=== PATIENT | male | born 1960 | race Two or more races ===

== ENCOUNTER 2022-12-07 13:22 | Emergency (ER) | payer MEDICAID ==
[~2022-12-07] VITALS: Ht 165.1 cm; Wt 82.8 kg
[2022-12-07 13:50] VITALS: BP 181/90
[2022-12-07] MEDS ORDERED: HYDROcodone-ACET 10/325MG TAB PO ONE (15:00)
[2022-12-07] MEDS ORDERED: KETOROLAC TROMETH 60MG/2ML VIAL IM ONE (15:00)
[2022-12-07] MEDS ORDERED: HYDR-4902 PO (15:43)
[2022-12-07] MEDS ORDERED: IBUP-1455 PO (15:43)
== END 2022-12-07 16:01 | disposition home or self-care (01) ==
LOC: ER 13:22
DX: S39.012A Strain of muscle, fascia and tendon of lower back, initial encounter (principal); X50.0XXA Overexertion from strenuous movement or load, initial encounter; Y93.89 Activity, other specified; Y92.89 Other specified places as the place of occurrence of the external cause; Y99.8 Other external cause status
CPT/HCPCS: 72100; 96372; 99283; J1885

== ENCOUNTER 2024-05-28 07:51 | Inpatient (IN) | payer MEDICAID ==
[2024-05-28] VITALS (25 sets, daily range): BP systolic 96–128; BP diastolic 56–79; PULSE 73–111; RESP 14–23; TEMP 98.9; O2SAT 89–96
[~2024-05-28] VITALS: Ht 162.6 cm; Wt 90.3 kg
[~2024-05-28 07:51] MED LIST: HYDR-4902 PO; IBUP-1455 PO
--- NOTE | 2024-05-28 08:36 | ED.PDOC ---
History of Present Illness HPI Comments 63-year-old male with PMHx HTN presents with a chief complaint of abdominal pain x onset yesterday. Patient also has associated diarrhea. Patient mentions that his pain is localized diffusely, non-radiating, rates his pain a 10/10 and constant in timing. Patient mentions that onset began yesterday. Patient denies any injuries or trauma prior to onset of symptoms. Patient denies any rectal bleeding, nausea, vomiting, or hematemesis. No other symptoms or modifying factors present at this time. Chief Complaint: Abdominal Pain Time Seen by MD: 08:28 Reviewed Notes: Medications, Allergies Allergies: Coded Allergies: NO KNOWN ALLERGIES (Unverified , 05/28/24) Home Meds Active Scripts Hydrocodone-Acetaminophen (Hydrocodone Bitartrate/AC 5-325 mg) 1 Tab Tab, 1 TAB PO Q6HP PRN, #20 TAB Prov:RADHA MARTÍNEZ PAC 12/07/22 Ibuprofen Micronized (Ibuprofen) 800 Mg Tab, 800 MG PO Q8HP PRN, #30 TAB Prov:RADHA MARTÍNEZ PAC 12/07/22 Information Source: Patient Mode of Arrival: Ambulatory Severity: Moderate Timing: Days Duration: Since onset Prehospital treatment: None Past Medical History PAST MEDICAL HISTORY: HTN, Denies Surgical History: Appendectomy, Denies all surgeries Family History Family History: Reviewed,noncontributory to illness, No family hx of Cancer, No family hx of DM, No family hx of Heart jalyn, No family hx of HTN, No family hx ofKidney jalyn, No family hx of Liver jalyn, No family hx of Lung jalyn, No family hx of Stroke Social History Smoker: Non-Smoker Alcohol: Denies ETOH Use Drugs: Denies Drug Use Constitutional: denies: chills, diaphoresis, fatigue, fever, malaise, sweats, weakness, others EENTM: denies: blurred vision, double vision, ear bleeding, ear discharge, ear drainage, ear pain, ear ringing, eye pain, eye redness, hearing loss, mouth pain, mouth swelling, nasal discharge, nose bleeding, nose congestion, nose pain, photophobia, tearing, throat pain, throat swelling, voice changes, others Respiratory: denies: cough, hemoptysis, orthopnea, SOB at rest, shortness of breath, SOB with excertion, stridor, wheezing, others Cardiovascular: denies: chest pain, dizzy spells, diaphoresis, Dyspnea on exertion, edema, irregular heart beat, left arm pain, lightheadedness, palpitations, PND, syncope, others Gastrointestinal: reports: abdominal pain, diarrhea; denies: abdomen distended, blood streaked bowels, constipated, dysphagia, difficulty swallowing, hematemesis, melena, nausea, poor appetite, poor fluid intake, rectal bleeding, rectal pain, vomiting, others Genitourinary: denies: burning, dysuria, flank pain, frequency, hematuria, incontinence, penile discharge, penile sore, pain, testicle pain, testicle swelling, urgency, others Neurological: denies: dizziness, fainting, headache, left sided numbness, left sided weakness, numbness, paresthesia, pre-existing deficit, right sided numbness, right sided weakness, seizure, speech problems, tingling, tremors, weakness, others Musculoskeletal: denies: back pain, gout, joint pain, joint swelling, muscle pain, muscle stiffness, neck pain, others Integumetry: denies: bruises, change in color, change in hair/nails, dryness, laceration, lesions, lumps, rash, wounds, others Allergic/Immunocompromised: denies: Difficulty Healing, Frequent Infections, Hives, Itching, others Hematologic/Lymphatic: denies: anemia, blood clots, easy bleeding, easy bruising, swollen glands, others Endocrine: denies: excessive hunger, excessive sweating, excessive thirst, excessive urination, flushing, intolerance to cold, intolerance to heat, unexplained weight gain, unexplained weight loss, others Psychiatric: denies: anxiety, bipolar disorder, depression, hopeless, panic disorder, schizophrenia, sleepless, suicidal, others All Other Systems: Reviewed and Negative Physical Exam General Appearance: No Apparent Distress, Normal HEENT: Normal ENT Inspection, Pharynx Normal, TMs Normal Neck: Full Range of Motion, Non-Tender, Normal, Normal Inspection Respiratory: Chest Non-Tender, Lungs Clear, No Accessory Muscle Use, No Respiratory Distress, Normal Breath Sounds Cardiovascular: No Edema, No JVD, No Murmur, No Gallop, Normal Peripheral Pulses, Regular Rate/Rhythm Breast Exam: Deferred Gastrointestinal: No Organomegaly, Non Tender, No Pulsatile Mass, Normal Bowel Sounds, Soft Genitalia: Deferred Pelvic: Deferred Rectal: Deferred Extremities: No calf tenderness, Normal capillary refill, Normal inspection, Normal range of motion, Non-tender, No pedal edema Musculoskeletal : Apperance: Normal 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 Was a procedure done?: No X-Ray, Labs, Meds, VS Vital Signs Date Time Temp Pulse Resp B/P (MAP) Pulse Ox O2 Delivery O2 Flow Rate FiO2 05/28/24 09:21 109 05/28/24 08:35 99.0 118 17 111/63 (79) 98 99.0 05/28/24 08:35 118 17 98 Room Air 05/28/24 08:03 97.8 121 18 140/46 (77) 98 Lab Test 05/28/24 08:50 05/28/24 08:43 Range/Units Urine Color Light-orange Yellow Urine Clarity Turbid H Clear Urine pH 5.5 5.0-9.0 Urine Specific [place] 1.029 1.001-1.035 Urine Protein 1+ H Negative Urine Ketones 1+ H Negative Urine Blood Negative Negative /uL Urine Nitrite Negative Negative Urine Bilirubin Negative Negative Urine Urobilinogen Normal Negative mg/dL Urine Leukocyte Esterase Negative Negative /uL Urine RBC <1 0 - 3 /hpf Urine WBC 1 0 - 3 /hpf Urine Squamous Epithelial Cells Few <5 /hpf Urine Bacteria None seen None Seen /hpf Urine Hyaline Casts Few 0 - 2 /lpf Urine Granular Casts Many 0 /lpf Urine Mucus Few None Seen Urine Glucose Normal Normal mg/dL White Blood Count 21.2 H 4.4-10.8 10^3/uL Red Blood Count 3.76 L 4.5-5.90 10^6/uL Hemoglobin 13.0 L 13.5-17.5 g/dL Hematocrit 37.9 L 41.0-53.0 % Mean Corpuscular Volume 100.7 H 80.0-100.0 fL Mean Corpuscular Hemoglobin 34.5 H 28.0-32.0 pg Mean Corpuscular Hemoglobin Concent 34.2 32.0-36.0 g/dL Red Cell Distribution Width 13.7 11.8-14.3 % Platelet Count 212 140-450 10^3/uL Mean Platelet Volume 9.0 6.9-10.8 fL Neutrophils (%) (Auto) 92.7 H 37.0-80.0 % Lymphocytes (%) (Auto) 4.6 L 10.0-50.0 % Monocytes (%) (Auto) 2.5 0.0-12.0 % Eosinophils (%) (Auto) 0.0 0.0-7.0 % Basophils (%) (Auto) 0.2 0.0-2.0 % Neutrophils # (Auto) 19.7 H 1.6-8.6 10 ^3/uL Lymphocytes # (Auto) 1.0 0.4-5.4 10 ^3/uL Monocytes # (Auto) 0.5 0-1.3 10 ^3/uL Eosinophils # (Auto) 0 0-0.8 10 ^3/uL Basophils # (Auto) 0 0-0.2 10 ^3/uL Nucleated Red Blood Cells 0.0 % Prothrombin Time 11.1 9.3-11.8 sec Prothrombin Time INR 1.05 0.9-1.15 Activated Partial Thromboplast Time 29.2 24.5-34.5 SEC Sodium Level 133 L 136-145 mmol/L Potassium Level 4.8 3.5-5.1 mmol/L Chloride Level 101 98-107 mmol/L Carbon Dioxide Level 24 20-31 mmol/L Anion Gap 8 5-15 Blood Urea Nitrogen 20 9-23 mg/dL Creatinine 1.28 0.700-1.30 mg/dL Glomerular Filtration Rate Calc 63 >90 mL/min BUN/Creatinine Ratio 15.6 10.0-20.0 Serum Glucose 203 H 74-106 mg/dL Calcium Level 9.3 8.7-10.4 mg/dL Total Bilirubin 1.1 H 0.2-1.0 mg/dL Aspartate Amino Transferase (AST) 24 13-40 U/L Alanine Aminotransferase (ALT) 29 7-40 U/L Alkaline Phosphatase 50 46-116 U/L Total Protein 6.7 5.7-8.2 g/dL Albumin 3.9 3.2-4.8 g/dL Current Medications Medications (Trade) Dose Ordered Sig/Carlos Route Start Time Stop Time Status Last Admin Metronidazole 100 ml @ 100 mls/hr ONCE ONCE IV 05/28/24 09:15 11/18/24 10:14 05/28/24 09:38 Abdomen/Pelvis CT Scan Impression: 1. There are findings consistent with acute sigmoid diverticulitis. There is large amount of free air within the abdominal cavity consistent with bowel rupture. There is no free or loculated fluid collection identified. 2. Hepatic steatosis. 3. Mild prostatomegaly. Time of 1ST Reevaluation: 08:58 Reevaluation 1ST: Unchanged Patient Education/Counseling: Diagnosis, Treatment, Prognosis Family Education/Counseling: No Family Present Critical Care Note Critical Care Time?: No Stability Stability form required: No I personally scribed for TATIANA WARREN MD ([email or web address]) on 05/28/24 at 08:36. Electronically submitted by Deniz Leone ([email or web address]). I personally scribed for TATIANA WARREN MD ([email or web address]) on 05/28/24 at 09:40. Electronically submitted by Deniz Leone ([email or web address]). TATIANA WARREN MD May 28, 2024 08:36
[2024-05-28 08:50] LABS: Basophils # (auto) 0 10 ^3/uL (0-0.2); Basophils % (auto) 0.2 % (0.0-2.0); Eosinophils # (auto) 0 10 ^3/uL (0-0.8); Mean Corpuscular Hgb Conc. 34.2 g/dL (32.0-36.0); Monocytes # (auto) 0.5 10 ^3/uL (0-1.3); Red Blood Cells 3.76 10^6/uL (4.5-5.90)
[2024-05-28 08:52] LABS: Hematocrit 37.9 % (41.0-53.0); Lymphocytes % (auto) 4.6 % (10.0-50.0); Mean Corpuscular Hemoglobin 34.5 pg (28.0-32.0); Mean Corpuscular Volume 100.7 fL (80.0-100.0); Monocytes % (auto) 2.5 % (0.0-12.0); Neutrophils # (auto) 19.7 10 ^3/uL (1.6-8.6); Neutrophils % (auto) 92.7 % (37.0-80.0); Platelet Count (auto) 212 10^3/uL (140-450); Red Cell Distribution Width 13.7 % (11.8-14.3); White Blood Cell 21.2 10^3/uL (4.4-10.8)
[2024-05-28 09:02] LABS: Urine Bacteria None Seen /hpf (None Seen)
--- NOTE | 2024-05-28 09:09 | DVH ---
CT ABDOMEN AND PELVIS WITHOUT CONTRAST CLINICAL HISTORY: pain TECHNIQUE: Multiple contiguous axial images of the abdomen and pelvis without intravenous contrast. The images were reformatted degenerate coronal and sagittal reconstructions. All CT scans at this medical facility are performed using dose modulation techniques as appropriate t o a performed exam including the following:Automated exposure control was utilized; adjustment of the MA and/or KV according to patient size; and use of iterative reconstruction technique. Radiation Dose Information: CT Dose: CTDI volume is 8.3 mGy. Dose-length product is 504 mGy*cm Comparison: None FINDINGS: Evaluation of the abdomen and pelvis is limited without intravenous contrast. There are multiple diverticula in the sigmoid colon. There is wall irregularity and fat stranding in the sigmoid colon consistent with acute diverticulitis. There is large amount of free air within the abdominal cavity consistent with bowel rupture. There is no free or loculated fluid collection ident ified. There are no dilated small bowel loops. There is diffuse fatty infiltration of the liver. The gallbladder, pancreas, kidneys, adrenal glan ds, and spleen appear within normal limits. There is no gross evidence of abdominal lymphadenopathy. There is no free fluid or free air. The abdominal aorta and IVC appear within normal limits. Bladder is poorly filled limiting evaluation. There is mild prostatomegaly. There is no gross evidenc e of a pelvic mass or lymphadenopathy. There is no free fluid collection. There is mild scarring versus atelectasis in the right lung base. The left lung base is clear. There is no acute osseous abnormality. IMPRESSION: 1. There are findings consistent with acute sigmoid diverticulitis. There is large amount of free air within the abdominal cavity consistent with bowel rupture. There is no free or loculated fluid salome ection identified. 2. Hepatic steatosis. 3. Mild prostatomegaly. The results were discussed with dr. Sharma by Dr. Michael Allison on 05 28 24, 907 hours. HS:Y
[2024-05-28 09:15] LABS: Urine Blood Negative /uL (Negative); Urine Clarity Turbid (Clear); Urine Color Light-Orange (Yellow); Urine Hyaline Cast FEW /lpf (0 - 2); Urine Mucus FEW (None Seen); Urine Protein, UAD 1+ (Negative); Urine Specific Gravity 1.029 (1.001-1.035); Urine Urobilinogen Normal (Negative); Urine WBC 1 /hpf (0 - 3); Urine pH 5.5 (5.0-9.0)
[2024-05-28 09:16] LABS: Alanine Aminotransferase 29 U/L (7-40); Albumin 3.9 g/dL (3.2-4.8); Alkaline Phosphatase 50 U/L (46-116); Anion Gap 8 (5-15); Aspartate Aminotransferase 24 U/L (13-40); BUN/Creatinine Ratio 15.6 (10.0-20.0); Bilirubin, Total 1.1 mg/dL (0.2-1.0); Blood Urea Nitrogen 20 mg/dL (9-23); Calcium 9.3 mg/dL (8.7-10.4); Carbon Dioxide 24 mmol/L (20-31); Chloride 101 mmol/L (98-107); Glucose 203 mg/dL (74-106); Potassium 4.8 mmol/L (3.5-5.1); Sodium 133 mmol/L (136-145); Total Protein 6.7 g/dL (5.7-8.2)
[2024-05-28 09:37] LABS: INR 1.05 (0.9-1.15); Partial Thromboplastin Time 29.2 SEC (24.5-34.5); Prothrombin Time 11.1 sec (9.3-11.8)
[2024-05-28] MEDS: metroNIDAZOLE 500MG/100ML 100 ML IV ONE ×2 (09:38→15:13)
[2024-05-28] MEDS: ONDANSETRON HCL 4 MG/2 ML VIAL IV ONE ×2 (09:40→14:30)
[2024-05-28] MEDS: MORPHINE SULFATE 4 MG/ML SYR/VIAL IV ONE (09:41)
[2024-05-28] MEDS ORDERED: fentaNYL CITRATE 5 ML ONE (10:18)
[2024-05-28] MEDS ORDERED: PROPOFOL 10 MG/ML 20 ML IV ONE (10:20)
[2024-05-28] MEDS: SUCCINYLCHOLINE CHLORIDE 20 MG/ML 10ML VIAL IV ONE (10:20)
[2024-05-28] MEDS ORDERED: ROCURONIUM 10MG/ML 10ML VIAL IV ONE ×2 (10:20→13:12)
--- NOTE | 2024-05-28 11:01 | DVH ---
CHEST RADIOGRAPH Indication: PRE OP, pain Technique: Single frontal view of the chest was obtained Comparison: None FINDINGS: Lines and Tubes: NG tube in stomach Lungs: No focal consolidation. Pleura: No effusion. No pneumothorax. Cardiomediastinal contours: Unremarkable Bones: No acute osseous abnormality. IMPRESSION: No acute cardiopulmonary disease.
[2024-05-28] MEDS ORDERED: ePHEDrine SULFATE 50 MG/ML AMP ONE (11:53)
[2024-05-28] MEDS ORDERED: PHENYLEPHRINE HCL 10 MG/ML VL ONE (11:53)
[2024-05-28] MEDS ORDERED: MEPERIDINE HCL (25 MG/ML) 1ML VIAL ONE (12:23)
[2024-05-28] MEDS ORDERED: FUROSEMIDE 20 MG/2 ML VIAL ONE (13:17)
[2024-05-28] MEDS ORDERED: SUGAMMADEX 200mg/2ml Vial (100MG/ML) IV ONE (13:54)
[2024-05-28] MEDS ORDERED: MEPERIDINE HCL (25 MG/ML) 1ML VIAL IV PRN (14:30)
[2024-05-28] MEDS ORDERED: ACETAMINOPHEN IV 1000 MG/100ML (10MG/ML) IV PRN (14:30)
[2024-05-28] MEDS ORDERED: D5W/SOD CHL 0.45%/KCL 20MEQ 1,000 ML IV ONE (14:45)
[2024-05-28] MEDS: HYDROmorphone HCL 2 MG/ML VL/or syr IV ONE (14:45)
[2024-05-28] MEDS ORDERED: MORPHINE SULFATE INJ 2 MG/ml SYRG IV PRN ×2 (14:45→15:30)
[2024-05-28] MEDS ORDERED: NITROGLYCERIN 0.4 MG SL TAB SL PRN ×2 (14:45→15:30)
[2024-05-28] MEDS: HYDROmorphone HCL 2 MG/ML VL/or syr IV PRN (14:57)
--- NOTE | 2024-05-28 15:01 | DVHOP ---
DATE OF SURGERY: 05/28/2024 PREOPERATIVE DIAGNOSIS: Pneumoperitoneum, ruptured colon. POSTOPERATIVE DIAGNOSIS: Pneumoperitoneum secondary to ruptured ____ obstructing cancer of the colon SURGEON: Mj Beltran MD ANESTHESIA: General endotracheal. ANESTHESIOLOGIST: Dr. Denny. PROCEDURES: Exploratory laparotomy, resection of rectosigmoid colon, resection of rectal cancer, descending colon colostomy. DESCRIPTION OF PROCEDURE: Under general endotracheal anesthesia, with the patient's skin prepped and draped, a midline incision was made and feculent material was cultured. The abdomen was entered ____ , which was then irrigated and the sigmoid colon was palpated. There was a huge swelling and distention of the distal sigmoid colon with obvious blood and feces in the retroperitoneal space behind the sigmoid colon. This was incised and the contents evacuated. The distal most sigmoid colon was then palpated that was beneath the peritoneal reflection of palpable induration. At this point, I opened the peritoneal reflection of the rectum and discovered a perforated cancer. I had resected this perforated cancer to the best of my ability; however, the cancer was already penetrating into surrounding tissues and it was not completely removable. I had called for frozen section, which was delayed by 2 hours. Subsequently removed the removable portion of the rectal cancer and oversewn the distal remnant, which from above seems to be about 2-3 cm above the anal verge. The pelvis was then profusely irrigated. A 10 mm Edu-Valenzuela drain was placed to the vicinity and the retroperitoneal space was recreated by closure of the peritoneum with a 2-0 Monocryl suture. Abdomen and pelvis with profusely irrigated with warm saline. Saline was aspirated. A colostomy defect was created in the left abdominal wall through which the descending colon was exteriorized. Following assurance of complete hemostasis, the abdomen was closed using 2-0 Monocryl suture for approximation of the peritoneum, a #1 double-stranded PDS suture for approximation of the fascia. Skin was approximated using metallic skin emil. Following closure of the abdomen and exteriorization of the 10 mm Edu-Valenzuela drain through a separate incision to which it was secured with a 2-0 nylon suture. The colostomy was matured using 2-0 Monocryl sutures. Palpation confirmed patency of the colostomy. The patient remained hemodynamically stable throughout the procedure. However, due to his history of heavy alcohol intake, he will be transferred to the Intensive Care Unit. He was extubated at the termination of the procedure, left the operating room following an accurate needle and sponge count. His family was thoroughly informed in the waiting area. MD RAYMOND Padilla TID: [id number] RECEIPT: [id number]
[2024-05-28] MEDS: PIPERACILLIN-TAZOB 3.375GM 100 ML IV ONE (15:04)
[2024-05-28] MEDS: LIDOCAINE W/ EPINEPHRINE 1% 20ML VIAL ONE (15:11)
[2024-05-28] MEDS: METHYLENE BLUE 0.5% 5MG/ML 10ml AMP IV ONE (15:12)
[2024-05-28] MEDS: BUPIVACAINE 0.5% P/F INJ 10 ML VIAL ONE (15:12)
[2024-05-28] MEDS: D5W/LACTATED RINGERS 1,000 ML IV SCH (15:15)
[2024-05-28] MEDS: ceFAZolin 2 GM/D5W50ml 50 ML IV ONE (15:15)
[2024-05-28] MEDS: D5W/SOD CHL 0.45%/KCL 20MEQ 1,000 ML IV ONE (15:16)
[2024-05-28] MEDS ORDERED: TPN PER PHARMACY 0 ML IV SCH (15:30)
[2024-05-28] MEDS ORDERED: LABETALOL HCL 20 MG/4 ML VL IV PRN (15:30)
[2024-05-28] MEDS: cefTRIAXone 1GM/50ML D5W 50 ML IV SCH (15:30)
--- NOTE | 2024-05-28 15:44 | DVHHP2 ---
History of Present Illness Reason for Visit: Abdominal pain History of Present Illness The patient was a 63-year-old male presenting to the emergency room with severe abdominal pain. CT scan of the abdomen and pelvis was performed which revealed free air in the belly. Patient underwent exploratory laparotomy, with findings of perforated cancer, resection of the rectal cancer, with notation of the cancer invading surrounding area. The patient was assessed in the recovery room area, noted to be hemodynamically stable with some tachycardia. Significant history of the patient includes hypertension, and EtOH use. Cardiovascular: HTN Past Surgical History: Appendectomy Family History: None Smoke: No ALCOHOL: heavy Drugs: None Lives: with Family Review of Systems Constitutional: No: Fever, Chills, Sweats, Weakness, Malaise, Other Eyes: No: Pain, Vision change, Conjunctivae inflammation, Eyelid inflammation, Other, Redness ENT: No: Ear pain, Ear discharge, Nose pain, Nose discharge, Nose congestion, Mouth pain, Mouth swelling, Throat pain, Throat swelling, Other Respiratory: No: Cough, Dry, Shortness of breath, SOB with excertion, Wheezing, Hemoptysis, Pleuritic Pain, Sputum, Wheezing, Other Gastrointestinal: Abdominal Pain Genitourinary: No Dysuria, No Frequency, No Incontinence, No Hematuria, No Rete ntion, No Other Musculoskeletal: No: other, neck pain, shoulder pain, arm pain, back pain, hand pain, leg pain, foot pain Skin: No: Rash, Lesions, Jaundice, Bruising, Other Neurological: No: Weakness, Numbness, Incoordination, Change in speech, Confusion, Seizures, Other Allergies: Coded Allergies: NO KNOWN ALLERGIES (Unverified , 05/28/24) Medications Current Medications Medications Dose Ordered Sig/Carlos Route Start Time Stop Time Status Last Admin Dose Admin Nitroglycerin 0.4 mg Q5MINP PRN SL 05/28/24 14:45 Morphine Sulfate 2 mg Q30M PRN IV 05/28/24 14:45 Folic Acid 1 mg/ Magnesium Sulfate 8 meq/ Multivitamins 10 ml/Thiamine HCl 100 mg/Sodium Chloride 1,013.2 ml @ 126.247 mls/hr DAILY@1800 INJ 05/28/24 18:00 Dextrose/Lactated Ringer's 1,000 ml @ 125 mls/hr Q8H IV 05/28/24 15:15 UNV Nitroglycerin 0.4 mg Q5MINP PRN SL 05/28/24 15:30 UNV Morphine Sulfate 2 mg Q30M PRN IV 05/28/24 15:30 UNV Amino Acids 0 ml @ 0 mls/hr PER PHARMACY IV 05/28/24 15:30 UNV Metronidazole 100 ml @ 100 mls/hr Q8HR IV 05/28/24 22:00 UNV Ceftriaxone Sodium 50 ml @ 100 mls/hr DAILY@09 IV 05/28/24 15:30 UNV Morphine Sulfate 2 mg Q4HPRN PRN IV 05/28/24 15:30 UNV Ondansetron HCl 4 mg Q6HP PRN IV 05/28/24 15:30 UNV Labetalol HCl 10 mg Q2HPRN PRN IV 05/28/24 15:30 UNV Pantoprazole Sodium 40 mg DAILY IV 05/29/24 10:00 UNV Exam Vital Signs Vital Signs Date Time Temp Pulse Resp B/P (MAP) Pulse Ox O2 Delivery O2 Flow Rate FiO2 05/28/24 14:17 Mask 10.0 05/28/24 10:26 104 05/28/24 10:11 21 126/66 05/28/24 10:06 96 21 05/28/24 10:04 98.2 98.2 General Appearance: Alert, mild distress, Other (Patient was still sleepy secondary to anesthesia) HEENT: Atraumatic, PERRLA Respiratory: Clear to auscultation, Other (Nasal cannula at 4 liters/minute) Cardiovascular: Normal S1, Normal S2, Other (Sinus tachycardia) Abdominal: Other (Colostomy) Extremities: No clubbing, No cyanosis, No edema Skin: No rashes, No breakdown Psych/Mental Status: Mental status NL Labs/Xrays Labs Test 05/28/24 08:50 05/28/24 08:43 Range/Units Urine Color Light-orange Yellow Urine Clarity Turbid H Clear Urine pH 5.5 5.0-9.0 Urine Specific [place] 1.029 1.001-1.035 Urine Protein 1+ H Negative Urine Ketones 1+ H Negative Urine Blood Negative Negative /uL Urine Nitrite Negative Negative Urine Bilirubin Negative Negative Urine Urobilinogen Normal Negative mg/dL Urine Leukocyte Esterase Negative Negative /uL Urine RBC <1 0 - 3 /hpf Urine WBC 1 0 - 3 /hpf Urine Squamous Epithelial Cells Few <5 /hpf Urine Bacteria None seen None Seen /hpf Urine Hyaline Casts Few 0 - 2 /lpf Urine Granular Casts Many 0 /lpf Urine Mucus Few None Seen Urine Glucose Normal Normal mg/dL White Blood Count 21.2 H 4.4-10.8 10^3/uL Red Blood Count 3.76 L 4.5-5.90 10^6/uL Hemoglobin 13.0 L 13.5-17.5 g/dL Hematocrit 37.9 L 41.0-53.0 % Mean Corpuscular Volume 100.7 H 80.0-100.0 fL Mean Corpuscular Hemoglobin 34.5 H 28.0-32.0 pg Mean Corpuscular Hemoglobin Concent 34.2 32.0-36.0 g/dL Red Cell Distribution Width 13.7 11.8-14.3 % Platelet Count 212 140-450 10^3/uL Mean Platelet Volume 9.0 6.9-10.8 fL Neutrophils (%) (Auto) 92.7 H 37.0-80.0 % Lymphocytes (%) (Auto) 4.6 L 10.0-50.0 % Monocytes (%) (Auto) 2.5 0.0-12.0 % Eosinophils (%) (Auto) 0.0 0.0-7.0 % Basophils (%) (Auto) 0.2 0.0-2.0 % Neutrophils # (Auto) 19.7 H 1.6-8.6 10 ^3/uL Lymphocytes # (Auto) 1.0 0.4-5.4 10 ^3/uL Monocytes # (Auto) 0.5 0-1.3 10 ^3/uL Eosinophils # (Auto) 0 0-0.8 10 ^3/uL Basophils # (Auto) 0 0-0.2 10 ^3/uL Nucleated Red Blood Cells 0.0 % Prothrombin Time 11.1 9.3-11.8 sec Prothrombin Time INR 1.05 0.9-1.15 Activated Partial Thromboplast Time 29.2 24.5-34.5 SEC Sodium Level 133 L 136-145 mmol/L Potassium Level 4.8 3.5-5.1 mmol/L Chloride Level 101 98-107 mmol/L Carbon Dioxide Level 24 20-31 mmol/L Anion Gap 8 5-15 Blood Urea Nitrogen 20 9-23 mg/dL Creatinine 1.28 0.700-1.30 mg/dL Glomerular Filtration Rate Calc 63 >90 mL/min BUN/Creatinine Ratio 15.6 10.0-20.0 Serum Glucose 203 H 74-106 mg/dL Calcium Level 9.3 8.7-10.4 mg/dL Total Bilirubin 1.1 H 0.2-1.0 mg/dL Aspartate Amino Transferase (AST) 24 13-40 U/L Alanine Aminotransferase (ALT) 29 7-40 U/L Alkaline Phosphatase 50 46-116 U/L Total Protein 6.7 5.7-8.2 g/dL Albumin 3.9 3.2-4.8 g/dL Assessment/Plan Assessment/Plan Impression: -perforated bowel secondary to probable colorectal cancer -obesity -primary hypertension -? ETOH use -peritonitis, sepsis Plan: -admit to ICU -NG to low intermittent suction -p.r.n. antihypertensives -continue banana bag daily -PICC line -start TPN tomorrow -pain management -antibiotic therapy: Rocephin, Flagyl -PUD, DVT prophylaxis -repeat labs in a.m. Total time spent with patient discussing and formulating plan of care: 35 minutes. This medical document was created using an electronic medical record system with [employer] dictation system. Although this document has been carefully reviewed, there may still be some phonetic and typographical errors. These areas are purely typographical due to imperfections of the software programs, and do not reflect any compromise in the patient's medical care. Plan discussed with: Patient, Other (RN) My Orders Orders - VERONICA MUNROE OFFICE TECHNOLOGIST Procedure Category Date Status Time Admit ADMIT 05/28/24 Transmitted 15:29 Nitroglycerin PHA 05/28/24 Logged Sublingual (Ntrostat 15:30 Morphine Sulfate PHA 05/28/24 Logged Injection 15:30 Oxygen By Nasal RT 05/28/24 Transmitted Cannula 15:29 Tpn Per Pharmacy PHA 05/28/24 Logged 15:30 Metronidazole PHA 05/28/24 Logged 500mg/100ml (Flagyl 22:00 Ceftriaxone 1gm/50ml PHA 05/28/24 Logged D5w (Rocephin) 15:30 Morphine Sulfate PHA 05/28/24 Logged Injection 15:30 Ondansetron Hcl PHA 05/28/24 Logged (Zofran) 15:30 Labetalol Hcl PHA 05/28/24 Logged (Labetalol Hcl) 15:30 Complete Blood Count LAB 05/29/24 Verified 04:00 Comprehensive LAB 05/29/24 Verified Metabolic Panel 04:00 Pantoprazole PHA 05/29/24 Logged (Protonix) 10:00 Date of Service: May 28, 2024 Billing Provider: VERONICA MUNROE NP Common Visit Codes: [id number] CARE 30-74 MIN VERONICA MUNROE NP May 28, 2024 15:44
[2024-05-28] MEDS ORDERED: DEXTROSE (50%) 50ML SYRG IV SCH (16:30)
[2024-05-28 16:46] LABS: Phosphorus 3.1 mg/dL (2.4-5.1)
[2024-05-28] MEDS: FOLIC ACID 1 MG, MAGNESIUM SULF SDV 50% 8 MEQ, MULTIPLE VITAMIN 10 ML, THIAMINE INJ 100... INJ SCH (18:00)
[2024-05-28] MEDS: InsuLIN REG 1unit/0.01ml Soln (100units/ml) SC SCH (18:00)
[2024-05-28] MEDS: ACCU-CHEK COMFORT CURVE STRIP VI SCH (18:00)
[2024-05-28 20:02] LABS: INR 1.08 (0.9-1.15); Partial Thromboplastin Time 31.6 SEC (24.5-34.5); Prothrombin Time 11.4 sec (9.3-11.8)
[2024-05-28] MEDS: MORPHINE SULFATE INJ 2 MG/ml SYRG IV PRN (21:03)
[2024-05-28] MEDS: metroNIDAZOLE 500MG/100ML 100 ML IV SCH (21:58)
[2024-05-28] MEDS: AMINO ACID INFUSION IN D10W 1,000 ML IV ONE (21:59)
[2024-05-29] VITALS (110 sets, daily range): BP systolic 93–136; BP diastolic 36–105; PULSE 91–110; RESP 14–28; TEMP 98.6–99.7; O2SAT 87–98
--- NOTE | 2024-05-29 01:44 | DVHINCON2 ---
DATE OF CONSULTATION: 05/28/2024 HISTORY OF PRESENT ILLNESS: The patient is evaluated in the emergency room for ruptured diverticulitis. The patient is a 63-year-old male with sudden onset of severe abdominal pain 24 hours ago. The patient also had associated diarrhea. The patient denied rectal bleeding, nausea, vomiting, hematemesis. The patient's previous surgery had ruptured appendicitis operated on in [place]. The patient has history of hypertension. REVIEW OF SYSTEMS: He has no report of weight change. There is no report of change in the caliber of bowel movements. All 12 systems reviewed are negative for contributory information with the exception of abdominal pain, diarrhea as reported above. SOCIAL HISTORY: The patient is a smoker and drinker. He uses no illicit drugs He admits to heavy alcohol use, the last alcohol use was 24 hours ago. ALLERGIES: The patient has no known medicinal allergies. PHYSICAL EXAMINATION: HEENT: Pupils are equal, round, react to light equally. Sclerae nonicteric. Extraocular motion is intact. Uvula midline. Trachea midline. Carotids are full without bruits. Jugular veins are collapsed. HEART: Regular rate and rhythm without murmur or gallop. ABDOMEN: Diffusely tender and distended with guarding and rebound tenderness, most exquisitely tender is the left lower quadrant. The patient has no CVA tenderness. EXTREMITIES: No peripheral vascular insufficiency is noted. No venous stasis. LABORATORY, DIAGNOSTIC AND IMAGING DATA: The patient's laboratory evaluation shows a white count of 21,200 with a left shift. Neutrophil count is 92.7. The patient's platelet count is adequate 212. H and H is normal. Hemoglobin 13, hematocrit 37.9. PT, PTT, INR is 1.05. PT 11.1. Chemistry shows hyponatremia, elevated blood glucose and elevated bilirubin. Imaging was done by means of a CT scan of the abdomen and pelvis, which shows hepatic steatosis, mild prostatomegaly and a large amount of pneumoperitoneum with evidence of diverticulitis in the sigmoid colon. ASSESSMENT AND PLAN: Pneumoperitoneum, peritonitis secondary to fecal spill and ruptured diverticulitis. The patient understands the need for exploratory laparotomy, resection of sigmoid colon and colostomy. Explained to the patient and his in Cambodian. MD RAYMOND Padilla TID: [id number] RECEIPT: [id number]
[2024-05-29 04:30] LABS: Basophils # (auto) 0 10 ^3/uL (0-0.2); Basophils % (auto) 0.1 % (0.0-2.0); Eosinophils # (auto) 0 10 ^3/uL (0-0.8); Eosinophils % (auto) 0.1 % (0.0-7.0); Hemoglobin 9.2 g/dL (13.5-17.5); Monocytes # (auto) 0.5 10 ^3/uL (0-1.3); Red Cell Distribution Width 13.6 % (11.8-14.3)
[2024-05-29 04:32] LABS: Hematocrit 26.7 % (41.0-53.0); Lymphocytes # (auto) 0.8 10 ^3/uL (0.4-5.4); Lymphocytes % (auto) 7.4 % (10.0-50.0); Mean Corpuscular Hgb Conc. 34.5 g/dL (32.0-36.0); Mean Corpuscular Volume 101.4 fL (80.0-100.0); Monocytes % (auto) 4.4 % (0.0-12.0); Neutrophils # (auto) 9.9 10 ^3/uL (1.6-8.6); Platelet Count (auto) 146 10^3/uL (140-450); Red Blood Cells 2.64 10^6/uL (4.5-5.90); White Blood Cell 11.2 10^3/uL (4.4-10.8)
[2024-05-29 04:33] LABS: Alanine Aminotransferase 16 U/L (7-40); Albumin 2.8 g/dL (3.2-4.8); Alkaline Phosphatase 40 U/L (46-116); Anion Gap 4 (5-15); Aspartate Aminotransferase 18 U/L (13-40); BUN/Creatinine Ratio 13.7 (10.0-20.0); Blood Urea Nitrogen 10 mg/dL (9-23); Calcium 8.1 mg/dL (8.7-10.4); Carbon Dioxide 27 mmol/L (20-31); Chloride 103 mmol/L (98-107); Glucose 152 mg/dL (74-106); Magnesium 2.2 mg/dL (1.6-2.6); Phosphorus 1.4 mg/dL (2.4-5.1); Potassium 4.1 mmol/L (3.5-5.1); Sodium 134 mmol/L (136-145)
[2024-05-29 04:34] LABS: Bilirubin, Total 0.4 mg/dL (0.2-1.0); Total Protein 4.7 g/dL (5.7-8.2)
--- NOTE | 2024-05-29 07:15 | DVHPN2 ---
Progress Note Date Seen: May 29, 2024 Medical Necessity Reason Pt with a Central, PICC or Fol: Yes Objective vital signs Vital Sign Date Time Temp Pulse Resp B/P (MAP) Pulse Ox O2 Delivery O2 Flow Rate FiO2 05/29/24 06:49 20 96 Room Air* 0 21 05/29/24 06:46 96 110/56 (74) 05/29/24 04:01 99.2 99.2 Total Intake and Output 05/28/24 05/28/24 05/29/24 15:00 23:00 07:00 Intake Total 766 ml 887 ml Output Total 70 ml 1465 ml Balance 696 ml -578 ml medications Current Medications Medications Dose Ordered Sig/Carlos Route Start Time Stop Time Status Last Admin Dose Admin Folic Acid 1 mg/ Magnesium Sulfate 8 meq/ Multivitamins 10 ml/Thiamine HCl 100 mg/Sodium Chloride 1,013.2 ml @ 126.247 mls/hr DAILY@1800 INJ 05/28/24 18:00 Dextrose/Lactated Ringer's 1,000 ml @ 125 mls/hr Q8H IV 05/28/24 15:15 05/29/24 07:03 125 MLS/HR Nitroglycerin 0.4 mg Q5MINP PRN SL 05/28/24 15:30 Morphine Sulfate 2 mg Q30M PRN IV 05/28/24 15:30 Amino Acids 0 ml @ 0 mls/hr PER PHARMACY IV 05/28/24 15:30 Metronidazole 100 ml @ 100 mls/hr Q8HR IV 05/28/24 22:00 05/29/24 05:26 100 MLS/HR Ceftriaxone Sodium 50 ml @ 100 mls/hr DAILY@09 IV 05/28/24 15:30 Morphine Sulfate 2 mg Q4HPRN PRN IV 05/28/24 15:30 05/29/24 05:51 2 MG Ondansetron HCl 4 mg Q6HP PRN IV 05/28/24 15:30 Labetalol HCl 10 mg Q2HPRN PRN IV 05/28/24 15:30 Pantoprazole Sodium 40 mg DAILY IV 05/29/24 10:00 Diagnostic Test (Pha) 1 strip Q6HR 05/28/24 18:00 05/29/24 05:31 1 STRIP Insulin Human Regular FOLLOW SLIDING SCALE Q6HR SC 05/28/24 18:00 05/29/24 05:25 2 UNITS Dextrose 50 ml UD IV 05/28/24 16:30 laboratory and microbiology Laboratory Tests 05/29/24 03:41 Test 05/29/24 03:41 Range/Units Serum Glucose 152 H 74-106 mg/dL Problem List/Assessment/Plan Problem List/Assessment/Plan 05/29/24 ADDENDUM TO OPERATIVE REPORT: THE TUMOR WAS DEEP IN A VERY NARROW PELVIS AND WAS NOT COMPLETELY RESECTABLE DUE TO PERFORATION OF THE TUMOR WHICH WAS OBSTRUCTING THE LUMEN, DUE TO THE OBSTRUCTION IT SEEMS THAT THE VERY DILATED RECTO SIGMOID COLON PROXIMAL TO THE TUMOR(LATER IDENTIFIED ADENOCARCINOMA ON DELAYED FROZEN SECTION) RUPTURED, DUE TO MORBID OBESITY THE RECTOSIGMOID SEGMENT WAS RESECTED SEPARATELY IN ORDER TO FACILITATE VISUALIZATION OF THE PERFORATED CANCER DISTAL TO IT. FOLLOWING RESECTION I ADMINISTERED METHYLENE BLUE TO ASSURE INTEGRITY OF THE URETER VISUALIZATION WAS MADE IMPOSSIBLE DUE TO THE CHRONICITY OF SIGMOID PERFORATION AND ADHERENCE OF RETROPERITONEAL STRUCTURES. NO METHYLENE BLUE EXTRAVASATION WAS DETECTED. THE REMNANT OF RECTUM WAS GROSSLY POSITIVE TUMOR MARGIN WAS MARKED WITH METALLIC HEMOCLIPS FOR LATER IDENTIFICATION . Plan discussed with: Spouse, Daughter RONALD LANDA MD May 29, 2024 07:15
--- NOTE | 2024-05-29 08:45 | DVHINCON2 ---
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 Patient presented with severe abdominal pains. CT of the abdomen and pelvis showed free air in the abdomen. The patient underwent exploratory lap with findings of obstruction and perforated cancer, and the surgical findings were that the tumor was deep in a very narrow pelvis and was not completely resectable due to perforation of the tumor which was also obstructing the lumen. There was proximal rectosigmoid colon d ilatation because of the obstruction. The rectosigmoid segment was resected separately in order to facilitate visualization of the perforation of the cancer distal to eight. The gross tumor of the rectum was left behind. The patient has a colostomy The patient is in the ICU and recovering No complaints of any weight loss. No headaches nausea vomiting. Family History Brother had colon cancer Social History No smoking. The patient does drink least six large beers a day Allergies: Coded Allergies: NO KNOWN ALLERGIES (Unverified , 05/28/24) Home Meds Active Scripts Hydrocodone-Acetaminophen (Hydrocodone Bitartrate/AC 5-325 mg) 1 Tab Tab, 1 TAB PO Q6HP PRN, #20 TAB Prov:RADHA MARTÍNEZ PAC 12/07/22 Ibuprofen Micronized (Ibuprofen) 800 Mg Tab, 800 MG PO Q8HP PRN, #30 TAB Prov:RADHA MARTÍNEZ PAC 12/07/22 Current Medications Current Medications Medications (Trade) Dose Ordered Sig/Carlos Route PRN Reason Start Time Stop Time Status Last Admin Acetaminophen (Ofirmev) 1,000 mg [id number] PRN IV PAIN SCALE 1-3 OR TEMP>100.4 05/28/24 14:30 05/28/24 14:36 DC Hydromorphone HCl (Dilaudid Injection) 0.5 mg Q10M PRN IV SEVERE PAIN (7-10 PAIN SCALE) 05/28/24 14:30 05/28/24 15:11 DC 05/28/24 14:57 Meperidine HCl (Demerol Injection) 25 mg Q10M PRN IV MODERATE PAIN (4-6 PAIN SCALE) 05/28/24 14:30 05/28/24 15:02 DC Nitroglycerin (Ntrostat Sublingual) 0.4 mg Q5MINP PRN SL FOR CHEST PAIN 05/28/24 14:45 05/28/24 15:45 DC Morphine Sulfate 2 mg Q30M PRN IV FOR CHEST PAIN 05/28/24 14:45 05/28/24 15:45 DC Folic Acid 1 mg/ Magnesium Sulfate 8 meq/ Multivitamins 10 ml/Thiamine HCl 100 mg/Sodium Chloride 1,013.2 ml @ 126.247 mls/hr DAILY@1800 INJ 05/28/24 18:00 Dextrose/Lactated Ringer's 1,000 ml @ 125 mls/hr Q8H IV 05/28/24 15:15 05/29/24 07:03 Nitroglycerin (Ntrostat Sublingual) 0.4 mg Q5MINP PRN SL FOR CHEST PAIN 05/28/24 15:30 Morphine Sulfate 2 mg Q30M PRN IV FOR CHEST PAIN 05/28/24 15:30 Amino Acids 0 ml @ 0 mls/hr PER PHARMACY IV 05/28/24 15:30 Metronidazole 100 ml @ 100 mls/hr Q8HR IV 05/28/24 22:00 05/29/24 05:26 Ceftriaxone Sodium 50 ml @ 100 mls/hr DAILY@09 IV 05/28/24 15:30 Morphine Sulfate 2 mg Q4HPRN PRN IV SEVERE PAIN (7-10 PAIN SCALE) 05/28/24 15:30 05/29/24 05:51 Ondansetron HCl (Zofran) 4 mg Q6HP PRN IV NAUSEA / VOMITING 05/28/24 15:30 Labetalol HCl (Labetalol HCl) 10 mg Q2HPRN PRN IV SBP>150 05/28/24 15:30 Pantoprazole Sodium (Protonix) 40 mg DAILY IV 05/29/24 10:00 Diagnostic Test (Pha) (Accu-Chek Comfort Curve T) 1 strip Q6HR 05/28/24 18:00 05/29/24 05:31 Insulin Human Regular (InsuLIN R) FOLLOW SLIDING SCALE Q6HR SC 05/28/24 18:00 05/29/24 05:25 Dextrose 50 ml UD IV 05/28/24 16:30 Vital Signs Vital Signs Date Time Temp Pulse Resp B/P (MAP) Pulse Ox O2 Delivery O2 Flow Rate FiO2 05/29/24 07:46 100 20 107/58 (74) 97 05/29/24 06:49 Room Air* 0 21 05/29/24 04:01 99.2 99.2 Physical Exam Moderately built and nourished, in no acute distress, alert and oriented. No jaundice Head and neck: Unremarkable for any masses or neck nodes. No conjunctival or mucosal hemorrhage Lungs: Clear Cardiovascular: S1-S2 heard well Abdomen: No organomegaly, tenderness or ascites. Bowel sounds are present. Status post abdominal surgery and has a left lower colostomy Extremities: No clubbing edema cyanosis or calf tenderness. Skin: Unremarkable for petechia purpura ecchymosis Lymphadenopathy: None Neurological exam: No focal deficit Labs/Diagnostic Data Labs Test 05/29/24 05:22 05/29/24 03:41 05/28/24 19:08 05/28/24 08:50 Range/Units POC Glucose 138 H 70-106 mg/dl White Blood Count 11.2 #H 4.4-10.8 10^3/uL Red Blood Count 2.64 L 4.5-5.90 10^6/uL Hemoglobin 9.2 #L 13.5-17.5 g/dL Hematocrit 26.7 #L 41.0-53.0 % Mean Corpuscular Volume 101.4 H 80.0-100.0 fL Mean Corpuscular Hemoglobin 35.0 H 28.0-32.0 pg Mean Corpuscular Hemoglobin Concent 34.5 32.0-36.0 g/dL Red Cell Distribution Width 13.6 11.8-14.3 % Platelet Count 146 140-450 10^3/uL Mean Platelet Volume 9.4 6.9-10.8 fL Neutrophils (%) (Auto) 88.0 H 37.0-80.0 % Lymphocytes (%) (Auto) 7.4 L 10.0-50.0 % Monocytes (%) (Auto) 4.4 0.0-12.0 % Eosinophils (%) (Auto) 0.1 0.0-7.0 % Basophils (%) (Auto) 0.1 0.0-2.0 % Neutrophils # (Auto) 9.9 H 1.6-8.6 10 ^3/uL Lymphocytes # (Auto) 0.8 0.4-5.4 10 ^3/uL Monocytes # (Auto) 0.5 0-1.3 10 ^3/uL Eosinophils # (Auto) 0 0-0.8 10 ^3/uL Basophils # (Auto) 0 0-0.2 10 ^3/uL Nucleated Red Blood Cells 0.0 % Sodium Level 134 L 136-145 mmol/L Potassium Level 4.1 3.5-5.1 mmol/L Chloride Level 103 98-107 mmol/L Carbon Dioxide Level 27 20-31 mmol/L Anion Gap 4 L 5-15 Blood Urea Nitrogen 10 # 9-23 mg/dL Creatinine 0.73 0.700-1.30 mg/dL Glomerular Filtration Rate Calc 102 >90 mL/min BUN/Creatinine Ratio 13.7 10.0-20.0 Serum Glucose 152 H 74-106 mg/dL Calcium Level 8.1 L 8.7-10.4 mg/dL Phosphorus Level 1.4 L 2.4-5.1 mg/dL Magnesium Level 2.2 1.6-2.6 mg/dL Total Bilirubin 0.4 0.2-1.0 mg/dL Aspartate Amino Transferase (AST) 18 13-40 U/L Alanine Aminotransferase (ALT) 16 7-40 U/L Alkaline Phosphatase 40 L 46-116 U/L Total Protein 4.7 L 5.7-8.2 g/dL Albumin 2.8 L 3.2-4.8 g/dL Prothrombin Time 11.4 9.3-11.8 sec Prothrombin Time INR 1.08 0.9-1.15 Activated Partial Thromboplast Time 31.6 24.5-34.5 SEC Urine Color Light-orange Yellow Urine Clarity Turbid H Clear Urine pH 5.5 5.0-9.0 Urine Specific [place] 1.029 1.001-1.035 Urine Protein 1+ H Negative Urine Ketones 1+ H Negative Urine Blood Negative Negative /uL Urine Nitrite Negative Negative Urine Bilirubin Negative Negative Urine Urobilinogen Normal Negative mg/dL Urine Leukocyte Esterase Negative Negative /uL Urine RBC <1 0 - 3 /hpf Urine WBC 1 0 - 3 /hpf Urine Squamous Epithelial Cells Few <5 /hpf Urine Bacteria None seen None Seen /hpf Urine Hyaline Casts Few 0 - 2 /lpf Urine Granular Casts Many 0 /lpf Urine Mucus Few None Seen Urine Glucose Normal Normal mg/dL Assessment 1. Rectal/rectosigmoid colon cancer, adenocarcinoma presenting with obstruction and perforation and status post exploratory lap and resection of the rectosigmoid with colostomy and growth rectal tumor left behind and gross perforation was found also. The final pathology report is pending 2. Hypertension Plan/Recommendation Wait for the final pathology report Check CEA Do a CT of the chest abdomen and pelvis with IV contrast once the patient is stable The patient is advised to follow up with me as an outpatient to discuss about the chemoradiation therapy Plan discussed with: Patient, Spouse KIAN MEMBRENO MD May 29, 2024 08:45
[2024-05-29] MEDS: PANTOPRAZOLE 40 MG/10 ML VIAL INJ IV SCH (09:13)
--- NOTE | 2024-05-29 09:23 | DVHPN2 ---
Subjective Patient reports having abdominal pain. Reviewed: Care Plan, H&P, Medications Changes from previous H/P or p: No Changes Eyes: No Pain, No Vision change, No Conjunctivae inflammation, No Eyelid inflammation, No Other, No Redness ENT: No Ear pain, No Ear discharge, No Nose pain, No Nose discharge, No Nose congestion, No Mouth pain, No Mouth swelling, No Throat pain, No Throat swelling, No Other Respiratory: No Cough, No Dry, No Shortness of breath, No SOB with excertion, No Wheezing, No Hemoptysis, No Pleuritic Pain, No Sputum, No Other Gastrointestinal: Abdominal Pain Genitourinary: No Dysuria, No Frequency, No Incontinence, No Hematuria, No Retention, No Other Musculoskeletal: No other, No neck pain, No shoulder pain, No arm pain, No back pain, No hand pain, No leg pain, No foot pain Skin: No Rash, No Lesions, No Jaundice, No Bruising, No Other Objective Vitals Vital Signs Date Time Temp Pulse Resp B/P (MAP) Pulse Ox O2 Delivery O2 Flow Rate FiO2 05/29/24 07:46 100 20 107/58 (74) 97 05/29/24 06:49 Room Air* 0 21 05/29/24 04:01 99.2 99.2 Intake/Output Intake and Output 05/29/24 07:00 Intake Total 1694 ml Output Total 1535 ml Balance 159 ml Intake Oral 0 ml IV Total 1694 ml Output Urine Total 1350 ml Stool Total 0 ml Gastric Drainage Total 75 ml Drainage Total 110 ml General Appearance: Alert, Oriented X3, Cooperative, mild distress HEENT: Atraumatic, PERRLA Lungs: Clear to auscultation, Normal air movement Cardiovascular: Normal S1, Normal S2 Abdomen: Other (Hypoactive bowel sounds. Colostomy with no drainage. Dressing dry and intact.) Musculoskeletal: Normal sensory function, Normal motor function Psych/Mental Status: Mental status NL, Mood NL, Other Medications Current Medications Medications Dose Ordered Sig/Carlos Route Start Time Stop Time Status Last Admin Dose Admin Folic Acid 1 mg/ Magnesium Sulfate 8 meq/ Multivitamins 10 ml/Thiamine HCl 100 mg/Sodium Chloride 1,013.2 ml @ 126.247 mls/hr DAILY@1800 INJ 05/28/24 18:00 Dextrose/Lactated Ringer's 1,000 ml @ 125 mls/hr Q8H IV 05/28/24 15:15 05/29/24 07:03 125 MLS/HR Nitroglycerin 0.4 mg Q5MINP PRN SL 05/28/24 15:30 Morphine Sulfate 2 mg Q30M PRN IV 05/28/24 15:30 Amino Acids 0 ml @ 0 mls/hr PER PHARMACY IV 05/28/24 15:30 Metronidazole 100 ml @ 100 mls/hr Q8HR IV 05/28/24 22:00 05/29/24 05:26 100 MLS/HR Ceftriaxone Sodium 50 ml @ 100 mls/hr DAILY@09 IV 05/28/24 15:30 05/29/24 09:13 100 MLS/HR Morphine Sulfate 2 mg Q4HPRN PRN IV 05/28/24 15:30 05/29/24 05:51 2 MG Ondansetron HCl 4 mg Q6HP PRN IV 05/28/24 15:30 Labetalol HCl 10 mg Q2HPRN PRN IV 05/28/24 15:30 Pantoprazole Sodium 40 mg DAILY IV 05/29/24 10:00 05/29/24 09:13 40 MG Diagnostic Test (Pha) 1 strip Q6HR 05/28/24 18:00 05/29/24 05:31 1 STRIP Insulin Human Regular FOLLOW SLIDING SCALE Q6HR SC 05/28/24 18:00 05/29/24 05:25 2 UNITS Dextrose 50 ml UD IV 05/28/24 16:30 Laboratory Results Laboratory Tests 05/29/24 03:41 Chemistry Test 05/29/24 03:41 Albumin 2.8 g/dL (3.2-4.8) L Calcium Level 8.1 mg/dL (8.7-10.4) L Magnesium Level 2.2 mg/dL (1.6-2.6) Phosphorus Level 1.4 mg/dL (2.4-5.1) L Total Protein 4.7 g/dL (5.7-8.2) L Coagulation Test 05/28/24 19:08 Prothrombin Time 11.4 sec (9.3-11.8) Prothrombin Time INR 1.08 (0.9-1.15) Activated Partial Thromboplast Time 31.6 SEC (24.5-34.5) LFT Test 05/29/24 03:41 Alanine Aminotransferase (ALT) 16 U/L (7-40) Alkaline Phosphatase 40 U/L (46-116) L Aspartate Amino Transferase (AST) 18 U/L (13-40) Total Bilirubin 0.4 mg/dL (0.2-1.0) Urinalysis Test 05/28/24 08:50 Urine Color Light-orange (Yellow) Urine Clarity Turbid (Clear) H Urine pH 5.5 (5.0-9.0) Urine Specific [place] 1.029 (1.001-1.035) Urine Protein 1+ (Negative) H Urine Ketones 1+ (Negative) H Urine Blood Negative /uL (Negative) Urine Nitrite Negative (Negative) Urine Bilirubin Negative (Negative) Urine Urobilinogen Normal mg/dL (Negative) Urine Leukocyte Esterase Negative /uL (Negative) Urine RBC <1 /hpf (0 - 3) Urine WBC 1 /hpf (0 - 3) Urine Squamous Epithelial Cells Few /hpf (<5) Urine Bacteria None seen /hpf (None Seen) Urine Hyaline Casts Few /lpf (0 - 2) Urine Granular Casts Many /lpf (0) Urine Mucus Few (None Seen) Urine Glucose Normal mg/dL (Normal) Labs and/or images reviewed: Labs reviewed by me, Image(s) reviewed by me Assessment/Plan Assessment/Plan Impression: -perforated bowel secondary to probable colorectal cancer -obesity -primary hypertension -ETOH abuse -peritonitis, sepsis Plan: -events: Long discussion made with the patient this morning and spouse who was bedside using resistor tester device. Dr. Meneses , Oncology, was also present. Findings from exploratory laparotomy were discussed with the patient as well as current treatment while hospitalized and at the time of discharge. All questions answered. Patient and verbalized an understanding. -NG to low intermittent suction -p.r.n. antihypertensives -continue banana bag daily -PICC line -continue TPN -pain management -antibiotic therapy: Rocephin, Flagyl -PUD, DVT prophylaxis -repeat labs in a.m. Critical care time spent with patient discussing and formulating plan of care: 90 minutes. This does not include time spent performing procedures. This medical document was created using an electronic medical record system with Zite dictation system. Although this document has been carefully reviewed, there may still be some phonetic and typographical errors. These areas are purely typographical due to imperfections of the software programs, and do not reflect any compromise in the patient's medical care. Plan discussed with: Patient, Other (RN) My Orders Orders - VERONICA MUNROE NP Procedure Category Date Status Time Admit ADMIT 05/28/24 Transmitted 15:29 Nitroglycerin PHA 05/28/24 In Process Sublingual (Ntrostat 15:30 Morphine Sulfate PHA 05/28/24 In Process Injection 15:30 Oxygen By Nasal RT 05/28/24 Transmitted Cannula 15:29 Tpn Per Pharmacy PHA 05/28/24 In Process 15:30 Metronidazole PHA 05/28/24 In Process 500mg/100ml (Flagyl 22:00 Ceftriaxone 1gm/50ml PHA 05/28/24 In Process D5w (Rocephin) 15:30 Morphine Sulfate PHA 05/28/24 In Process Injection 15:30 Ondansetron Hcl PHA 05/28/24 In Process (Zofran) 15:30 Labetalol Hcl PHA 05/28/24 In Process (Labetalol Hcl) 15:30 Pantoprazole PHA 05/29/24 In Process (Protonix) 10:00 Glucose Blood PHA 05/28/24 In Process (Accu-Chek Comfort 18:00 Insulin R (Human) PHA 05/28/24 In Process (Insulin R) 18:00 Dextrose 50% Syringe PHA 05/28/24 In Process 16:30 Amino Acid Infusion PHA 05/28/24 In Process In D10w (Clinimix 4. 22:00 Tpn Per Pharmacy OLIVIA 05/28/24 In Process 22:00 * Hematology/Oncology CONS 05/29/24 Transmitted Consult 07:57 Date of Service: May 29, 2024 Billing Provider: VERONICA MUNROE NP Common Visit Codes: [id number] CARE 30-74 MIN VERONICA MUNROE NP May 29, 2024 09:22
--- NOTE | 2024-05-29 10:36 | ECG ---
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
--- NOTE | 2024-05-29 12:33 | DVHPN2 ---
Progress Note Date Seen: May 29, 2024 Medical Necessity Reason Pt with a Central, PICC or Fol: Yes Objective vital signs Vital Sign Date Time Temp Pulse Resp B/P (MAP) Pulse Ox O2 Delivery O2 Flow Rate FiO2 05/29/24 12:16 101 22 111/53 (72) 96 05/29/24 12:01 99.2 99.2 05/29/24 12:00 Room Air* 2 N/A Nasal Cannula* Total Intake and Output 05/28/24 05/28/24 05/29/24 15:00 23:00 07:00 Intake Total 766 ml 928 ml Output Total 70 ml 1465 ml Balance 696 ml -537 ml medications Current Medications Medications Dose Ordered Sig/Carlos Route Start Time Stop Time Status Last Admin Dose Admin Folic Acid 1 mg/ Magnesium Sulfate 8 meq/ Multivitamins 10 ml/Thiamine HCl 100 mg/Sodium Chloride 1,013.2 ml @ 126.247 mls/hr DAILY@1800 INJ 05/28/24 18:00 Dextrose/Lactated Ringer's 1,000 ml @ 125 mls/hr Q8H IV 05/28/24 15:15 05/29/24 07:03 125 MLS/HR Nitroglycerin 0.4 mg Q5MINP PRN SL 05/28/24 15:30 Morphine Sulfate 2 mg Q30M PRN IV 05/28/24 15:30 Amino Acids 0 ml @ 0 mls/hr PER PHARMACY IV 05/28/24 15:30 Metronidazole 100 ml @ 100 mls/hr Q8HR IV 05/28/24 22:00 05/29/24 05:26 100 MLS/HR Ceftriaxone Sodium 50 ml @ 100 mls/hr DAILY@09 IV 05/28/24 15:30 05/29/24 09:13 100 MLS/HR Morphine Sulfate 2 mg Q4HPRN PRN IV 05/28/24 15:30 05/29/24 10:37 2 MG Ondansetron HCl 4 mg Q6HP PRN IV 05/28/24 15:30 Labetalol HCl 10 mg Q2HPRN PRN IV 05/28/24 15:30 Pantoprazole Sodium 40 mg DAILY IV 05/29/24 10:00 05/29/24 09:13 40 MG Diagnostic Test (Pha) 1 strip Q6HR 05/28/24 18:00 05/29/24 12:12 1 STRIP Insulin Human Regular FOLLOW SLIDING SCALE Q6HR SC 05/28/24 18:00 05/29/24 05:25 2 UNITS Dextrose 50 ml UD IV 05/28/24 16:30 laboratory and microbiology Laboratory Tests 05/29/24 03:41 Test 05/29/24 03:41 Range/Units Serum Glucose 152 H 74-106 mg/dL Problem List/Assessment/Plan Problem List/Assessment/Plan 05/29/24 ADDENDUM TO OPERATIVE REPORT: THE TUMOR WAS DEEP IN A VERY NARROW PELVIS AND WAS NOT COMPLETELY RESECTABLE DUE TO PERFORATION OF THE TUMOR WHICH WAS OBSTRUCTING THE LUMEN, DUE TO THE OBSTRUCTION IT SEEMS THAT THE VERY DILATED RECTO SIGMOID COLON PROXIMAL TO THE TUMOR(LATER IDENTIFIED ADENOCARCINOMA ON DELAYED FROZEN SECTION) RUPTURED, DUE TO MORBID OBESITY THE RECTOSIGMOID SEGMENT WAS RESECTED SEPARATELY IN ORDER TO FACILITATE VISUALIZATION OF THE PERFORATED CANCER DISTAL TO IT. FOLLOWING RESECTION I ADMINISTERED METHYLENE BLUE TO ASSURE INTEGRITY OF THE URETER VISUALIZATION WAS MADE IMPOSSIBLE DUE TO THE CHRONICITY OF SIGMOID PERFORATION AND ADHERENCE OF RETROPERITONEAL STRUCTURES. NO METHYLENE BLUE EXTRAVASATION WAS DETECTED. THE REMNANT OF RECTUM WAS GROSSLY POSITIVE TUMOR MARGIN WAS MARKED WITH METALLIC HEMOCLIPS FOR LATER IDENTIFICATION . 05/29/24 awake, cooperative, dressing dry, drainage serous, abdomen non distended, labs reviewed. picc line pending Plan discussed with: Patient, Daughter RONALD LANDA MD May 29, 2024 12:33
[2024-05-29] MEDS: SODIUM PHOSPHATES 24 MEQ in SODIUM CHL 0.9% 100 ML IV ONE (14:00)
--- NOTE | 2024-05-29 16:34 | DVHINCON2 ---
Date of service: May 29, 2024 Referring Physician HYPOXIA Reason for Consultation ICU management, hypoxia History of Present Illness 63 yo man history of hypertension, prior appendectomy who presented with severe abdominal pain. CT scan of the abdomen and pelvis performed that demonstrated free air in the belly suggestive of perforated bowel. He underwent expiratory laparotomy. Findings of a perforated cancer, resection of the rectal cancer with no notation of cancer invading the surrounding area. Review of systems: 14 point review of systems is negative unless otherwise noted above. Past medical history: Hypertension , obesity Past surgical history: Appendectomy Medications: Reviewed Allergies: No known drug allergies. Family history: No family history of premature CAD. No family history of lung disease. Social history: Nonsmoker. Heavy alcohol use. No illicit drug use. Lives with family. Allergies: Coded Allergies: NO KNOWN ALLERGIES (Unverified , 05/28/24) Home Meds Active Scripts Hydrocodone-Acetaminophen (Hydrocodone Bitartrate/AC 5-325 mg) 1 Tab Tab, 1 TAB PO Q6HP PRN, #20 TAB Prov:RADHA MARTÍNEZ PAC 12/07/22 Ibuprofen Micronized (Ibuprofen) 800 Mg Tab, 800 MG PO Q8HP PRN, #30 TAB Prov:RADHA MARTÍNEZ PAC 12/07/22 Current Medications Current Medications Medications (Trade) Dose Ordered Sig/Carlos Route PRN Reason Start Time Stop Time Status Last Admin Folic Acid 1 mg/ Magnesium Sulfate 8 meq/ Multivitamins 10 ml/Thiamine HCl 100 mg/Sodium Chloride 1,013.2 ml @ 126.247 mls/hr DAILY@1800 INJ 05/28/24 18:00 Metronidazole 100 ml @ 100 mls/hr Q8HR IV 05/28/24 22:00 05/29/24 12:56 Pantoprazole Sodium (Protonix) 40 mg DAILY IV 05/29/24 10:00 05/29/24 09:13 Diagnostic Test (Pha) (Accu-Chek Comfort Curve T) 1 strip Q6HR 05/28/24 18:00 05/29/24 12:12 Insulin Human Regular (InsuLIN R) FOLLOW SLIDING SCALE Q6HR SC 05/28/24 18:00 05/29/24 05:25 Dextrose 50 ml UD IV 05/28/24 16:30 Vital Signs Vital Signs Date Time Temp Pulse Resp B/P (MAP) Pulse Ox O2 Delivery O2 Flow Rate FiO2 05/29/24 16:00 20 96 Room Air* 0 N/A Nasal Cannula* 05/29/24 15:46 101 115/51 (72) 05/29/24 12:01 99.2 99.2 Physical Exam Gen.: Patient lying in bed in no apparent distress. He is breathing comfortably on room air. Head: Normocephalic, atraumatic Eyes: EOMI/PERRLA. Ears: Normal hearing. Normal anatomy. Neck/trachea: Trachea midline, supple. Nose: Normal external anatomy. Mouth: Moist mucous membranes. Chest: Fair air entry bilaterally. No wheezing or rhonchi. Cardio vascular: Positive S1, positive S2. Regular rate and rhythm. Abdomen: Positive bowel sounds in all 4 quadrants. Soft, non-tender, non- distended. : Deferred. Rectal: Deferred Skin: Warm, dry. Extremities: 2+ radial pulses bilaterally. No lower extremity edema. Neuro: Awake, alert, oriented x3. No gross motor or sensory deficits. Cranial nerves II through XII intact. Gait not assessed. Labs/Diagnostic Data Labs Test 05/29/24 12:11 05/29/24 03:41 05/28/24 19:08 05/28/24 08:50 Range/Units POC Glucose 147 H 70-106 mg/dl White Blood Count 11.2 #H 4.4-10.8 10^3/uL Red Blood Count 2.64 L 4.5-5.90 10^6/uL Hemoglobin 9.2 #L 13.5-17.5 g/dL Hematocrit 26.7 #L 41.0-53.0 % Mean Corpuscular Volume 101.4 H 80.0-100.0 fL Mean Corpuscular Hemoglobin 35.0 H 28.0-32.0 pg Mean Corpuscular Hemoglobin Concent 34.5 32.0-36.0 g/dL Red Cell Distribution Width 13.6 11.8-14.3 % Platelet Count 146 140-450 10^3/uL Mean Platelet Volume 9.4 6.9-10.8 fL Neutrophils (%) (Auto) 88.0 H 37.0-80.0 % Lymphocytes (%) (Auto) 7.4 L 10.0-50.0 % Monocytes (%) (Auto) 4.4 0.0-12.0 % Eosinophils (%) (Auto) 0.1 0.0-7.0 % Basophils (%) (Auto) 0.1 0.0-2.0 % Neutrophils # (Auto) 9.9 H 1.6-8.6 10 ^3/uL Lymphocytes # (Auto) 0.8 0.4-5.4 10 ^3/uL Monocytes # (Auto) 0.5 0-1.3 10 ^3/uL Eosinophils # (Auto) 0 0-0.8 10 ^3/uL Basophils # (Auto) 0 0-0.2 10 ^3/uL Nucleated Red Blood Cells 0.0 % Sodium Level 134 L 136-145 mmol/L Potassium Level 4.1 3.5-5.1 mmol/L Chloride Level 103 98-107 mmol/L Carbon Dioxide Level 27 20-31 mmol/L Anion Gap 4 L 5-15 Blood Urea Nitrogen 10 # 9-23 mg/dL Creatinine 0.73 0.700-1.30 mg/dL Glomerular Filtration Rate Calc 102 >90 mL/min BUN/Creatinine Ratio 13.7 10.0-20.0 Serum Glucose 152 H 74-106 mg/dL Calcium Level 8.1 L 8.7-10.4 mg/dL Phosphorus Level 1.4 L 2.4-5.1 mg/dL Magnesium Level 2.2 1.6-2.6 mg/dL Total Bilirubin 0.4 0.2-1.0 mg/dL Aspartate Amino Transferase (AST) 18 13-40 U/L Alanine Aminotransferase (ALT) 16 7-40 U/L Alkaline Phosphatase 40 L 46-116 U/L Total Protein 4.7 L 5.7-8.2 g/dL Albumin 2.8 L 3.2-4.8 g/dL Prothrombin Time 11.4 9.3-11.8 sec Prothrombin Time INR 1.08 0.9-1.15 Activated Partial Thromboplast Time 31.6 24.5-34.5 SEC Urine Color Light-orange Yellow Urine Clarity Turbid H Clear Urine pH 5.5 5.0-9.0 Urine Specific [place] 1.029 1.001-1.035 Urine Protein 1+ H Negative Urine Ketones 1+ H Negative Urine Blood Negative Negative /uL Urine Nitrite Negative Negative Urine Bilirubin Negative Negative Urine Urobilinogen Normal Negative mg/dL Urine Leukocyte Esterase Negative Negative /uL Urine RBC <1 0 - 3 /hpf Urine WBC 1 0 - 3 /hpf Urine Squamous Epithelial Cells Few <5 /hpf Urine Bacteria None seen None Seen /hpf Urine Hyaline Casts Few 0 - 2 /lpf Urine Granular Casts Many 0 /lpf Urine Mucus Few None Seen Urine Glucose Normal Normal mg/dL Microbiology Date/Time Source Procedure Growth Status 05/28/24 19:18 Nose MRSA Screen - Final Complete 05/28/24 14:26 Peritoneal Fluid Gram Stain - Final Resulted 05/28/24 14:26 Peritoneal Fluid Anaerobic Culture - Preliminary Resulted 05/28/24 14:26 Peritoneal Fluid Aerobic Culture - Preliminary Resulted Assessment Impression: Hypoxia, resolved Perforated bowel secondary to probable colorectal cancer Obesity, BMI 30.4 Primary hypertension ETOH use Peritonitis Sepsis Plan: CXR reviewed. No acute opacities. No pleural effusion or pneumothorax. Supplemental oxygen PRN Keep o2 saturation above 92% TPN for nutritional support D5W LR Sodium Phosphate supplemented. Continue antibiotics. WBC trending down De-escalate based on cultures. Monitor Hgb, trending down. Pain control Avoid oversedation Wound care Surgery recommendations appreciated. Accucheks, IS f/u path results onc recs appreciated DVT prophylaxis Prognosis: Guarded given multiple comorbidities. Rest of plan per hospitalist and other consultants. Thank you JANET Montelongo for allowing me to participate in this patient's care. Further recommendations will depend on patient's clinical course. Please do not hesitate to contact me if you have any questions or concerns. This medical document was created using an electronic medical record system with [employer] dictation system. Although this document has been carefully reviewed, there may still be some phonetic and typographical errors. These areas are purely typographical due to imperfections of the software programs, and do not reflect any compromise in the patient's medical care. Plan discussed with: Patient, Other (MABEL Herman) SIMA MOLINA MD May 29, 2024 16:34
[2024-05-29] MEDS: AMINO ACID INFUSION IN D10W 1,000 ML IV ONE (21:49)
[2024-05-29] MEDS: SODIUM CHLOR 0.9% PF (SALINE LOCK) 10ML VIAL/SYR IV SCH (21:50)
[2024-05-30] VITALS (47 sets, daily range): BP systolic 88–155; BP diastolic 56–82; PULSE 84–109; RESP 14–30; TEMP 97.9–100; O2SAT 91–97
[2024-05-30 03:34] LABS: Basophils # (auto) 0 10 ^3/uL (0-0.2); Eosinophils # (auto) 0 10 ^3/uL (0-0.8); Eosinophils % (auto) 0.1 % (0.0-7.0); Hematocrit 22.9 % (41.0-53.0); Lymphocytes # (auto) 0.8 10 ^3/uL (0.4-5.4); Monocytes # (auto) 0.7 10 ^3/uL (0-1.3); Nucleated Red Blood Cells % 0.1 %
[2024-05-30 03:36] LABS: Basophils % (auto) 0.3 % (0.0-2.0); Hemoglobin 7.9 g/dL (13.5-17.5); Lymphocytes % (auto) 7.8 % (10.0-50.0); Mean Corpuscular Hemoglobin 34.7 pg (28.0-32.0); Mean Corpuscular Hgb Conc. 34.6 g/dL (32.0-36.0); Mean Corpuscular Volume 100.5 fL (80.0-100.0); Monocytes % (auto) 6.5 % (0.0-12.0); Neutrophils % (auto) 85.3 % (37.0-80.0); Platelet Count (auto) 119 10^3/uL (140-450); Red Blood Cells 2.28 10^6/uL (4.5-5.90); Red Cell Distribution Width 13.4 % (11.8-14.3); White Blood Cell 10.6 10^3/uL (4.4-10.8)
[2024-05-30 03:51] LABS: Alanine Aminotransferase 15 U/L (7-40); Albumin 2.7 g/dL (3.2-4.8); Alkaline Phosphatase 46 U/L (46-116); Anion Gap 4 (5-15); BUN/Creatinine Ratio 10.5 (10.0-20.0); Blood Urea Nitrogen 6 mg/dL (9-23); Carbon Dioxide 29 mmol/L (20-31); Chloride 107 mmol/L (98-107); Glucose 132 mg/dL (74-106); Magnesium 2.1 mg/dL (1.6-2.6); Potassium 3.5 mmol/L (3.5-5.1); Sodium 140 mmol/L (136-145)
[2024-05-30 03:52] LABS: Aspartate Aminotransferase 15 U/L (13-40); Bilirubin, Total 0.3 mg/dL (0.2-1.0); Phosphorus 1.5 mg/dL (2.4-5.1); Total Protein 4.6 g/dL (5.7-8.2)
[2024-05-30] MEDS: ONDANSETRON HCL 4 MG/2 ML VIAL IV PRN (04:45)
[2024-05-30] MEDS: POTASSIUM PHOSPHATE 22 MEQ in SODIUM CHL 0.9% 100 ML IV ONE (08:49)
--- NOTE | 2024-05-30 09:08 | DVHPN2 ---
Subjective Decrease in abdominal pain. Reviewed: Care Plan, H&P, Medications Changes from previous H/P or p: Changes Eyes: No Pain, No Vision change, No Conjunctivae inflammation, No Eyelid inflammation, No Other, No Redness ENT: No Ear pain, No Ear discharge, No Nose pain, No Nose discharge, No Nose congestion, No Mouth pain, No Mouth swelling, No Throat pain, No Throat swelling, No Other Respiratory: No Cough, No Dry, No Shortness of breath, No SOB with excertion, No Wheezing, No Hemoptysis, No Pleuritic Pain, No Sputum, No Other Gastrointestinal: Abdominal Pain Genitourinary: No Dysuria, No Frequency, No Incontinence, No Hematuria, No Retention, No Other Musculoskeletal: No other, No neck pain, No shoulder pain, No arm pain, No back pain, No hand pain, No leg pain, No foot pain Skin: No Rash, No Lesions, No Jaundice, No Bruising, No Other Objective Vitals Vital Signs Date Time Temp Pulse Resp B/P (MAP) Pulse Ox O2 Delivery O2 Flow Rate FiO2 05/30/24 08:17 86 19 140/67 (91) 97 05/30/24 08:02 100.0 100.0 05/30/24 08:00 Nasal Cannula* 2 28 Intake/Output Intake and Output 05/30/24 07:00 Intake Total 5453.223 ml Output Total 3080 ml Balance 2373.223 ml Intake Oral 0 ml IV Total 5453.223 ml Output Urine Total 2650 ml Stool Total 0 ml Gastric Drainage Total 345 ml Drainage Total 85 ml General Appearance: Alert, Oriented X3, Cooperative, mild distress HEENT: Atraumatic, PERRLA Lungs: Clear to auscultation, Normal air movement Cardiovascular: Normal S1, Normal S2 Abdomen: Other (Hypoactive bowel sounds. Colostomy with no drainage. Dressing dry and intact.) Musculoskeletal: Normal sensory function, Normal motor function Psych/Mental Status: Mental status NL, Mood NL, Other Medications Current Medications Medications Dose Ordered Sig/Carlos Route Start Time Stop Time Status Last Admin Dose Admin Folic Acid 1 mg/ Magnesium Sulfate 8 meq/ Multivitamins 10 ml/Thiamine HCl 100 mg/Sodium Chloride 1,013.2 ml @ 126.247 mls/hr DAILY@1800 INJ 05/28/24 18:00 05/29/24 18:02 126.247 MLS/HR Dextrose/Lactated Ringer's 1,000 ml @ 125 mls/hr Q8H IV 05/28/24 15:15 05/30/24 05:45 125 MLS/HR Nitroglycerin 0.4 mg Q5MINP PRN SL 05/28/24 15:30 Morphine Sulfate 2 mg Q30M PRN IV 05/28/24 15:30 Amino Acids 0 ml @ 0 mls/hr PER PHARMACY IV 05/28/24 15:30 Metronidazole 100 ml @ 100 mls/hr Q8HR IV 05/28/24 22:00 05/30/24 05:29 100 MLS/HR Ceftriaxone Sodium 50 ml @ 100 mls/hr DAILY@09 IV 05/28/24 15:30 05/30/24 08:04 100 MLS/HR Morphine Sulfate 2 mg Q4HPRN PRN IV 05/28/24 15:30 05/29/24 23:41 2 MG Ondansetron HCl 4 mg Q6HP PRN IV 05/28/24 15:30 05/30/24 04:45 4 MG Labetalol HCl 10 mg Q2HPRN PRN IV 05/28/24 15:30 Pantoprazole Sodium 40 mg DAILY IV 05/29/24 10:00 05/29/24 09:13 40 MG Diagnostic Test (Pha) 1 strip Q6HR 05/28/24 18:00 05/30/24 05:27 1 STRIP Insulin Human Regular FOLLOW SLIDING SCALE Q6HR SC 05/28/24 18:00 05/29/24 05:25 2 UNITS Dextrose 50 ml UD IV 05/28/24 16:30 Sodium Chloride 10 ml QSHIFT@,22 IV 05/29/24 22:00 05/29/24 21:50 10 ML Laboratory Results Laboratory Tests 05/30/24 03:16 Chemistry Test 05/30/24 03:16 Albumin 2.7 g/dL (3.2-4.8) L Calcium Level 8.0 mg/dL (8.7-10.4) L Magnesium Level 2.1 mg/dL (1.6-2.6) Phosphorus Level 1.5 mg/dL (2.4-5.1) L Total Protein 4.6 g/dL (5.7-8.2) L LFT Test 05/30/24 03:16 Alanine Aminotransferase (ALT) 15 U/L (7-40) Alkaline Phosphatase 46 U/L (46-116) Aspartate Amino Transferase (AST) 15 U/L (13-40) Total Bilirubin 0.3 mg/dL (0.2-1.0) Urinalysis Test 05/28/24 08:50 Urine Color Light-orange (Yellow) Urine Clarity Turbid (Clear) H Urine pH 5.5 (5.0-9.0) Urine Specific [place] 1.029 (1.001-1.035) Urine Protein 1+ (Negative) H Urine Ketones 1+ (Negative) H Urine Blood Negative /uL (Negative) Urine Nitrite Negative (Negative) Urine Bilirubin Negative (Negative) Urine Urobilinogen Normal mg/dL (Negative) Urine Leukocyte Esterase Negative /uL (Negative) Urine RBC <1 /hpf (0 - 3) Urine WBC 1 /hpf (0 - 3) Urine Squamous Epithelial Cells Few /hpf (<5) Urine Bacteria None seen /hpf (None Seen) Urine Hyaline Casts Few /lpf (0 - 2) Urine Granular Casts Many /lpf (0) Urine Mucus Few (None Seen) Urine Glucose Normal mg/dL (Normal) Microbiology Microbiology Date/Time Source Procedure Growth Status 05/28/24 19:18 Nose MRSA Screen - Final Complete 05/28/24 14:26 Peritoneal Fluid Gram Stain - Final Resulted 05/28/24 14:26 Peritoneal Fluid Anaerobic Culture - Preliminary Resulted 05/28/24 14:26 Peritoneal Fluid Aerobic Culture - Preliminary Resulted Labs and/or images reviewed: Labs reviewed by me, Image(s) reviewed by me Assessment/Plan Assessment/Plan Impression: -perforated bowel secondary to probable colorectal cancer -obesity -primary hypertension -ETOH abuse -peritonitis, sepsis Plan: -events: No events overnight. Hemodynamically stable. Bowel sounds are still absent. Minimal JACKIE drainage. No fecal matter noted to colostomy. -decrease IV fluids, discontinue banana bag -NG to low intermittent suction -p.r.n. antihypertensives -PT consultation -PICC line -continue TPN -pain management -antibiotic therapy: Rocephin, Flagyl -PUD, DVT prophylaxis -repeat labs in a.m. -transferred to telemetry unit Critical care time spent with patient discussing and formulating plan of care: 45 minutes. This does not include time spent performing procedures. This medical document was created using an electronic medical record system with [employer] dictation system. Although this document has been carefully reviewed, there may still be some phonetic and typographical errors. These areas are purely typographical due to imperfections of the software programs, and do not reflect any compromise in the patient's medical care. Plan discussed with: Patient, Other (RN) My Orders Orders - VERONICA MUNROE NP Procedure Category Date Status Time Tpn Per Pharmacy OLIVIA 05/29/24 In Process 22:00 Amino Acid Infusion PHA 05/29/24 In Process In D10w ([facility] 4. 22:00 Transfer Orders XFER 05/30/24 Transmitted 08:11 D5w/Lactated Ringers PHA 05/30/24 Verified LR 09:15 Morphine Sulfate PHA 05/30/24 Verified Injection 09:15 Pt Request For Service PT 05/30/24 Verified 09:05 Date of Service: May 30, 2024 Billing Provider: VERONICA MUNROE NP Common Visit Codes: [id number] CARE 30-74 MIN VERONICA MUNROE NP May 30, 2024 09:08
[2024-05-30] MEDS: D5W/LACTATED RINGERS 1,000 ML IV SCH (09:15)
[2024-05-30] MEDS: MORPHINE SULFATE INJ 2 MG/ml SYRG IV PRN (10:39)
[2024-05-30] MEDS: SODIUM PHOSPHATES 20 MEQ in SODIUM CHL 0.9% 100 ML IV ONE (11:21)
--- NOTE | 2024-05-30 13:29 | DVHPN2 ---
Progress Note Date Seen: May 30, 2024 Medical Necessity Reason Pt with a Central, PICC or Fol: Yes Objective vital signs Vital Sign Date Time Temp Pulse Resp B/P (MAP) Pulse Ox O2 Delivery O2 Flow Rate FiO2 05/30/24 12:57 99.4 92 19 133/70 (91) 94 99.4 05/30/24 08:00 Nasal Cannula* 2 28 Total Intake and Output 05/29/24 05/29/24 05/30/24 15:00 23:00 07:00 Intake Total 1584 ml 1936.235 ml 1932.988 ml Output Total 1150 ml 1930 ml Balance 1584 ml 786.235 ml 2.988 ml medications Current Medications Medications Dose Ordered Sig/Carlos Route Start Time Stop Time Status Last Admin Dose Admin Nitroglycerin 0.4 mg Q5MINP PRN SL 05/28/24 15:30 Amino Acids 0 ml @ 0 mls/hr PER PHARMACY IV 05/28/24 15:30 Metronidazole 100 ml @ 100 mls/hr Q8HR IV 05/28/24 22:00 05/30/24 05:29 100 MLS/HR Ceftriaxone Sodium 50 ml @ 100 mls/hr DAILY@09 IV 05/28/24 15:30 05/30/24 08:04 100 MLS/HR Ondansetron HCl 4 mg Q6HP PRN IV 05/28/24 15:30 05/30/24 09:33 4 MG Labetalol HCl 10 mg Q2HPRN PRN IV 05/28/24 15:30 Pantoprazole Sodium 40 mg DAILY IV 05/29/24 10:00 05/30/24 09:32 40 MG Diagnostic Test (Pha) 1 strip Q6HR 05/28/24 18:00 05/30/24 12:00 1 STRIP Insulin Human Regular FOLLOW SLIDING SCALE Q6HR SC 05/28/24 18:00 05/29/24 05:25 2 UNITS Dextrose 50 ml UD IV 05/28/24 16:30 Sodium Chloride 10 ml QSHIFT@10,22 IV 05/29/24 22:00 05/30/24 09:32 10 ML Dextrose/Lactated Ringer's 1,000 ml @ 50 mls/hr Q20H IV 05/30/24 09:15 05/30/24 09:15 50 MLS/HR Morphine Sulfate 1 mg Q3HPRN PRN IV 05/30/24 09:15 05/30/24 10:39 1 MG Potassium Acetate 20 meq/Potassium Phosphate 20 meq/ Magnesium Sulfate 8 meq/ Multivitamins 10 ml/Chromium/ Copper/Manganese/ Zinc 1 ml/Amino Acids/Dextrose 1,027.5455 ml @ 43 mls/hr [id number] IV 05/30/24 22:00 05/31/24 21:59 laboratory and microbiology Laboratory Tests 05/30/24 03:16 Test 05/30/24 03:16 Range/Units Serum Glucose 132 H 74-106 mg/dL Problem List/Assessment/Plan Problem List/Assessment/Plan 05/29/24 ADDENDUM TO OPERATIVE REPORT: THE TUMOR WAS DEEP IN A VERY NARROW PELVIS AND WAS NOT COMPLETELY RESECTABLE DUE TO PERFORATION OF THE TUMOR WHICH WAS OBSTRUCTING THE LUMEN, DUE TO THE OBSTRUCTION IT SEEMS THAT THE VERY DILATED RECTO SIGMOID COLON PROXIMAL TO THE TUMOR(LATER IDENTIFIED ADENOCARCINOMA ON DELAYED FROZEN SECTION) RUPTURED, DUE TO MORBID OBESITY THE RECTOSIGMOID SEGMENT WAS RESECTED SEPARATELY IN ORDER TO FACILITATE VISUALIZATION OF THE PERFORATED CANCER DISTAL TO IT. FOLLOWING RESECTION I ADMINISTERED METHYLENE BLUE TO ASSURE INTEGRITY OF THE URETER VISUALIZATION WAS MADE IMPOSSIBLE DUE TO THE CHRONICITY OF SIGMOID PERFORATION AND ADHERENCE OF RETROPERITONEAL STRUCTURES. NO METHYLENE BLUE EXTRAVASATION WAS DETECTED. THE REMNANT OF RECTUM WAS GROSSLY POSITIVE TUMOR MARGIN WAS MARKED WITH METALLIC HEMOCLIPS FOR LATER IDENTIFICATION . 05/29/24 awake, cooperative, dressing dry, drainage serous, abdomen non distended, labs reviewed. picc line pending qabdomen appropriately tender, I explained operative findings and probable need for radiation treatments after completion of post operative recovery, stoma is viable but without function, will try Reglan, wound clean and well approximated. Plan discussed with: Patient, Spouse, Daughter Dietary Evaluation Review Comments: 1) Increase TPN to meet at least 75% of estimated needs 2) Advance pt diet when medically feasible 3) Continue current plan of care Expected Outcomes/Goals: 1) Pt to receive adequate nutrition within 7 days of NPO status 2) Pt diet to advance 3) F/U in 2-3 days RONALD LANDA MD May 30, 2024 13:29
[2024-05-30] MEDS: METOCLOPRAMIDE HCL 5MG/ml INJ 2ml VIAL IV SCH (17:07)
--- NOTE | 2024-05-30 21:11 | DVHPN2 ---
Progress Note - Dictate Date Seen: May 30, 2024 Medical Necessity Reason Pt with a Central, PICC or Fol: No Subjective Patient seen and examined at bedside. Breathing comfortably on room air. Overnight events reviewed. vital signs Vital Sign Date Time Temp Pulse Resp B/P (MAP) Pulse Ox O2 Delivery O2 Flow Rate FiO2 05/30/24 17:15 136/70 (92) 05/30/24 16:44 97.9 94 16 93 97.9 05/30/24 08:00 Nasal Cannula* 2 28 Total Intake and Output 05/29/24 05/29/24 05/30/24 15:00 23:00 07:00 Intake Total 1584 ml 1936.235 ml 1932.988 ml Output Total 1150 ml 1930 ml Balance 1584 ml 786.235 ml 2.988 ml medications Current Medications Medications Dose Ordered Sig/Carlos Route Start Time Stop Time Status Last Admin Dose Admin Nitroglycerin 0.4 mg Q5MINP PRN SL 05/28/24 15:30 Amino Acids 0 ml @ 0 mls/hr PER PHARMACY IV 05/28/24 15:30 Metronidazole 100 ml @ 100 mls/hr Q8HR IV 05/28/24 22:00 05/30/24 15:15 100 MLS/HR Ceftriaxone Sodium 50 ml @ 100 mls/hr DAILY@09 IV 05/28/24 15:30 05/30/24 08:04 100 MLS/HR Ondansetron HCl 4 mg Q6HP PRN IV 05/28/24 15:30 05/30/24 17:07 4 MG Labetalol HCl 10 mg Q2HPRN PRN IV 05/28/24 15:30 Pantoprazole Sodium 40 mg DAILY IV 05/29/24 10:00 05/30/24 09:32 40 MG Diagnostic Test (Pha) 1 strip Q6HR 05/28/24 18:00 05/30/24 17:12 1 STRIP Insulin Human Regular FOLLOW SLIDING SCALE Q6HR SC 05/28/24 18:00 05/30/24 17:27 2 UNITS Dextrose 50 ml UD IV 05/28/24 16:30 Sodium Chloride 10 ml QSHIFT@10,22 IV 05/29/24 22:00 05/30/24 09:32 10 ML Dextrose/Lactated Ringer's 1,000 ml @ 50 mls/hr Q20H IV 05/30/24 09:15 05/30/24 09:15 50 MLS/HR Morphine Sulfate 1 mg Q3HPRN PRN IV 05/30/24 09:15 05/30/24 10:39 1 MG Potassium Acetate 20 meq/Potassium Phosphate 20 meq/ Magnesium Sulfate 8 meq/ Multivitamins 10 ml/Chromium/ Copper/Manganese/ Zinc 1 ml/Amino Acids/Dextrose 1,027.5455 ml @ 43 mls/hr [id number] IV 05/30/24 22:00 05/31/24 21:59 Metoclopramide HCl 5 mg Q6HR IV 05/30/24 18:00 05/30/24 17:07 5 MG objective Gen.: Patient lying in bed in no apparent distress. He is breathing comfortably on room air. Head: Normocephalic, atraumatic Eyes: EOMI/PERRLA. Ears: Normal hearing. Normal anatomy. Neck/trachea: Trachea midline, supple. Nose: Normal external anatomy. Mouth: Moist mucous membranes. Chest: Fair air entry bilaterally. No wheezing or rhonchi. Cardio vascular: Positive S1, positive S2. Regular rate and rhythm. Abdomen: Positive bowel sounds in all 4 quadrants. Soft, non-tender, non- distended. : Deferred. Rectal: Deferred Skin: Warm, dry. Extremities: 2+ radial pulses bilaterally. No lower extremity edema. Neuro: Awake, alert, oriented x3. No gross motor or sensory deficits. Cranial nerves II through XII intact. Gait not assessed. laboratory and microbiology Laboratory Tests 05/30/24 03:16 Test 05/30/24 03:16 Range/Units Serum Glucose 132 H 74-106 mg/dL Assessment/Plan Impression: Hypoxia, resolved Perforated bowel secondary to probable colorectal cancer Obesity, BMI 30.4 Primary hypertension ETOH use Peritonitis Sepsis Events: Breathing on room air No respiratory distress. Continue antibiotics Incentive spirometry Patient is stable for downgrade from the pulmonary standpoint. Advance diet per Surgery Labs and imaging reviewed. Rest of plan as noted below. Plan: CXR reviewed. No acute opacities. No pleural effusion or pneumothorax. Supplemental oxygen PRN Keep o2 saturation above 92% TPN for nutritional support D5W LR Sodium phosphate supplemented. Continue antibiotics. WBC trending down De-escalate based on cultures. Monitor Hgb, trending down. Pain control Avoid oversedation Wound care Surgery recommendations appreciated. Accu-Cheks, ISS f/u path results onc recs appreciated DVT prophylaxis Prognosis: Guarded given multiple comorbidities. Rest of plan per hospitalist and other consultants. Thank you JANET Montelongo for allowing me to participate in this patient's care. Further recommendations will depend on patient's clinical course. Please do not hesitate to contact me if you have any questions or concerns. This medical document was created using an electronic medical record system with [employer] dictation system. Although this document has been carefully reviewed, there may still be some phonetic and typographical errors. These areas are purely typographical due to imperfections of the software programs, and do not reflect any compromise in the patient's medical care. Dietary Evaluation Review Comments: 1) Increase TPN to meet at least 75% of estimated needs 2) Advance pt diet when medically feasible 3) Continue current plan of care Expected Outcomes/Goals: 1) Pt to receive adequate nutrition within 7 days of NPO status 2) Pt diet to advance 3) F/U in 2-3 days Plan discussed with: Patient, Other (MABEL Grey) SIMA MOLINA MD May 30, 2024 21:11
[2024-05-30] MEDS: TPN PER PHARMACY IV NR (22:00)
[2024-05-31] VITALS (9 sets, daily range): BP systolic 112–147; BP diastolic 58–64; PULSE 64–93; RESP 16–18; TEMP 97.8–99.4; O2SAT 92–97
[2024-05-31 06:15] LABS: Alanine Aminotransferase 12 U/L (7-40); Albumin 2.8 g/dL (3.2-4.8); Alkaline Phosphatase 54 U/L (46-116); Anion Gap 5 (5-15); Aspartate Aminotransferase 12 U/L (13-40); BUN/Creatinine Ratio 19.7 (10.0-20.0); Blood Urea Nitrogen 12 mg/dL (9-23); Calcium 8.1 mg/dL (8.7-10.4); Carbon Dioxide 30 mmol/L (20-31); Chloride 105 mmol/L (98-107); Glucose 135 mg/dL (74-106); Magnesium 2.2 mg/dL (1.6-2.6); Potassium 3.2 mmol/L (3.5-5.1); Sodium 140 mmol/L (136-145); Triglycerides 56 mg/dL (< 150)
[2024-05-31 06:16] LABS: Bilirubin, Total 0.4 mg/dL (0.2-1.0); Phosphorus 2.2 mg/dL (2.4-5.1); Total Protein 4.8 g/dL (5.7-8.2)
--- NOTE | 2024-05-31 11:36 | DVHPN2 ---
Progress Note Date Seen: May 31, 2024 Medical Necessity Reason Pt with a Central, PICC or Fol: No Objective vital signs Vital Sign Date Time Temp Pulse Resp B/P (MAP) Pulse Ox O2 Delivery O2 Flow Rate FiO2 05/31/24 09:40 90 16 114/58 05/31/24 09:07 97.8 97 97.8 05/30/24 20:00 Nasal Cannula* 2 28 Total Intake and Output 05/30/24 05/30/24 05/31/24 15:00 23:00 07:00 Intake Total 578 ml 1519 ml 0 ml Output Total 1700 ml 850 ml Balance 578 ml -181 ml -850 ml medications Current Medications Medications Dose Ordered Sig/Carlos Route Start Time Stop Time Status Last Admin Dose Admin Nitroglycerin 0.4 mg Q5MINP PRN SL 05/28/24 15:30 Amino Acids 0 ml @ 0 mls/hr PER PHARMACY IV 05/28/24 15:30 Metronidazole 100 ml @ 100 mls/hr Q8HR IV 05/28/24 22:00 05/31/24 07:06 100 MLS/HR Ceftriaxone Sodium 50 ml @ 100 mls/hr DAILY@09 IV 05/28/24 15:30 05/31/24 09:40 100 MLS/HR Ondansetron HCl 4 mg Q6HP PRN IV 05/28/24 15:30 05/30/24 17:07 4 MG Labetalol HCl 10 mg Q2HPRN PRN IV 05/28/24 15:30 Pantoprazole Sodium 40 mg DAILY IV 05/29/24 10:00 05/31/24 09:40 40 MG Diagnostic Test (Pha) 1 strip Q6HR 05/28/24 18:00 05/31/24 06:00 1 STRIP Insulin Human Regular FOLLOW SLIDING SCALE Q6HR SC 05/28/24 18:00 05/31/24 06:00 2 UNITS Dextrose 50 ml UD IV 05/28/24 16:30 Sodium Chloride 10 ml QSHIFT@, IV 05/29/24 22:00 05/31/24 09:41 10 ML Dextrose/Lactated Ringer's 1,000 ml @ 50 mls/hr Q20H IV 05/30/24 09:15 05/31/24 04:32 50 MLS/HR Morphine Sulfate 1 mg Q3HPRN PRN IV 05/30/24 09:15 05/31/24 09:40 1 MG Potassium Acetate 20 meq/Potassium Phosphate 20 meq/ Magnesium Sulfate 8 meq/ Multivitamins 10 ml/Chromium/ Copper/Manganese/ Zinc 1 ml/Amino Acids/Dextrose 1,027.5455 ml @ 43 mls/hr [id number] IV 05/30/24 22:00 05/31/24 21:59 05/30/24 22:00 43 MLS/HR Metoclopramide HCl 5 mg Q6HR IV 05/30/24 18:00 05/31/24 07:06 5 MG Potassium Phosphate 22 meq/ Sodium Chloride 105 ml @ 26.25 mls/ hr Q4H IV 05/31/24 13:00 05/31/24 20:59 Fat Emulsion Intravenous 50 ml/ Potassium Chloride 20 meq/ Potassium Phosphate 40 meq/ Magnesium Sulfate 10 meq/ Multivitamins 10 ml/Chromium/ Copper/Manganese/ Zinc 1 ml/Amino Acids/Dextrose 1,182.5909 ml @ 49 mls/hr Q24H9M IV 05/31/24 22:00 06/01/24 21:59 laboratory and microbiology Laboratory Tests 05/31/24 05:15 05/30/24 03:16 Test 05/31/24 05:15 Range/Units Serum Glucose 135 H 74-106 mg/dL Problem List/Assessment/Plan Problem List/Assessment/Plan 05/29/24 ADDENDUM TO OPERATIVE REPORT: THE TUMOR WAS DEEP IN A VERY NARROW PELVIS AND WAS NOT COMPLETELY RESECTABLE DUE TO PERFORATION OF THE TUMOR WHICH WAS OBSTRUCTING THE LUMEN, DUE TO THE OBSTRUCTION IT SEEMS THAT THE VERY DILATED RECTO SIGMOID COLON PROXIMAL TO THE TUMOR(LATER IDENTIFIED ADENOCARCINOMA ON DELAYED FROZEN SECTION) RUPTURED, DUE TO MORBID OBESITY THE RECTOSIGMOID SEGMENT WAS RESECTED SEPARATELY IN ORDER TO FACILITATE VISUALIZATION OF THE PERFORATED CANCER DISTAL TO IT. FOLLOWING RESECTION I ADMINISTERED METHYLENE BLUE TO ASSURE INTEGRITY OF THE URETER VISUALIZATION WAS MADE IMPOSSIBLE DUE TO THE CHRONICITY OF SIGMOID PERFORATION AND ADHERENCE OF RETROPERITONEAL STRUCTURES. NO METHYLENE BLUE EXTRAVASATION WAS DETECTED. THE REMNANT OF RECTUM WAS GROSSLY POSITIVE TUMOR MARGIN WAS MARKED WITH METALLIC HEMOCLIPS FOR LATER IDENTIFICATION . 05/29/24 awake, cooperative, dressing dry, drainage serous, abdomen non distended, labs reviewed. picc line pending qabdomen appropriately tender, I explained operative findings and probable need for radiation treatments after completion of post operative recovery, stoma is viable but without function, will try Reglan, wound clean and well approximated. 05/31/24 flatus in stoma appliance, abdomen appropriately tender, drainage serous, will advance diet Plan discussed with: Patient Dietary Evaluation Review Comments: 1) Increase TPN to meet at least 75% of estimated needs 2) Advance pt diet when medically feasible 3) Continue current plan of care Expected Outcomes/Goals: 1) Pt to receive adequate nutrition within 7 days of NPO status 2) Pt diet to advance 3) F/U in 2-3 days RONALD LANDA MD May 31, 2024 11:36
[2024-05-31] MEDS: POTASSIUM CHL 20MEQ/100ML 100 ML IV ONE (14:14)
--- NOTE | 2024-05-31 15:53 | DVHPN2 ---
Subjective Decrease in abdominal pain. Reviewed: Care Plan, H&P, Medications Changes from previous H/P or p: No Changes Eyes: No Pain, No Vision change, No Conjunctivae inflammation, No Eyelid inflammation, No Other, No Redness ENT: No Ear pain, No Ear discharge, No Nose pain, No Nose discharge, No Nose congestion, No Mouth pain, No Mouth swelling, No Throat pain, No Throat swelling, No Other Respiratory: No Cough, No Dry, No Shortness of breath, No SOB with excertion, No Wheezing, No Hemoptysis, No Pleuritic Pain, No Sputum, No Other Gastrointestinal: Abdominal Pain Genitourinary: No Dysuria, No Frequency, No Incontinence, No Hematuria, No Retention, No Other Musculoskeletal: No other, No neck pain, No shoulder pain, No arm pain, No back pain, No hand pain, No leg pain, No foot pain Skin: No Rash, No Lesions, No Jaundice, No Bruising, No Other Objective Vitals Vital Signs Date Time Temp Pulse Resp B/P (MAP) Pulse Ox O2 Delivery O2 Flow Rate FiO2 05/31/24 13:45 98.4 64 17 137/63 (87) 95 98.4 05/31/24 08:00 Nasal Cannula* 2 28 Intake/Output Intake and Output 05/31/24 07:00 Intake Total 2097 ml Output Total 2550 ml Balance -453 ml Intake Oral 500 ml IV Total 1597 ml Output Urine Total 2350 ml Drainage Total 200 ml General Appearance: Alert, Oriented X3, Cooperative, mild distress HEENT: Atraumatic, PERRLA Lungs: Clear to auscultation, Normal air movement Cardiovascular: Normal S1, Normal S2 Abdomen: Other (Hypoactive bowel sounds. Colostomy with no drainage. Dressing dry and intact.) Musculoskeletal: Normal sensory function, Normal motor function Psych/Mental Status: Mental status NL, Mood NL, Other Medications Current Medications Medications Dose Ordered Sig/Carlos Route Start Time Stop Time Status Last Admin Dose Admin Nitroglycerin 0.4 mg Q5MINP PRN SL 05/28/24 15:30 Amino Acids 0 ml @ 0 mls/hr PER PHARMACY IV 05/28/24 15:30 Metronidazole 100 ml @ 100 mls/hr Q8HR IV 05/28/24 22:00 05/31/24 14:19 100 MLS/HR Ceftriaxone Sodium 50 ml @ 100 mls/hr DAILY@09 IV 05/28/24 15:30 05/31/24 09:40 100 MLS/HR Ondansetron HCl 4 mg Q6HP PRN IV 05/28/24 15:30 05/30/24 17:07 4 MG Labetalol HCl 10 mg Q2HPRN PRN IV 05/28/24 15:30 Pantoprazole Sodium 40 mg DAILY IV 05/29/24 10:00 05/31/24 09:40 40 MG Diagnostic Test (Pha) 1 strip Q6HR 05/28/24 18:00 05/31/24 06:00 1 STRIP Insulin Human Regular FOLLOW SLIDING SCALE Q6HR SC 05/28/24 18:00 05/31/24 06:00 2 UNITS Dextrose 50 ml UD IV 05/28/24 16:30 Sodium Chloride 10 ml QSHIFT@10,22 IV 05/29/24 22:00 05/31/24 09:41 10 ML Dextrose/Lactated Ringer's 1,000 ml @ 50 mls/hr Q20H IV 05/30/24 09:15 05/31/24 04:32 50 MLS/HR Morphine Sulfate 1 mg Q3HPRN PRN IV 05/30/24 09:15 05/31/24 09:40 1 MG Potassium Acetate 20 meq/Potassium Phosphate 20 meq/ Magnesium Sulfate 8 meq/ Multivitamins 10 ml/Chromium/ Copper/Manganese/ Zinc 1 ml/Amino Acids/Dextrose 1,027.5455 ml @ 43 mls/hr [id number] IV 05/30/24 22:00 05/31/24 21:59 05/30/24 22:00 43 MLS/HR Metoclopramide HCl 5 mg Q6HR IV 05/30/24 18:00 05/31/24 12:23 5 MG Potassium Phosphate 22 meq/ Sodium Chloride 105 ml @ 26.25 mls/ hr Q4H IV 05/31/24 13:00 05/31/24 20:59 Fat Emulsion Intravenous 50 ml/ Potassium Chloride 20 meq/ Potassium Phosphate 40 meq/ Magnesium Sulfate 10 meq/ Multivitamins 10 ml/Chromium/ Copper/Manganese/ Zinc 1 ml/Amino Acids/Dextrose 1,182.5909 ml @ 49 mls/hr Q24H9M IV 05/31/24 22:00 06/01/24 21:59 Laboratory Results Laboratory Tests 05/30/24 03:16 05/31/24 05:15 Chemistry Test 05/31/24 05:15 Albumin 2.8 g/dL (3.2-4.8) L Calcium Level 8.1 mg/dL (8.7-10.4) L Magnesium Level 2.2 mg/dL (1.6-2.6) Phosphorus Level 2.2 mg/dL (2.4-5.1) L Total Protein 4.8 g/dL (5.7-8.2) L Lipid panel Test 05/31/24 05:15 Triglycerides Level 56 mg/dL (< 150) LFT Test 05/31/24 05:15 Alanine Aminotransferase (ALT) 12 U/L (7-40) Alkaline Phosphatase 54 U/L (46-116) Aspartate Amino Transferase (AST) 12 U/L (13-40) L Total Bilirubin 0.4 mg/dL (0.2-1.0) Urinalysis Test 05/28/24 08:50 Urine Color Light-orange (Yellow) Urine Clarity Turbid (Clear) H Urine pH 5.5 (5.0-9.0) Urine Specific [place] 1.029 (1.001-1.035) Urine Protein 1+ (Negative) H Urine Ketones 1+ (Negative) H Urine Blood Negative /uL (Negative) Urine Nitrite Negative (Negative) Urine Bilirubin Negative (Negative) Urine Urobilinogen Normal mg/dL (Negative) Urine Leukocyte Esterase Negative /uL (Negative) Urine RBC <1 /hpf (0 - 3) Urine WBC 1 /hpf (0 - 3) Urine Squamous Epithelial Cells Few /hpf (<5) Urine Bacteria None seen /hpf (None Seen) Urine Hyaline Casts Few /lpf (0 - 2) Urine Granular Casts Many /lpf (0) Urine Mucus Few (None Seen) Urine Glucose Normal mg/dL (Normal) Microbiology Microbiology Date/Time Source Procedure Growth Status 05/28/24 19:18 Nose MRSA Screen - Final Complete 05/28/24 14:26 Peritoneal Fluid Gram Stain - Final Resulted 05/28/24 14:26 Anaerobic Culture - Final Prevotella loescheii Resulted 05/28/24 14:26 Peritoneal Fluid Aerobic Culture - Preliminary Resulted Labs and/or images reviewed: Labs reviewed by me, Image(s) reviewed by me Assessment/Plan Assessment/Plan Impression: -perforated bowel secondary to probable colorectal cancer -obesity -primary hypertension -ETOH abuse -peritonitis, sepsis Plan: -events: Patient ambulating. Now having bowel sounds with some fecal matter in being be colostomy. Started on clear liquid diet -continue TPN tonight, DC tomorrow if patient tolerates oral intake -NG to low intermittent suction -p.r.n. antihypertensives -PT consultation -PICC line -pain management -antibiotic therapy: Rocephin, Flagyl -PUD, DVT prophylaxis -repeat labs in a.m. -transferred to Medical/Surgical Total time spent with patient discussing and formulating plan of care: 35 minutes. This medical document was created using an electronic medical record system with [employer] dictation system. Although this document has been carefully reviewed, there may still be some phonetic and typographical errors. These areas are purely typographical due to imperfections of the software programs, and do not reflect any compromise in the patient's medical care. Plan discussed with: Patient, Other (RN) My Orders Orders - VERONICA MUNROE NP Procedure Category Date Status Time Potassium Phosphate PHA 05/31/24 In Process 13:00 Comprehensive LAB 06/01/24 Verified Metabolic Panel 06:00 Magnesium LAB 06/01/24 Verified 06:00 Phosphorus LAB 06/01/24 Verified 06:00 Amino Acid PHA 05/31/24 In Process Infusion... W/Fat 22:00 Tpn Per Pharmacy OLIVIA 05/31/24 In Process 22:00 Date of Service: May 31, 2024 Billing Provider: VERONICA MUNROE NP Common Visit Codes: [id number] INP/OBS CARE(HIGH) VERONICA MUNROE NP May 31, 2024 15:53
[2024-05-31] MEDS: POTASSIUM PHOSPHATE 22 MEQ in SODIUM CHL 0.9% 100 ML IV SCH (17:00)
[2024-05-31] MEDS: HYDROcodone-ACET 5/325MG TAB PO PRN (17:01)
--- NOTE | 2024-05-31 21:08 | DVHPN2 ---
Progress Note - Dictate Date Seen: May 31, 2024 Medical Necessity Reason Pt with a Central, PICC or Fol: Yes The following are medically ne: Jimenez Catheter Reason for jimenez catheter: Strict I&O Subjective Patient seen and examined at bedside. Breathing comfortably on room air. Overnight events reviewed. vital signs Vital Sign Date Time Temp Pulse Resp B/P (MAP) Pulse Ox O2 Delivery O2 Flow Rate FiO2 05/31/24 17:00 98.4 66 18 147/61 (89) 97 98.4 05/31/24 08:00 Nasal Cannula* 2 28 Total Intake and Output 05/30/24 05/30/24 05/31/24 15:00 23:00 07:00 Intake Total 578 ml 1519 ml 0 ml Output Total 1700 ml 850 ml Balance 578 ml -181 ml -850 ml medications Current Medications Medications Dose Ordered Sig/Carlso Route Start Time Stop Time Status Last Admin Dose Admin Nitroglycerin 0.4 mg Q5MINP PRN SL 05/28/24 15:30 Amino Acids 0 ml @ 0 mls/hr PER PHARMACY IV 05/28/24 15:30 Metronidazole 100 ml @ 100 mls/hr Q8HR IV 05/28/24 22:00 05/31/24 14:19 100 MLS/HR Ceftriaxone Sodium 50 ml @ 100 mls/hr DAILY@09 IV 05/28/24 15:30 05/31/24 09:40 100 MLS/HR Ondansetron HCl 4 mg Q6HP PRN IV 05/28/24 15:30 05/30/24 17:07 4 MG Labetalol HCl 10 mg Q2HPRN PRN IV 05/28/24 15:30 Pantoprazole Sodium 40 mg DAILY IV 05/29/24 10:00 05/31/24 09:40 40 MG Diagnostic Test (Pha) 1 strip Q6HR 05/28/24 18:00 05/31/24 06:00 1 STRIP Insulin Human Regular FOLLOW SLIDING SCALE Q6HR SC 05/28/24 18:00 05/31/24 06:00 2 UNITS Dextrose 50 ml UD IV 05/28/24 16:30 Sodium Chloride 10 ml QSHIFT@10,22 IV 05/29/24 22:00 05/31/24 09:41 10 ML Dextrose/Lactated Ringer's 1,000 ml @ 50 mls/hr Q20H IV 05/30/24 09:15 05/31/24 04:32 50 MLS/HR Morphine Sulfate 1 mg Q3HPRN PRN IV 05/30/24 09:15 05/31/24 09:40 1 MG Potassium Acetate 20 meq/Potassium Phosphate 20 meq/ Magnesium Sulfate 8 meq/ Multivitamins 10 ml/Chromium/ Copper/Manganese/ Zinc 1 ml/Amino Acids/Dextrose 1,027.5455 ml @ 43 mls/hr [id number] IV 05/30/24 22:00 05/31/24 21:59 05/30/24 22:00 43 MLS/HR Metoclopramide HCl 5 mg Q6HR IV 05/30/24 18:00 05/31/24 18:44 5 MG Fat Emulsion Intravenous 50 ml/ Potassium Chloride 20 meq/ Potassium Phosphate 40 meq/ Magnesium Sulfate 10 meq/ Multivitamins 10 ml/Chromium/ Copper/Manganese/ Zinc 1 ml/Amino Acids/Dextrose 1,182.5909 ml @ 49 mls/hr Q24H9M IV 05/31/24 22:00 06/01/24 21:59 Acetaminophen/ Hydrocodone Bitart 1 tab Q6HPRN PRN PO 05/31/24 16:45 05/31/24 17:01 1 TAB objective Gen.: Patient lying in bed in no apparent distress. He is breathing comfortably on room air. Head: Normocephalic, atraumatic Eyes: EOMI/PERRLA. Ears: Normal hearing. Normal anatomy. Neck/trachea: Trachea midline, supple. Nose: Normal external anatomy. Mouth: Moist mucous membranes. Chest: Fair air entry bilaterally. No wheezing or rhonchi. Cardio vascular: Positive S1, positive S2. Regular rate and rhythm. Abdomen: Positive bowel sounds in all 4 quadrants. Soft, non-tender, non- distended. : Deferred. Rectal: Deferred Skin: Warm, dry. Extremities: 2+ radial pulses bilaterally. No lower extremity edema. Neuro: Awake, alert, oriented x3. No gross motor or sensory deficits. Cranial nerves II through XII intact. Gait not assessed. laboratory and microbiology Laboratory Tests 05/31/24 05:15 05/30/24 03:16 Test 05/31/24 05:15 Range/Units Serum Glucose 135 H 74-106 mg/dL Assessment/Plan Impression: Hypoxia, resolved Perforated bowel secondary to probable colorectal cancer Obesity, BMI 30.4 Primary hypertension ETOH use Peritonitis Sepsis Events: Breathing on room air No respiratory distress. Continue antibiotics Incentive spirometry Potassium supplementation Monitor renal function Monitor electrolytes. Supplement as necessary. Clinimix for nutritional support Labs and imaging reviewed. Rest of plan as noted below. Plan: CXR reviewed. No acute opacities. No pleural effusion or pneumothorax. Supplemental oxygen PRN Keep o2 saturation above 92% TPN for nutritional support D5W LR Continue antibiotics. WBC trending down De-escalate based on cultures. Monitor Hgb, trending down. Pain control Avoid oversedation Wound care Monitor renal function. Monitor electrolytes. Supplement as necessary. Monitor ins and outs. Surgery recommendations appreciated. Accu-Cheks, ISS f/u path results onc recs appreciated DVT prophylaxis Prognosis: Guarded given multiple comorbidities. Rest of plan per hospitalist and other consultants. Thank you JANET Montelongo for allowing me to participate in this patient's care. Further recommendations will depend on patient's clinical course. Please do not hesitate to contact me if you have any questions or concerns. This medical document was created using an electronic medical record system with [employer] dictation system. Although this document has been carefully reviewed, there may still be some phonetic and typographical errors. These areas are purely typographical due to imperfections of the software programs, and do not reflect any compromise in the patient's medical care. Dietary Evaluation Review Comments: 1) Increase TPN to meet at least 75% of estimated needs 2) Advance pt diet when medically feasible 3) Continue current plan of care Expected Outcomes/Goals: 1) Pt to receive adequate nutrition within 7 days of NPO status 2) Pt diet to advance 3) F/U in 2-3 days Plan discussed with: Patient, Other (MABEL Mcdonald) SIMA MOLINA MD May 31, 2024 21:08
[2024-05-31] MEDS: TPN PER PHARMACY IV NR (23:01)
[2024-06-01] VITALS (8 sets, daily range): BP systolic 109–139; BP diastolic 56–69; PULSE 82–95; RESP 15–19; TEMP 98.3–99.8; O2SAT 92–98
[2024-06-01 06:26] LABS: Alanine Aminotransferase 11 U/L (7-40); Alkaline Phosphatase 48 U/L (46-116); Anion Gap 6 (5-15); Aspartate Aminotransferase 11 U/L (13-40); BUN/Creatinine Ratio 18.2 (10.0-20.0); Blood Urea Nitrogen 10 mg/dL (9-23); Calcium 8.1 mg/dL (8.7-10.4); Carbon Dioxide 27 mmol/L (20-31); Chloride 104 mmol/L (98-107); Glucose 139 mg/dL (74-106); Magnesium 2.3 mg/dL (1.6-2.6); Potassium 3.5 mmol/L (3.5-5.1); Sodium 137 mmol/L (136-145)
[2024-06-01 06:27] LABS: Albumin 2.9 g/dL (3.2-4.8); Bilirubin, Total 0.4 mg/dL (0.2-1.0); Phosphorus 3.2 mg/dL (2.4-5.1); Total Protein 4.9 g/dL (5.7-8.2)
--- NOTE | 2024-06-01 10:47 | DVHPN2 ---
Subjective Reports of multiple bouts of emesis. Reviewed: Care Plan, H&P, Medications Changes from previous H/P or p: Changes Eyes: No Pain, No Vision change, No Conjunctivae inflammation, No Eyelid inflammation, No Other, No Redness ENT: No Ear pain, No Ear discharge, No Nose pain, No Nose discharge, No Nose congestion, No Mouth pain, No Mouth swelling, No Throat pain, No Throat swelling, No Other Respiratory: No Cough, No Dry, No Shortness of breath, No SOB with excertion, No Wheezing, No Hemoptysis, No Pleuritic Pain, No Sputum, No Other Gastrointestinal: Abdominal Pain Genitourinary: No Dysuria, No Frequency, No Incontinence, No Hematuria, No Retention, No Other Musculoskeletal: No other, No neck pain, No shoulder pain, No arm pain, No back pain, No hand pain, No leg pain, No foot pain Skin: No Rash, No Lesions, No Jaundice, No Bruising, No Other Objective Vitals Vital Signs Date Time Temp Pulse Resp B/P (MAP) Pulse Ox O2 Delivery O2 Flow Rate FiO2 06/01/24 09:00 98.6 82 15 134/68 (90) 97 98.6 05/31/24 08:00 Nasal Cannula* 2 28 Intake/Output Intake and Output 06/01/24 07:00 Intake Total 2050 ml Output Total 2050 ml Balance 0 ml Intake Oral 2000 ml IV Total 50 ml Output Urine Total 1800 ml Drainage Total 250 ml General Appearance: Alert, Oriented X3, Cooperative, mild distress HEENT: Atraumatic, PERRLA Lungs: Clear to auscultation, Normal air movement Cardiovascular: Normal S1, Normal S2 Abdomen: No tenderness, Other (Continues to have hypoactive bowel sounds with serosanguineous drainage from colostomy.) Musculoskeletal: Normal sensory function, Normal motor function Skin: Dry, Intact Psych/Mental Status: Mental status NL, Mood NL, Other Medications Current Medications Medications Dose Ordered Sig/Carlos Route Start Time Stop Time Status Last Admin Dose Admin Nitroglycerin 0.4 mg Q5MINP PRN SL 05/28/24 15:30 Amino Acids 0 ml @ 0 mls/hr PER PHARMACY IV 05/28/24 15:30 Metronidazole 100 ml @ 100 mls/hr Q8HR IV 05/28/24 22:00 06/01/24 06:11 100 MLS/HR Ceftriaxone Sodium 50 ml @ 100 mls/hr DAILY@09 IV 05/28/24 15:30 06/01/24 09:43 100 MLS/HR Ondansetron HCl 4 mg Q6HP PRN IV 05/28/24 15:30 06/01/24 04:03 4 MG Labetalol HCl 10 mg Q2HPRN PRN IV 05/28/24 15:30 Pantoprazole Sodium 40 mg DAILY IV 05/29/24 10:00 06/01/24 09:41 40 MG Diagnostic Test (Pha) 1 strip Q6HR 05/28/24 18:00 06/01/24 06:00 1 STRIP Insulin Human Regular FOLLOW SLIDING SCALE Q6HR SC 05/28/24 18:00 05/31/24 06:00 2 UNITS Dextrose 50 ml UD IV 05/28/24 16:30 Sodium Chloride 10 ml QSHIFT@ IV 05/29/24 22:00 06/01/24 10:31 10 ML Dextrose/Lactated Ringer's 1,000 ml @ 50 mls/hr Q20H IV 05/30/24 09:15 05/31/24 04:32 50 MLS/HR Morphine Sulfate 1 mg Q3HPRN PRN IV 05/30/24 09:15 05/31/24 09:40 1 MG Metoclopramide HCl 5 mg Q6HR IV 05/30/24 18:00 06/01/24 06:11 5 MG Fat Emulsion Intravenous 50 ml/ Potassium Chloride 20 meq/ Potassium Phosphate 40 meq/ Magnesium Sulfate 10 meq/ Multivitamins 10 ml/Chromium/ Copper/Manganese/ Zinc 1 ml/Amino Acids/Dextrose 1,182.5909 ml @ 49 mls/hr Q24H9M IV 05/31/24 22:00 06/01/24 21:59 05/31/24 23:01 49 MLS/HR Acetaminophen/ Hydrocodone Bitart 1 tab Q6HPRN PRN PO 05/31/24 16:45 06/01/24 09:42 1 TAB Laboratory Results Laboratory Tests 05/30/24 03:16 06/01/24 05:36 Chemistry Test 06/01/24 05:36 Albumin 2.9 g/dL (3.2-4.8) L Calcium Level 8.1 mg/dL (8.7-10.4) L Magnesium Level 2.3 mg/dL (1.6-2.6) Phosphorus Level 3.2 mg/dL (2.4-5.1) Total Protein 4.9 g/dL (5.7-8.2) L LFT Test 06/01/24 05:36 Alanine Aminotransferase (ALT) 11 U/L (7-40) Alkaline Phosphatase 48 U/L (46-116) Aspartate Amino Transferase (AST) 11 U/L (13-40) L Total Bilirubin 0.4 mg/dL (0.2-1.0) Urinalysis Test 05/28/24 08:50 Urine Color Light-orange (Yellow) Urine Clarity Turbid (Clear) H Urine pH 5.5 (5.0-9.0) Urine Specific [place] 1.029 (1.001-1.035) Urine Protein 1+ (Negative) H Urine Ketones 1+ (Negative) H Urine Blood Negative /uL (Negative) Urine Nitrite Negative (Negative) Urine Bilirubin Negative (Negative) Urine Urobilinogen Normal mg/dL (Negative) Urine Leukocyte Esterase Negative /uL (Negative) Urine RBC <1 /hpf (0 - 3) Urine WBC 1 /hpf (0 - 3) Urine Squamous Epithelial Cells Few /hpf (<5) Urine Bacteria None seen /hpf (None Seen) Urine Hyaline Casts Few /lpf (0 - 2) Urine Granular Casts Many /lpf (0) Urine Mucus Few (None Seen) Urine Glucose Normal mg/dL (Normal) Microbiology Microbiology Date/Time Source Procedure Growth Status 05/28/24 19:18 Nose MRSA Screen - Final Complete 05/28/24 14:26 Peritoneal Fluid Gram Stain - Final Resulted 05/28/24 14:26 Anaerobic Culture - Final Prevotella loescheii Resulted 05/28/24 14:26 Peritoneal Fluid Aerobic Culture - Preliminary Resulted Labs and/or images reviewed: Labs reviewed by me, Image(s) reviewed by me Assessment/Plan Assessment/Plan Impression: -perforated bowel secondary to probable colorectal cancer -obesity -primary hypertension -ETOH abuse -peritonitis, sepsis Plan: -events: Not tolerating clear liquid diet. Multiple bouts of emesis. Bowel sounds are still quiet. Minimal serosanguineous drainage from colostomy. Continue ice chips, hold clear liquid -continue TPN given nausea -start trial of scheduled Reglan -NG to low intermittent suction -p.r.n. antihypertensives -PT consultation -PICC line -pain management -antibiotic therapy: Rocephin, Flagyl -PUD, DVT prophylaxis -repeat labs in a.m. Total time spent with patient discussing and formulating plan of care: 35 minutes. This medical document was created using an electronic medical record system with [employer] dictation system. Although this document has been carefully reviewed, there may still be some phonetic and typographical errors. These areas are purely typographical due to imperfections of the software programs, and do not reflect any compromise in the patient's medical care. Plan discussed with: Patient, Spouse, Other (RN) My Orders Orders - VERONICA MUNROE NP Procedure Category Date Status Time Hydrocodone-Acet PHA 05/31/24 In Process 5/325mg Tab ([place] 16:45 Discontinue [place] OLIVIA 06/01/24 In Process Catheter 09:24 Complete Blood Count LAB 06/02/24 Verified 04:00 Date of Service: Jun 01, 2024 Billing Provider: VERONICA MUNROE NP Common Visit Codes: [id number] INP/OBS CARE(HIGH) VERONICA MUNROE NP Jun 01, 2024 10:47
--- NOTE | 2024-06-01 11:47 | DVHPN2 ---
Progress Note Date Seen: Jun 01, 2024 Medical Necessity Reason Pt with a Central, PICC or Fol: Yes The following are medically ne: Jimenez Catheter Reason for jimenez catheter: Strict I&O Objective vital signs Vital Sign Date Time Temp Pulse Resp B/P (MAP) Pulse Ox O2 Delivery O2 Flow Rate FiO2 06/01/24 09:00 98.6 82 15 134/68 (90) 97 98.6 06/01/24 08:00 Nasal Cannula* 2 28 Total Intake and Output 05/31/24 05/31/24 06/01/24 15:00 23:00 07:00 Intake Total 550 ml 1000 ml 500 ml Output Total 1050 ml 1000 ml Balance 550 ml -50 ml -500 ml medications Current Medications Medications Dose Ordered Sig/Carlos Route Start Time Stop Time Status Last Admin Dose Admin Nitroglycerin 0.4 mg Q5MINP PRN SL 05/28/24 15:30 Amino Acids 0 ml @ 0 mls/hr PER PHARMACY IV 05/28/24 15:30 Metronidazole 100 ml @ 100 mls/hr Q8HR IV 05/28/24 22:00 06/01/24 06:11 100 MLS/HR Ceftriaxone Sodium 50 ml @ 100 mls/hr DAILY@09 IV 05/28/24 15:30 06/01/24 09:43 100 MLS/HR Ondansetron HCl 4 mg Q6HP PRN IV 05/28/24 15:30 06/01/24 04:03 4 MG Labetalol HCl 10 mg Q2HPRN PRN IV 05/28/24 15:30 Pantoprazole Sodium 40 mg DAILY IV 05/29/24 10:00 06/01/24 09:41 40 MG Diagnostic Test (Pha) 1 strip Q6HR 05/28/24 18:00 06/01/24 06:00 1 STRIP Insulin Human Regular FOLLOW SLIDING SCALE Q6HR SC 05/28/24 18:00 05/31/24 06:00 2 UNITS Dextrose 50 ml UD IV 05/28/24 16:30 Sodium Chloride 10 ml QSHIFT@, IV 05/29/24 22:00 06/01/24 10:31 10 ML Dextrose/Lactated Ringer's 1,000 ml @ 50 mls/hr Q20H IV 05/30/24 09:15 05/31/24 04:32 50 MLS/HR Morphine Sulfate 1 mg Q3HPRN PRN IV 05/30/24 09:15 05/31/24 09:40 1 MG Fat Emulsion Intravenous 50 ml/ Potassium Chloride 20 meq/ Potassium Phosphate 40 meq/ Magnesium Sulfate 10 meq/ Multivitamins 10 ml/Chromium/ Copper/Manganese/ Zinc 1 ml/Amino Acids/Dextrose 1,182.5909 ml @ 49 mls/hr Q24H9M IV 05/31/24 22:00 06/01/24 21:59 05/31/24 23:01 49 MLS/HR Acetaminophen/ Hydrocodone Bitart 1 tab Q6HPRN PRN PO 05/31/24 16:45 06/01/24 09:42 1 TAB Metoclopramide HCl 10 mg Q8HR IV 06/01/24 14:00 06/02/24 06:01 laboratory and microbiology Laboratory Tests 06/01/24 05:36 05/30/24 03:16 Test 06/01/24 05:36 Range/Units Serum Glucose 139 H 74-106 mg/dL Problem List/Assessment/Plan Problem List/Assessment/Plan 05/29/24 ADDENDUM TO OPERATIVE REPORT: THE TUMOR WAS DEEP IN A VERY NARROW PELVIS AND WAS NOT COMPLETELY RESECTABLE DUE TO PERFORATION OF THE TUMOR WHICH WAS OBSTRUCTING THE LUMEN, DUE TO THE OBSTRUCTION IT SEEMS THAT THE VERY DILATED RECTO SIGMOID COLON PROXIMAL TO THE TUMOR(LATER IDENTIFIED ADENOCARCINOMA ON DELAYED FROZEN SECTION) RUPTURED, DUE TO MORBID OBESITY THE RECTOSIGMOID SEGMENT WAS RESECTED SEPARATELY IN ORDER TO FACILITATE VISUALIZATION OF THE PERFORATED CANCER DISTAL TO IT. FOLLOWING RESECTION I ADMINISTERED METHYLENE BLUE TO ASSURE INTEGRITY OF THE URETER VISUALIZATION WAS MADE IMPOSSIBLE DUE TO THE CHRONICITY OF SIGMOID PERFORATION AND ADHERENCE OF RETROPERITONEAL STRUCTURES. NO METHYLENE BLUE EXTRAVASATION WAS DETECTED. THE REMNANT OF RECTUM WAS GROSSLY POSITIVE TUMOR MARGIN WAS MARKED WITH METALLIC HEMOCLIPS FOR LATER IDENTIFICATION . 05/29/24 awake, cooperative, dressing dry, drainage serous, abdomen non distended, labs reviewed. picc line pending qabdomen appropriately tender, I explained operative findings and probable need for radiation treatments after completion of post operative recovery, stoma is viable but without function, will try Reglan, wound clean and well approximated. 05/31/24 flatus in stoma appliance, abdomen appropriately tender, drainage serous, will advance diet 06/01/24 vomited and there is no flatus in the stoma appliance, will resume NPO status, wound clean, drainage serous Plan discussed with: Patient, Spouse, Daughter Dietary Evaluation Review Comments: 1) Increase TPN to meet at least 75% of estimated needs 2) Advance pt diet when medically feasible 3) Continue current plan of care Expected Outcomes/Goals: 1) Pt to receive adequate nutrition within 7 days of NPO status 2) Pt diet to advance 3) F/U in 2-3 days RONALD LANDA MD Jun 01, 2024 11:47
[2024-06-01] MEDS ORDERED: METOCLOPRAMIDE HCL 5MG/ml INJ 2ml VIAL IV SCH (14:00)
[2024-06-01] MEDS: METOCLOPRAMIDE HCL 5MG/ml INJ 2ml VIAL IV SCH ×2 (14:24→21:35)
[2024-06-01] MEDS ORDERED: MORPHINE SULFATE INJ 2 MG/ml SYRG IV PRN (17:15)
[2024-06-01] MEDS: MORPHINE SULFATE INJ 2 MG/ml SYRG IV PRN (18:09)
[2024-06-01] MEDS: TPN PER PHARMACY IV NR (21:39)
[2024-06-02] VITALS (7 sets, daily range): BP systolic 125–138; BP diastolic 59–74; PULSE 84–100; RESP 18–19; TEMP 98.2–99; O2SAT 96–99
[2024-06-02 07:42] LABS: Alanine Aminotransferase 11 U/L (7-40); Alkaline Phosphatase 59 U/L (46-116); Anion Gap 5 (5-15); Aspartate Aminotransferase 13 U/L (13-40); BUN/Creatinine Ratio 15.7 (10.0-20.0); Blood Urea Nitrogen 11 mg/dL (9-23); Calcium 8.5 mg/dL (8.7-10.4); Carbon Dioxide 29 mmol/L (20-31); Chloride 104 mmol/L (98-107); Glucose 111 mg/dL (74-106); Magnesium 2.3 mg/dL (1.6-2.6); Potassium 3.5 mmol/L (3.5-5.1); Sodium 138 mmol/L (136-145)
[2024-06-02 07:43] LABS: Albumin 3.1 g/dL (3.2-4.8)
[2024-06-02 07:44] LABS: Bilirubin, Total 0.3 mg/dL (0.2-1.0); Phosphorus 3.5 mg/dL (2.4-5.1); Total Protein 5.4 g/dL (5.7-8.2)
[2024-06-02 08:03] LABS: Hematocrit 28.7 % (41.0-53.0); Hemoglobin 9.5 g/dL (13.5-17.5); Mean Corpuscular Hemoglobin 33.2 pg (28.0-32.0); Mean Corpuscular Hgb Conc. 33.2 g/dL (32.0-36.0); Platelet Count (auto) 327 10^3/uL (140-450); Red Blood Cells 2.88 10^6/uL (4.5-5.90); Red Cell Distribution Width 13.9 % (11.8-14.3); White Blood Cell 12.9 10^3/uL (4.4-10.8)
[2024-06-02 08:08] LABS: Basophils % (manual) 0 (0.0-2.0); Blast Cells 0; Metamyelocytes % 0; Myelocytes % 0; Promyelocytes % 0; Reactive Lymphocytes 0
[2024-06-02 09:17] LABS: Band Neutrophils % (manual) 1; Eosinophils % (manual) 10 (0-7); Lymphocytes % (manual) 25 (10.0-50.0); Monocytes % (manual) 5 (0-12)
[2024-06-02 09:18] LABS: Platelet Estimate Adequate
--- NOTE | 2024-06-02 14:13 | DVHPN2 ---
Subjective Patient seen and examined at bedside. Still have multiple nausea episode. Still can not tolerate diet. Reviewed: Care Plan, H&P, Medications Changes from previous H/P or p: No Changes Eyes: No Pain, No Vision change, No Conjunctivae inflammation, No Eyelid inflammation, No Other, No Redness ENT: No Ear pain, No Ear discharge, No Nose pain, No Nose discharge, No Nose congestion, No Mouth pain, No Mouth swelling, No Throat pain, No Throat swelling, No Other Respiratory: No Cough, No Dry, No Shortness of breath, No SOB with excertion, No Wheezing, No Hemoptysis, No Pleuritic Pain, No Sputum, No Other Gastrointestinal: Abdominal Pain Genitourinary: No Dysuria, No Frequency, No Incontinence, No Hematuria, No Retention, No Other Musculoskeletal: No other, No neck pain, No shoulder pain, No arm pain, No back pain, No hand pain, No leg pain, No foot pain Skin: No Rash, No Lesions, No Jaundice, No Bruising, No Other Objective Vitals Vital Signs Date Time Temp Pulse Resp B/P (MAP) Pulse Ox O2 Delivery O2 Flow Rate FiO2 06/02/24 13:00 98.2 84 18 125/67 (86) 96 98.2 06/02/24 08:00 Room Air* 0 21 Intake/Output Intake and Output 06/02/24 07:00 Intake Total 1700 ml Output Total 800 ml Balance 900 ml Intake Oral 1450 ml IV Total 250 ml Output Urine Total 800 ml General Appearance: Alert, Oriented X3, Cooperative, mild distress HEENT: Atraumatic, PERRLA Lungs: Clear to auscultation, Normal air movement Cardiovascular: Normal S1, Normal S2 Abdomen: No tenderness, Other (Continues to have hypoactive bowel sounds with serosanguineous drainage from colostomy.) Musculoskeletal: Normal sensory function, Normal motor function Skin: Dry, Intact Psych/Mental Status: Mental status NL, Mood NL, Other Medications Current Medications Medications Dose Ordered Sig/Carlos Route Start Time Stop Time Status Last Admin Dose Admin Nitroglycerin 0.4 mg Q5MINP PRN SL 05/28/24 15:30 Amino Acids 0 ml @ 0 mls/hr PER PHARMACY IV 05/28/24 15:30 Metronidazole 100 ml @ 100 mls/hr Q8HR IV 05/28/24 22:00 06/02/24 14:11 100 MLS/HR Ceftriaxone Sodium 50 ml @ 100 mls/hr DAILY@09 IV 05/28/24 15:30 06/02/24 09:17 100 MLS/HR Ondansetron HCl 4 mg Q6HP PRN IV 05/28/24 15:30 06/01/24 04:03 4 MG Labetalol HCl 10 mg Q2HPRN PRN IV 05/28/24 15:30 Pantoprazole Sodium 40 mg DAILY IV 05/29/24 10:00 06/02/24 09:17 40 MG Diagnostic Test (Pha) 1 strip Q6HR 05/28/24 18:00 06/02/24 12:15 1 STRIP Insulin Human Regular FOLLOW SLIDING SCALE Q6HR SC 05/28/24 18:00 05/31/24 06:00 2 UNITS Dextrose 50 ml UD IV 05/28/24 16:30 Sodium Chloride 10 ml QSHIFT@10,22 IV 05/29/24 22:00 06/02/24 09:26 10 ML Dextrose/Lactated Ringer's 1,000 ml @ 50 mls/hr Q20H IV 05/30/24 09:15 06/01/24 21:36 50 MLS/HR Acetaminophen/ Hydrocodone Bitart 1 tab Q6HPRN PRN PO 05/31/24 16:45 06/01/24 09:42 1 TAB Fat Emulsion Intravenous 100 ml/Sodium Chloride 40 meq/ Sodium Phosphate 20 meq/Potassium Phosphate 22 meq/ Magnesium Sulfate 8 meq/ Multivitamins 10 ml/Chromium/ Copper/Manganese/ Zinc 1 ml/Amino Acids/Dextrose 1,383 ml @ 58 mls/hr [id number] IV 06/01/24 22:00 06/02/24 21:59 06/01/24 21:39 58 MLS/HR Metoclopramide HCl 10 mg Q8HR IV 06/01/24 22:00 06/02/24 14:11 10 MG Morphine Sulfate 1 mg Q4HP PRN IV 06/01/24 17:45 06/02/24 00:53 1 MG Fat Emulsion Intravenous 100 ml/Sodium Chloride 40 meq/ Potassium Chloride 40 meq/ Potassium Phosphate 22 meq/ Magnesium Sulfate 10 meq/ Multivitamins 10 ml/Chromium/ Copper/Manganese/ Zinc 1 ml/Amino Acids/Dextrose 1,448.5 ml @ 60 mls/hr Q24H9M IV 06/02/24 22:00 06/03/24 21:59 Laboratory Results Laboratory Tests 06/02/24 06:31 Chemistry Test 06/02/24 06:31 Albumin 3.1 g/dL (3.2-4.8) L Calcium Level 8.5 mg/dL (8.7-10.4) L Magnesium Level 2.3 mg/dL (1.6-2.6) Phosphorus Level 3.5 mg/dL (2.4-5.1) Total Protein 5.4 g/dL (5.7-8.2) L LFT Test 06/02/24 06:31 Alanine Aminotransferase (ALT) 11 U/L (7-40) Alkaline Phosphatase 59 U/L (46-116) Aspartate Amino Transferase (AST) 13 U/L (13-40) Total Bilirubin 0.3 mg/dL (0.2-1.0) Urinalysis Test 05/28/24 08:50 Urine Color Light-orange (Yellow) Urine Clarity Turbid (Clear) H Urine pH 5.5 (5.0-9.0) Urine Specific [place] 1.029 (1.001-1.035) Urine Protein 1+ (Negative) H Urine Ketones 1+ (Negative) H Urine Blood Negative /uL (Negative) Urine Nitrite Negative (Negative) Urine Bilirubin Negative (Negative) Urine Urobilinogen Normal mg/dL (Negative) Urine Leukocyte Esterase Negative /uL (Negative) Urine RBC <1 /hpf (0 - 3) Urine WBC 1 /hpf (0 - 3) Urine Squamous Epithelial Cells Few /hpf (<5) Urine Bacteria None seen /hpf (None Seen) Urine Hyaline Casts Few /lpf (0 - 2) Urine Granular Casts Many /lpf (0) Urine Mucus Few (None Seen) Urine Glucose Normal mg/dL (Normal) Microbiology Microbiology Date/Time Source Procedure Growth Status 05/28/24 19:18 Nose MRSA Screen - Final Complete 05/28/24 14:26 Peritoneal Fluid Gram Stain - Final Resulted 05/28/24 14:26 Anaerobic Culture - Final Prevotella loescheii Resulted 05/28/24 14:26 Peritoneal Fluid Aerobic Culture - Preliminary Resulted Labs and/or images reviewed: Labs reviewed by me Assessment/Plan Assessment/Plan -perforated bowel secondary to probable colorectal cancer -obesity -primary hypertension -ETOH abuse -peritonitis, sepsis Plan: -the patient is still not tolerating clear liquid diet. Multiple bouts of emesis. Bowel sounds are still quiet. Minimal serosanguineous drainage from colostomy. Continue ice chips, hold clear liquid -continue TPN given nausea -start trial of scheduled Reglan -NG to low intermittent suction -p.r.n. antihypertensives -PT consultation -PICC line -pain management -antibiotic therapy: Rocephin, Flagyl -PUD, DVT prophylaxis -repeat labs in a.m. Plan discussed with: Patient Date of Service: Jun 02, 2024 Billing Provider: ANDRIA HALL MD Common Visit Codes: [id number] INP/OBS CARE(HIGH) ANDRIA HALL MD Jun 02, 2024 14:13
[2024-06-02] MEDS: TPN PER PHARMACY IV NR (22:00)
[2024-06-03] VITALS (9 sets, daily range): BP systolic 116–138; BP diastolic 59–65; PULSE 80–95; RESP 17–18; TEMP 98.5–99.7; O2SAT 97–99
[2024-06-03 06:43] LABS: Alanine Aminotransferase 10 U/L (7-40); Albumin 2.9 g/dL (3.2-4.8); Alkaline Phosphatase 46 U/L (46-116); Anion Gap 7 (5-15); Aspartate Aminotransferase 12 U/L (13-40); Blood Urea Nitrogen 13 mg/dL (9-23); Calcium 8.1 mg/dL (8.7-10.4); Carbon Dioxide 24 mmol/L (20-31); Chloride 107 mmol/L (98-107); Glucose 136 mg/dL (74-106); Magnesium 2.3 mg/dL (1.6-2.6); Potassium 3.5 mmol/L (3.5-5.1); Sodium 138 mmol/L (136-145)
[2024-06-03 06:44] LABS: Bilirubin, Total 0.3 mg/dL (0.2-1.0); Phosphorus 3.2 mg/dL (2.4-5.1); Total Protein 5.2 g/dL (5.7-8.2)
--- NOTE | 2024-06-03 09:30 | DVHPN2 ---
Progress Note Date Seen: Jun 03, 2024 Medical Necessity Reason Pt with a Central, PICC or Fol: Yes The following are medically ne: Jimenez Catheter Reason for jimenez catheter: Strict I&O Objective vital signs Vital Sign Date Time Temp Pulse Resp B/P (MAP) Pulse Ox O2 Delivery O2 Flow Rate FiO2 06/03/24 09:02 99.7 91 17 116/59 (78) 97 99.7 06/03/24 07:52 Room Air* 0 21 Total Intake and Output 06/02/24 06/02/24 06/03/24 15:00 23:00 07:00 Intake Total 150 ml 2138 ml 800 ml Output Total 500 ml 700 ml Balance 150 ml 1638 ml 100 ml medications Current Medications Medications Dose Ordered Sig/Carlos Route Start Time Stop Time Status Last Admin Dose Admin Nitroglycerin 0.4 mg Q5MINP PRN SL 05/28/24 15:30 Amino Acids 0 ml @ 0 mls/hr PER PHARMACY IV 05/28/24 15:30 Metronidazole 100 ml @ 100 mls/hr Q8HR IV 05/28/24 22:00 06/03/24 05:26 100 MLS/HR Ceftriaxone Sodium 50 ml @ 100 mls/hr DAILY@09 IV 05/28/24 15:30 06/03/24 09:18 100 MLS/HR Ondansetron HCl 4 mg Q6HP PRN IV 05/28/24 15:30 06/01/24 04:03 4 MG Labetalol HCl 10 mg Q2HPRN PRN IV 05/28/24 15:30 Pantoprazole Sodium 40 mg DAILY IV 05/29/24 10:00 06/03/24 09:18 40 MG Diagnostic Test (Pha) 1 strip Q6HR 05/28/24 18:00 06/03/24 05:36 1 STRIP Insulin Human Regular FOLLOW SLIDING SCALE Q6HR SC 05/28/24 18:00 06/02/24 17:31 2 UNITS Dextrose 50 ml UD IV 05/28/24 16:30 Sodium Chloride 10 ml QSHIFT@10,22 IV 05/29/24 22:00 06/03/24 09:18 10 ML Dextrose/Lactated Ringer's 1,000 ml @ 50 mls/hr Q20H IV 05/30/24 09:15 06/02/24 17:27 50 MLS/HR Acetaminophen/ Hydrocodone Bitart 1 tab Q6HPRN PRN PO 05/31/24 16:45 06/01/24 09:42 1 TAB Metoclopramide HCl 10 mg Q8HR IV 06/01/24 22:00 06/03/24 05:26 10 MG Morphine Sulfate 1 mg Q4HP PRN IV 06/01/24 17:45 06/03/24 00:22 1 MG Fat Emulsion Intravenous 100 ml/Sodium Chloride 40 meq/ Potassium Chloride 40 meq/ Potassium Phosphate 22 meq/ Magnesium Sulfate 10 meq/ Multivitamins 10 ml/Chromium/ Copper/Manganese/ Zinc 1 ml/Amino Acids/Dextrose 1,448.5 ml @ 60 mls/hr Q24H9M IV 06/02/24 22:00 06/03/24 21:59 06/02/24 22:00 60 MLS/HR laboratory and microbiology Laboratory Tests 06/03/24 06:05 06/02/24 06:31 Test 06/03/24 06:05 Range/Units Serum Glucose 136 H 74-106 mg/dL Problem List/Assessment/Plan Problem List/Assessment/Plan 05/29/24 ADDENDUM TO OPERATIVE REPORT: THE TUMOR WAS DEEP IN A VERY NARROW PELVIS AND WAS NOT COMPLETELY RESECTABLE DUE TO PERFORATION OF THE TUMOR WHICH WAS OBSTRUCTING THE LUMEN, DUE TO THE OBSTRUCTION IT SEEMS THAT THE VERY DILATED RECTO SIGMOID COLON PROXIMAL TO THE TUMOR(LATER IDENTIFIED ADENOCARCINOMA ON DELAYED FROZEN SECTION) RUPTURED, DUE TO MORBID OBESITY THE RECTOSIGMOID SEGMENT WAS RESECTED SEPARATELY IN ORDER TO FACILITATE VISUALIZATION OF THE PERFORATED CANCER DISTAL TO IT. FOLLOWING RESECTION I ADMINISTERED METHYLENE BLUE TO ASSURE INTEGRITY OF THE URETER VISUALIZATION WAS MADE IMPOSSIBLE DUE TO THE CHRONICITY OF SIGMOID PERFORATION AND ADHERENCE OF RETROPERITONEAL STRUCTURES. NO METHYLENE BLUE EXTRAVASATION WAS DETECTED. THE REMNANT OF RECTUM WAS GROSSLY POSITIVE TUMOR MARGIN WAS MARKED WITH METALLIC HEMOCLIPS FOR LATER IDENTIFICATION . 05/29/24 awake, cooperative, dressing dry, drainage serous, abdomen non distended, labs reviewed. picc line pending qabdomen appropriately tender, I explained operative findings and probable need for radiation treatments after completion of post operative recovery, stoma is viable but without function, will try Reglan, wound clean and well approximated. 05/31/24 flatus in stoma appliance, abdomen appropriately tender, drainage serous, will advance diet 06/01/24 vomited and there is no flatus in the stoma appliance, will resume NPO status, wound clean, drainage serous GAS IN STOMA APPLIANCE, ABDOMEN NON DISTENDED, WOUND CLEAN AND WELL APPROXIMATED, DRAINAGE SEROUS, PATIENT IS VERY HUNGRY, WILL ALLOW POP INTAKE Plan discussed with: Patient, Spouse Dietary Evaluation Review Comments: 1) Increase TPN to meet at least 75% of estimated needs 2) Advance pt diet when medically feasible 3) Continue current plan of care Expected Outcomes/Goals: 1) Pt to receive adequate nutrition within 7 days of NPO status 2) Pt diet to advance 3) F/U in 2-3 days RONALD LANDA MD Jun 03, 2024 09:30
--- NOTE | 2024-06-03 10:06 | DVHPN2 ---
Subjective The patient is seen and examined at bedside. No complaint today. Nausea or vomiting improved. Tolerating full liquid diet. Reviewed: Care Plan, H&P, Medications Changes from previous H/P or p: No Changes Eyes: No Pain, No Vision change, No Conjunctivae inflammation, No Eyelid inflammation, No Other, No Redness ENT: No Ear pain, No Ear discharge, No Nose pain, No Nose discharge, No Nose congestion, No Mouth pain, No Mouth swelling, No Throat pain, No Throat swelling, No Other Respiratory: No Cough, No Dry, No Shortness of breath, No SOB with excertion, No Wheezing, No Hemoptysis, No Pleuritic Pain, No Sputum, No Other Gastrointestinal: Abdominal Pain Genitourinary: No Dysuria, No Frequency, No Incontinence, No Hematuria, No Retention, No Other Musculoskeletal: No other, No neck pain, No shoulder pain, No arm pain, No back pain, No hand pain, No leg pain, No foot pain Skin: No Rash, No Lesions, No Jaundice, No Bruising, No Other Objective Vitals Vital Signs Date Time Temp Pulse Resp B/P (MAP) Pulse Ox O2 Delivery O2 Flow Rate FiO2 06/03/24 09:02 99.7 91 17 116/59 (78) 97 99.7 06/03/24 07:52 Room Air* 0 21 Intake/Output Intake and Output 06/03/24 07:00 Intake Total 3088 ml Output Total 1200 ml Balance 1888 ml Intake Oral 1500 ml IV Total 1588 ml Output Urine Total 1100 ml Other 100 ml General Appearance: Alert, Oriented X3, Cooperative, mild distress HEENT: Atraumatic, PERRLA Lungs: Clear to auscultation, Normal air movement Cardiovascular: Normal S1, Normal S2 Abdomen: No tenderness, Other (Continues to have hypoactive bowel sounds with serosanguineous drainage from colostomy.) Musculoskeletal: Normal sensory function, Normal motor function Skin: Dry, Intact Psych/Mental Status: Mental status NL, Mood NL, Other Medications Current Medications Medications Dose Ordered Sig/Carlos Route Start Time Stop Time Status Last Admin Dose Admin Nitroglycerin 0.4 mg Q5MINP PRN SL 05/28/24 15:30 Amino Acids 0 ml @ 0 mls/hr PER PHARMACY IV 05/28/24 15:30 Metronidazole 100 ml @ 100 mls/hr Q8HR IV 05/28/24 22:00 11/24/24 05:26 100 MLS/HR Ceftriaxone Sodium 50 ml @ 100 mls/hr DAILY@09 IV 05/28/24 15:30 06/03/24 09:18 100 MLS/HR Ondansetron HCl 4 mg Q6HP PRN IV 05/28/24 15:30 06/01/24 04:03 4 MG Labetalol HCl 10 mg Q2HPRN PRN IV 05/28/24 15:30 Pantoprazole Sodium 40 mg DAILY IV 05/29/24 10:00 06/03/24 09:18 40 MG Diagnostic Test (Pha) 1 strip Q6HR 05/28/24 18:00 06/03/24 05:36 1 STRIP Insulin Human Regular FOLLOW SLIDING SCALE Q6HR SC 05/28/24 18:00 06/02/24 17:31 2 UNITS Dextrose 50 ml UD IV 05/28/24 16:30 Sodium Chloride 10 ml QSHIFT@10,22 IV 05/29/24 22:00 06/03/24 09:18 10 ML Dextrose/Lactated Ringer's 1,000 ml @ 50 mls/hr Q20H IV 05/30/24 09:15 06/02/24 17:27 50 MLS/HR Acetaminophen/ Hydrocodone Bitart 1 tab Q6HPRN PRN PO 05/31/24 16:45 06/01/24 09:42 1 TAB Metoclopramide HCl 10 mg Q8HR IV 06/01/24 22:00 06/03/24 05:26 10 MG Morphine Sulfate 1 mg Q4HP PRN IV 06/01/24 17:45 06/03/24 00:22 1 MG Fat Emulsion Intravenous 100 ml/Sodium Chloride 40 meq/ Potassium Chloride 40 meq/ Potassium Phosphate 22 meq/ Magnesium Sulfate 10 meq/ Multivitamins 10 ml/Chromium/ Copper/Manganese/ Zinc 1 ml/Amino Acids/Dextrose 1,448.5 ml @ 60 mls/hr Q24H9M IV 06/02/24 22:00 06/03/24 21:59 06/02/24 22:00 60 MLS/HR Laboratory Results Laboratory Tests 06/02/24 06:31 06/03/24 06:05 Chemistry Test 06/03/24 06:05 Albumin 2.9 g/dL (3.2-4.8) L Calcium Level 8.1 mg/dL (8.7-10.4) L Magnesium Level 2.3 mg/dL (1.6-2.6) Phosphorus Level 3.2 mg/dL (2.4-5.1) Total Protein 5.2 g/dL (5.7-8.2) L LFT Test 06/03/24 06:05 Alanine Aminotransferase (ALT) 10 U/L (7-40) Alkaline Phosphatase 46 U/L (46-116) Aspartate Amino Transferase (AST) 12 U/L (13-40) L Total Bilirubin 0.3 mg/dL (0.2-1.0) Urinalysis Test 05/28/24 08:50 Urine Color Light-orange (Yellow) Urine Clarity Turbid (Clear) H Urine pH 5.5 (5.0-9.0) Urine Specific [place] 1.029 (1.001-1.035) Urine Protein 1+ (Negative) H Urine Ketones 1+ (Negative) H Urine Blood Negative /uL (Negative) Urine Nitrite Negative (Negative) Urine Bilirubin Negative (Negative) Urine Urobilinogen Normal mg/dL (Negative) Urine Leukocyte Esterase Negative /uL (Negative) Urine RBC <1 /hpf (0 - 3) Urine WBC 1 /hpf (0 - 3) Urine Squamous Epithelial Cells Few /hpf (<5) Urine Bacteria None seen /hpf (None Seen) Urine Hyaline Casts Few /lpf (0 - 2) Urine Granular Casts Many /lpf (0) Urine Mucus Few (None Seen) Urine Glucose Normal mg/dL (Normal) Microbiology Microbiology Date/Time Source Procedure Growth Status 05/28/24 19:18 Nose MRSA Screen - Final Complete 05/28/24 14:26 Peritoneal Fluid Gram Stain - Final Complete 05/28/24 14:26 Anaerobic Culture - Final Prevotella loescheii Complete 05/28/24 14:26 Peritoneal Fluid Aerobic Culture - Final Complete Labs and/or images reviewed: Labs reviewed by me Assessment/Plan Assessment/Plan -perforated bowel secondary to probable colorectal cancer -obesity -primary hypertension -ETOH abuse -peritonitis, sepsis Plan: -the patient tolerated clear liquid diet advanced to full liquid diet per surgeon. -continue TPN given nausea . We will weaned off if the patient can tolerate diet and eating more than 50% his food -start trial of scheduled Reglan -NG to low intermittent suction -p.r.n. antihypertensives -PT consultation -PICC line -pain management -antibiotic therapy: Rocephin, Flagyl -PUD, DVT prophylaxis -repeat labs in a.m. Plan discussed with: Patient Date of Service: Jun 03, 2024 Billing Provider: ANDRIA HALL MD Common Visit Codes: [id number] INP/OBS CARE(HIGH) ANDRIA HALL MD Jun 03, 2024 10:06
[2024-06-03] MEDS: TPN PER PHARMACY IV NR (20:57)
--- NOTE | 2024-06-03 23:21 | DVHPN2 ---
Progress Note - Dictate Date Seen: Jun 03, 2024 Medical Necessity Reason Pt with a Central, PICC or Fol: No The following are medically ne: Jimenez Catheter Reason for jimenez catheter: Strict I&O Subjective Patient seen and examined at bedside. Breathing comfortably on room air. Overnight events reviewed. vital signs Vital Sign Date Time Temp Pulse Resp B/P (MAP) Pulse Ox O2 Delivery O2 Flow Rate FiO2 06/03/24 21:00 98.6 89 18 123/63 (83) 97 98.6 06/03/24 20:00 Room Air* 0 21 Total Intake and Output 06/02/24 06/02/24 06/03/24 15:00 23:00 07:00 Intake Total 150 ml 2138 ml 800 ml Output Total 500 ml 700 ml Balance 150 ml 1638 ml 100 ml medications Current Medications Medications Dose Ordered Sig/Carlos Route Start Time Stop Time Status Last Admin Dose Admin Nitroglycerin 0.4 mg Q5MINP PRN SL 05/28/24 15:30 Amino Acids 0 ml @ 0 mls/hr PER PHARMACY IV 05/28/24 15:30 Metronidazole 100 ml @ 100 mls/hr Q8HR IV 05/28/24 22:00 06/03/24 20:54 100 MLS/HR Ceftriaxone Sodium 50 ml @ 100 mls/hr DAILY@09 IV 05/28/24 15:30 06/03/24 09:18 100 MLS/HR Ondansetron HCl 4 mg Q6HP PRN IV 05/28/24 15:30 06/01/24 04:03 4 MG Labetalol HCl 10 mg Q2HPRN PRN IV 05/28/24 15:30 Pantoprazole Sodium 40 mg DAILY IV 05/29/24 10:00 06/03/24 09:18 40 MG Diagnostic Test (Pha) 1 strip Q6HR 05/28/24 18:00 06/03/24 17:44 1 STRIP Insulin Human Regular FOLLOW SLIDING SCALE Q6HR SC 05/28/24 18:00 06/03/24 17:44 2 UNITS Dextrose 50 ml UD IV 05/28/24 16:30 Sodium Chloride 10 ml QSHIFT@10,22 IV 05/29/24 22:00 06/03/24 20:57 10 ML Dextrose/Lactated Ringer's 1,000 ml @ 50 mls/hr Q20H IV 05/30/24 09:15 06/03/24 12:36 50 MLS/HR Acetaminophen/ Hydrocodone Bitart 1 tab Q6HPRN PRN PO 05/31/24 16:45 06/03/24 22:38 1 TAB Metoclopramide HCl 10 mg Q8HR IV 06/01/24 22:00 06/03/24 20:54 10 MG Morphine Sulfate 1 mg Q4HP PRN IV 06/01/24 17:45 06/03/24 00:22 1 MG Fat Emulsion Intravenous 100 ml/Sodium Chloride 40 meq/ Potassium Acetate 50 meq/Potassium Phosphate 30.8 meq/Calcium Gluconate 2.3 meq/ Magnesium Sulfate 8 meq/ Multivitamins 10 ml/Chromium/ Copper/Manganese/ Zinc 1 ml/Amino Acids/Dextrose 1,459.9462 ml @ 60 mls/hr [id number] IV 06/03/24 22:00 06/04/24 21:59 06/03/24 20:57 60 MLS/HR objective Gen.: Patient lying in bed in no apparent distress. He is breathing comfortably on room air. Head: Normocephalic, atraumatic Eyes: EOMI/PERRLA. Ears: Normal hearing. Normal anatomy. Neck/trachea: Trachea midline, supple. Nose: Normal external anatomy. Mouth: Moist mucous membranes. Chest: Fair air entry bilaterally. No wheezing or rhonchi. Cardio vascular: Positive S1, positive S2. Regular rate and rhythm. Abdomen: Positive bowel sounds in all 4 quadrants. Soft, non-tender, non- distended. : Deferred. Rectal: Deferred Skin: Warm, dry. Extremities: 2+ radial pulses bilaterally. No lower extremity edema. Neuro: Awake, alert, oriented x3. No gross motor or sensory deficits. Cranial nerves II through XII intact. Gait not assessed. laboratory and microbiology Laboratory Tests 06/03/24 06:05 06/02/24 06:31 Test 06/03/24 06:05 Range/Units Serum Glucose 136 H 74-106 mg/dL Assessment/Plan Impression: Hypoxia, resolved Perforated bowel secondary to probable colorectal cancer Obesity, BMI 30.4 Primary hypertension ETOH use Peritonitis Sepsis Events: Breathing on room air No respiratory distress. Continue antibiotics Incentive spirometry Pain control Avoid oversedation TPN for nutritional support Advance diet per Surgery. Surgery recs appreciated. Accu-Cheks, ISS. Protonix for GI prophylaxis Labs and imaging reviewed. Rest of plan as noted below. Plan: CXR reviewed. No acute opacities. No pleural effusion or pneumothorax. Supplemental oxygen PRN Keep o2 saturation above 92% TPN for nutritional support D5W LR Continue antibiotics. WBC trending down De-escalate based on cultures. Monitor Hgb, trending down. Pain control Avoid oversedation Wound care Monitor renal function. Monitor electrolytes. Supplement as necessary. Monitor ins and outs. Surgery recommendations appreciated. Accu-Cheks, ISS f/u path results onc recs appreciated DVT prophylaxis Prognosis: Guarded given multiple comorbidities. Rest of plan per hospitalist and other consultants. Thank you JANET Montelongo for allowing me to participate in this patient's care. Further recommendations will depend on patient's clinical course. Please do not hesitate to contact me if you have any questions or concerns. This medical document was created using an electronic medical record system with [employer] dictation system. Although this document has been carefully reviewed, there may still be some phonetic and typographical errors. These areas are purely typographical due to imperfections of the software programs, and do not reflect any compromise in the patient's medical care. Dietary Evaluation Review Comments: 1) Increase TPN to meet at least 75% of estimated needs 2) Advance pt diet when medically feasible 3) Continue current plan of care Expected Outcomes/Goals: 1) Pt to receive adequate nutrition within 7 days of NPO status 2) Pt diet to advance 3) F/U in 2-3 days Plan discussed with: Patient, Other (MABEL June) SIMA MOLINA MD Jun 03, 2024 23:21
[2024-06-04] VITALS (8 sets, daily range): BP systolic 104–128; BP diastolic 53–80; PULSE 81–98; RESP 17–20; TEMP 98–98.9; O2SAT 93–99
[2024-06-04 07:37] LABS: Potassium 3.8 mmol/L (3.5-5.1)
[2024-06-04 07:44] LABS: Albumin 2.7 g/dL (3.2-4.8); BUN/Creatinine Ratio 21.3 (10.0-20.0); Magnesium 2.1 mg/dL (1.6-2.6)
[2024-06-04 07:46] LABS: Phosphorus 3.1 mg/dL (2.4-5.1)
[2024-06-04 08:30] LABS: Anion Gap 6 (5-15); Carbon Dioxide 24 mmol/L (20-31); Chloride 106 mmol/L (98-107); Potassium 3.8 mmol/L (3.5-5.1); Sodium 136 mmol/L (136-145)
[2024-06-04 08:31] LABS: Basophils # (auto) 0.1 10 ^3/uL (0-0.2); Basophils % (auto) 0.7 % (0.0-2.0); Calcium 7.9 mg/dL (8.7-10.4); Eosinophils # (auto) 0.8 10 ^3/uL (0-0.8); Monocytes # (auto) 1.3 10 ^3/uL (0-1.3); Neutrophils # (auto) 8.3 10 ^3/uL (1.6-8.6); Red Blood Cells 2.52 10^6/uL (4.5-5.90); Red Cell Distribution Width 13.8 % (11.8-14.3)
[2024-06-04 08:36] LABS: BUN/Creatinine Ratio 21.7 (10.0-20.0); Blood Urea Nitrogen 13 mg/dL (9-23); Eosinophils % (auto) 6.7 % (0.0-7.0); Glucose 134 mg/dL (74-106); Hematocrit 24.9 % (41.0-53.0); Hemoglobin 8.3 g/dL (13.5-17.5); Lymphocytes # (auto) 1.9 10 ^3/uL (0.4-5.4); Lymphocytes % (auto) 15.4 % (10.0-50.0); Mean Corpuscular Hgb Conc. 33.3 g/dL (32.0-36.0); Mean Corpuscular Volume 98.9 fL (80.0-100.0); Monocytes % (auto) 10.4 % (0.0-12.0); Neutrophils % (auto) 66.8 % (37.0-80.0); Nucleated Red Blood Cells % 0.1 %; Platelet Count (auto) 388 10^3/uL (140-450); White Blood Cell 12.4 10^3/uL (4.4-10.8)
--- NOTE | 2024-06-04 10:03 | DVHPN2 ---
Subjective Patient tolerating oral intake. Denies any symptoms. Reviewed: Care Plan, H&P, Medications Changes from previous H/P or p: No Changes General: Per HPI Eyes: No Pain, No Vision change, No Conjunctivae inflammation, No Eyelid inflammation, No Other, No Redness ENT: No Ear pain, No Ear discharge, No Nose pain, No Nose discharge, No Nose congestion, No Mouth pain, No Mouth swelling, No Throat pain, No Throat swelling, No Other Respiratory: No Cough, No Dry, No Shortness of breath, No SOB with excertion, No Wheezing, No Hemoptysis, No Pleuritic Pain, No Sputum, No Other Genitourinary: No Dysuria, No Frequency, No Incontinence, No Hematuria, No Retention, No Other Musculoskeletal: No other, No neck pain, No shoulder pain, No arm pain, No back pain, No hand pain, No leg pain, No foot pain Skin: No Rash, No Lesions, No Jaundice, No Bruising, No Other Objective Vitals Vital Signs Date Time Temp Pulse Resp B/P (MAP) Pulse Ox O2 Delivery O2 Flow Rate FiO2 06/04/24 05:00 98.6 87 18 128/66 (86) 97 98.6 06/03/24 20:00 Room Air* 0 21 Intake/Output Intake and Output 06/04/24 07:00 Intake Total 2650 ml Output Total 3630 ml Balance -980 ml Intake Oral 1300 ml IV Total 1350 ml Output Urine Total 3475 ml Other 155 ml General Appearance: Alert, Oriented X3, Cooperative, mild distress HEENT: Atraumatic, PERRLA Lungs: Clear to auscultation, Normal air movement Cardiovascular: Normal S1, Normal S2 Abdomen: Normal bowel sounds, No tenderness, Other (Colostomy with bowel gas noted.) Musculoskeletal: Normal sensory function, Normal motor function Skin: Dry, Intact Psych/Mental Status: Mental status NL, Mood NL, Other Medications Current Medications Medications Dose Ordered Sig/Carlos Route Start Time Stop Time Status Last Admin Dose Admin Nitroglycerin 0.4 mg Q5MINP PRN SL 05/28/24 15:30 Metronidazole 100 ml @ 100 mls/hr Q8HR IV 05/28/24 22:00 06/04/24 05:26 100 MLS/HR Ceftriaxone Sodium 50 ml @ 100 mls/hr DAILY@09 IV 05/28/24 15:30 06/04/24 08:31 100 MLS/HR Ondansetron HCl 4 mg Q6HP PRN IV 05/28/24 15:30 06/01/24 04:03 4 MG Labetalol HCl 10 mg Q2HPRN PRN IV 05/28/24 15:30 Pantoprazole Sodium 40 mg DAILY IV 05/29/24 10:00 06/03/24 09:18 40 MG Diagnostic Test (Pha) 1 strip Q6HR 05/28/24 18:00 06/04/24 05:32 1 STRIP Insulin Human Regular FOLLOW SLIDING SCALE Q6HR SC 05/28/24 18:00 06/04/24 05:36 2 UNITS Dextrose 50 ml UD IV 05/28/24 16:30 Sodium Chloride 10 ml QSHIFT@10,22 IV 05/29/24 22:00 06/03/24 20:57 10 ML Dextrose/Lactated Ringer's 1,000 ml @ 50 mls/hr Q20H IV 05/30/24 09:15 06/04/24 06:56 50 MLS/HR Acetaminophen/ Hydrocodone Bitart 1 tab Q6HPRN PRN PO 05/31/24 16:45 06/04/24 05:45 1 TAB Metoclopramide HCl 10 mg Q8HR IV 06/01/24 22:00 06/04/24 05:26 10 MG Morphine Sulfate 1 mg Q4HP PRN IV 06/01/24 17:45 06/03/24 00:22 1 MG Fat Emulsion Intravenous 100 ml/Sodium Chloride 40 meq/ Potassium Acetate 50 meq/Potassium Phosphate 30.8 meq/Calcium Gluconate 2.3 meq/ Magnesium Sulfate 8 meq/ Multivitamins 10 ml/Chromium/ Copper/Manganese/ Zinc 1 ml/Amino Acids/Dextrose 1,459.9462 ml @ 60 mls/hr [id number] IV 06/03/24 22:00 06/04/24 21:59 06/03/24 20:57 60 MLS/HR Laboratory Results Laboratory Tests 06/04/24 06:13 Chemistry Test 06/04/24 06:13 Albumin 2.7 g/dL (3.2-4.8) L Calcium Level 7.9 mg/dL (8.7-10.4) L Magnesium Level 2.1 mg/dL (1.6-2.6) Phosphorus Level 3.1 mg/dL (2.4-5.1) Urinalysis Test 05/28/24 08:50 Urine Color Light-orange (Yellow) Urine Clarity Turbid (Clear) H Urine pH 5.5 (5.0-9.0) Urine Specific [place] 1.029 (1.001-1.035) Urine Protein 1+ (Negative) H Urine Ketones 1+ (Negative) H Urine Blood Negative /uL (Negative) Urine Nitrite Negative (Negative) Urine Bilirubin Negative (Negative) Urine Urobilinogen Normal mg/dL (Negative) Urine Leukocyte Esterase Negative /uL (Negative) Urine RBC <1 /hpf (0 - 3) Urine WBC 1 /hpf (0 - 3) Urine Squamous Epithelial Cells Few /hpf (<5) Urine Bacteria None seen /hpf (None Seen) Urine Hyaline Casts Few /lpf (0 - 2) Urine Granular Casts Many /lpf (0) Urine Mucus Few (None Seen) Urine Glucose Normal mg/dL (Normal) Microbiology Microbiology Date/Time Source Procedure Growth Status 05/28/24 19:18 Nose MRSA Screen - Final Complete 05/28/24 14:26 Peritoneal Fluid Gram Stain - Final Complete 05/28/24 14:26 Anaerobic Culture - Final Prevotella loescheii Complete 05/28/24 14:26 Peritoneal Fluid Aerobic Culture - Final Complete Labs and/or images reviewed: Labs reviewed by me, Image(s) reviewed by me Assessment/Plan Assessment/Plan Impression: -perforated bowel secondary to probable colorectal cancer -obesity -primary hypertension -ETOH abuse -peritonitis, sepsis Plan: -events: Patient clinically improved. Tolerating oral intake. Nausea and vomiting has resolved. Stop TPN after today. We will order CT of chest, abdomen, pelvis with IV contrast as recommended by Oncology. -continue regular -p.r.n. antihypertensives -PT consultation -PICC line -pain management -antibiotic therapy: Rocephin, Flagyl -PUD, DVT prophylaxis -repeat labs in a.m. Total time spent with patient discussing and formulating plan of care: 35 minutes. This medical document was created using an electronic medical record system with [employer] dictation system. Although this document has been carefully reviewed, there may still be some phonetic and typographical errors. These areas are purely typographical due to imperfections of the software programs, and do not reflect any compromise in the patient's medical care. Plan discussed with: Patient, Other (RN) My Orders Orders - VERONICA MUNROE NP Procedure Category Date Status Time Amino Acid PHA 06/03/24 In Process Infusion... W/Fat 22:00 Tpn Per Pharmacy OLIVIA 06/03/24 In Process 22:00 Ct Chest/Ab/Pl W Con- CT 06/04/24 Transmitted Iv Only 09:59 Date of Service: Jun 04, 2024 Billing Provider: VERONICA MUNROE NP Common Visit Codes: [id number] INP/OBS CARE(HIGH) VERONICA MUNROE NP Jun 04, 2024 10:03
--- NOTE | 2024-06-04 10:42 | DVHPN2 ---
Progress Note Date Seen: Jun 04, 2024 Medical Necessity Reason Pt with a Central, PICC or Fol: No The following are medically ne: Jimenez Catheter Reason for jimenez catheter: Strict I&O Objective vital signs Vital Sign Date Time Temp Pulse Resp B/P (MAP) Pulse Ox O2 Delivery O2 Flow Rate FiO2 06/04/24 09:00 98.2 82 18 104/53 (70) 95 98.2 06/03/24 20:00 Room Air* 0 21 Total Intake and Output 06/03/24 06/03/24 06/04/24 15:00 23:00 07:00 Intake Total 150 ml 900 ml 1600 ml Output Total 1955 ml 1675 ml Balance 150 ml -1055 ml -75 ml medications Current Medications Medications Dose Ordered Sig/Carlos Route Start Time Stop Time Status Last Admin Dose Admin Nitroglycerin 0.4 mg Q5MINP PRN SL 05/28/24 15:30 Metronidazole 100 ml @ 100 mls/hr Q8HR IV 05/28/24 22:00 06/04/24 05:26 100 MLS/HR Ceftriaxone Sodium 50 ml @ 100 mls/hr DAILY@09 IV 05/28/24 15:30 06/04/24 08:31 100 MLS/HR Ondansetron HCl 4 mg Q6HP PRN IV 05/28/24 15:30 06/01/24 04:03 4 MG Labetalol HCl 10 mg Q2HPRN PRN IV 05/28/24 15:30 Pantoprazole Sodium 40 mg DAILY IV 05/29/24 10:00 06/04/24 10:01 40 MG Diagnostic Test (Pha) 1 strip Q6HR 05/28/24 18:00 06/04/24 05:32 1 STRIP Insulin Human Regular FOLLOW SLIDING SCALE Q6HR SC 05/28/24 18:00 06/04/24 05:36 2 UNITS Dextrose 50 ml UD IV 05/28/24 16:30 Sodium Chloride 10 ml QSHIFT@ IV 05/29/24 22:00 06/04/24 10:01 10 ML Dextrose/Lactated Ringer's 1,000 ml @ 50 mls/hr Q20H IV 05/30/24 09:15 06/04/24 06:56 50 MLS/HR Acetaminophen/ Hydrocodone Bitart 1 tab Q6HPRN PRN PO 05/31/24 16:45 06/04/24 05:45 1 TAB Metoclopramide HCl 10 mg Q8HR IV 06/01/24 22:00 06/04/24 05:26 10 MG Morphine Sulfate 1 mg Q4HP PRN IV 06/01/24 17:45 06/03/24 00:22 1 MG Fat Emulsion Intravenous 100 ml/Sodium Chloride 40 meq/ Potassium Acetate 50 meq/Potassium Phosphate 30.8 meq/Calcium Gluconate 2.3 meq/ Magnesium Sulfate 8 meq/ Multivitamins 10 ml/Chromium/ Copper/Manganese/ Zinc 1 ml/Amino Acids/Dextrose 1,459.9462 ml @ 60 mls/hr [id number] IV 06/03/24 22:00 06/04/24 21:59 06/03/24 20:57 60 MLS/HR laboratory and microbiology Laboratory Tests 06/04/24 06:13 Test 06/04/24 06:13 Range/Units Serum Glucose 134 H 74-106 mg/dL Problem List/Assessment/Plan Problem List/Assessment/Plan 05/29/24 ADDENDUM TO OPERATIVE REPORT: THE TUMOR WAS DEEP IN A VERY NARROW PELVIS AND WAS NOT COMPLETELY RESECTABLE DUE TO PERFORATION OF THE TUMOR WHICH WAS OBSTRUCTING THE LUMEN, DUE TO THE OBSTRUCTION IT SEEMS THAT THE VERY DILATED RECTO SIGMOID COLON PROXIMAL TO THE TUMOR(LATER IDENTIFIED ADENOCARCINOMA ON DELAYED FROZEN SECTION) RUPTURED, DUE TO MORBID OBESITY THE RECTOSIGMOID SEGMENT WAS RESECTED SEPARATELY IN ORDER TO FACILITATE VISUALIZATION OF THE PERFORATED CANCER DISTAL TO IT. FOLLOWING RESECTION I ADMINISTERED METHYLENE BLUE TO ASSURE INTEGRITY OF THE URETER VISUALIZATION WAS MADE IMPOSSIBLE DUE TO THE CHRONICITY OF SIGMOID PERFORATION AND ADHERENCE OF RETROPERITONEAL STRUCTURES. NO METHYLENE BLUE EXTRAVASATION WAS DETECTED. THE REMNANT OF RECTUM WAS GROSSLY POSITIVE TUMOR MARGIN WAS MARKED WITH METALLIC HEMOCLIPS FOR LATER IDENTIFICATION . 05/29/24 awake, cooperative, dressing dry, drainage serous, abdomen non distended, labs reviewed. picc line pending qabdomen appropriately tender, I explained operative findings and probable need for radiation treatments after completion of post operative recovery, stoma is viable but without function, will try Reglan, wound clean and well approximated. 05/31/24 flatus in stoma appliance, abdomen appropriately tender, drainage serous, will advance diet 06/01/24 vomited and there is no flatus in the stoma appliance, will resume NPO status, wound clean, drainage serous GAS IN STOMA APPLIANCE, ABDOMEN NON DISTENDED, WOUND CLEAN AND WELL APPROXIMATED, DRAINAGE SEROUS, PATIENT IS VERY HUNGRY, WILL ALLOW POP INTAKE 06/04/24 no nausea, stoma functioning, wound ok Plan discussed with: Patient, Spouse Dietary Evaluation Review Comments: 1) Increase TPN to meet at least 75% of estimated needs 2) Advance pt diet when medically feasible 3) Continue current plan of care Expected Outcomes/Goals: 1) Pt to receive adequate nutrition within 7 days of NPO status 2) Pt diet to advance 3) F/U in 2-3 days RONALD LANDA MD Jun 04, 2024 10:42
[2024-06-04] MEDS: IOHEXOL 300 MG/ML 100ML BOTTLE IJ ONE (14:20)
--- NOTE | 2024-06-04 15:46 | DVH ---
CLINICAL HISTORY: Rule out metastatic disease TECHNIQUE: CT of the chest, abdomen and pelvis was performed with IV contrast . This exam was perform ed according to our departmental dose optimization program. Up-to-date CT equipment and radiation dos e reduction techniques are utilized as appropriate. [Radimetrics Exposure Report] CTDI: [CTDIvol] DLP: 781.84 COMPARISON: CT CT AB PEL WO CON-NO ORAL OR IV on DOS: 05/28/24 FINDINGS: CHEST FINDINGS: Lower Neck: Unremarkable Axilla, Mediastinum and Katei: No thoracic lymphadenopathy. Heart and Great Vessels: Normal-sized heart with trace pericardial fluid. The thoracic aorta is witt nt and normal caliber . there is mild calcified plaque at the aortic arch. There is a right PICC with the tip terminating in the low SVC. The central pulmonary arteries are patent Airway, Lungs and Pleura: Trachea and central airways are patent. Linear bibasilar scarring or atelec tasis. There is a sub 5 mm subpleural nodule in the right upper lobe laterally on series 3, image 29. No pleural effusion, airspace consolidation, or pneumothorax Chest Wall and Osseous Structures: No destructive osseous lesion. There is mild thoracic spondylosis. Abdomen and Pelvis Findings: Liver and Biliary system: Normal-sized liver. Major portal veins are patent. There is a small hypode nse lesion in segment 4A of the liver measuring 1.2 cm on series 2, image 77. Gallbladder is Normal c aliber. There is no biliary ductal dilatation Spleen: Unremarkable. Adrenal Glands and Kidneys: Normal adrenal glands. There is no hydronephrosis or nephrolithiasis. Pancreas and Retroperitoneum: Unremarkable. Aorta and Major Vessels: Aortoiliac vessels are patent and normal caliber with mild mixed atheroscler otic plaque. Bowel, Mesentery and Peritoneal space: Interval postoperative changes with distal colon resection, le ft lower quadrant colostomy creation, and Zina's pouch creation. There is a right abdominal appro ach surgical drain with the tip terminating in the left mid to lower abdomen. There is mild free intr aperitoneal air. There is scattered fluid-filled small and large bowel loops. Mild fluid and gas dist ention of proximal to mid small bowel loops, with transition to normal caliber / decompressed distal small bowel in the right lower abdomen on series 2, image 182. There is mild soft tissue stranding wi thin the anterior abdomen and pelvis likely postoperative. There is a partially organized fluid and g as collection in the posterior lower abdomen/ upper pelvis measuring 2.2 x 5.8 cm on series 2, image 183. Pelvis: There is mild prostatomegaly. The urinary bladder is thickened and contains a punctate nondep endent gas. There is no pelvic lymphadenopathy Abdominal wall and Osseous Structures: Midline laparotomy changes. There is mild lower thoracic and l umbar spondylosis. No destructive osseous lesion. IMPRESSION: 1. Interval postoperative changes with distal colon resection, left lower quadrant colostomy creation and Zina's pouch creation. Postoperative free intraperitoneal air. 2. Right abdominal approach surgical drain in place with tip terminating in the left mid to lower abd omen. 3. Partially organized fluid and gas collection in the posterior lower abdomen/ upper pelvis which co uld be a postoperative collection though developing abscess is not excluded. 4. Mild fluid and gas distention of proximal to mid small bowel loops with transition to normal calib er / decompressed distal small bowel in the right lower quadrant. DDX includes small-bowel obstructio n or ileus. 5. Small hypodense lesion in segment 4A of the liver. DDX includes metastatic disease if there is a h istory of malignancy or hemangioma. Attention on surveillance imaging recommended. 6. No lymphadenopathy in the chest, abdomen, or pelvis. 7. Sub 5 mm lateral right upper lobe pulmonary nodule, nonspecific on initial exam. Attention on fol low-up imaging recommended if there is history of malignancy. 8. Mild prostatomegaly
--- NOTE | 2024-06-04 22:50 | DVHPN2 ---
Progress Note - Dictate Date Seen: Jun 04, 2024 Medical Necessity Reason Pt with a Central, PICC or Fol: No The following are medically ne: Jimenez Catheter Reason for jimenez catheter: Strict I&O Subjective Patient seen and examined at bedside. Breathing comfortably on room air. Overnight events reviewed. vital signs Vital Sign Date Time Temp Pulse Resp B/P (MAP) Pulse Ox O2 Delivery O2 Flow Rate FiO2 06/04/24 17:00 98.9 94 20 116/63 (80) 97 98.9 06/04/24 08:30 Room Air* 0 21 Total Intake and Output 06/03/24 06/03/24 06/04/24 15:00 23:00 07:00 Intake Total 150 ml 900 ml 1600 ml Output Total 1955 ml 1675 ml Balance 150 ml -1055 ml -75 ml medications Current Medications Medications Dose Ordered Sig/Carlos Route Start Time Stop Time Status Last Admin Dose Admin Nitroglycerin 0.4 mg Q5MINP PRN SL 05/28/24 15:30 Metronidazole 100 ml @ 100 mls/hr Q8HR IV 05/28/24 22:00 06/04/24 21:55 100 MLS/HR Ceftriaxone Sodium 50 ml @ 100 mls/hr DAILY@09 IV 05/28/24 15:30 06/04/24 08:31 100 MLS/HR Ondansetron HCl 4 mg Q6HP PRN IV 05/28/24 15:30 06/01/24 04:03 4 MG Labetalol HCl 10 mg Q2HPRN PRN IV 05/28/24 15:30 Pantoprazole Sodium 40 mg DAILY IV 05/29/24 10:00 06/04/24 10:01 40 MG Diagnostic Test (Pha) 1 strip Q6HR 05/28/24 18:00 06/04/24 16:34 1 STRIP Insulin Human Regular FOLLOW SLIDING SCALE Q6HR SC 05/28/24 18:00 06/04/24 05:36 2 UNITS Dextrose 50 ml UD IV 05/28/24 16:30 Sodium Chloride 10 ml QSHIFT@10,22 IV 05/29/24 22:00 06/04/24 21:46 10 ML Dextrose/Lactated Ringer's 1,000 ml @ 50 mls/hr Q20H IV 05/30/24 09:15 11/25/24 06:56 50 MLS/HR Acetaminophen/ Hydrocodone Bitart 1 tab Q6HPRN PRN PO 05/31/24 16:45 06/04/24 20:26 1 TAB Metoclopramide HCl 10 mg Q8HR IV 06/01/24 22:00 06/04/24 21:44 10 MG Morphine Sulfate 1 mg Q4HP PRN IV 06/01/24 17:45 06/03/24 00:22 1 MG objective Gen.: Patient lying in bed in no apparent distress. He is breathing comfortably on room air. Head: Normocephalic, atraumatic Eyes: EOMI/PERRLA. Ears: Normal hearing. Normal anatomy. Neck/trachea: Trachea midline, supple. Nose: Normal external anatomy. Mouth: Moist mucous membranes. Chest: Fair air entry bilaterally. No wheezing or rhonchi. Cardio vascular: Positive S1, positive S2. Regular rate and rhythm. Abdomen: Positive bowel sounds in all 4 quadrants. Soft, non-tender, non- distended. : Deferred. Rectal: Deferred Skin: Warm, dry. Extremities: 2+ radial pulses bilaterally. No lower extremity edema. Neuro: Awake, alert, oriented x3. No gross motor or sensory deficits. Cranial nerves II through XII intact. Gait not assessed. laboratory and microbiology Laboratory Tests 06/04/24 06:13 Test 06/04/24 06:13 Range/Units Serum Glucose 134 H 74-106 mg/dL Assessment/Plan Impression: Hypoxia, resolved Perforated bowel secondary to probable colorectal cancer Obesity, BMI 30.4 Primary hypertension ETOH use Peritonitis Sepsis Events: Breathing on room air No respiratory distress. Surgery recs appreciated. Obtain CT abdomen-pelvis to rule out metastasis. Continue antibiotics Incentive spirometry Pain control Avoid oversedation TPN for nutritional support Advance diet per Surgery. Accu-Cheks, ISS. Protonix for GI prophylaxis Labs and imaging reviewed. Rest of plan as noted below. Plan: CXR reviewed. No acute opacities. No pleural effusion or pneumothorax. Supplemental oxygen PRN Keep o2 saturation above 92% TPN for nutritional support D5W LR Continue antibiotics. WBC trending down De-escalate based on cultures. Monitor Hgb, trending down. Pain control Avoid oversedation Wound care Monitor renal function. Monitor electrolytes. Supplement as necessary. Monitor ins and outs. Surgery recommendations appreciated. Accu-Cheks, ISS f/u path results onc recs appreciated DVT prophylaxis Prognosis: Guarded given multiple comorbidities. Rest of plan per hospitalist and other consultants. Thank you JANET Montelongo for allowing me to participate in this patient's care. Further recommendations will depend on patient's clinical course. Please do not hesitate to contact me if you have any questions or concerns. This medical document was created using an electronic medical record system with [employer] dictation system. Although this document has been carefully reviewed, there may still be some phonetic and typographical errors. These areas are purely typographical due to imperfections of the software programs, and do not reflect any compromise in the patient's medical care. Dietary Evaluation Review Comments: 1) Increase TPN to meet at least 75% of estimated needs 2) Advance pt diet when medically feasible 3) Continue current plan of care Expected Outcomes/Goals: 1) Pt to receive adequate nutrition within 7 days of NPO status 2) Pt diet to advance 3) F/U in 2-3 days Plan discussed with: Patient, Other (MABEL Short) SIMA MOLINA MD Jun 04, 2024 22:50
[2024-06-05] VITALS (10 sets, daily range): BP systolic 102–128; BP diastolic 49–69; PULSE 89–102; RESP 17–20; TEMP 97.9–99.4; O2SAT 95–98
--- NOTE | 2024-06-05 09:16 | DVHPN2 ---
Progress Note Date Seen: Jun 05, 2024 Medical Necessity Reason Pt with a Central, PICC or Fol: No The following are medically ne: Jimenez Catheter Reason for jimenez catheter: Strict I&O Objective vital signs Vital Sign Date Time Temp Pulse Resp B/P (MAP) Pulse Ox O2 Delivery O2 Flow Rate FiO2 06/05/24 09:01 98.9 89 17 103/61 (75) 97 98.9 06/05/24 08:10 Room Air* 0 21 Total Intake and Output 06/04/24 06/04/24 06/05/24 15:00 23:00 07:00 Intake Total 530 ml 1160 ml 1360 ml Output Total 350 ml 300 ml Balance 180 ml 1160 ml 1060 ml medications Current Medications Medications Dose Ordered Sig/Carlos Route Start Time Stop Time Status Last Admin Dose Admin Nitroglycerin 0.4 mg Q5MINP PRN SL 05/28/24 15:30 Metronidazole 100 ml @ 100 mls/hr Q8HR IV 05/28/24 22:00 06/05/24 05:20 100 MLS/HR Ceftriaxone Sodium 50 ml @ 100 mls/hr DAILY@09 IV 05/28/24 15:30 06/05/24 08:09 100 MLS/HR Ondansetron HCl 4 mg Q6HP PRN IV 05/28/24 15:30 06/01/24 04:03 4 MG Labetalol HCl 10 mg Q2HPRN PRN IV 05/28/24 15:30 Pantoprazole Sodium 40 mg DAILY IV 05/29/24 10:00 06/04/24 10:01 40 MG Diagnostic Test (Pha) 1 strip Q6HR 05/28/24 18:00 06/05/24 05:27 1 STRIP Insulin Human Regular FOLLOW SLIDING SCALE Q6HR SC 05/28/24 18:00 06/04/24 23:28 2 UNITS Dextrose 50 ml UD IV 05/28/24 16:30 Sodium Chloride 10 ml QSHIFT@, IV 05/29/24 22:00 06/04/24 21:46 10 ML Dextrose/Lactated Ringer's 1,000 ml @ 50 mls/hr Q20H IV 05/30/24 09:15 06/05/24 05:03 50 MLS/HR Acetaminophen/ Hydrocodone Bitart 1 tab Q6HPRN PRN PO 05/31/24 16:45 06/05/24 03:19 1 TAB Metoclopramide HCl 10 mg Q8HR IV 06/01/24 22:00 06/05/24 05:23 10 MG Morphine Sulfate 1 mg Q4HP PRN IV 06/01/24 17:45 06/03/24 00:22 1 MG laboratory and microbiology Laboratory Tests 06/04/24 06:13 Test 06/04/24 06:13 Range/Units Serum Glucose 134 H 74-106 mg/dL Problem List/Assessment/Plan Problem List/Assessment/Plan 05/29/24 ADDENDUM TO OPERATIVE REPORT: THE TUMOR WAS DEEP IN A VERY NARROW PELVIS AND WAS NOT COMPLETELY RESECTABLE DUE TO PERFORATION OF THE TUMOR WHICH WAS OBSTRUCTING THE LUMEN, DUE TO THE OBSTRUCTION IT SEEMS THAT THE VERY DILATED RECTO SIGMOID COLON PROXIMAL TO THE TUMOR(LATER IDENTIFIED ADENOCARCINOMA ON DELAYED FROZEN SECTION) RUPTURED, DUE TO MORBID OBESITY THE RECTOSIGMOID SEGMENT WAS RESECTED SEPARATELY IN ORDER TO FACILITATE VISUALIZATION OF THE PERFORATED CANCER DISTAL TO IT. FOLLOWING RESECTION I ADMINISTERED METHYLENE BLUE TO ASSURE INTEGRITY OF THE URETER VISUALIZATION WAS MADE IMPOSSIBLE DUE TO THE CHRONICITY OF SIGMOID PERFORATION AND ADHERENCE OF RETROPERITONEAL STRUCTURES. NO METHYLENE BLUE EXTRAVASATION WAS DETECTED. THE REMNANT OF RECTUM WAS GROSSLY POSITIVE TUMOR MARGIN WAS MARKED WITH METALLIC HEMOCLIPS FOR LATER IDENTIFICATION . 05/29/24 awake, cooperative, dressing dry, drainage serous, abdomen non distended, labs reviewed. picc line pending qabdomen appropriately tender, I explained operative findings and probable need for radiation treatments after completion of post operative recovery, stoma is viable but without function, will try Reglan, wound clean and well approximated. 05/31/24 flatus in stoma appliance, abdomen appropriately tender, drainage serous, will advance diet 06/01/24 vomited and there is no flatus in the stoma appliance, will resume NPO status, wound clean, drainage serous GAS IN STOMA APPLIANCE, ABDOMEN NON DISTENDED, WOUND CLEAN AND WELL APPROXIMATED, DRAINAGE SEROUS, PATIENT IS VERY HUNGRY, WILL ALLOW POP INTAKE 06/04/24 no nausea, stoma functioning, wound ok 06/05/24 no nausea but feels"full:, small amount of stool in stoma appliance, wound clean and well approximated, will order gastrografin small bowel followthrough Plan discussed with: Patient Dietary Evaluation Review Comments: 1) Increase TPN to meet at least 75% of estimated needs 2) Advance pt diet when medically feasible 3) Continue current plan of care Expected Outcomes/Goals: 1) Pt to receive adequate nutrition within 7 days of NPO status 2) Pt diet to advance 3) F/U in 2-3 days RONALD LANDA MD Jun 05, 2024 09:16
[2024-06-05] MEDS: GASTROGRAFIN 120 ML SOL ONE (11:10)
--- NOTE | 2024-06-05 12:56 | DVH ---
Procedure: XY SMALL BOWEL SERIES-W GASTROGRA Reason for study/Clinical History: r/o obstruction small-bowel obstruction Comparison Study: CT abdomen and pelvis from 06/04/2024 Technique: Single contrast small bowel series performed. FINDINGS/IMPRESSION: Initial consumer insight analyst view of the abdomen and pelvis demonstrates midline laparotomy surgical clips, scattere d surgical clips projecting over the pelvis, and a surgical drain projecting over the pelvis and left lower quadrant there is gas distention of small-bowel loops in the abdomen. Contrast is identified within the colon by 2 hours which goes against small-bowel obstruction. The mild dilatation of the small bowel could be related to postoperative ileus.
--- NOTE | 2024-06-05 13:33 | DVHPN2 ---
Subjective Patient tolerating oral intake. Denies any symptoms. Reviewed: Care Plan, H&P, Medications Changes from previous H/P or p: No Changes General: Per HPI Eyes: No Pain, No Vision change, No Conjunctivae inflammation, No Eyelid inflammation, No Other, No Redness ENT: No Ear pain, No Ear discharge, No Nose pain, No Nose discharge, No Nose congestion, No Mouth pain, No Mouth swelling, No Throat pain, No Throat swelling, No Other Respiratory: No Cough, No Dry, No Shortness of breath, No SOB with excertion, No Wheezing, No Hemoptysis, No Pleuritic Pain, No Sputum, No Other Genitourinary: No Dysuria, No Frequency, No Incontinence, No Hematuria, No Retention, No Other Musculoskeletal: No other, No neck pain, No shoulder pain, No arm pain, No back pain, No hand pain, No leg pain, No foot pain Skin: No Rash, No Lesions, No Jaundice, No Bruising, No Other Objective Vitals Vital Signs Date Time Temp Pulse Resp B/P (MAP) Pulse Ox O2 Delivery O2 Flow Rate FiO2 06/05/24 13:26 98.1 94 17 128/69 (88) 95 98.1 06/05/24 08:10 Room Air* 0 21 Intake/Output Intake and Output 06/05/24 07:00 Intake Total 3050 ml Output Total 650 ml Balance 2400 ml Intake Oral 1700 ml IV Total 1350 ml Output Urine Total 650 ml # Voids 3 General Appearance: Alert, Oriented X3, Cooperative, mild distress HEENT: Atraumatic, PERRLA Lungs: Clear to auscultation, Normal air movement Cardiovascular: Normal S1, Normal S2 Abdomen: Normal bowel sounds, No tenderness, Other (Colostomy with bowel gas noted.) Musculoskeletal: Normal sensory function, Normal motor function Skin: Dry, Intact Psych/Mental Status: Mental status NL, Mood NL, Other Medications Current Medications Medications Dose Ordered Sig/Carlos Route Start Time Stop Time Status Last Admin Dose Admin Nitroglycerin 0.4 mg Q5MINP PRN SL 05/28/24 15:30 Metronidazole 100 ml @ 100 mls/hr Q8HR IV 05/28/24 22:00 06/05/24 05:20 100 MLS/HR Ceftriaxone Sodium 50 ml @ 100 mls/hr DAILY@09 IV 05/28/24 15:30 06/05/24 08:09 100 MLS/HR Ondansetron HCl 4 mg Q6HP PRN IV 05/28/24 15:30 06/01/24 04:03 4 MG Labetalol HCl 10 mg Q2HPRN PRN IV 05/28/24 15:30 Pantoprazole Sodium 40 mg DAILY IV 05/29/24 10:00 06/05/24 09:38 40 MG Diagnostic Test (Pha) 1 strip Q6HR 05/28/24 18:00 06/05/24 12:05 1 STRIP Insulin Human Regular FOLLOW SLIDING SCALE Q6HR SC 05/28/24 18:00 06/04/24 23:28 2 UNITS Dextrose 50 ml UD IV 05/28/24 16:30 Sodium Chloride 10 ml QSHIFT@ IV 05/29/24 22:00 06/05/24 09:38 10 ML Dextrose/Lactated Ringer's 1,000 ml @ 50 mls/hr Q20H IV 05/30/24 09:15 06/05/24 05:03 50 MLS/HR Acetaminophen/ Hydrocodone Bitart 1 tab Q6HPRN PRN PO 05/31/24 16:45 06/05/24 09:49 1 TAB Metoclopramide HCl 10 mg Q8HR IV 06/01/24 22:00 06/05/24 05:23 10 MG Morphine Sulfate 1 mg Q4HP PRN IV 06/01/24 17:45 06/03/24 00:22 1 MG Laboratory Results Laboratory Tests 06/04/24 06:13 Urinalysis Test 05/28/24 08:50 Urine Color Light-orange (Yellow) Urine Clarity Turbid (Clear) H Urine pH 5.5 (5.0-9.0) Urine Specific [place] 1.029 (1.001-1.035) Urine Protein 1+ (Negative) H Urine Ketones 1+ (Negative) H Urine Blood Negative /uL (Negative) Urine Nitrite Negative (Negative) Urine Bilirubin Negative (Negative) Urine Urobilinogen Normal mg/dL (Negative) Urine Leukocyte Esterase Negative /uL (Negative) Urine RBC <1 /hpf (0 - 3) Urine WBC 1 /hpf (0 - 3) Urine Squamous Epithelial Cells Few /hpf (<5) Urine Bacteria None seen /hpf (None Seen) Urine Hyaline Casts Few /lpf (0 - 2) Urine Granular Casts Many /lpf (0) Urine Mucus Few (None Seen) Urine Glucose Normal mg/dL (Normal) Microbiology Microbiology Date/Time Source Procedure Growth Status 05/28/24 19:18 Nose MRSA Screen - Final Complete 05/28/24 14:26 Peritoneal Fluid Gram Stain - Final Complete 05/28/24 14:26 Anaerobic Culture - Final Prevotella loescheii Complete 05/28/24 14:26 Peritoneal Fluid Aerobic Culture - Final Complete Labs and/or images reviewed: Labs reviewed by me, Image(s) reviewed by me Assessment/Plan Assessment/Plan Impression: -perforated bowel secondary to probable colorectal cancer -obesity -primary hypertension -ETOH abuse -peritonitis, sepsis Plan: -events: Patient with small-bowel follow-through. Patient denies any symptoms. Continues to tolerate p.o. intake. -continue regular -p.r.n. antihypertensives -PT consultation -PICC line -pain management -antibiotic therapy: Rocephin, Flagyl -PUD, DVT prophylaxis -discharge tomorrow if cleared by surgery Total time spent with patient discussing and formulating plan of care: 35 minutes. This medical document was created using an electronic medical record system with [employer] dictation system. Although this document has been carefully reviewed, there may still be some phonetic and typographical errors. These areas are purely typographical due to imperfections of the software programs, and do not reflect any compromise in the patient's medical care. Plan discussed with: Patient, Other (RN) Date of Service: Jun 05, 2024 Billing Provider: VERONICA MUNROE NP Common Visit Codes: [id number] INP/OBS CARE(HIGH) VERONICA MUNROE NP Jun 05, 2024 13:33
--- NOTE | 2024-06-05 21:10 | DVHPN2 ---
Progress Note - Dictate Date Seen: Jun 05, 2024 Medical Necessity Reason Pt with a Central, PICC or Fol: No The following are medically ne: Jimenez Catheter Reason for jimenez catheter: Strict I&O Subjective Patient seen and examined at bedside. Breathing comfortably on room air. Overnight events reviewed. vital signs Vital Sign Date Time Temp Pulse Resp B/P (MAP) Pulse Ox O2 Delivery O2 Flow Rate FiO2 06/05/24 17:00 98.3 99 17 121/66 (84) 98 98.3 06/05/24 08:10 Room Air* 0 21 Total Intake and Output 06/04/24 06/04/24 06/05/24 14:59 22:59 06:59 Intake Total 530 ml 1160 ml 1360 ml Output Total 350 ml 300 ml Balance 180 ml 1160 ml 1060 ml medications Current Medications Medications Dose Ordered Sig/Carlos Route Start Time Stop Time Status Last Admin Dose Admin Nitroglycerin 0.4 mg Q5MINP PRN SL 05/28/24 15:30 Metronidazole 100 ml @ 100 mls/hr Q8HR IV 05/28/24 22:00 06/05/24 14:02 100 MLS/HR Ceftriaxone Sodium 50 ml @ 100 mls/hr DAILY@09 IV 05/28/24 15:30 06/05/24 08:09 100 MLS/HR Ondansetron HCl 4 mg Q6HP PRN IV 05/28/24 15:30 06/01/24 04:03 4 MG Labetalol HCl 10 mg Q2HPRN PRN IV 05/28/24 15:30 Pantoprazole Sodium 40 mg DAILY IV 05/29/24 10:00 06/05/24 09:38 40 MG Diagnostic Test (Pha) 1 strip Q6HR 05/28/24 18:00 06/05/24 18:48 1 STRIP Insulin Human Regular FOLLOW SLIDING SCALE Q6HR SC 05/28/24 18:00 06/04/24 23:28 2 UNITS Dextrose 50 ml UD IV 05/28/24 16:30 Sodium Chloride 10 ml QSHIFT@10,22 IV 05/29/24 22:00 06/05/24 09:38 10 ML Dextrose/Lactated Ringer's 1,000 ml @ 50 mls/hr Q20H IV 05/30/24 09:15 06/05/24 05:03 50 MLS/HR Acetaminophen/ Hydrocodone Bitart 1 tab Q6HPRN PRN PO 05/31/24 16:45 06/05/24 18:47 1 TAB Metoclopramide HCl 10 mg Q8HR IV 06/01/24 22:00 06/05/24 14:02 10 MG Morphine Sulfate 1 mg Q4HP PRN IV 06/01/24 17:45 06/03/24 00:22 1 MG objective Gen.: Patient lying in bed in no apparent distress. He is breathing comfortably on room air. Head: Normocephalic, atraumatic Eyes: EOMI/PERRLA. Ears: Normal hearing. Normal anatomy. Neck/trachea: Trachea midline, supple. Nose: Normal external anatomy. Mouth: Moist mucous membranes. Chest: Fair air entry bilaterally. No wheezing or rhonchi. Cardio vascular: Positive S1, positive S2. Regular rate and rhythm. Abdomen: Positive bowel sounds in all 4 quadrants. Soft, non-tender, non- distended. : Deferred. Rectal: Deferred Skin: Warm, dry. Extremities: 2+ radial pulses bilaterally. No lower extremity edema. Neuro: Awake, alert, oriented x3. No gross motor or sensory deficits. Cranial nerves II through XII intact. Gait not assessed. laboratory and microbiology Laboratory Tests 06/04/24 06:13 Test 06/04/24 06:13 Range/Units Serum Glucose 134 H 74-106 mg/dL Assessment/Plan Impression: Hypoxia, resolved Perforated bowel secondary to probable colorectal cancer Obesity, BMI 30.4 Primary hypertension ETOH use Peritonitis Sepsis Events: Breathing on room air No respiratory distress. Surgery recs appreciated. Obtain CT abdomen-pelvis to rule out metastasis. Continue antibiotics Incentive spirometry Pain control Avoid oversedation TPN for nutritional support Advance diet per Surgery. Accu-Cheks for glycemic monitoring ISS on hold - normal glucose. Protonix for GI prophylaxis Disposition per hospitalist. Labs and imaging reviewed. Rest of plan as noted below. Plan: CXR reviewed. No acute opacities. No pleural effusion or pneumothorax. Supplemental oxygen PRN Keep o2 saturation above 92% TPN for nutritional support D5W LR Continue antibiotics. WBC trending down De-escalate based on cultures. Monitor Hgb, trending down. Pain control Avoid oversedation Wound care Monitor renal function. Monitor electrolytes. Supplement as necessary. Monitor ins and outs. Surgery recommendations appreciated. Accu-Cheks, ISS f/u path results onc recs appreciated DVT prophylaxis Prognosis: Guarded given multiple comorbidities. Rest of plan per hospitalist and other consultants. Thank you JANET Montelongo for allowing me to participate in this patient's care. Further recommendations will depend on patient's clinical course. Please do not hesitate to contact me if you have any questions or concerns. This medical document was created using an electronic medical record system with [employer] dictation system. Although this document has been carefully reviewed, there may still be some phonetic and typographical errors. These areas are purely typographical due to imperfections of the software programs, and do not reflect any compromise in the patient's medical care. Dietary Evaluation Review Comments: 1) Increase TPN to meet at least 75% of estimated needs 2) Advance pt diet when medically feasible 3) Continue current plan of care Expected Outcomes/Goals: 1) Pt to receive adequate nutrition within 7 days of NPO status 2) Pt diet to advance 3) F/U in 2-3 days Plan discussed with: Patient, Other (MABEL Short) SIMA MOLINA MD Jun 05, 2024 21:09
[2024-06-06] VITALS (9 sets, daily range): BP systolic 100–125; BP diastolic 55–70; PULSE 82–98; RESP 16–22; TEMP 97.7–99.4; O2SAT 95–98
--- NOTE | 2024-06-06 11:07 | DVHPN2 ---
Progress Note Date Seen: Jun 06, 2024 Medical Necessity Reason Pt with a Central, PICC or Fol: No The following are medically ne: Jimenez Catheter Reason for jimenez catheter: Strict I&O Objective vital signs Vital Sign Date Time Temp Pulse Resp B/P (MAP) Pulse Ox O2 Delivery O2 Flow Rate FiO2 06/06/24 08:02 20 95 Room Air* 0 21 06/06/24 05:00 98.5 90 110/69 (83) 98.5 Total Intake and Output 06/05/24 06/05/24 06/06/24 15:00 23:00 07:00 Intake Total 525 ml 3295 ml Output Total 2100 ml 1650 ml 1050 ml Balance -2100 ml -1125 ml 2245 ml medications Current Medications Medications Dose Ordered Sig/Carlos Route Start Time Stop Time Status Last Admin Dose Admin Nitroglycerin 0.4 mg Q5MINP PRN SL 05/28/24 15:30 Metronidazole 100 ml @ 100 mls/hr Q8HR IV 05/28/24 22:00 06/06/24 06:00 100 MLS/HR Ceftriaxone Sodium 50 ml @ 100 mls/hr DAILY@09 IV 05/28/24 15:30 06/06/24 09:53 100 MLS/HR Ondansetron HCl 4 mg Q6HP PRN IV 05/28/24 15:30 06/01/24 04:03 4 MG Labetalol HCl 10 mg Q2HPRN PRN IV 05/28/24 15:30 Pantoprazole Sodium 40 mg DAILY IV 05/29/24 10:00 06/06/24 09:53 40 MG Diagnostic Test (Pha) 1 strip Q6HR 05/28/24 18:00 06/06/24 06:01 1 STRIP Insulin Human Regular FOLLOW SLIDING SCALE Q6HR SC 05/28/24 18:00 06/04/24 23:28 2 UNITS Dextrose 50 ml UD IV 05/28/24 16:30 Sodium Chloride 10 ml QSHIFT@, IV 05/29/24 22:00 06/06/24 10:00 10 ML Dextrose/Lactated Ringer's 1,000 ml @ 50 mls/hr Q20H IV 05/30/24 09:15 06/06/24 02:02 50 MLS/HR Acetaminophen/ Hydrocodone Bitart 1 tab Q6HPRN PRN PO 05/31/24 16:45 06/06/24 06:44 1 TAB Metoclopramide HCl 10 mg Q8HR IV 06/01/24 22:00 06/06/24 06:00 10 MG Morphine Sulfate 1 mg Q4HP PRN IV 06/01/24 17:45 06/03/24 00:22 1 MG laboratory and microbiology Laboratory Tests 06/04/24 06:13 Test 06/04/24 06:13 Range/Units Serum Glucose 134 H 74-106 mg/dL Problem List/Assessment/Plan Problem List/Assessment/Plan 05/29/24 ADDENDUM TO OPERATIVE REPORT: THE TUMOR WAS DEEP IN A VERY NARROW PELVIS AND WAS NOT COMPLETELY RESECTABLE DUE TO PERFORATION OF THE TUMOR WHICH WAS OBSTRUCTING THE LUMEN, DUE TO THE OBSTRUCTION IT SEEMS THAT THE VERY DILATED RECTO SIGMOID COLON PROXIMAL TO THE TUMOR(LATER IDENTIFIED ADENOCARCINOMA ON DELAYED FROZEN SECTION) RUPTURED, DUE TO MORBID OBESITY THE RECTOSIGMOID SEGMENT WAS RESECTED SEPARATELY IN ORDER TO FACILITATE VISUALIZATION OF THE PERFORATED CANCER DISTAL TO IT. FOLLOWING RESECTION I ADMINISTERED METHYLENE BLUE TO ASSURE INTEGRITY OF THE URETER VISUALIZATION WAS MADE IMPOSSIBLE DUE TO THE CHRONICITY OF SIGMOID PERFORATION AND ADHERENCE OF RETROPERITONEAL STRUCTURES. NO METHYLENE BLUE EXTRAVASATION WAS DETECTED. THE REMNANT OF RECTUM WAS GROSSLY POSITIVE TUMOR MARGIN WAS MARKED WITH METALLIC HEMOCLIPS FOR LATER IDENTIFICATION . 05/29/24 awake, cooperative, dressing dry, drainage serous, abdomen non distended, labs reviewed. picc line pending qabdomen appropriately tender, I explained operative findings and probable need for radiation treatments after completion of post operative recovery, stoma is viable but without function, will try Reglan, wound clean and well approximated. 05/31/24 flatus in stoma appliance, abdomen appropriately tender, drainage serous, will advance diet 06/01/24 vomited and there is no flatus in the stoma appliance, will resume NPO status, wound clean, drainage serous GAS IN STOMA APPLIANCE, ABDOMEN NON DISTENDED, WOUND CLEAN AND WELL APPROXIMATED, DRAINAGE SEROUS, PATIENT IS VERY HUNGRY, WILL ALLOW POP INTAKE 06/04/24 no nausea, stoma functioning, wound ok 06/05/24 no nausea but feels"full:, small amount of stool in stoma appliance, wound clean and well approximated, will order gastrografin small bowel followthrough 11.27.24 gastrografin small bowel followthrough negative for obstruction, stoma functioning, will allow po intake he can be discharged tomorrow Plan discussed with: Patient, Son Dietary Evaluation Review Comments: 1) Increase TPN to meet at least 75% of estimated needs 2) Advance pt diet when medically feasible 3) Continue current plan of care Expected Outcomes/Goals: 1) Pt to receive adequate nutrition within 7 days of NPO status 2) Pt diet to advance 3) F/U in 2-3 days RONALD LANDA MD Jun 06, 2024 11:07
[2024-06-06] MEDS ORDERED: AMOX500T86 PO (14:37)
[2024-06-06] MEDS ORDERED: HYDR-4902 PO (14:37)
--- NOTE | 2024-06-06 14:41 | DVHPN2 ---
Subjective Patient tolerating oral intake. Denies any symptoms. Reviewed: Care Plan, H&P, Medications Changes from previous H/P or p: No Changes General: Per HPI Eyes: No Pain, No Vision change, No Conjunctivae inflammation, No Eyelid inflammation, No Other, No Redness ENT: No Ear pain, No Ear discharge, No Nose pain, No Nose discharge, No Nose congestion, No Mouth pain, No Mouth swelling, No Throat pain, No Throat swelling, No Other Respiratory: No Cough, No Dry, No Shortness of breath, No SOB with excertion, No Wheezing, No Hemoptysis, No Pleuritic Pain, No Sputum, No Other Genitourinary: No Dysuria, No Frequency, No Incontinence, No Hematuria, No Retention, No Other Musculoskeletal: No other, No neck pain, No shoulder pain, No arm pain, No back pain, No hand pain, No leg pain, No foot pain Skin: No Rash, No Lesions, No Jaundice, No Bruising, No Other Objective Vitals Vital Signs Date Time Temp Pulse Resp B/P (MAP) Pulse Ox O2 Delivery O2 Flow Rate FiO2 06/06/24 13:00 98.5 95 17 118/65 (82) 98 98.5 06/06/24 08:02 Room Air* 0 21 Intake/Output Intake and Output 06/06/24 07:00 Intake Total 3820 ml Output Total 4800 ml Balance -980 ml Intake Oral 1220 ml IV Total 1550 ml Tube Feeding 1050 ml Output Urine Total 1850 ml Stool Total 2950 ml # Bowel Movements 2 General Appearance: Alert, Oriented X3, Cooperative, mild distress HEENT: Atraumatic, PERRLA Lungs: Clear to auscultation, Normal air movement Cardiovascular: Normal S1, Normal S2 Abdomen: Normal bowel sounds, No tenderness, Other (Colostomy with bowel gas noted.) Musculoskeletal: Normal sensory function, Normal motor function Skin: Dry, Intact Psych/Mental Status: Mental status NL, Mood NL, Other Medications Current Medications Medications Dose Ordered Sig/Carlos Route Start Time Stop Time Status Last Admin Dose Admin Nitroglycerin 0.4 mg Q5MINP PRN SL 05/28/24 15:30 Metronidazole 100 ml @ 100 mls/hr Q8HR IV 05/28/24 22:00 06/06/24 13:31 100 MLS/HR Ceftriaxone Sodium 50 ml @ 100 mls/hr DAILY@09 IV 11/18/24 15:30 06/06/24 09:53 100 MLS/HR Ondansetron HCl 4 mg Q6HP PRN IV 05/28/24 15:30 06/01/24 04:03 4 MG Labetalol HCl 10 mg Q2HPRN PRN IV 05/28/24 15:30 Pantoprazole Sodium 40 mg DAILY IV 05/29/24 10:00 06/06/24 09:53 40 MG Diagnostic Test (Pha) 1 strip Q6HR 05/28/24 18:00 06/06/24 11:59 1 STRIP Insulin Human Regular FOLLOW SLIDING SCALE Q6HR SC 05/28/24 18:00 06/04/24 23:28 2 UNITS Dextrose 50 ml UD IV 05/28/24 16:30 Sodium Chloride 10 ml QSHIFT@10,22 IV 05/29/24 22:00 06/06/24 10:00 10 ML Dextrose/Lactated Ringer's 1,000 ml @ 50 mls/hr Q20H IV 05/30/24 09:15 06/06/24 02:02 50 MLS/HR Acetaminophen/ Hydrocodone Bitart 1 tab Q6HPRN PRN PO 05/31/24 16:45 06/06/24 12:24 1 TAB Metoclopramide HCl 10 mg Q8HR IV 06/01/24 22:00 06/06/24 13:30 10 MG Morphine Sulfate 1 mg Q4HP PRN IV 06/01/24 17:45 06/03/24 00:22 1 MG Laboratory Results Laboratory Tests 06/04/24 06:13 Urinalysis Test 05/28/24 08:50 Urine Color Light-orange (Yellow) Urine Clarity Turbid (Clear) H Urine pH 5.5 (5.0-9.0) Urine Specific [place] 1.029 (1.001-1.035) Urine Protein 1+ (Negative) H Urine Ketones 1+ (Negative) H Urine Blood Negative /uL (Negative) Urine Nitrite Negative (Negative) Urine Bilirubin Negative (Negative) Urine Urobilinogen Normal mg/dL (Negative) Urine Leukocyte Esterase Negative /uL (Negative) Urine RBC <1 /hpf (0 - 3) Urine WBC 1 /hpf (0 - 3) Urine Squamous Epithelial Cells Few /hpf (<5) Urine Bacteria None seen /hpf (None Seen) Urine Hyaline Casts Few /lpf (0 - 2) Urine Granular Casts Many /lpf (0) Urine Mucus Few (None Seen) Urine Glucose Normal mg/dL (Normal) Microbiology Microbiology Date/Time Source Procedure Growth Status 05/28/24 19:18 Nose MRSA Screen - Final Complete 05/28/24 14:26 Peritoneal Fluid Gram Stain - Final Complete 05/28/24 14:26 Anaerobic Culture - Final Prevotella loescheii Complete 05/28/24 14:26 Peritoneal Fluid Aerobic Culture - Final Complete Labs and/or images reviewed: Labs reviewed by me, Image(s) reviewed by me Assessment/Plan Assessment/Plan Impression: -perforated bowel secondary to probable colorectal cancer -obesity -primary hypertension -ETOH abuse -peritonitis, sepsis Plan: -events: Small-bowel follow-through results reviewed. Patient with noted flatus in colostomy bag. -continue regular -p.r.n. antihypertensives -PT consultation -PICC line -pain management -antibiotic therapy: Rocephin, Flagyl -PUD, DVT prophylaxis -discharge tomorrow. Total time spent with patient discussing and formulating plan of care: 35 minutes. This medical document was created using an electronic medical record system with [employer] dictation system. Although this document has been carefully reviewed, there may still be some phonetic and typographical errors. These areas are purely typographical due to imperfections of the software programs, and do not reflect any compromise in the patient's medical care. Plan discussed with: Patient, Other (RN) Date of Service: Jun 06, 2024 Billing Provider: VERONICA MUNROE NP Common Visit Codes: [id number] INP/OBS CARE(HIGH) VERONICA MUNROE NP Jun 06, 2024 14:41
--- NOTE | 2024-06-06 23:35 | DVHPN2 ---
Progress Note - Dictate Date Seen: Jun 06, 2024 Medical Necessity Reason Pt with a Central, PICC or Fol: No The following are medically ne: Jimenez Catheter Reason for jimenez catheter: Strict I&O Subjective Patient seen and examined at bedside. Breathing comfortably on room air. Overnight events reviewed. vital signs Vital Sign Date Time Temp Pulse Resp B/P (MAP) Pulse Ox O2 Delivery O2 Flow Rate FiO2 06/06/24 21:00 98.1 87 22 125/66 (85) 98 98.1 06/06/24 08:02 Room Air* 0 21 Total Intake and Output 06/05/24 06/05/24 06/06/24 15:00 23:00 07:00 Intake Total 525 ml 3295 ml Output Total 2100 ml 1650 ml 1050 ml Balance -2100 ml -1125 ml 2245 ml medications Current Medications Medications Dose Ordered Sig/Carlos Route Start Time Stop Time Status Last Admin Dose Admin Nitroglycerin 0.4 mg Q5MINP PRN SL 05/28/24 15:30 Metronidazole 100 ml @ 100 mls/hr Q8HR IV 05/28/24 22:00 06/06/24 22:40 100 MLS/HR Ceftriaxone Sodium 50 ml @ 100 mls/hr DAILY@09 IV 05/28/24 15:30 06/06/24 09:53 100 MLS/HR Ondansetron HCl 4 mg Q6HP PRN IV 05/28/24 15:30 06/01/24 04:03 4 MG Labetalol HCl 10 mg Q2HPRN PRN IV 05/28/24 15:30 Pantoprazole Sodium 40 mg DAILY IV 05/29/24 10:00 06/06/24 09:53 40 MG Diagnostic Test (Pha) 1 strip Q6HR 05/28/24 18:00 06/06/24 17:57 1 STRIP Insulin Human Regular FOLLOW SLIDING SCALE Q6HR SC 05/28/24 18:00 06/04/24 23:28 2 UNITS Dextrose 50 ml UD IV 05/28/24 16:30 Sodium Chloride 10 ml QSHIFT@10,22 IV 05/29/24 22:00 06/06/24 22:00 10 ML Dextrose/Lactated Ringer's 1,000 ml @ 50 mls/hr Q20H IV 05/30/24 09:15 06/06/24 21:15 50 MLS/HR Acetaminophen/ Hydrocodone Bitart 1 tab Q6HPRN PRN PO 05/31/24 16:45 06/06/24 22:39 1 TAB Metoclopramide HCl 10 mg Q8HR IV 06/01/24 22:00 06/06/24 22:40 10 MG Morphine Sulfate 1 mg Q4HP PRN IV 06/01/24 17:45 06/03/24 00:22 1 MG objective Gen.: Patient lying in bed in no apparent distress. He is breathing comfortably on room air. Head: Normocephalic, atraumatic Eyes: EOMI/PERRLA. Ears: Normal hearing. Normal anatomy. Neck/trachea: Trachea midline, supple. Nose: Normal external anatomy. Mouth: Moist mucous membranes. Chest: Fair air entry bilaterally. No wheezing or rhonchi. Cardio vascular: Positive S1, positive S2. Regular rate and rhythm. Abdomen: Positive bowel sounds in all 4 quadrants. Soft, non-tender, non- distended. : Deferred. Rectal: Deferred Skin: Warm, dry. Extremities: 2+ radial pulses bilaterally. No lower extremity edema. Neuro: Awake, alert, oriented x3. No gross motor or sensory deficits. Cranial nerves II through XII intact. Gait not assessed. laboratory and microbiology Laboratory Tests 06/04/24 06:13 Test 06/04/24 06:13 Range/Units Serum Glucose 134 H 74-106 mg/dL Assessment/Plan Impression: Hypoxia, resolved Perforated bowel secondary to probable colorectal cancer Obesity, BMI 30.4 Primary hypertension ETOH use Peritonitis Sepsis Events: Breathing on room air No respiratory distress. Surgery recs appreciated. Obtain CT abdomen-pelvis to rule out metastasis. Continue antibiotics Incentive spirometry Pain control Avoid oversedation TPN for nutritional support Advance diet per Surgery. Protonix for GI prophylaxis Patient is stable for discharge from the pulmonary standpoint. Disposition per hospitalist. Labs and imaging reviewed. Rest of plan as noted below. Plan: CXR reviewed. No acute opacities. No pleural effusion or pneumothorax. Supplemental oxygen PRN Keep o2 saturation above 92% TPN for nutritional support D5W LR Continue antibiotics. WBC trending down De-escalate based on cultures. Monitor Hgb, trending down. Pain control Avoid oversedation Wound care Monitor renal function. Monitor electrolytes. Supplement as necessary. Monitor ins and outs. Surgery recommendations appreciated. Accu-Cheks. ISS currently on hold- normal glucose f/u path results onc recs appreciated DVT prophylaxis Prognosis: Guarded given multiple comorbidities. Rest of plan per hospitalist and other consultants. Thank you JANET Montelongo for allowing me to participate in this patient's care. Further recommendations will depend on patient's clinical course. Please do not hesitate to contact me if you have any questions or concerns. This medical document was created using an electronic medical record system with [employer] dictation system. Although this document has been carefully reviewed, there may still be some phonetic and typographical errors. These areas are purely typographical due to imperfections of the software programs, and do not reflect any compromise in the patient's medical care. Dietary Evaluation Review Comments: 1) Increase TPN to meet at least 75% of estimated needs 2) Advance pt diet when medically feasible 3) Continue current plan of care Expected Outcomes/Goals: 1) Pt to receive adequate nutrition within 7 days of NPO status 2) Pt diet to advance 3) F/U in 2-3 days Plan discussed with: Patient, Other (RN) SIMA MOLINA MD Jun 06, 2024 23:35
[2024-06-07 01:00] VITALS: BP 101/48; PULSE 85; RESP 20; TEMP 98; O2SAT 97
[2024-06-07 05:00] VITALS: BP 124/72; PULSE 89; RESP 18; TEMP 98.9; O2SAT 93
[2024-06-07 08:08] VITALS: RESP 18; O2SAT 96
[2024-06-07 09:00] VITALS: BP 113/62; PULSE 85; RESP 15; TEMP 98.8; O2SAT 96
--- NOTE | 2024-06-07 09:46 | DVHDS2 ---
Discharge Summary Date of Admission May 28, 2024 at 14:36 Date of Discharge: Jun 07, 2024 Admitting Diagnosis Perforated bowel secondary to colon CA Labs/Diagnostic Data: Laboratory Results Test 06/07/24 09:18 06/04/24 06:13 06/03/24 06:05 06/02/24 06:31 POC Glucose 119 mg/dl (70-106) White Blood Count 12.4 10^3/uL (4.4-10.8) Red Blood Count 2.52 10^6/uL (4.5-5.90) Hemoglobin 8.3 g/dL (13.5-17.5) Hematocrit 24.9 % (41.0-53.0) Mean Corpuscular Volume 98.9 fL (80.0-100.0) Mean Corpuscular Hemoglobin 33.0 pg (28.0-32.0) Mean Corpuscular Hemoglobin Concent 33.3 g/dL (32.0-36.0) Red Cell Distribution Width 13.8 % (11.8-14.3) Platelet Count 388 10^3/uL (140-450) Mean Platelet Volume 7.7 fL (6.9-10.8) Neutrophils (%) (Auto) 66.8 % (37.0-80.0) Lymphocytes (%) (Auto) 15.4 % (10.0-50.0) Monocytes (%) (Auto) 10.4 % (0.0-12.0) Eosinophils (%) (Auto) 6.7 % (0.0-7.0) Basophils (%) (Auto) 0.7 % (0.0-2.0) Neutrophils # (Auto) 8.3 10 ^3/uL (1.6-8.6) Lymphocytes # (Auto) 1.9 10 ^3/uL (0.4-5.4) Monocytes # (Auto) 1.3 10 ^3/uL (0-1.3) Eosinophils # (Auto) 0.8 10 ^3/uL (0-0.8) Basophils # (Auto) 0.1 10 ^3/uL (0-0.2) Nucleated Red Blood Cells 0.1 % Sodium Level 136 mmol/L (136-145) Potassium Level 3.8 mmol/L (3.5-5.1) Chloride Level 106 mmol/L (98-107) Carbon Dioxide Level 24 mmol/L (20-31) Anion Gap 6 (5-15) Blood Urea Nitrogen 13 mg/dL (9-23) Creatinine 0.60 mg/dL (0.700-1.30) Glomerular Filtration Rate Calc 108 mL/min (>90) Estimated GFR () 172 mL/min Estimated GFR (Non- 142 mL/min BUN/Creatinine Ratio 21.7 (10.0-20.0) Serum Glucose 134 mg/dL (74-106) Calcium Level 7.9 mg/dL (8.7-10.4) Phosphorus Level 3.1 mg/dL (2.4-5.1) Magnesium Level 2.1 mg/dL (1.6-2.6) Albumin 2.7 g/dL (3.2-4.8) Total Bilirubin 0.3 mg/dL (0.2-1.0) Aspartate Amino Transferase (AST) 12 U/L (13-40) Alanine Aminotransferase (ALT) 10 U/L (7-40) Alkaline Phosphatase 46 U/L (46-116) Total Protein 5.2 g/dL (5.7-8.2) Differential Total Cells Counted 100.0 (100) Neutrophils % (Manual) 59 (37.0-80.0) Band Neutrophils % (Manual) 1 Lymphocytes % (Manual) 25 (10.0-50.0) Monocytes % (Manual) 5 (0-12) Eosinophils % (Manual) 10 (0-7) Basophils % (Manual) 0 (0.0-2.0) Metamyelocytes % (manual) 0 Myelocytes % (Manual) 0 Promyelocytes % (Manual) 0 Blast Cells % (Manual) 0 Reactive Lymphocytes 0 Platelet Estimate Adequate Test 05/31/24 05:15 05/30/24 03:16 05/28/24 19:08 05/28/24 08:50 Triglycerides Level 56 mg/dL (< 150) Lactate Dehydrogenase 130 U/L (120-246) Carcinoembryonic Antigen 4.41 ng/mL (<=5.0) Prothrombin Time 11.4 sec (9.3-11.8) Prothrombin Time INR 1.08 (0.9-1.15) Activated Partial Thromboplast Time 31.6 SEC (24.5-34.5) Urine Color Light-orange (Yellow) Urine Clarity Turbid (Clear) Urine pH 5.5 (5.0-9.0) Urine Specific [place] 1.029 (1.001-1.035) Urine Protein 1+ (Negative) Urine Ketones 1+ (Negative) Urine Blood Negative /uL (Negative) Urine Nitrite Negative (Negative) Urine Bilirubin Negative (Negative) Urine Urobilinogen Normal mg/dL (Negative) Urine Leukocyte Esterase Negative /uL (Negative) Urine RBC <1 /hpf (0 - 3) Urine WBC 1 /hpf (0 - 3) Urine Squamous Epithelial Cells Few /hpf (<5) Urine Bacteria None seen /hpf (None Seen) Urine Hyaline Casts Few /lpf (0 - 2) Urine Granular Casts Many /lpf (0) Urine Mucus Few (None Seen) Urine Glucose Normal mg/dL (Normal) Other Laboratory Tests 06/04/24 06:13 Brief Hx & Hospital Course: History of Present Illness The patient was a 63-year-old male presenting to the emergency room with severe abdominal pain. CT scan of the abdomen and pelvis was performed which revealed free air in the belly. Patient underwent exploratory laparotomy, with findings of perforated cancer, resection of the rectal cancer, with notation of the cancer invading surrounding area. The patient was assessed in the recovery room area, noted to be hemodynamically stable with some tachycardia. Significant history of the patient includes hypertension, and EtOH use. Course of hospitalization: Postoperatively, the patient was started on banana bag, TPN, IV antibiotic therapy. Long discussion was made by myself as well as the surgeon, Dr. Beltran about the findings from surgery. Patient also had consultation with Oncology, at this time for the patient to follow up as an outpatient for further assessment and treatment. Patient has CT scan of the head as well as the chest with contrast which showed no signs of metastasis. CT scan of the abdomen and pelvis did reveal questionable metastatic mass to the liver. Findings were discussed with the patient. Patient was weaned off TPN and IV fluids. Patient was now tolerating oral intake with noted stool fluctuance to his colostomy. Patient's pain has been managed with p.o. Commack. He has been cleared for discharge by surgery. Patient will follow up with the surgeon in 10 days, oncology within 1-2 weeks as well as the discharge Clinic in one week. He will be continued on antibiotic therapy with Augmentin 500 mg p.o. twice a day for additional seven days, in addition to continuation with Commack. He is instructed not to lift anything greater than 5 lb next three weeks. He will empty his JACKIE drain once a day. This will be explained to the patient by primary nurse. All questions answered. Physical examination General: Alert and Oriented x3. No acute distress. Well-nourished. Eyes: EOMI. Anicteric. HENT: Moist mucous membranes. Lungs: Clear to auscultation bilaterally. No accessory muscle use. Cardiovascular: Regular rate and rhythm. No murmur. No JVD. Abdomen: Soft, non-tender and non-distended. No palpable masses. Extremities: No edema. Non-tender. Skin: No rashes or lesions. Warm. Neurologic: No focal neurological deficits. CN II-XII grossly intact, but not individually tested. Psychiatric: Cooperative. Appropriate mood and affect. Total time spent with patient discussing and formulating plan of care: 35 minutes. This medical document was created using an electronic medical record system with [employer] dictation system. Although this document has been carefully reviewed, there may still be some phonetic and typographical errors. These areas are purely typographical due to imperfections of the software programs, and do not reflect any compromise in the patient's medical care. Consults/Reason for consult Surgery: Perforated bowel with colon resection Operations or Procedures 05/28/2024: Exploratory laparotomy with hemicolectomy and colostomy creation Condition at Discharge: Guarded Final Diagnosis/Problems List Perforated bowel secondary to colon cancer Secondary Diagnosis: -obesity -primary hypertension -ETOH abuse -peritonitis, sepsis Discharge Disposition: Home Discharge Instruct/Medications Diet: Consistent carbohydrate Activity: Light activity Activity comment: Lift anything greater than 5 lb for three weeks or instructed by surgeon Follow Up/Referral: Follow up with Dr. Beltran 10 days. Medications: Commack 5/325 q.6 hours as needed for [id number] pain Augmentin 500 mg p.o. b.i.d. x7 days 36 Discharge Statement: "Patient was advised to return to the ER or call 911 if any headaches, dizziness, shortness of breath, chest pain, abdominal pain, bleeding, fevers, or worsening of medical condition. Patient was counseled about treatment plan, medications, possible side effects, patientverbalized understanding. All questions were answered to the best of my ability. This discharge took greater then 30 minutes in planning, reviewing documentation, counseling the patient, and discussing with other team members." ASSESSMENT ASSESSMENT Assessment Perforated bowel secondary to colon cancer Date of Service: Jun 07, 2024 Billing Provider: VERONICA MUNROE NP Common Visit Codes: 69556-[id number]/OBS DISCH DAY >30min VERONICA MUNROE NP Jun 07, 2024 09:46
--- NOTE | 2024-06-07 10:42 | DVHPN2 ---
Progress Note Date Seen: Jun 07, 2024 Medical Necessity Reason Pt with a Central, PICC or Fol: No The following are medically ne: Jimenez Catheter Reason for jimenez catheter: Strict I&O Objective vital signs Vital Sign Date Time Temp Pulse Resp B/P (MAP) Pulse Ox O2 Delivery O2 Flow Rate FiO2 06/07/24 09:00 98.8 85 15 113/62 (79) 96 98.8 06/07/24 08:08 Room Air* 0 21 Total Intake and Output 06/06/24 06/06/24 06/07/24 15:00 23:00 07:00 Intake Total 50 ml 1660 ml 950 ml Output Total 20 ml 1650 ml 800 ml Balance 30 ml 10 ml 150 ml medications Current Medications Medications Dose Ordered Sig/Carlos Route Start Time Stop Time Status Last Admin Dose Admin Nitroglycerin 0.4 mg Q5MINP PRN SL 05/28/24 15:30 Metronidazole 100 ml @ 100 mls/hr Q8HR IV 05/28/24 22:00 06/07/24 05:50 100 MLS/HR Ceftriaxone Sodium 50 ml @ 100 mls/hr DAILY@09 IV 05/28/24 15:30 06/07/24 08:48 100 MLS/HR Ondansetron HCl 4 mg Q6HP PRN IV 05/28/24 15:30 06/01/24 04:03 4 MG Labetalol HCl 10 mg Q2HPRN PRN IV 05/28/24 15:30 Pantoprazole Sodium 40 mg DAILY IV 05/29/24 10:00 06/07/24 08:48 40 MG Diagnostic Test (Pha) 1 strip Q6HR 05/28/24 18:00 06/07/24 06:02 1 STRIP Insulin Human Regular FOLLOW SLIDING SCALE Q6HR SC 05/28/24 18:00 06/04/24 23:28 2 UNITS Dextrose 50 ml UD IV 05/28/24 16:30 Sodium Chloride 10 ml QSHIFT@ IV 05/29/24 22:00 06/07/24 08:48 10 ML Dextrose/Lactated Ringer's 1,000 ml @ 50 mls/hr Q20H IV 05/30/24 09:15 06/06/24 21:15 50 MLS/HR Acetaminophen/ Hydrocodone Bitart 1 tab Q6HPRN PRN PO 05/31/24 16:45 06/07/24 05:50 1 TAB Metoclopramide HCl 10 mg Q8HR IV 06/01/24 22:00 06/07/24 05:50 10 MG Morphine Sulfate 1 mg Q4HP PRN IV 06/01/24 17:45 06/03/24 00:22 1 MG laboratory and microbiology Laboratory Tests 06/04/24 06:13 Test 06/04/24 06:13 Range/Units Serum Glucose 134 H 74-106 mg/dL Problem List/Assessment/Plan Problem List/Assessment/Plan 05/29/24 ADDENDUM TO OPERATIVE REPORT: THE TUMOR WAS DEEP IN A VERY NARROW PELVIS AND WAS NOT COMPLETELY RESECTABLE DUE TO PERFORATION OF THE TUMOR WHICH WAS OBSTRUCTING THE LUMEN, DUE TO THE OBSTRUCTION IT SEEMS THAT THE VERY DILATED RECTO SIGMOID COLON PROXIMAL TO THE TUMOR(LATER IDENTIFIED ADENOCARCINOMA ON DELAYED FROZEN SECTION) RUPTURED, DUE TO MORBID OBESITY THE RECTOSIGMOID SEGMENT WAS RESECTED SEPARATELY IN ORDER TO FACILITATE VISUALIZATION OF THE PERFORATED CANCER DISTAL TO IT. FOLLOWING RESECTION I ADMINISTERED METHYLENE BLUE TO ASSURE INTEGRITY OF THE URETER VISUALIZATION WAS MADE IMPOSSIBLE DUE TO THE CHRONICITY OF SIGMOID PERFORATION AND ADHERENCE OF RETROPERITONEAL STRUCTURES. NO METHYLENE BLUE EXTRAVASATION WAS DETECTED. THE REMNANT OF RECTUM WAS GROSSLY POSITIVE TUMOR MARGIN WAS MARKED WITH METALLIC HEMOCLIPS FOR LATER IDENTIFICATION . 05/29/24 awake, cooperative, dressing dry, drainage serous, abdomen non distended, labs reviewed. picc line pending qabdomen appropriately tender, I explained operative findings and probable need for radiation treatments after completion of post operative recovery, stoma is viable but without function, will try Reglan, wound clean and well approximated. 05/31/24 flatus in stoma appliance, abdomen appropriately tender, drainage serous, will advance diet 06/01/24 vomited and there is no flatus in the stoma appliance, will resume NPO status, wound clean, drainage serous GAS IN STOMA APPLIANCE, ABDOMEN NON DISTENDED, WOUND CLEAN AND WELL APPROXIMATED, DRAINAGE SEROUS, PATIENT IS VERY HUNGRY, WILL ALLOW POP INTAKE 06/04/24 no nausea, stoma functioning, wound ok 06/05/24 no nausea but feels"full:, small amount of stool in stoma appliance, wound clean and well approximated, will order gastrografin small bowel followthrough 06.06.24 gastrografin small bowel followthrough negative for obstruction, stoma functioning, will allow po intake he can be discharged tomorrow 06/07/24 doing well, wants to go home, instructions give, return to see me in ten days Plan discussed with: Patient Dietary Evaluation Review Comments: 1) Increase TPN to meet at least 75% of estimated needs 2) Advance pt diet when medically feasible 3) Continue current plan of care Expected Outcomes/Goals: 1) Pt to receive adequate nutrition within 7 days of NPO status 2) Pt diet to advance 3) F/U in 2-3 days RONALD LANDA MD Jun 07, 2024 10:42
[2024-06-07 13:00] VITALS: BP 107/63; PULSE 73; RESP 17; TEMP 99; O2SAT 94
--- NOTE | 2024-06-07 20:33 | DVHPN2 ---
Progress Note - Dictate Date Seen: Jun 07, 2024 Medical Necessity Reason Pt with a Central, PICC or Fol: No The following are medically ne: Jimenez Catheter Reason for jimenez catheter: Strict I&O Subjective Patient seen and examined at bedside. Breathing comfortably on room air. Overnight events reviewed. vital signs Vital Sign Date Time Temp Pulse Resp B/P (MAP) Pulse Ox O2 Delivery O2 Flow Rate FiO2 06/07/24 13:00 99.0 73 17 107/63 (78) 94 99.0 06/07/24 08:08 Room Air* 0 21 Total Intake and Output 06/06/24 06/06/24 06/07/24 15:00 23:00 07:00 Intake Total 50 ml 1660 ml 950 ml Output Total 20 ml 1650 ml 800 ml Balance 30 ml 10 ml 150 ml objective Gen.: Patient lying in bed in no apparent distress. He is breathing comfortably on room air. Head: Normocephalic, atraumatic Eyes: EOMI/PERRLA. Ears: Normal hearing. Normal anatomy. Neck/trachea: Trachea midline, supple. Nose: Normal external anatomy. Mouth: Moist mucous membranes. Chest: Fair air entry bilaterally. No wheezing or rhonchi. Cardio vascular: Positive S1, positive S2. Regular rate and rhythm. Abdomen: Positive bowel sounds in all 4 quadrants. Soft, non-tender, non- distended. : Deferred. Rectal: Deferred Skin: Warm, dry. Extremities: 2+ radial pulses bilaterally. No lower extremity edema. Neuro: Awake, alert, oriented x3. No gross motor or sensory deficits. Cranial nerves II through XII intact. Gait not assessed. laboratory and microbiology Laboratory Tests 06/04/24 06:13 Test 06/04/24 06:13 Range/Units Serum Glucose 134 H 74-106 mg/dL Assessment/Plan Impression: Hypoxia, resolved Perforated bowel secondary to probable colorectal cancer Obesity, BMI 30.4 Primary hypertension ETOH use Peritonitis Sepsis Events: Breathing on room air No respiratory distress. Continue antibiotics Incentive spirometry Pain control Avoid oversedation TPN for nutritional support Advance diet per Surgery. Protonix for GI prophylaxis Patient is stable for discharge from the pulmonary standpoint. Disposition per hospitalist. Labs and imaging reviewed. Rest of plan as noted below. Plan: CXR reviewed. No acute opacities. No pleural effusion or pneumothorax. Supplemental oxygen PRN Keep o2 saturation above 92% TPN for nutritional support D5W LR Continue antibiotics. WBC trending down De-escalate based on cultures. Monitor Hgb, trending down. Pain control Avoid oversedation Wound care Monitor renal function. Monitor electrolytes. Supplement as necessary. Monitor ins and outs. Surgery recommendations appreciated. Accu-Cheks. ISS currently on hold- normal glucose f/u path results onc recs appreciated DVT prophylaxis Prognosis: Guarded given multiple comorbidities. Rest of plan per hospitalist and other consultants. Thank you JANET Montelongo for allowing me to participate in this patient's care. Further recommendations will depend on patient's clinical course. Please do not hesitate to contact me if you have any questions or concerns. This medical document was created using an electronic medical record system with [employer] [email or web address]) dictation system. Although this document has been carefully reviewed, there may still be some phonetic and typographical errors. These areas are purely typographical due to imperfections of the software programs, and do not reflect any compromise in the patient's medical care. Dietary Evaluation Review Comments: 1) Increase TPN to meet at least 75% of estimated needs 2) Advance pt diet when medically feasible 3) Continue current plan of care Expected Outcomes/Goals: 1) Pt to receive adequate nutrition within 7 days of NPO status 2) Pt diet to advance 3) F/U in 2-3 days Plan discussed with: Patient, Other (RN Erin) SIMA MOLINA MD Jun 07, 2024 20:33
--- NOTE | 2024-06-14 12:57 | ECG ---
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
== END 2024-06-07 15:30 | disposition home health service (06) | DRG 710 ==
LOC: ER 07:51 → TELE 14:36 → ICU WEST 14:39 → TELE-EAST 05-30 11:36
PROVIDERS: ADMIT Internal Medicine Geriatric Medicine; ATTEND Nurse Practitioner Acute Care
PROC: 0DTP0ZZ Resection of Rectum, Open Approach (ICD-10-PCS; 2024-05-28)
PROC: 0DTN0ZZ Resection of Sigmoid Colon, Open Approach (ICD-10-PCS; principal; 2024-05-28 11:45)
PROC: 02HV33Z Insertion of Infusion Device into Superior Vena Cava, Percutaneous Approach (ICD-10-PCS; 2024-05-29)
PROC: B548ZZA Ultrasonography of Superior Vena Cava, Guidance (ICD-10-PCS; 2024-05-29)
DX: A41.9 Sepsis, unspecified organism (principal); K63.1 Perforation of intestine (nontraumatic); K65.9 Peritonitis, unspecified; K59.39 Other megacolon; C18.6 Malignant neoplasm of descending colon; C19 Malignant neoplasm of rectosigmoid junction; C78.7 Secondary malignant neoplasm of liver and intrahepatic bile duct; E66.9 Obesity, unspecified; F10.10 Alcohol abuse, uncomplicated; F17.200 Nicotine dependence, unspecified, uncomplicated; I10 Essential (primary) hypertension; Y90.9 Presence of alcohol in blood, level not specified; R09.02 Hypoxemia; Z68.30 Body mass index [BMI] 30.0-30.9, adult; Z90.49 Acquired absence of other specified parts of digestive tract; Z80.0 Family history of malignant neoplasm of digestive organs; Z79.891 Long term (current) use of opiate analgesic; Z79.899 Other long term (current) drug therapy
CPT/HCPCS: 36415; 36569; 71045; 71260; 74176; 74177; 74250; 76937; 80048; 80053; 80069; 81001; 82378; 82962; 83615; 83735; 84100; 84478; 85007; 85025; 85027; 85610; 85730; 86850; 86900; 86901; 87070; 87075; 87076; 87081; 87205; 93005; 96365; 96375; 97110; 97116; 97163; 97530; G0378; J0330; J1815; J2405; J2470; J2543; J2704; J3480; J3490; J7042; J7131

== ENCOUNTER 2024-06-13 17:28 | Emergency (ER) | payer MEDICAID ==
[~2024-06-13] VITALS: Ht 162.6 cm; Wt 78.0 kg
[~2024-06-13 17:28] MED LIST changes: +AMOX500T86 PO
--- NOTE | 2024-06-13 18:12 | ED.PDOC ---
GI ASSESSMENT HPI Comments 2 weeks post op for colostomy. out of norco and now has pain Chief Complaint: Abdominal Pain Time Seen by MD: 18:07 Reviewed Notes: Nurses Notes Allergies: Coded Allergies: NO KNOWN ALLERGIES (Unverified , 05/28/24) Home Meds Active Scripts Amoxicillin & Pot Clavulanate (Augmentin) 500 Mg Tab, 1 TAB PO BID for 7 Days, #14 TAB Prov:VERONICA MUNROE E D TECH 06/06/24 Hydrocodone-Acetaminophen (Hydrocodone Bitartrate/AC 5-325 mg) 1 Tab Tab, 1 TAB PO Q6HR for 5 Days, #20 TAB Prov:VERONICA MUNROE E D TECH 06/06/24 Hydrocodone-Acetaminophen (Hydrocodone Bitartrate/AC 5-325 mg) 1 Tab Tab, 1 TAB PO Q6HP PRN, #20 TAB Prov:RADHA MARTÍNEZ PAC 12/07/22 Ibuprofen Micronized (Ibuprofen) 800 Mg Tab, 800 MG PO Q8HP PRN, #30 TAB Prov:RADHA MARTÍNEZ PAC 12/07/22 Information Source: Patient, Relative (Child) Mode of Arrival: Ambulatory Timing: Weeks (2) Duration: Since onset Quality: Aching Vomitus: Soft, None Severity: Mild Recent: None Recent Hx of: None Pain Location: Diffuse Modifying Factors: Nothing (out of norco) Associated sign and symptoms: None Past Medical History PAST MEDICAL HISTORY: HTN, Denies Past Medical History (Other): colon cancer Surgical History: Appendectomy, Denies all surgeries Surgical History (Other): colostomy, colon cancer resection Family History Family History: Reviewed,noncontributory to illness, No family hx of Cancer, No family hx of DM, No family hx of Heart jalyn, No family hx of HTN, No family hx ofKidney jalyn, No family hx of Liver jalyn, No family hx of Lung jalyn, No family hx of Stroke Social History Smoker: Non-Smoker Alcohol: Denies ETOH Use Drugs: Denies Drug Use Constitutional: denies: chills, diaphoresis, fatigue, fever, malaise, sweats, weakness, others EENTM: denies: blurred vision, double vision, ear bleeding, ear discharge, ear drainage, ear pain, ear ringing, eye pain, eye redness, hearing loss, mouth pain, mouth swelling, nasal discharge, nose bleeding, nose congestion, nose pain, photophobia, tearing, throat pain, throat swelling, voice changes, others Respiratory: denies: cough, hemoptysis, orthopnea, SOB at rest, shortness of breath, SOB with excertion, stridor, wheezing, others Cardiovascular: denies: chest pain, dizzy spells, diaphoresis, Dyspnea on exertion, edema, irregular heart beat, left arm pain, lightheadedness, palpitations, PND, syncope, others Gastrointestinal: reports: abdominal pain; denies: abdomen distended, blood streaked bowels, constipated, diarrhea, dysphagia, difficulty swallowing, hematemesis, melena, nausea, poor appetite, poor fluid intake, rectal bleeding, rectal pain, vomiting, others Genitourinary: denies: burning, dysuria, flank pain, frequency, hematuria, incontinence, penile discharge, penile sore, pain, testicle pain, testicle swelling, urgency, others Neurological: denies: dizziness, fainting, headache, left sided numbness, left sided weakness, numbness, paresthesia, pre-existing deficit, right sided numbness, right sided weakness, seizure, speech problems, tingling, tremors, weakness, others Musculoskeletal: denies: back pain, gout, joint pain, joint swelling, muscle pain, muscle stiffness, neck pain, others Integumetry: denies: bruises, change in color, change in hair/nails, dryness, laceration, lesions, lumps, rash, wounds, others Allergic/Immunocompromised: denies: Difficulty Healing, Frequent Infections, Hives, Itching, others Hematologic/Lymphatic: denies: anemia, blood clots, easy bleeding, easy bruising, swollen glands, others Endocrine: denies: excessive hunger, excessive sweating, excessive thirst, excessive urination, flushing, intolerance to cold, intolerance to heat, une xplained weight gain, unexplained weight loss, others All Other Systems: Reviewed and Negative Physical Exam General Appearance: No Apparent Distress, Normal HEENT: Normal ENT Inspection, Pharynx Normal, TMs Normal Neck: Full Range of Motion, Non-Tender, Normal, Normal Inspection Respiratory: Chest Non-Tender, Lungs Clear, No Accessory Muscle Use, No Respiratory Distress, Normal Breath Sounds Cardiovascular: No Edema, No JVD, No Murmur, No Gallop, Normal Peripheral Pulses, Regular Rate/Rhythm Breast Exam: Deferred Gastrointestinal: No Organomegaly, Non Tender, No Pulsatile Mass, Normal Bowel Sounds, Soft, Other (surigcal wound clean, with emil intact. 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 Was a procedure done?: No GI differential Dx Differential Diagnosis: Constipation, Gastritis/PUD, Gastroenteritis, Hernia, Impaction X-Ray, Labs, Meds, VS Vital Signs Date Time Temp Pulse Resp B/P (MAP) Pulse Ox O2 Delivery O2 Flow Rate FiO2 06/13/24 17:28 97.5 112 20 126/85 (99) 99 Lab Test 06/13/24 18:40 Range/Units White Blood Count 7.8 4.4-10.8 10^3/uL Red Blood Count 3.52 L 4.5-5.90 10^6/uL Hemoglobin 11.2 L 13.5-17.5 g/dL Hematocrit 33.5 L 41.0-53.0 % Mean Corpuscular Volume 95.0 80.0-100.0 fL Mean Corpuscular Hemoglobin 31.8 28.0-32.0 pg Mean Corpuscular Hemoglobin Concent 33.5 32.0-36.0 g/dL Red Cell Distribution Width 14.3 11.8-14.3 % Platelet Count 643 H 140-450 10^3/uL Mean Platelet Volume 8.3 6.9-10.8 fL Neutrophils (%) (Auto) 59.0 37.0-80.0 % Lymphocytes (%) (Auto) 27.7 10.0-50.0 % Monocytes (%) (Auto) 10.2 0.0-12.0 % Eosinophils (%) (Auto) 2.1 0.0-7.0 % Basophils (%) (Auto) 1.0 0.0-2.0 % Neutrophils # (Auto) 4.6 1.6-8.6 10 ^3/uL Lymphocytes # (Auto) 2.2 0.4-5.4 10 ^3/uL Monocytes # (Auto) 0.8 0-1.3 10 ^3/uL Eosinophils # (Auto) 0.2 0-0.8 10 ^3/uL Basophils # (Auto) 0.1 0-0.2 10 ^3/uL Nucleated Red Blood Cells 0.2 % Sodium Level 136 136-145 mmol/L Potassium Level 3.5 3.5-5.1 mmol/L Chloride Level 101 98-107 mmol/L Carbon Dioxide Level 28 20-31 mmol/L Anion Gap 7 5-15 Blood Urea Nitrogen 9 9-23 mg/dL Creatinine 0.84 0.700-1.30 mg/dL Glomerular Filtration Rate Calc 98 >90 mL/min BUN/Creatinine Ratio 10.7 10.0-20.0 Serum Glucose 110 H 74-106 mg/dL Calcium Level 9.5 8.7-10.4 mg/dL Time of 1ST Reevaluation: 22:19 Reevaluation 1ST: Improved Patient Education/Counseling: Diagnosis, Treatment, Prognosis, Need For Follow Up Family Education/Counseling: Diagnosis, Treatment, Prognosis, Need For Follow Up Additional Information pt is out of vendor and reports pain. colostomy appears in good condition. exam is unremarkable. workup, including cbc, chemistry, kub are unremarkable. pt is stable for discharge. i will refill the norco Departure 1 Departure Time of Disposition: 22:20 Impression: Primary Impression: Medication refill Additional Impression: Postoperative pain Disposition: HOME / SELF CARE / HOMELESS Condition: Good e-Prescriptions Hydrocodone-Acetaminophen (Hydrocodone Bitartrate/AC 5-325 mg) 1 Tab Tab 1 TAB PO Q8HP PRN for 5 Days, #15 TAB Prov: LOREN WILKINS MD 06/13/24 Discharged With: Self, Relative Critical Care Note Critical Care Time?: No Stability Stability form required: No LOREN WILKINS MD Jun 13, 2024 18:11
[2024-06-13 19:12] LABS: Basophils # (auto) 0.1 10 ^3/uL (0-0.2); Eosinophils # (auto) 0.2 10 ^3/uL (0-0.8); Eosinophils % (auto) 2.1 % (0.0-7.0); Hematocrit 33.5 % (41.0-53.0); Hemoglobin 11.2 g/dL (13.5-17.5); Lymphocytes # (auto) 2.2 10 ^3/uL (0.4-5.4); Lymphocytes % (auto) 27.7 % (10.0-50.0); Mean Corpuscular Hemoglobin 31.8 pg (28.0-32.0); Mean Corpuscular Hgb Conc. 33.5 g/dL (32.0-36.0); Monocytes # (auto) 0.8 10 ^3/uL (0-1.3); Monocytes % (auto) 10.2 % (0.0-12.0); Neutrophils # (auto) 4.6 10 ^3/uL (1.6-8.6); Nucleated Red Blood Cells % 0.2 %; Platelet Count (auto) 643 10^3/uL (140-450); Red Blood Cells 3.52 10^6/uL (4.5-5.90); Red Cell Distribution Width 14.3 % (11.8-14.3); White Blood Cell 7.8 10^3/uL (4.4-10.8)
--- NOTE | 2024-06-13 19:15 | DVH ---
EXAM: XY KUB ABDOMEN SINGLE VIEW HISTORY: pain COMPARISON: XY LUMBAR SPINE 3 VIEW on DOS: 12/07/22 TECHNIQUE: Single AP of the abdomen and pelvis was obtained. Findings: Frontal view of the abdomen demonstrates a paucity of bowel gas. No visualized renal calculi. There i s no evidence of an acute fracture, dislocation, blastic, or lytic lesions. The visualized portions of the lung bases are unremarkable. Midline surgical emil. Drain overlying the left lower quadrant. No superficial soft tissue abnormalities. Impression: 1. Paucity of bowel gas. Cannot exclude fluid filled loops of dilated bowel. 2. No visualized renal calculi.
[2024-06-13 19:16] LABS: Chloride 101 mmol/L (98-107); Potassium 3.5 mmol/L (3.5-5.1)
[2024-06-13 19:17] LABS: Anion Gap 7 (5-15); Carbon Dioxide 28 mmol/L (20-31)
[2024-06-13 19:18] LABS: Calcium 9.5 mg/dL (8.7-10.4)
[2024-06-13 19:22] LABS: BUN/Creatinine Ratio 10.7 (10.0-20.0)
[2024-06-13 19:29] LABS: Blood Urea Nitrogen 9 mg/dL (9-23); Glucose 110 mg/dL (74-106); Sodium 136 mmol/L (136-145)
[2024-06-13] MEDS ORDERED: HYDR-4902 PO (22:22)
[2024-06-13 22:50] VITALS: BP 156/78; RESP 14; TEMP 97.7; O2SAT 97
[2024-06-13 22:58] VITALS: PULSE 78
== END 2024-06-13 23:01 | disposition home or self-care (01) ==
LOC: ER 17:28
DX: G89.18 Other acute postprocedural pain (principal); I10 Essential (primary) hypertension; Z85.038 Personal history of other malignant neoplasm of large intestine; Z90.49 Acquired absence of other specified parts of digestive tract; Z93.3 Colostomy status; Z76.0 Encounter for issue of repeat prescription
CPT/HCPCS: 36415; 74018; 80048; 85025

== ENCOUNTER 2024-06-16 17:31 | Inpatient (IN) | payer MEDICAID ==
[~2024-06-16] VITALS: Ht 162.6 cm; Wt 77.5 kg
[2024-06-16] MEDS: MORPHINE SULFATE INJ 2 MG/ml SYRG IM ONE (18:00)
[2024-06-16] MEDS: SODIUM CHLORIDE 0.9% 1,000 ML IV ONE ×2 (18:27→20:15)
[2024-06-16 18:41] LABS: Hematocrit 43.2 % (41.0-53.0); Hemoglobin 14.3 g/dL (13.5-17.5); Mean Corpuscular Hemoglobin 30.9 pg (28.0-32.0); Mean Corpuscular Hgb Conc. 33.1 g/dL (32.0-36.0); Mean Corpuscular Volume 93.6 fL (80.0-100.0); Platelet Count (auto) 602 10^3/uL (140-450); Red Blood Cells 4.62 10^6/uL (4.5-5.90); Red Cell Distribution Width 15.7 % (11.8-14.3)
[2024-06-16 18:46] LABS: Basophils % (manual) 0 (0.0-2.0); Blast Cells 0; Eosinophils % (manual) 0 (0-7); Myelocytes % 0; Promyelocytes % 0; Reactive Lymphocytes 0; White Blood Cell 46.8 10^3/uL (4.4-10.8)
[2024-06-16] MEDS: ONDANSETRON HCL 4 MG/2 ML VIAL IV ONE (18:50)
[2024-06-16] MEDS: PANTOPRAZOLE 40 MG/10 ML VIAL INJ IV ONE (18:50)
[2024-06-16 18:56] LABS: Alanine Aminotransferase 18 U/L (7-40); Albumin 3.6 g/dL (3.2-4.8); Alkaline Phosphatase 107 U/L (46-116); Anion Gap 18 (5-15); Aspartate Aminotransferase 18 U/L (13-40); BUN/Creatinine Ratio 13.2 (10.0-20.0); Carbon Dioxide 20 mmol/L (20-31); Lipase 18 U/L (12-53); Potassium 4.3 mmol/L (3.5-5.1)
[2024-06-16 18:57] LABS: Bilirubin, Total 0.7 mg/dL (0.2-1.0); Total Protein 6.5 g/dL (5.7-8.2)
[2024-06-16 18:59] LABS: Blood Urea Nitrogen 30 mg/dL (9-23); Calcium 10.9 mg/dL (8.7-10.4); Chloride 91 mmol/L (98-107); Glucose 187 mg/dL (74-106); Sodium 129 mmol/L (136-145)
[2024-06-16 19:11] LABS: Lactic Acid w/Reflex 9.6 mmol/L (0.4-2.0)
--- NOTE | 2024-06-16 19:16 | DVH ---
CT CT AB PEL WO CON-NO ORAL OR IV INDICATION: n/v, increased stool output s/p sigmoid resect, colostomy EXAM DATE: 06/16/2024 06:32 PM COMPARISON: CT CT CHEST/AB/PL W CON- IV ONLY on DOS: 06/04/24, CT CT AB PEL WO CON-NO ORAL OR IV on D OS: 05/28/24 RADIATION DOSE: CTDIvol: 10.0 mGy, DLP: 580.07 mGy*cm PROCEDURE: Helical CT images were obtained of the abdomen and pelvis without IV contrast Sagittal an d coronal reconstructions are provided. ORAL CONTRAST: None. ADDITIONAL IMAGES / REFORMATS: None All CT scans at this medical facility are performed using dose modulation techniques as appropriate t o a performed exam including the following: Automated exposure control was utilized; adjustment of th e MA and/or KV according to patient size; and use of iterative reconstruction technique. FINDINGS: LUNG BASE: Bibasilar atelectasis. LIVER: Unremarkable GALLBLADDER AND BILIARY TREE: No calcified gallstones. Normal caliber wall. No intra- or extrahepatic biliary ductal dilation. PANCREAS: Normal. SPLEEN: Normal. BOWEL: Post surgical changes from bowel resection with a left lower quadrant colostomy. Mildly disten ded colon filled with fluid and adjacent fat stranding. ADRENALS: Normal. KIDNEYS AND URETER: Normal. BLADDER: Normal. REPRODUCTIVE ORGANS: Normal. LYMPH NODES:No lymphadenopathy. PERITONEUM: No ascites or free air. No other fluid collection. A surgical drain is noted in the left hemiabdomen. VESSELS: Scattered atherosclerotic calcifications are noted. RETROPERITONEUM: Increased retroperitoneal air compared to prior CT, which could be from a defect in the rectal pouch. ABDOMINAL WALL: Normal. BONES: Scattered osseous degenerative changes are noted. IMPRESSION: Increased retroperitoneal air compared to prior CT, which could be from a defect in the rectal pouch such as a perforation. Post surgical changes from bowel resection with a left lower quadrant colostomy. Mildly distended colon filled with fluid and adjacent fat stranding could be colitis. Critical Result: above findings Findings discussed with JOSE L HUNTLEY at 06/16/2024 07:11 PM and acknowledged receipt and u nderstanding of the findings.
--- NOTE | 2024-06-16 20:16 | ED.PDOC ---
GI ASSESSMENT HPI Comments 63-year-old male brought in by family complaining of nausea, vomiting an increase output from his colostomy since yesterday. Patient also reports generalized weakness and lightheadedness. Patient is status post ex lap, sigmoid resection and colostomy on 05/28/2024. He does have mild generalized abdominal pain. He denies any fever, dysuria, dark or bloody stools or hematemesis. Chief Complaint: Nausea/Vomiting Time Seen by MD: 17:47 Allergies: Coded Allergies: NO KNOWN ALLERGIES (Unverified , 05/28/24) Home Meds Active Scripts Hydrocodone-Acetaminophen (Hydrocodone Bitartrate/AC 5-325 mg) 1 Tab Tab, 1 TAB PO Q8HP PRN for 5 Days, #15 TAB Prov:LOREN WILKINS MD 06/13/24 Amoxicillin & Pot Clavulanate (Augmentin) 500 Mg Tab, 1 TAB PO BID for 7 Days, #14 TAB Prov:VERONICA MUNROE MONITOR TECH 06/06/24 Hydrocodone-Acetaminophen (Hydrocodone Bitartrate/AC 5-325 mg) 1 Tab Tab, 1 TAB PO Q6HR for 5 Days, #20 TAB Prov:VERONICA MUNROE MONITOR TECH 06/06/24 Hydrocodone-Acetaminophen (Hydrocodone Bitartrate/AC 5-325 mg) 1 Tab Tab, 1 TAB PO Q6HP PRN, #20 TAB Prov:RADHA MARTÍNEZ PAC 12/07/22 Ibuprofen Micronized (Ibuprofen) 800 Mg Tab, 800 MG PO Q8HP PRN, #30 TAB Prov:RADHA MARTÍNEZ PAC 12/07/22 Mode of Arrival: Wheelchair Past Medical History PAST MEDICAL HISTORY: HTN Past Medical History (Other): Colon CA, perforated bowel Surgical History: Appendectomy Surgical History (Other): Recent ex lap with sigmoid resection and colostomy 05/28/2024 Family History Family History: Reviewed,noncontributory to illness, No family hx of Cancer, No family hx of DM, No family hx of Heart jalyn, No family hx of HTN, No family hx ofKidney jalyn, No family hx of Liver jalyn, No family hx of Lung jalyn, No family hx of Stroke Social History Smoker: Non-Smoker Alcohol: Denies ETOH Use Drugs: Denies Drug Use All Other Systems: Reviewed and Negative (Comprehensive systems review obtained and negative except for what is stated in the HPI.) Physical Exam General Appearance: Mild Distress, Other (Ill-appearing) HEENT: Other (Dry mucous membranes, no facial asymmetry, pupils symmetric) Neck: Full Range of Motion, Normal Inspection Respiratory: Lungs Clear, No Accessory Muscle Use, No Respiratory Distress, Normal Breath Sounds Cardiovascular: No Edema, No JVD, Regular Rate/Rhythm Breast Exam: Deferred Gastrointestinal: Soft, Tenderness (Mild diffuse abdominal tenderness to palpation. Nontender to percussion. No rebound or guarding. Midline surgical wound with emil in place, appears clean, dry and intact. Right lower quadrant JACKIE drain with yellow fluid within the bulb. Left abdominal colostomy with liquid brown stool in the collection bag.) Genitalia: Deferred Pelvic: Deferred Rectal: Deferred Extremities: Normal inspection, Normal range of motion, Non-tender, No pedal edema Neurologic: Alert (Oriented x4), Normal Affect, Normal Mood, Other (Moves all extremities, no gross focal deficit.) Cerebellar Function: NOT DONE Reflexes: NOT DONE Skin: Dry, Pallor, Warm Lymphatic: NOT DONE Was a procedure done? Was a procedure done?: No GI differential Dx Differential Diagnosis: Diverticular disease, Gastroenteritis, Inflammatory BD, Ischemic Bowel, UTI, Dehydration, Electrolyte Imbalance, Food Poisoning, Bacterial, Parasitic, Viral, Hypovolemia, Renal Failure, Stress Ulcer X-Ray, Labs, Meds, VS Vital Signs Date Time Temp Pulse Resp B/P (MAP) Pulse Ox O2 Delivery O2 Flow Rate FiO2 06/16/24 19:55 97.6 126 22 118/64 (82) 95 97.6 06/16/24 18:28 97.1 134 14 107/74 (85) 96 97.1 06/16/24 18:06 97.6 144 25 99/67 (78) 99 06/16/24 17:53 143 Lab Test 06/16/24 19:22 06/16/24 18:18 Range/Units Troponin I High Sensitivity 5 7 </=54 ng/L White Blood Count 46.8 #*H 4.4-10.8 10^3/uL Red Blood Count 4.62 4.5-5.90 10^6/uL Hemoglobin 14.3 # 13.5-17.5 g/dL Hematocrit 43.2 # 41.0-53.0 % Mean Corpuscular Volume 93.6 80.0-100.0 fL Mean Corpuscular Hemoglobin 30.9 28.0-32.0 pg Mean Corpuscular Hemoglobin Concent 33.1 32.0-36.0 g/dL Red Cell Distribution Width 15.7 H 11.8-14.3 % Platelet Count 602 H 140-450 10^3/uL Mean Platelet Volume 9.0 6.9-10.8 fL Neutrophils (%) (Auto) 37.0-80.0 % Lymphocytes (%) (Auto) 10.0-50.0 % Monocytes (%) (Auto) 0.0-12.0 % Basophils (%) (Auto) 0.0-2.0 % Neutrophils # (Auto) 1.6-8.6 10 ^3/uL Lymphocytes # (Auto) 0.4-5.4 10 ^3/uL Monocytes # (Auto) 0-1.3 10 ^3/uL Differential Total Cells Counted 100.0 100 Neutrophils % (Manual) 55 37.0-80.0 Band Neutrophils % (Manual) 36 Lymphocytes % (Manual) 1 L 10.0-50.0 Monocytes % (Manual) 7 0-12 Eosinophils % (Manual) 0 0-7 Basophils % (Manual) 0 0.0-2.0 Metamyelocytes % (manual) 1 Myelocytes % (Manual) 0 Promyelocytes % (Manual) 0 Blast Cells % (Manual) 0 Reactive Lymphocytes 0 Platelet Estimate Increased Large Platelets Moderate Sodium Level 129 #L 136-145 mmol/L Potassium Level 4.3 3.5-5.1 mmol/L Chloride Level 91 #L 98-107 mmol/L Carbon Dioxide Level 20 20-31 mmol/L Anion Gap 18 H 5-15 Blood Urea Nitrogen 30 H 9-23 mg/dL Creatinine 2.27 H 0.700-1.30 mg/dL Glomerular Filtration Rate Calc 32 >90 mL/min BUN/Creatinine Ratio 13.2 10.0-20.0 Serum Glucose 187 H 74-106 mg/dL Lactic Acid Level 9.6 *H 0.4-2.0 mmol/L Calcium Level 10.9 H 8.7-10.4 mg/dL Total Bilirubin 0.7 0.2-1.0 mg/dL Aspartate Amino Transferase (AST) 18 13-40 U/L Alanine Aminotransferase (ALT) 18 7-40 U/L Alkaline Phosphatase 107 46-116 U/L Total Protein 6.5 5.7-8.2 g/dL Albumin 3.6 3.2-4.8 g/dL Lipase 18 12-53 U/L Current Medications Medications (Trade) Dose Ordered Sig/Carlos Route Start Time Stop Time Status Last Admin Sodium Chloride 1,000 ml @ 1,000 mls/hr Q1H ONCE IV 06/16/24 18:00 06/16/24 18:59 DC 06/16/24 18:27 Ondansetron HCl (Zofran) 4 mg ONCE ONCE IV 06/16/24 18:00 06/16/24 18:03 DC 06/16/24 18:50 Pantoprazole Sodium (Protonix) 40 mg ONCE ONCE IV 06/16/24 18:00 06/16/24 18:03 DC 06/16/24 18:50 Sodium Chloride 1,000 ml @ 1,000 mls/hr Q1H ONCE IV 06/16/24 20:15 06/16/24 21:14 DC 06/16/24 20:15 Piperacillin Sod/ Tazobactam Sod 100 ml @ 100 mls/hr ONCE ONCE IV 06/16/24 20:15 06/16/24 21:14 DC 06/16/24 20:37 PROCEDURE(s): ABPL - CT AB PEL WO CON-NO ORAL OR IV REASON: n/v, increased stool output s/p sigmoid resect, colostomy ORDER NUMBER(s): [id number], ACCESSION NUMBER(s): [id number] CT CT AB PEL WO CON-NO ORAL OR IV INDICATION: n/v, increased stool output s/p sigmoid resect, colostomy EXAM DATE: 06/16/2024 06:32 PM COMPARISON: CT CT CHEST/AB/PL W CON- IV ONLY on DOS: 06/04/24, CT CT AB PEL WO CON-NO ORAL OR IV on DOS: 05/28/24 RADIATION DOSE: CTDIvol: 10.0 mGy, DLP: 580.07 mGy*cm PROCEDURE: Helical CT images were obtained of the abdomen and pelvis without IV contrast Sagittal and coronal reconstructions are provided. ORAL CONTRAST: None. ADDITIONAL IMAGES / REFORMATS: None All CT scans at this medical facility are performed using dose modulation techniques as appropriate to a performed exam including the following: Automated exposure control was utilized; adjustment of the MA and/or KV according to patient size; and use of iterative reconstruction technique. FINDINGS: LUNG BASE: Bibasilar atelectasis. LIVER: Unremarkable GALLBLADDER AND BILIARY TREE: No calcified gallstones. Normal caliber wall. No intra- or extrahepatic biliary ductal dilation. PANCREAS: Normal. SPLEEN: Normal. BOWEL: Post surgical changes from bowel resection with a left lower quadrant colostomy. Mildly distended colon filled with fluid and adjacent fat stranding. ADRENALS: Normal. KIDNEYS AND URETER: Normal. BLADDER: Normal. REPRODUCTIVE ORGANS: Normal. LYMPH NODES:No lymphadenopathy. PERITONEUM: No ascites or free air. No other fluid collection. A surgical drain is noted in the left hemiabdomen. VESSELS: Scattered atherosclerotic calcifications are noted. RETROPERITONEUM: Increased retroperitoneal air compared to prior CT, which could be from a defect in the rectal pouch. ABDOMINAL WALL: Normal. BONES: Scattered osseous degenerative changes are noted. IMPRESSION: Increased retroperitoneal air compared to prior CT, which could be from a defect in the rectal pouch such as a perforation. Post surgical changes from bowel resection with a left lower quadrant colostomy. Mildly distended colon filled with fluid and adjacent fat stranding could be colitis. Critical Result: above findings Findings discussed with JOSE L HUNTLEY at 06/16/2024 07:11 PM and acknowledged receipt and understanding of the findings. X-Ray, Labs, Meds, VS Comment 63-year-old male with a history of hypertension, colon CA, recent bowel pe rforation status post ex lap, sigmoid resection and colostomy on 05/28/2024 complaining of abdominal pain, nausea and vomiting with increased stool output through the colostomy Vitals remarkable for heart rate 143 Exam remarkable for mild diffuse abdominal tenderness to palpation. Nontender to percussion. No rebound or guarding. Rhythm strip: Independently interpreted by me. Sinus tach, rate 143, no ectopy. CT abdomen and pelvis: IMPRESSION: Increased retroperitoneal air compared to prior CT, which could be from a defect in the rectal pouch such as a perforation. Post surgical changes from bowel resection with a left lower quadrant colostomy. Mildly distended colon filled with fluid and adjacent fat stranding could be colitis. CBC remarkable for WBC 46.8, platelets 602, CMP remarkable for sodium 129, chloride 91, BUN 30, creatinine 2.27 Lactate 9.6 Lipase normal, troponin negative Patient treated with the following in the ED: 2 L 0.9 normal saline IV bolus, morphine 4 mg IV, Zofran 4 mg IV, Zosyn 4.5 g IV Stat surgical consult for Dr. Beltran was placed. Dr. Beltran called back and stated he was not on-call, requesting that we contact the on-call surgeon. I discussed the case with Dr. Gordon, on-call for General surgery. He stated he would be happy to answer questions, however he would not see the patient, as the patient was recently treated by Dr. Beltran. I re-contacted Dr. Beltran, discussed the case, and he stated he will see the patient in the morning. Plan is to admit the patient for IV antibiotics and surgical re-evaluation. Time of 1ST Reevaluation: 20:23 Reevaluation 1ST: Improved Patient Education/Counseling: Diagnosis, Treatment Family Education/Counseling: Diagnosis, Treatment Sepsis Sepsis Reasesment Focused Exam Sepsis focused exam: focus exam completed (Tachycardia improving, other vitals stable), time: (2026) Departure 1 Departure Time of Disposition: 20:26 Impression: Primary Impression: Rectal perforation Additional Impressions: Colitis Sepsis Qualified Codes: A41.9 - Sepsis, unspecified organism Acute kidney injury Disposition: ADMITTED INPATIENT Admit to: [facility] Condition: Guarded Critical Care Note Critical Care Time?: Yes (45 min-critical care time only) Critical care comment: Critical care time including multiple bedside re-evaluations, review of lab and imaging studies, and discussion of the case with the admitting and consulting providers. Patient is high risk for hemodynamic and/or metabolic decompensation. Stability Stability form required: No Heart Score Heart Score: Heart Score Response (Comments) Value History N/A 0 EKG N/A 0 Age N/A 0 Risk Factors N/A 0 Troponin N/A 0 Total 0 JOSE L HUNTLEY MD Jun 16, 2024 20:16
[2024-06-16 20:26] LABS: Band Neutrophils % (manual) 36; Lymphocytes % (manual) 1 (10.0-50.0); Metamyelocytes % 1; Monocytes % (manual) 7 (0-12); Platelet Estimate Increased
[2024-06-16 20:27] LABS: Large Platelets MODERATE
[2024-06-16] MEDS: SODIUM CHLORIDE 0.9% 1,000 ML IV SCH (20:30)
[2024-06-16] MEDS ORDERED: TEMAZEPAM 15 MG CAP PO PRN (20:30)
[2024-06-16] MEDS ORDERED: VANCOMYCIN PER PHARMACY 0 MG IV SCH (20:30)
[2024-06-16] MEDS ORDERED: DEXTROSE (50%) 50ML SYRG IV PRN (20:30)
[2024-06-16] MEDS: PIPERACILLIN-TAZO 4.5GM 100 ML IV ONE (20:37)
--- NOTE | 2024-06-16 20:43 | DVHHP2 ---
History of Present Illness Reason for Visit: Abdominal pain History of Present Illness 63-year-old obese patient with nausea vomiting pain and increased output from the ostomy patient states generalized weakness history of a status post ex lap with a sigmoid resection patient currently completed his ostomy last month states has associated generalized mild pain patient was recommended for inpatient admission and evaluation in general surgical evaluation inpatient patient will be admitted for further evaluation and acute care Cardiovascular: HTN Renal/: Acute renal failure Review of Systems Constitutional: Yes: Weakness; No: Fever, Chills, Sweats, Malaise, Other Eyes: No: Pain, Vision change, Conjunctivae inflammation, Eyelid inflammation, Other, Redness ENT: No: Ear pain, Ear discharge, Nose pain, Nose discharge, Nose congestion, Mouth pain, Mouth swelling, Throat pain, Throat swelling, Other Respiratory: No: Cough, Dry, Shortness of breath, SOB with excertion, Wheezing, Hemoptysis, Pleuritic Pain, Sputum, Wheezing, Other Cardiovascular: No: Chest Pain, Palpitations, Orthopnea, Paroxysmal Noc. Dyspnea, Edema, Lt Headedness, Other Gastrointestinal: Nausea, Vomiting, Abdominal Pain; No: Diarrhea, Constipation, Melena, Hematochezia, Other Genitourinary: No Dysuria, No Frequency, No Incontinence, No Hematuria, No Ret ention, No Other Musculoskeletal: No: other, neck pain, shoulder pain, arm pain, back pain, hand pain, leg pain, foot pain Skin: No: Rash, Lesions, Jaundice, Bruising, Other Neurological: No: Weakness, Numbness, Incoordination, Change in speech, Confusion, Seizures, Other Allergies: Coded Allergies: NO KNOWN ALLERGIES (Unverified , 05/28/24) Medications Current Medications Medications Dose Ordered Sig/Carlos Route Start Time Stop Time Status Last Admin Dose Admin Vancomycin HCl 0 ml @ 0 mls/hr UD IV 06/16/24 20:30 UNV Piperacillin Sod/ Tazobactam Sod 100 ml @ 100 mls/hr Q8HR IV 06/16/24 22:00 UNV Diagnostic Test (Pha) 1 strip Q6HR 06/17/24 00:00 UNV Insulin Human Regular Q6HR SC 06/17/24 00:00 UNV Dextrose 50 ml UD PRN IV 06/16/24 20:30 UNV Pantoprazole Sodium 40 mg DAILY IV 06/17/24 10:00 UNV Sodium Chloride 1,000 ml @ 100 mls/hr Q10H IV 06/16/24 20:30 UNV Lorazepam 0.5 mg Q6HP PRN PO 06/16/24 20:30 UNV Acetaminophen 650 mg Q6HP PRN PO 06/16/24 20:30 UNV Temazepam 15 mg QHSP PRN PO 06/16/24 20:30 UNV Acetaminophen/ Hydrocodone Bitart 1 tab Q4HP PRN PO 06/16/24 20:30 UNV Ondansetron HCl 4 mg Q4HP PRN IV 06/16/24 20:30 UNV Morphine Sulfate 2 mg Q4HPRN PRN IV 06/16/24 20:30 UNV Exam Vital Signs Vital Signs Date Time Temp Pulse Resp B/P (MAP) Pulse Ox O2 Delivery O2 Flow Rate FiO2 06/16/24 19:55 97.6 126 22 118/64 (82) 95 97.6 General Appearance: Alert, Oriented X3, Cooperative, moderate distress HEENT: Atraumatic, PERRLA, EOMI Respiratory: Clear to auscultation, Normal air movement Cardiovascular: Regular rate, Normal S1, Normal S2 Abdominal: Normal bowel sounds, Soft, No tenderness Extremities: No clubbing, No cyanosis, No edema Skin: No rashes, No breakdown Neuro: Normal gait, Normal speech Psych/Mental Status: Mood NL Labs/Xrays Labs Test 06/16/24 19:22 06/16/24 18:18 Range/Units Troponin I High Sensitivity 5 </=54 ng/L White Blood Count 46.8 #*H 4.4-10.8 10^3/uL Red Blood Count 4.62 4.5-5.90 10^6/uL Hemoglobin 14.3 # 13.5-17.5 g/dL Hematocrit 43.2 # 41.0-53.0 % Mean Corpuscular Volume 93.6 80.0-100.0 fL Mean Corpuscular Hemoglobin 30.9 28.0-32.0 pg Mean Corpuscular Hemoglobin Concent 33.1 32.0-36.0 g/dL Red Cell Distribution Width 15.7 H 11.8-14.3 % Platelet Count 602 H 140-450 10^3/uL Mean Platelet Volume 9.0 6.9-10.8 fL Neutrophils (%) (Auto) 37.0-80.0 % Lymphocytes (%) (Auto) 10.0-50.0 % Monocytes (%) (Auto) 0.0-12.0 % Basophils (%) (Auto) 0.0-2.0 % Neutrophils # (Auto) 1.6-8.6 10 ^3/uL Lymphocytes # (Auto) 0.4-5.4 10 ^3/uL Monocytes # (Auto) 0-1.3 10 ^3/uL Differential Total Cells Counted 100.0 100 Neutrophils % (Manual) 55 37.0-80.0 Band Neutrophils % (Manual) 36 Lymphocytes % (Manual) 1 L 10.0-50.0 Monocytes % (Manual) 7 0-12 Eosinophils % (Manual) 0 0-7 Basophils % (Manual) 0 0.0-2.0 Metamyelocytes % (manual) 1 Myelocytes % (Manual) 0 Promyelocytes % (Manual) 0 Blast Cells % (Manual) 0 Reactive Lymphocytes 0 Platelet Estimate Increased Large Platelets Moderate Sodium Level 129 #L 136-145 mmol/L Potassium Level 4.3 3.5-5.1 mmol/L Chloride Level 91 #L 98-107 mmol/L Carbon Dioxide Level 20 20-31 mmol/L Anion Gap 18 H 5-15 Blood Urea Nitrogen 30 H 9-23 mg/dL Creatinine 2.27 H 0.700-1.30 mg/dL Glomerular Filtration Rate Calc 32 >90 mL/min BUN/Creatinine Ratio 13.2 10.0-20.0 Serum Glucose 187 H 74-106 mg/dL Lactic Acid Level 9.6 *H 0.4-2.0 mmol/L Calcium Level 10.9 H 8.7-10.4 mg/dL Total Bilirubin 0.7 0.2-1.0 mg/dL Aspartate Amino Transferase (AST) 18 13-40 U/L Alanine Aminotransferase (ALT) 18 7-40 U/L Alkaline Phosphatase 107 46-116 U/L Total Protein 6.5 5.7-8.2 g/dL Albumin 3.6 3.2-4.8 g/dL Lipase 18 12-53 U/L Assessment/Plan Assessment/Plan Admit to step-down Suspected colitis with possible perforation Patient with a history of ostomy status post bowel resection Patient with increased fluid output in the ostomy Patient completed a CT scan in the ED suspected perforation possible Distended colon noted with signs of colitis IV hydration NPO Surgical consult already completed in the ED IV antibiotics vanco and Zosyn Patient was severely elevated white count Severely elevated lactose Acute on chronic [place] noted Elevated glucose With severe hyperglycemia We will place on insulin sliding scale NPO moderate coverage We will place patient on IV hydration Bicarb drip Critical care time 48 minutes Plan discussed with: Patient My Orders Orders - ASHLEY NGUYEN MD Procedure Category Date Status Time Vancomycin Per [facility] 06/16/24 Logged Pharmacy 20:30 Piperacillin-Tazob [facility] 06/16/24 Logged 3.375gm (Zosyn 3.375g 22:00 Glucose Blood [facility] 06/17/24 Logged (Accu-Chek Comfort 00:00 Insulin R (Human) [facility] 06/17/24 Logged (Insulin R) 00:00 Dextrose 50% Syringe [facility] 06/16/24 Logged 20:30 Pantoprazole [facility] 06/17/24 Transmitted (Protonix) 10:00 Admit ADMIT 06/16/24 Transmitted 20:24 Code Status CODE 06/16/24 Transmitted 20:24 Vital Signs [facility] 06/16/24 Transmitted 20:24 Review Orders With [facility] 06/16/24 Transmitted Adm. 20:24 Npo (Nothing By DIET 06/17/24 Transmitted Mouth) Diet Breakfast Sodium Chloride 0.9% [facility] 06/16/24 Logged 20:30 Lorazepam Tablet [facility] 06/16/24 Logged (Ativan Tablet) 20:30 Acetaminophen Tablet [facility] 06/16/24 Logged (Tylenol Tablet) 20:30 Temazepam (Restoril) [facility] 06/16/24 Logged 20:30 Notify Md Of Changes [facility] 06/16/24 Transmitted From [facility] 20:24 Advance Directive [facility] 06/16/24 Transmitted 20:24 Basic Metabolic Panel [facility] 06/17/24 Verified 04:00 Urinalysis LAB 06/16/24 Logged 20:24 Complete Blood Count LAB 06/17/24 Verified 04:00 Patient Condition ORD[facility] 06/16/24 Transmitted 20:24 Allergies [facility] 06/16/24 Transmitted 20:24 Hydrocodone-Acet [facility] 06/16/24 Logged 5/325mg Tab ([place] 20:30 Ondansetron Hcl [facility] 06/16/24 Logged (Zofran) 20:30 Morphine Sulfate [facility] 06/16/24 Logged Injection 20:30 Notify Of Changes [facility] 06/16/24 Transmitted From [facility] 20:24 Irrigation Equipment Mechanic For [facility] 06/16/24 Transmitted 24 Hours 20:24 Emergency Dysrhythmia [facility] 06/16/24 Transmitted Protocol 20:24 Rhythm Strips Once [facility] 06/16/24 Transmitted Every Shift 20:24 Oxygen By Nasal RT 06/16/24 Transmitted Cannula 20:24 Stat Ekg For Chest [facility] 06/16/24 Transmitted Pain 20:24 Problem List: (1) Abdominal pain with vomiting and history of abdominal surgery (2) Acute kidney injury (3) Sepsis (4) Colitis Date of Service: Jun 16, 2024 Billing Provider: ASHLEY NGUYEN MD Common Visit Codes: 47121-INVHAYIF CARE 30-74 MIN ASHLEY NGUYEN MD Jun 16, 2024 20:43
[2024-06-16] MEDS: VANCOMYCIN 1.5GM/300ML 300 ML IV ONE (21:00)
[2024-06-16 22:59] VITALS: PULSE 119; RESP 22; O2SAT 95
[2024-06-16] MEDS: ACCU-CHEK COMFORT CURVE STRIP VI SCH (23:39)
[2024-06-17] MEDS: InsuLIN REG 1unit/0.01ml Soln (100units/ml) SC SCH
[2024-06-17] MEDS: ONDANSETRON HCL 4 MG/2 ML VIAL IV PRN (01:42)
[2024-06-17 02:46] LABS: Urine Bacteria FEW /hpf (None Seen); Urine Blood Negative /uL (Negative); Urine Clarity Ex.Turbid (Clear); Urine Color Orange (Yellow); Urine Hyaline Cast MANY /lpf (0 - 2); Urine Mucus FEW (None Seen); Urine Protein, UAD 1+ (Negative); Urine Urobilinogen 4 mg/dL (Negative); Urine WBC 6 /hpf (0 - 3)
[2024-06-17 03:14] LABS: Hematocrit 43.1 % (41.0-53.0); Hemoglobin 14.2 g/dL (13.5-17.5); Mean Corpuscular Hemoglobin 30.2 pg (28.0-32.0); Mean Corpuscular Hgb Conc. 32.9 g/dL (32.0-36.0); Mean Corpuscular Volume 91.7 fL (80.0-100.0); Platelet Count (auto) 494 10^3/uL (140-450)
[2024-06-17 03:19] LABS: White Blood Cell 39.7 10^3/uL (4.4-10.8)
[2024-06-17 03:20] LABS: Basophils % (manual) 0 (0.0-2.0); Blast Cells 0; Eosinophils % (manual) 0 (0-7); Metamyelocytes % 0; Potassium 4.1 mmol/L (3.5-5.1); Promyelocytes % 0; Reactive Lymphocytes 0
[2024-06-17 03:21] LABS: Anion Gap 11 (5-15); Calcium 9.6 mg/dL (8.7-10.4); Carbon Dioxide 21 mmol/L (20-31)
[2024-06-17 03:26] LABS: BUN/Creatinine Ratio 17.9 (10.0-20.0)
[2024-06-17 03:41] LABS: Blood Urea Nitrogen 33 mg/dL (9-23); Chloride 96 mmol/L (98-107); Glucose 143 mg/dL (74-106); Sodium 128 mmol/L (136-145)
[2024-06-17 04:18] LABS: Band Neutrophils % (manual) 13; Lymphocytes % (manual) 9 (10.0-50.0); Monocytes % (manual) 12 (0-12); Myelocytes % 1; Platelet Estimate Increased; RBC Morphology Normal
[2024-06-17] MEDS: PIPERACILLIN-TAZOB 3.375GM 100 ML IV SCH ×2 (06:00→10:00)
--- NOTE | 2024-06-17 08:34 | DVHINCON2 ---
Date of service: Jun 17, 2024 Allergies: Coded Allergies: NO KNOWN ALLERGIES (Unverified , 05/28/24) Home Meds Active Scripts Hydrocodone-Acetaminophen (Hydrocodone Bitartrate/AC 5-325 mg) 1 Tab Tab, 1 TAB PO Q8HP PRN for 5 Days, #15 TAB Prov:LOREN WILKINS MD 06/13/24 Amoxicillin & Pot Clavulanate (Augmentin) 500 Mg Tab, 1 TAB PO BID for 7 Days, #14 TAB Prov:VERONICA MUNROE [employer]PERATING ENGINEER 06/06/24 Hydrocodone-Acetaminophen (Hydrocodone Bitartrate/AC 5-325 mg) 1 Tab Tab, 1 TAB PO Q6HR for 5 Days, #20 TAB Prov:VERONICA MUNROE [employer] OPERATING ENGINEER 06/06/24 Hydrocodone-Acetaminophen (Hydrocodone Bitartrate/AC 5-325 mg) 1 Tab Tab, 1 TAB PO Q6HP PRN, #20 TAB Prov:RADHA MARTÍNEZ PAC 12/07/22 Ibuprofen Micronized (Ibuprofen) 800 Mg Tab, 800 MG PO Q8HP PRN, #30 TAB Prov:RADHA MARTÍNEZ PAC 12/07/22 Current Medications Current Medications Medications (Trade) Dose Ordered Sig/Carlos Route PRN Reason Start Time Stop Time Status Last Admin Vancomycin HCl 0 ml @ 0 mls/hr UD IV 06/16/24 20:30 UNV Piperacillin Sod/ Tazobactam Sod 100 ml @ 100 mls/hr Q8HR IV 06/17/24 06:00 06/17/24 06:00 Diagnostic Test (Pha) (Accu-Chek Comfort Curve T) 1 strip Q6HR 06/17/24 00:00 06/17/24 06:13 Insulin Human Regular (InsuLIN R) Q6HR SC 06/17/24 00:00 06/17/24 06:00 Dextrose 50 ml UD PRN IV Blood Sugar LESS THAN 60 06/16/24 20:30 Pantoprazole Sodium (Protonix) 40 mg DAILY IV 06/17/24 10:00 Sodium Chloride 1,000 ml @ 100 mls/hr Q10H IV 06/16/24 20:30 06/17/24 07:35 Lorazepam (Ativan Tablet) 0.5 mg Q6HP PRN PO ANXIETY 06/16/24 20:30 Acetaminophen (Tylenol Tablet) 650 mg Q6HP PRN PO PAIN SCALE 1-3 OR TEMP>100.4 06/16/24 20:30 Temazepam (Restoril) 15 mg QHSP PRN PO FOR INSOMNIA 06/16/24 20:30 Acetaminophen/ Hydrocodone Bitart ([place] 5/325MG Tab) 1 tab Q4HP PRN PO MODERATE PAIN (4-6 PAIN SCALE) 06/16/24 20:30 Ondansetron HCl (Zofran) 4 mg Q4HP PRN IV NAUSEA / VOMITING 06/16/24 20:30 06/17/24 01:42 Morphine Sulfate 2 mg Q4HPRN PRN IV SEVERE PAIN (7-10 PAIN SCALE) 06/16/24 20:30 Vital Signs Vital Signs Date Time Temp Pulse Resp B/P (MAP) Pulse Ox O2 Delivery O2 Flow Rate FiO2 06/17/24 07:52 Room Air* 0 21 06/17/24 07:48 98.8 130 26 121/77 (92) 97 98.8 Labs/Diagnostic Data Labs Test 06/17/24 06:11 06/17/24 03:06 06/17/24 02:20 06/16/24 21:19 Range/Units POC Glucose 174 H 70-106 mg/dl White Blood Count 39.7 *H 4.4-10.8 10^3/uL Red Blood Count 4.70 4.5-5.90 10^6/uL Hemoglobin 14.2 13.5-17.5 g/dL Hematocrit 43.1 41.0-53.0 % Mean Corpuscular Volume 91.7 80.0-100.0 fL Mean Corpuscular Hemoglobin 30.2 28.0-32.0 pg Mean Corpuscular Hemoglobin Concent 32.9 32.0-36.0 g/dL Red Cell Distribution Width 16.0 H 11.8-14.3 % Platelet Count 494 H 140-450 10^3/uL Mean Platelet Volume 8.8 6.9-10.8 fL Neutrophils (%) (Auto) 37.0-80.0 % Lymphocytes (%) (Auto) 10.0-50.0 % Monocytes (%) (Auto) 0.0-12.0 % Basophils (%) (Auto) 0.0-2.0 % Neutrophils # (Auto) 1.6-8.6 10 ^3/uL Lymphocytes # (Auto) 0.4-5.4 10 ^3/uL Monocytes # (Auto) 0-1.3 10 ^3/uL Differential Total Cells Counted 100.0 100 Neutrophils % (Manual) 65 37.0-80.0 Band Neutrophils % (Manual) 13 Lymphocytes % (Manual) 9 L 10.0-50.0 Monocytes % (Manual) 12 0-12 Eosinophils % (Manual) 0 0-7 Basophils % (Manual) 0 0.0-2.0 Metamyelocytes % (manual) 0 Myelocytes % (Manual) 1 Promyelocytes % (Manual) 0 Blast Cells % (Manual) 0 Reactive Lymphocytes 0 Platelet Estimate Increased Red Blood Cell Morphology Normal Sodium Level 128 L 136-145 mmol/L Potassium Level 4.1 3.5-5.1 mmol/L Chloride Level 96 L 98-107 mmol/L Carbon Dioxide Level 21 20-31 mmol/L Anion Gap 11 5-15 Blood Urea Nitrogen 33 H 9-23 mg/dL Creatinine 1.84 H 0.700-1.30 mg/dL Glomerular Filtration Rate Calc 41 >90 mL/min BUN/Creatinine Ratio 17.9 10.0-20.0 Serum Glucose 143 H 74-106 mg/dL Calcium Level 9.6 8.7-10.4 mg/dL Troponin I High Sensitivity 6 </=54 ng/L Urine Color [place] H Yellow Urine Clarity Ex.turbid Clear Urine pH 5.0 5.0-9.0 Urine Specific [place] 1.030 1.001-1.035 Urine Protein 1+ H Negative Urine Ketones 1+ H Negative Urine Blood Negative Negative /uL Urine Nitrite Negative Negative Urine Bilirubin Negative Negative Urine Urobilinogen 4 H Negative mg/dL Urine Leukocyte Esterase Negative Negative /uL Urine RBC 28 0 - 3 /hpf Urine WBC 6 0 - 3 /hpf Urine Squamous Epithelial Cells Few <5 /hpf Urine Bacteria Few H None Seen /hpf Urine Hyaline Casts Many 0 - 2 /lpf Urine Mucus Few None Seen Urine Glucose Normal Normal mg/dL Lactic Acid Level 4.1 *H 0.4-2.0 mmol/L Test 06/16/24 18:18 Range/Units Large Platelets Moderate Total Bilirubin 0.7 0.2-1.0 mg/dL Aspartate Amino Transferase (AST) 18 13-40 U/L Alanine Aminotransferase (ALT) 18 7-40 U/L Alkaline Phosphatase 107 46-116 U/L Total Protein 6.5 5.7-8.2 g/dL Albumin 3.6 3.2-4.8 g/dL Lipase 18 12-53 U/L Assessment patient was recently discharged after partial recovery from an exploratory laparotomy for treatment of a 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 He received a colostomy and prior to discharge he resumed oral intake and stoma function, last two days developed fever, nausea and vomiting and presented top the ER where he was found to have "increased retroperitoneal air". His abdomen is somewhat distended, appropriately tender, stoma is viable and functioning. I suspect he has a pelvic infection. He is very dehydrated, will get an MRI to further delineate his pathology, Explained to patient he may need to have an operation to drain any infection if such is found and radiologist can not drain it percutaneously. He needs increased IV fluids,an NGT. and continued antibiotic Tx. Plan discussed with: Patient RONALD LANDA MD Jun 17, 2024 08:34
[2024-06-17] MEDS: D5W/SOD CHL 0.45%/KCL 20MEQ 1,000 ML IV SCH (09:13)
[2024-06-17] MEDS: PANTOPRAZOLE 40 MG/10 ML VIAL INJ IV SCH (10:05)
[2024-06-17] MEDS: MORPHINE SULFATE INJ 2 MG/ml SYRG IV PRN (10:15)
[2024-06-17] MEDS: GADOTERATE MEG 10 MMOL/20ml INJ (0.5MMOL/ml) IV ONE (11:50)
[2024-06-17] MEDS: metroNIDAZOLE 500MG/100ML 100 ML IV SCH (14:17)
--- NOTE | 2024-06-17 15:00 | DVH ---
EXAM: MRI MRI ABD PLEVIS W/WO CONT COMPARISON: CT dated 06/16/2024 INDICATION: Infection CONTRAST: Type of contrast: Gadolinium Contrast injected: 20 cc Contrast wasted: 0 TECHNIQUE: MRI abdomen and pelvis was performed with and without intravenous contrast. FINDINGS: Visualized lower thorax: Dependent atelectasis. Liver: Indeterminate 2.1 cm T2 hyperintense lesion in the right hepatic dome, segment 4/8. Gallbladder: No evidence of cholelithiasis or gallbladder wall thickening. Biliary system: There is no intrahepatic or extrahepatic bile duct dilatation. Spleen: Normal in morphology and signal intensity. Pancreas: Normal in morphology and signal intensity. Adrenal glands: Normal in morphology and signal intensity. Kidneys: The kidneys are symmetric in size and appearance with no suspicious lesions. No hydronephros is. Urinary tract: The ureters, as visualized, are normal in course and caliber. Cuellar catheter in the ur inary bladder. GI tract: Severe diffuse colonic bowel wall thickening. Left lower quadrant ostomy. Pelvis: Prostate is mildly enlarged measuring 4.2 cm. Peritoneum: Unchanged small to moderate free intraperitoneal air in the perirectal space and retroper itoneum. Small volume perihepatic ascites. Lymph nodes: No enlarged lymph nodes. Vascular: Normal caliber of the abdominal aorta. Musculoskeletal: The bone marrow signal intensity is within normal limits. IMPRESSION: Postcontrast images are extremely limited secondary to extensive patient motion artifact. Incompletely characterized 2.1 cm T2 hyperintense lesion in the right hepatic dome, segment 4/8. Severe diffuse colonic bowel wall thickening is suspicious for colitis. C diff colitis is within diff erential considerations. Grossly unchanged small to moderate volume free intraperitoneal air in the perirectal space and retro peritoneum.
[2024-06-17] MEDS: SODIUM CHLORIDE 0.9% 500 ML IV ONE (16:56)
--- NOTE | 2024-06-17 17:10 | DVHPN2 ---
Subjective I am assuming the care of the patient from today onwards. Patient was seen and evaluated by me at bedside in physically ER bed 10 in the presence of bedside RN. Dr. Chilel recommendations were noted. Abdominal MRI did show increased retroperitoneal band perirectal air concern for perforation. To be noted patient was recently diagnosed with perforated rectosigmoid colon cancer status post exploratory laparotomy with resection of rectal cancer, status post resection of rectosigmoid colon, descending colon colostomy on05/28/2024. Patient is currently complaining of minimal abdominal pain. Also noted to be tachycardic in the ER. Reviewed: Care Plan Changes from previous H/P or p: No Changes Eyes: No Pain, No Vision change, No Conjunctivae inflammation, No Eyelid inflammation, No Other, No Redness ENT: No Ear pain, No Ear discharge, No Nose pain, No Nose discharge, No Nose congestion, No Mouth pain, No Mouth swelling, No Throat pain, No Throat swelling, No Other Cardiovascular: No Chest Pain, No Palpitations, No Orthopnea, No Paroxysmal Noc. Dyspnea, No Edema, No Lt Headedness, No Other Respiratory: No Cough, No Dry, No Shortness of breath, No SOB with excertion, No Wheezing, No Hemoptysis, No Pleuritic Pain, No Sputum, No Other Gastrointestinal: Nausea, Vomiting, Abdominal Pain; No Diarrhea, No Constipation, No Melena, No Hematochezia, No Other Genitourinary: No Dysuria, No Frequency, No Incontinence, No Hematuria, No Retention, No Other Musculoskeletal: No other, No neck pain, No shoulder pain, No arm pain, No back pain, No hand pain, No leg pain, No foot pain Skin: No Rash, No Lesions, No Jaundice, No Bruising, No Other Objective Vitals Vital Signs Date Time Temp Pulse Resp B/P (MAP) Pulse Ox O2 Delivery O2 Flow Rate FiO2 06/17/24 16:00 130 20 137/89 (105) 94 06/17/24 07:52 Room Air* 0 21 06/17/24 07:48 98.8 98.8 Exam HEENT pupils are reactive Neck is supple CV is S1-S2 regular rhythm positive tachycardia between 110 to 120s Respiratory diminished breath sounds bases GI sluggish bowel sounds mildly tender diffusely Extremities no edema 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 Medications Current Medications Medications Dose Ordered Sig/Carlos Route Start Time Stop Time Status Last Admin Dose Admin Vancomycin HCl 0 ml @ 0 mls/hr UD IV 06/16/24 20:30 Diagnostic Test (Pha) 1 strip Q6HR 06/17/24 00:00 06/17/24 11:50 1 STRIP Insulin Human Regular Q6HR SC 06/17/24 00:00 06/17/24 11:50 3 UNITS Dextrose 50 ml UD PRN IV 06/16/24 20:30 Pantoprazole Sodium 40 mg DAILY IV 06/17/24 10:00 06/17/24 10:05 40 MG Lorazepam 0.5 mg Q6HP PRN PO 06/16/24 20:30 Acetaminophen 650 mg Q6HP PRN PO 06/16/24 20:30 Temazepam 15 mg QHSP PRN PO 06/16/24 20:30 Acetaminophen/ Hydrocodone Bitart 1 tab Q4HP PRN PO 06/16/24 20:30 Ondansetron HCl 4 mg Q4HP PRN IV 06/16/24 20:30 06/17/24 01:42 4 MG Morphine Sulfate 2 mg Q4HPRN PRN IV 06/16/24 20:30 06/17/24 10:15 2 MG Piperacillin Sod/ Tazobactam Sod 100 ml @ 25 mls/hr Q12HR IV 06/17/24 10:00 Metronidazole 100 ml @ 100 mls/hr Q8HR IV 06/17/24 14:00 06/17/24 14:17 100 MLS/HR Potassium Chloride/Dextrose/ Sod Cl 1,000 ml @ 120 mls/hr Q8H20M IV 06/17/24 08:30 06/17/24 16:56 120 MLS/HR Sodium Chloride 1,000 ml @ 150 mls/hr Q6H40M IV 06/17/24 17:00 UNV Laboratory Results Laboratory Tests 06/17/24 03:06 Chemistry Test 06/16/24 18:18 06/17/24 03:06 Albumin 3.6 g/dL (3.2-4.8) Calcium Level 10.9 mg/dL (8.7-10.4) H 9.6 mg/dL (8.7-10.4) Total Protein 6.5 g/dL (5.7-8.2) Lipid panel Test 06/16/24 18:18 Lipase 18 U/L (12-53) LFT Test 06/16/24 18:18 Alanine Aminotransferase (ALT) 18 U/L (7-40) Alkaline Phosphatase 107 U/L (46-116) Aspartate Amino Transferase (AST) 18 U/L (13-40) Total Bilirubin 0.7 mg/dL (0.2-1.0) Urinalysis Test 06/17/24 02:20 Urine Color [place] (Yellow) H Urine Clarity Ex.turbid (Clear) Urine pH 5.0 (5.0-9.0) Urine Specific [place] 1.030 (1.001-1.035) Urine Protein 1+ (Negative) H Urine Ketones 1+ (Negative) H Urine Blood Negative /uL (Negative) Urine Nitrite Negative (Negative) Urine Bilirubin Negative (Negative) Urine Urobilinogen 4 mg/dL (Negative) H Urine Leukocyte Esterase Negative /uL (Negative) Urine RBC 28 /hpf (0 - 3) Urine WBC 6 /hpf (0 - 3) Urine Squamous Epithelial Cells Few /hpf (<5) Urine Bacteria Few /hpf (None Seen) H Urine Hyaline Casts Many /lpf (0 - 2) Urine Mucus Few (None Seen) Urine Glucose Normal mg/dL (Normal) Assessment/Plan Assessment/Plan 63-year-old male with recent diagnosis of rectosigmoid colon cancer status post exploratory laparotomy with resection of rectal cancer, resection of rectosigmoid colon, status post descending colon colostomy who was complaining of abdominal pain nausea and vomiting worsening for last two days found to have 1. Sepsis secondary to colitis as well as possibly ruptured viscus 2. Leukocytosis secondary to 1. 3. Acute kidney injury suspected secondary to vasomotor nephropathy 4. Hyponatremia 5. 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 -plan of care discussed with the patient's and patient's family member at bedside as well as patient's bedside RN. Plan discussed with: Patient My Orders Orders - CHRISTIANO SCRUGGS MD Procedure Category Date Status Time Sodium Chloride 0.9% PHA 06/17/24 In Process 17:00 Sodium Chloride 0.9% PHA 06/17/24 Logged 17:00 * Infectious [place]- Dr. BLANCO 06/17/24 Transmitted Re Jo 17:00 Problem List: (1) Rectal perforation (2) Acute kidney injury (3) Abdominal pain with vomiting and history of abdominal surgery (4) Colitis (5) Sepsis Date of Service: Jun 17, 2024 Billing Provider: CHRISTIANO SCRUGGS MD Common Visit Codes: [id number] INP/OBS CARE(HIGH) CHRISTIANO SCRUGGS MD Jun 17, 2024 17:10
[2024-06-17] MEDS: SODIUM CHLORIDE 0.9% 1,000 ML IV SCH (17:16)
[2024-06-17] MEDS: VANCOMYCIN 1.25GM/250ML 250 ML IV ONE (20:39)
[2024-06-18 03:35] VITALS: PULSE 131; RESP 25; O2SAT 93
--- NOTE | 2024-06-18 05:55 | DVH ---
CHEST RADIOGRAPH Indication: NG TUBE PLACEMENT Technique: Single frontal view of the chest was obtained COMPARISON: XY CHEST PORTABLE on DOS: 05/28/24 FINDINGS: Lines and Tubes: Nasogastric tube in satisfactory position. Lungs: Low lung volumes. Pleura: No effusion. No pneumothorax. Cardiomediastinal contours: Unremarkable Bones: Unremarkable IMPRESSION: Nasogastric tube in satisfactory position.
--- NOTE | 2024-06-18 06:46 | ECG ---
[facility] Test Date: 2024-06-16 Test Time: 17:53:25 Pat Name: SONIDO LOUISE Department: ER Room: 0233 Gender: M [employer] Member: BEATRICE : 1960 Requested By: JOSE L REAVES Order Number: [id number] Reading MD: Meet Zacarias Measurements Intervals [place] Rate: 143 P: 56 WV: 123 QRS: -67 QRSD: 91 T: 13 QT: 283 QTc: 437 Interpretive Statements Sinus tachycardia Multiple premature complexes, vent & supraven Aberrant conduction of SV complex(es) Left axis deviation Low voltage, precordial leads Abnormal R-wave progression, early transition ST elevation, consider inferior injury Electronically Signed On 06-22-2024 12:23:43 PST by Meet Zacarias Please click the below link to view image of tracing.
[2024-06-18 06:55] LABS: Hematocrit 44.4 % (41.0-53.0); Hemoglobin 14.3 g/dL (13.5-17.5); Mean Corpuscular Hemoglobin 30.1 pg (28.0-32.0); Mean Corpuscular Hgb Conc. 32.2 g/dL (32.0-36.0); Mean Corpuscular Volume 93.6 fL (80.0-100.0); Platelet Count (auto) 327 10^3/uL (140-450); Red Blood Cells 4.74 10^6/uL (4.5-5.90); Red Cell Distribution Width 16.9 % (11.8-14.3); White Blood Cell 29.6 10^3/uL (4.4-10.8)
[2024-06-18 07:00] LABS: Basophils % (manual) 0 (0.0-2.0); Blast Cells 0; Eosinophils % (manual) 0 (0-7); Metamyelocytes % 0; Myelocytes % 0; Promyelocytes % 0; Reactive Lymphocytes 0
[2024-06-18 07:59] LABS: Band Neutrophils % (manual) 15; Lymphocytes % (manual) 1 (10.0-50.0); Monocytes % (manual) 13 (0-12)
[2024-06-18 08:00] LABS: Platelet Estimate Adequate
--- NOTE | 2024-06-18 11:12 | DVHPN2 ---
Progress Note Date Seen: Jun 18, 2024 Medical Necessity Reason Pt with a Central, PICC or Fol: No Objective vital signs Vital Sign Date Time Temp Pulse Resp B/P (MAP) Pulse Ox O2 Delivery O2 Flow Rate FiO2 06/18/24 10:40 125 22 118/79 06/18/24 10:00 95 06/18/24 04:00 97.4 97.4 06/18/24 03:35 Room Air* 0 21 Total Intake and Output 06/17/24 06/17/24 06/18/24 15:00 23:00 07:00 Intake Total 1520 ml 2815 ml 1955 ml Output Total 75 ml 300 ml 850 ml Balance 1445 ml 2515 ml 1105 ml medications Current Medications Medications Dose Ordered Sig/Carlos Route Start Time Stop Time Status Last Admin Dose Admin Vancomycin HCl 0 ml @ 0 mls/hr UD IV 06/16/24 20:30 Diagnostic Test (Pha) 1 strip Q6HR 06/17/24 00:00 06/18/24 06:45 1 STRIP Insulin Human Regular Q6HR SC 06/17/24 00:00 06/17/24 17:42 4 UNITS Dextrose 50 ml UD PRN IV 06/16/24 20:30 Pantoprazole Sodium 40 mg DAILY IV 06/17/24 10:00 06/18/24 10:11 40 MG Lorazepam 0.5 mg Q6HP PRN PO 06/16/24 20:30 Acetaminophen 650 mg Q6HP PRN PO 06/16/24 20:30 Temazepam 15 mg QHSP PRN PO 06/16/24 20:30 Acetaminophen/ Hydrocodone Bitart 1 tab Q4HP PRN PO 06/16/24 20:30 Ondansetron HCl 4 mg Q4HP PRN IV 06/16/24 20:30 06/18/24 10:11 4 MG Morphine Sulfate 2 mg Q4HPRN PRN IV 06/16/24 20:30 06/18/24 10:12 2 MG Piperacillin Sod/ Tazobactam Sod 100 ml @ 25 mls/hr Q12HR IV 06/17/24 10:00 06/18/24 10:12 25 MLS/HR Metronidazole 100 ml @ 100 mls/hr Q8HR IV 06/17/24 14:00 06/18/24 08:48 100 MLS/HR Potassium Chloride/Dextrose/ Sod Cl 1,000 ml @ 120 mls/hr Q8H20M IV 06/17/24 08:30 06/18/24 10:39 120 MLS/HR Sodium Chloride 1,000 ml @ 200 mls/hr Q5H IV 06/18/24 10:15 UNV laboratory and microbiology Laboratory Tests 06/18/24 05:21 06/17/24 03:06 Test 06/17/24 03:06 Range/Units Serum Glucose 143 H 74-106 mg/dL Problem List/Assessment/Plan Problem List/Assessment/Plan 06/18/24minimal pain, has been vomiting "all night"" according to ,(NGT was ordered yesterday at 8;30 AM but was not inserted till this AM) abdomen is soft, minimally tender, stoma is viable and functioning, wound clean and well approximated, drainage serous. I lorrielievvirgen the free retropertitoneal air is residual from his operation for ruptured colon two weeks ago. will request GI consult Plan discussed with: Patient, Spouse RONALD LANDA MD Jun 18, 2024 11:12
[2024-06-18] MEDS: SODIUM CHLORIDE 0.9% 1,000 ML IV SCH (11:56)
--- NOTE | 2024-06-18 12:25 | DVH ---
AP portable chest HISTORY: NGT placement Comparison: XY CHEST XRAY 1 VIEW on DOS: 06/18/24, XY CHEST PORTABLE on DOS: 05/28/24 FINDINGS: NG tube tip in the stomach. Poor inspiratory effort with atelectasis in the right lung base IMPRESSION: 1. NG tube tip in the stomach
[2024-06-18 12:27] VITALS: PULSE 105; RESP 23; O2SAT 92
[2024-06-18 13:42] LABS: INR 1.06 (0.9-1.15); Partial Thromboplastin Time 30.1 SEC (24.5-34.5); Prothrombin Time 11.2 sec (9.3-11.8)
[2024-06-18] MEDS: LIDOCAINE 1% (LOCAL ANESTH.) PF 5ml SDV ID ONE (15:00)
--- NOTE | 2024-06-18 15:24 | DVHPN2 ---
Subjective Spoke to him in [place]zan[place] language estonian Feels better with less pain has NGT in place Reviewed: Care Plan Changes from previous H/P or p: No Changes Eyes: No Pain, No Vision change, No Conjunctivae inflammation, No Eyelid inflammation, No Other, No Redness ENT: No Ear pain, No Ear discharge, No Nose pain, No Nose discharge, No Nose congestion, No Mouth pain, No Mouth swelling, No Throat pain, No Throat swelling, No Other Cardiovascular: No Chest Pain, No Palpitations, No Orthopnea, No Paroxysmal Noc. Dyspnea, No Edema, No Lt Headedness, No Other Respiratory: No Cough, No Dry, No Shortness of breath, No SOB with excertion, No Wheezing, No Hemoptysis, No Pleuritic Pain, No Sputum, No Other Gastrointestinal: Nausea, Vomiting, Abdominal Pain; No Diarrhea, No Constipation, No Melena, No Hematochezia, No Other Genitourinary: No Dysuria, No Frequency, No Incontinence, No Hematuria, No Retention, No Other Musculoskeletal: No other, No neck pain, No shoulder pain, No arm pain, No back pain, No hand pain, No leg pain, No foot pain Skin: No Rash, No Lesions, No Jaundice, No Bruising, No Other Objective Vitals Vital Signs Date Time Temp Pulse Resp B/P (MAP) Pulse Ox O2 Delivery O2 Flow Rate FiO2 06/18/24 14:00 118 18 129/82 (98) 90 06/18/24 12:27 Room Air* 0 21 06/18/24 04:00 97.4 97.4 Intake/Output Intake and Output 06/18/24 05:00 Intake Total 5750 ml Output Total 475 ml Balance 5275 ml Intake IV Total 5750 ml Stool Total 200 ml Drainage Total 275 ml General Appearance: Alert, Oriented X3 Lungs: Clear to auscultation Abdomen: Other (soft slightly tender with colostomy no rebound or guarding) Medications Current Medications Medications Dose Ordered Sig/Carlos Route Start Time Stop Time Status Last Admin Dose Admin Vancomycin HCl 0 ml @ 0 mls/hr UD IV 06/16/24 20:30 Diagnostic Test (Pha) 1 strip Q6HR 06/17/24 00:00 06/18/24 11:50 1 STRIP Insulin Human Regular Q6HR SC 06/17/24 00:00 06/18/24 11:41 3 UNITS Dextrose 50 ml UD PRN IV 06/16/24 20:30 Pantoprazole Sodium 40 mg DAILY IV 06/17/24 10:00 06/18/24 10:11 40 MG Lorazepam 0.5 mg Q6HP PRN PO 06/16/24 20:30 Acetaminophen 650 mg Q6HP PRN PO 06/16/24 20:30 Temazepam 15 mg QHSP PRN PO 06/16/24 20:30 Acetaminophen/ Hydrocodone Bitart 1 tab Q4HP PRN PO 06/16/24 20:30 Ondansetron HCl 4 mg Q4HP PRN IV 06/16/24 20:30 06/18/24 10:11 4 MG Morphine Sulfate 2 mg Q4HPRN PRN IV 06/16/24 20:30 06/18/24 10:12 2 MG Piperacillin Sod/ Tazobactam Sod 100 ml @ 25 mls/hr Q12HR IV 06/17/24 10:00 06/18/24 10:12 25 MLS/HR Metronidazole 100 ml @ 100 mls/hr Q8HR IV 06/17/24 14:00 06/18/24 13:07 100 MLS/HR Potassium Chloride/Dextrose/ Sod Cl 1,000 ml @ 120 mls/hr Q8H20M IV 06/17/24 08:30 06/18/24 10:39 120 MLS/HR Sodium Chloride 1,000 ml @ 200 mls/hr Q5H IV 06/18/24 10:15 06/18/24 11:56 200 MLS/HR Sodium Chloride 10 ml QSHIFT@10,22 IV 06/18/24 22:00 UNV Laboratory Results Laboratory Tests 06/17/24 03:06 06/18/24 05:21 Coagulation Test 06/18/24 13:11 Prothrombin Time 11.2 sec (9.3-11.8) Prothrombin Time INR 1.06 (0.9-1.15) Activated Partial Thromboplast Time 30.1 SEC (24.5-34.5) Urinalysis Test 06/17/24 02:20 Urine Color [place] (Yellow) H Urine Clarity Ex.turbid (Clear) Urine pH 5.0 (5.0-9.0) Urine Specific [place] 1.030 (1.001-1.035) Urine Protein 1+ (Negative) H Urine Ketones 1+ (Negative) H Urine Blood Negative /uL (Negative) Urine Nitrite Negative (Negative) Urine Bilirubin Negative (Negative) Urine Urobilinogen 4 mg/dL (Negative) H Urine Leukocyte Esterase Negative /uL (Negative) Urine RBC 28 /hpf (0 - 3) Urine WBC 6 /hpf (0 - 3) Urine Squamous Epithelial Cells Few /hpf (<5) Urine Bacteria Few /hpf (None Seen) H Urine Hyaline Casts Many /lpf (0 - 2) Urine Mucus Few (None Seen) Urine Glucose Normal mg/dL (Normal) Microbiology Microbiology Date/Time Source Procedure Growth Status 06/17/24 10:10 Blood Blood Culture - Preliminary NO GROWTH AFTER 24 HOURS OF INCUBATION. Resulted Assessment/Plan Assessment/Plan 63-year-old male with recent diagnosis of rectosigmoid colon cancer status post exploratory laparotomy with resection of rectal cancer, resection of rectosigmoid colon, status post descending colon colostomy who was complaining of abdominal pain nausea and vomiting worsening for last two days found to have #Sepsis secondary to colitis as well as possibly ruptured viscus #Leukocytosis secondary to 1. #Acute kidney injury suspected secondary to vasomotor nephropathy #Hyponatremia #Rectosigmoid colon cancer status post exploratory laparotomy with resection of rectosigmoid colon, resection of cancer, descending colon colostomy - Per surgery no perforation noted on MRI - Creat worsening to 2.68>aggresive IVF - NPO, NGT - IV abx and IVF - Avoid nephrotoxins Plan discussed with: Patient Date of Service: Jun 18, 2024 Billing Provider: GHANSHYAM HYLTON MD Common Visit Codes: [id number] INP/OBS CARE(HIGH) GHANSHYAM HYLTON MD Jun 18, 2024 15:24
[2024-06-18 18:00] LABS: Chloride 107 mmol/L (98-107); Potassium 4.4 mmol/L (3.5-5.1)
[2024-06-18 18:01] LABS: Anion Gap 10 (5-15)
[2024-06-18 18:07] LABS: BUN/Creatinine Ratio 18.1 (10.0-20.0)
[2024-06-18 18:09] LABS: Blood Urea Nitrogen 45 mg/dL (9-23); Calcium 7.9 mg/dL (8.7-10.4); Carbon Dioxide 16 mmol/L (20-31); Glucose 131 mg/dL (74-106); Sodium 133 mmol/L (136-145)
[2024-06-18] MEDS: SODIUM CHLOR 0.9% PF (SALINE LOCK) 10ML VIAL/SYR IV SCH (21:49)
[2024-06-18] MEDS: metroNIDAZOLE 500MG/100ML 100 ML IV SCH (21:49)
--- NOTE | 2024-06-18 22:05 | DVHINCON2 ---
Date of service: Jun 18, 2024 Allergies: Coded Allergies: NO KNOWN ALLERGIES (Unverified , 05/28/24) Home Meds Active Scripts Hydrocodone-Acetaminophen (Hydrocodone Bitartrate/AC 5-325 mg) 1 Tab Tab, 1 TAB PO Q8HP PRN for 5 Days, #15 TAB Prov:LOREN WILKINS MD 06/13/24 Amoxicillin & Pot Clavulanate (Augmentin) 500 Mg Tab, 1 TAB PO BID for 7 Days, #14 TAB Prov:VERONICA MUNROE SOCIAL WORKER 06/06/24 Hydrocodone-Acetaminophen (Hydrocodone Bitartrate/AC 5-325 mg) 1 Tab Tab, 1 TAB PO Q6HR for 5 Days, #20 TAB Prov:VERONICA MUNROE SOCIAL WORKER 06/06/24 Hydrocodone-Acetaminophen (Hydrocodone Bitartrate/AC 5-325 mg) 1 Tab Tab, 1 TAB PO Q6HP PRN, #20 TAB Prov:RADHA MARTÍNEZ PAC 12/07/22 Ibuprofen Micronized (Ibuprofen) 800 Mg Tab, 800 MG PO Q8HP PRN, #30 TAB Prov:RADHA MARTÍNEZ PAC 12/07/22 Current Medications Current Medications Medications (Trade) Dose Ordered Sig/Carlos Route PRN Reason Start Time Stop Time Status Last Admin Sodium Chloride 1,000 ml @ 200 mls/hr Q5H IV 06/18/24 10:15 06/18/24 20:18 DC 06/18/24 15:32 Sodium Chloride (Saline Lock Ns) 10 ml QSHIFT@10,22 IV 06/18/24 22:00 06/18/24 21:49 Metronidazole 100 ml @ 100 mls/hr Q8HR IV 06/18/24 22:00 06/18/24 21:49 Vital Signs Vital Signs Date Time Temp Pulse Resp B/P (MAP) Pulse Ox O2 Delivery O2 Flow Rate FiO2 06/18/24 21:00 128 32 131/80 06/18/24 20:00 94 06/18/24 18:00 98.2 98.2 06/18/24 12:27 Room Air* 0 21 Labs/Diagnostic Data Labs Test 06/18/24 17:22 06/18/24 17:16 06/18/24 13:11 06/18/24 05:21 Range/Units POC Glucose 128 H 70-106 mg/dl Sodium Level 133 #L 136-145 mmol/L Potassium Level 4.4 3.5-5.1 mmol/L Chloride Level 107 # 98-107 mmol/L Carbon Dioxide Level 16 L 20-31 mmol/L Anion Gap 10 5-15 Blood Urea Nitrogen 45 #H 9-23 mg/dL Creatinine 2.49 H 0.700-1.30 mg/dL Glomerular Filtration Rate Calc 28 >90 mL/min BUN/Creatinine Ratio 18.1 10.0-20.0 Serum Glucose 131 H 74-106 mg/dL Calcium Level 7.9 L 8.7-10.4 mg/dL Prothrombin Time 11.2 9.3-11.8 sec Prothrombin Time INR 1.06 0.9-1.15 Activated Partial Thromboplast Time 30.1 24.5-34.5 SEC White Blood Count 29.6 H 4.4-10.8 10^3/uL Red Blood Count 4.74 4.5-5.90 10^6/uL Hemoglobin 14.3 13.5-17.5 g/dL Hematocrit 44.4 41.0-53.0 % Mean Corpuscular Volume 93.6 80.0-100.0 fL Mean Corpuscular Hemoglobin 30.1 28.0-32.0 pg Mean Corpuscular Hemoglobin Concent 32.2 32.0-36.0 g/dL Red Cell Distribution Width 16.9 H 11.8-14.3 % Platelet Count 327 140-450 10^3/uL Mean Platelet Volume 9.2 6.9-10.8 fL Neutrophils (%) (Auto) 37.0-80.0 % Lymphocytes (%) (Auto) 10.0-50.0 % Monocytes (%) (Auto) 0.0-12.0 % Basophils (%) (Auto) 0.0-2.0 % Neutrophils # (Auto) 1.6-8.6 10 ^3/uL Lymphocytes # (Auto) 0.4-5.4 10 ^3/uL Monocytes # (Auto) 0-1.3 10 ^3/uL Differential Total Cells Counted 100.0 100 Neutrophils % (Manual) 71 37.0-80.0 Band Neutrophils % (Manual) 15 Lymphocytes % (Manual) 1 L 10.0-50.0 Monocytes % (Manual) 13 H 0-12 Eosinophils % (Manual) 0 0-7 Basophils % (Manual) 0 0.0-2.0 Metamyelocytes % (manual) 0 Myelocytes % (Manual) 0 Promyelocytes % (Manual) 0 Blast Cells % (Manual) 0 Nucleated Red Blood Cells 1.0 % Reactive Lymphocytes 0 Platelet Estimate Adequate Random Vancomycin Level 26.6 H 5-10 ug/mL Test 06/17/24 03:06 06/17/24 02:20 06/16/24 21:19 06/16/24 18:18 Range/Units Red Blood Cell Morphology Normal Troponin I High Sensitivity 6 </=54 ng/L Urine Color [place] H Yellow Urine Clarity Ex.turbid Clear Urine pH 5.0 5.0-9.0 Urine Specific [place] 1.030 1.001-1.035 Urine Protein 1+ H Negative Urine Ketones 1+ H Negative Urine Blood Negative Negative /uL Urine Nitrite Negative Negative Urine Bilirubin Negative Negative Urine Urobilinogen 4 H Negative mg/dL Urine Leukocyte Esterase Negative Negative /uL Urine RBC 28 0 - 3 /hpf Urine WBC 6 0 - 3 /hpf Urine Squamous Epithelial Cells Few <5 /hpf Urine Bacteria Few H None Seen /hpf Urine Hyaline Casts Many 0 - 2 /lpf Urine Mucus Few None Seen Urine Glucose Normal Normal mg/dL Lactic Acid Level 4.1 *H 0.4-2.0 mmol/L Large Platelets Moderate Total Bilirubin 0.7 0.2-1.0 mg/dL Aspartate Amino Transferase (AST) 18 13-40 U/L Alanine Aminotransferase (ALT) 18 7-40 U/L Alkaline Phosphatase 107 46-116 U/L Total Protein 6.5 5.7-8.2 g/dL Albumin 3.6 3.2-4.8 g/dL Lipase 18 12-53 U/L Microbiology Date/Time Source Procedure Growth Status 06/18/24 05:45 Stool Clostridium difficile Toxin Assay - Final Complete 06/17/24 10:10 Blood Blood Culture - Preliminary NO GROWTH AFTER 24 HOURS OF INCUBATION. Resulted Plan/Recommendation ASSESSMENT AND PLAN: ID Problem List: - Colon cancer - Severe sepsis - Acute kidney injury stage 3 - Peritonitis - Colitis - Hypertension - Obesity Assessment This is a 63 y.o. obese male with a past medical history of hypertension, colon cancer status post exploratory laparotomy with sigmoid resection and colostomy on May 28, 2024, perforated bowel, and appendectomy, who presents with nausea, vomiting, increased colostomy output, feeling weak and lightheaded, and generalized abdominal pain. Denies melena. On arrival, vital signs were notable for tachycardia and hypotension, with HR 143 bpm, BP 99/67 mmHg, RR 25 breaths/min, Temp 97.6?F, SpO2 99% on room air. Physical examination revealed an ill-appearing male with pale mucous membranes, dehydration, and diffuse abdominal tenderness to palpation. He has a right lower quadrant JACKIE drain with serous fluid drainage and a colostomy with liquid yellow stool. Laboratory studies revealed leukocytosis with WBC as high as 46.8, decreasing to 24.1; platelet count decreased from 602 to 198; hemoglobin 14.3; sodium 133; BUN 45; creatinine 2.49 indicating severe acute kidney injury. CT abdomen/pelvis showed increased retroperitoneal air compared to prior CT, possible defect from rectal patch such as perforation, postsurgical changes from bowel resection with left lower quadrant colostomy, mildly distended colon filled with fluid and adjacent fat stranding suggestive of colitis. MRI abdomen revealed an incompletely characterized T2 hyperintense lesion in the right hepatic dome, severe diffuse colonic wall thickening suspicious for pseudocolitis, and small to moderate free intraperitoneal air in the retroperitoneal space. Blood cultures are no growth to date; C. difficile testing is negative. Patient was started on vancomycin. Plan: - Discontinue vancomycin in the setting of acute kidney injury. - Initiate broad-spectrum antimicrobial coverage including coverage for anaerobic organisms and fungi, recommend linezolid, zosyn and micafungin - Defer to surgery for postoperative management and need for any additional intervention or surgery. - Monitor patient closely as he responds to antibiotic therapy. - Consider PICC line placement if hospital stay is expected to be short for outpatient IV antibiotics. - Follow up on blood cultures. Isolation Precautions: standard Assessment and plan was discussed with the patient as written above Plan is subject to change pending incorporation of new incoming information/diagnostics. Updates may be added as addendum at the bottom (OR TOP) of this note Thank you for interesting consult. ID will continue to follow. Please contact Infectious disease for any questions or concerns. Jose Luis Jo M.D. [facility] Ph: ? History: The patient's chart and medications were reviewed in detail and the patient was seen and examined. History obtained from: patient Mr. Frederic Gordon is a 63 y.o. obese male with a past medical history of hypertension, colon cancer status post exploratory laparotomy with sigmoid resection and colostomy on May 28, 2024, perforated bowel, and appendectomy, who presents with nausea, vomiting, increased colostomy output, feeling weak and lightheaded, and generalized abdominal pain. Denies melena. Review of Systems: A complete 10 system review of systems was completed and negative except as noted in the HPI or here. ROS: - CONSTITUTIONAL: Positive for weakness and lightheadedness. Denies weight loss, fever, and chills. - HEENT: Positive for pale mucous membranes. - RESPIRATORY: Denies shortness of breath and cough. - CV: Denies chest pain and palpitations. - GI: Positive for nausea, vomiting, increased colostomy output, abdominal pain. Denies melena. - : Denies dysuria and urinary frequency. - MSK: Denies myalgia and joint pain. - SKIN: Denies rash and pruritus. - NEUROLOGICAL: Denies headache and syncope. - PSYCHIATRIC: Denies recent changes in mood. Denies anxiety and depression. Past Medical History: Diagnosis Date Hypertension Colon cancer Perforated bowel Past Surgical History: Appendectomy Exploratory laparotomy with sigmoid resection and colostomy on May 28, 2024 Home Medications: Prior to Admission medications Medication Sig hydrocodone-acetaminophen (NORCO) 10-325 mg tablet Take 1 tablet by mouth every 6 hours as needed for pain. amoxicillin-clavulanate (AUGMENTIN) Dosage and instructions not specified. ibuprofen Dosage and instructions not specified. Allergies: No known drug allergies Family History: Family History No family history of cancers reported. Social History: Socioeconomic History Marital status: Not specified Occupational History Not specified Tobacco Use Smoking status: Never smoked Vaping Use Vaping status: Never used Substance and Sexual Activity Alcohol use: None Drug use: None Sexual activity: Not specified Other Topics Concern Not specified Social Determinants of Health Not specified Objective: Vital Signs on Arrival: Temp: 97.6?F?BP: 99/67?Pulse: 143?Resp: 25?SpO2: 99% Most Recent Vital Signs: Temp: Not specified?BP: Not specified?Pulse: 124?Resp: Not specified?SpO2: 99% on room air Admission Weight: Not specified Physical Exam: General: Ill-appearing. Neck: Supple. No masses. HEENT: Pale mucous membranes. Normal lids and conjunctiva. Oropharynx without lesions, exudates, or excessive erythema. Normal appearance of the external aspects of the nose and ears. Heart: Tachycardic. Regular rhythm. No murmur. No lower extremity edema. Lungs: Normal respiratory effort. Clear to auscultation bilaterally. No wheezes. No crackles. Abdomen: Diffuse abdominal tenderness to palpation. Right lower quadrant JACKIE drain with serous fluid drainage. Colostomy with liquid yellow stool. Msk: No digital cyanosis. Normal strength and tone in all 4 limbs. Skin: Warm and dry, no rashes. Neuro: Alert. No facial droop or slurred speech. Extra-ocular movements intact. Sensation intact to soft touch in all 4 limbs. Psych: Appropriate mood. Full affect. Oriented to person, place, time, and situation. Lines: Active Lines Peripheral IV Line Diagnostic Studies: Available diagnostic studies were reviewed personally. Significant relevant results and findings are outlined below or addressed in the Assessment and Plan above. Pertinent Imaging: CT Abdomen and Pelvis - Impression - Increased retroperitoneal air compared to prior CT, possible defect from rectal patch such as perforation. - Postsurgical changes from bowel resection with left lower quadrant colostomy. - Mildly distended colon filled with fluid and adjacent fat stranding suggestive of colitis. MRI Abdomen - Impression - Incompletely characterized T2 hyperintense lesion in the right hepatic dome. - Severe diffuse colonic wall thickening suspicious for pseudocolitis. - Small to moderate free intraperitoneal air in the retroperitoneal space. Laboratory Studies: - WBC peaked at 46.8, decreasing to 24.1. - Platelet count decreased from 602 to 198. - Hemoglobin: 14.3. - Sodium: 133. BUN: 45. - Creatinine: 2.49 indicating severe acute kidney injury. - C. difficile testing: Negative. - Blood cultures: No growth to date. Plan discussed with: Patient JOSE LUIS JO MD Jun 18, 2024 22:05
[2024-06-18 23:15] VITALS: PULSE 127; RESP 29; O2SAT 92
[2024-06-19] MEDS: ACCU-CHEK COMFORT CURVE STRIP VI SCH (00:12)
[2024-06-19 05:25] LABS: Hemoglobin 13.4 g/dL (13.5-17.5); Mean Corpuscular Hemoglobin 30.7 pg (28.0-32.0); Mean Corpuscular Hgb Conc. 33.4 g/dL (32.0-36.0); Mean Corpuscular Volume 91.8 fL (80.0-100.0); Platelet Count (auto) 198 10^3/uL (140-450); Red Blood Cells 4.35 10^6/uL (4.5-5.90); Red Cell Distribution Width 17.2 % (11.8-14.3); White Blood Cell 24.1 10^3/uL (4.4-10.8)
[2024-06-19 05:34] LABS: Basophils % (manual) 0 (0.0-2.0); Blast Cells 0; Chloride 106 mmol/L (98-107); Eosinophils % (manual) 0 (0-7); Metamyelocytes % 0; Myelocytes % 0; Potassium 4.6 mmol/L (3.5-5.1); Promyelocytes % 0; Reactive Lymphocytes 0
[2024-06-19 05:35] LABS: Anion Gap 13 (5-15)
[2024-06-19 05:40] LABS: BUN/Creatinine Ratio 18.6 (10.0-20.0)
[2024-06-19 05:47] LABS: Blood Urea Nitrogen 51 mg/dL (9-23); Calcium 8.2 mg/dL (8.7-10.4); Carbon Dioxide 16 mmol/L (20-31); Glucose 142 mg/dL (74-106); Sodium 135 mmol/L (136-145)
--- NOTE | 2024-06-19 07:42 | DVHINCON2 ---
Date of service: Jun 19, 2024 Referring Physician Mj Beltran Reason for Consultation C diff infection History of Present Illness 63 yo patient was recently discharged after partial recovery from an exploratory laparotomy for treatment of a 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 He received a colostomy and prior to discharge he resumed oral intake and stoma function. Pt presented back to ER with two days history of fever, nausea and vomiting and he was found to have "increased retroperitoneal air" on CT Abd. Pt has been evaluated by surgical consult. His abdomen is somewhat distended, appropriately tender, stoma is viable and functioning. Patient has some stool output in his colostomy and his stool was positive for C diff Past Medical History Rectosigmoid cancer with perforation Chronic alcohol use Chronic renal failure Past Surgical History Recent laparotomy with colostomy Allergies: Coded Allergies: NO KNOWN ALLERGIES (Unverified , 05/28/24) Home Meds Active Scripts Hydrocodone-Acetaminophen (Hydrocodone Bitartrate/AC 5-325 mg) 1 Tab Tab, 1 TAB PO Q8HP PRN for 5 Days, #15 TAB Prov:LOREN WILKINS MD 06/13/24 Amoxicillin & Pot Clavulanate (Augmentin) 500 Mg Tab, 1 TAB PO BID for 7 Days, #14 TAB Prov:VERONICA MUNROE NP 06/06/24 Hydrocodone-Acetaminophen (Hydrocodone Bitartrate/AC 5-325 mg) 1 Tab Tab, 1 TAB PO Q6HR for 5 Days, #20 TAB Prov:VERONICA MUNROE NP 06/06/24 Hydrocodone-Acetaminophen (Hydrocodone Bitartrate/AC 5-325 mg) 1 Tab Tab, 1 TAB PO Q6HP PRN, #20 TAB Prov:RADHA MARTÍNEZ PAC 12/07/22 Ibuprofen Micronized (Ibuprofen) 800 Mg Tab, 800 MG PO Q8HP PRN, #30 TAB Prov:RADHA MARTÍNEZ PAC 12/07/22 Current Medications Current Medications Medications (Trade) Dose Ordered Sig/Carlos Route PRN Reason Start Time Stop Time Status Last Admin Sodium Chloride 1,000 ml @ 200 mls/hr Q5H IV 06/18/24 10:15 06/18/24 20:18 DC 06/18/24 15:32 Sodium Chloride (Saline Lock Ns) 10 ml QSHIFT@ IV 06/18/24 22:00 12/9/24 21:49 Metronidazole 100 ml @ 100 mls/hr Q8HR IV 06/18/24 22:00 06/19/24 05:45 Vital Signs Vital Signs Date Time Temp Pulse Resp B/P (MAP) Pulse Ox O2 Delivery O2 Flow Rate FiO2 06/19/24 07:00 122 25 131/79 (96) 93 06/18/24 23:15 Room Air* 0 21 06/18/24 18:00 98.2 98.2 Physical Exam General Appearance: Alert, Oriented X3, Cooperative, moderate distress HEENT: Atraumatic, PERRLA, EOMI Respiratory: Clear to auscultation, Normal air movement Cardiovascular: Regular rate, Normal S1, Normal S2 Abdominal: Normal bowel sounds, Soft, No tenderness Extremities: No clubbing, No cyanosis, No edema Skin: No rashes, No breakdown Neuro: Normal gait, Normal speech Psych/Mental Status: Mood NL Labs/Diagnostic Data Labs Test 06/19/24 05:42 06/19/24 05:05 06/18/24 13:11 06/18/24 05:21 Range/Units POC Glucose 155 H 70-106 mg/dl White Blood Count 24.1 H 4.4-10.8 10^3/uL Red Blood Count 4.35 L 4.5-5.90 10^6/uL Hemoglobin 13.4 L 13.5-17.5 g/dL Hematocrit 40.0 L 41.0-53.0 % Mean Corpuscular Volume 91.8 80.0-100.0 fL Mean Corpuscular Hemoglobin 30.7 28.0-32.0 pg Mean Corpuscular Hemoglobin Concent 33.4 32.0-36.0 g/dL Red Cell Distribution Width 17.2 H 11.8-14.3 % Platelet Count 198 140-450 10^3/uL Mean Platelet Volume 8.7 6.9-10.8 fL Neutrophils (%) (Auto) 37.0-80.0 % Lymphocytes (%) (Auto) 10.0-50.0 % Monocytes (%) (Auto) 0.0-12.0 % Basophils (%) (Auto) 0.0-2.0 % Neutrophils # (Auto) 1.6-8.6 10 ^3/uL Lymphocytes # (Auto) 0.4-5.4 10 ^3/uL Monocytes # (Auto) 0-1.3 10 ^3/uL Sodium Level 135 L 136-145 mmol/L Potassium Level 4.6 3.5-5.1 mmol/L Chloride Level 106 98-107 mmol/L Carbon Dioxide Level 16 L 20-31 mmol/L Anion Gap 13 5-15 Blood Urea Nitrogen 51 H 9-23 mg/dL Creatinine 2.74 H 0.700-1.30 mg/dL Glomerular Filtration Rate Calc 25 >90 mL/min BUN/Creatinine Ratio 18.6 10.0-20.0 Serum Glucose 142 H 74-106 mg/dL Calcium Level 8.2 L 8.7-10.4 mg/dL Random Vancomycin Level 13.7 H 5-10 ug/mL Prothrombin Time 11.2 9.3-11.8 sec Prothrombin Time INR 1.06 0.9-1.15 Activated Partial Thromboplast Time 30.1 24.5-34.5 SEC Nucleated Red Blood Cells 1.0 % Test 06/17/24 03:06 06/17/24 02:20 06/16/24 21:19 06/16/24 18:18 Range/Units Red Blood Cell Morphology Normal Troponin I High Sensitivity 6 </=54 ng/L Urine Color [place] H Yellow Urine Clarity Ex.turbid Clear Urine pH 5.0 5.0-9.0 Urine Specific [place] 1.030 1.001-1.035 Urine Protein 1+ H Negative Urine Ketones 1+ H Negative Urine Blood Negative Negative /uL Urine Nitrite Negative Negative Urine Bilirubin Negative Negative Urine Urobilinogen 4 H Negative mg/dL Urine Leukocyte Esterase Negative Negative /uL Urine RBC 28 0 - 3 /hpf Urine WBC 6 0 - 3 /hpf Urine Squamous Epithelial Cells Few <5 /hpf Urine Bacteria Few H None Seen /hpf Urine Hyaline Casts Many 0 - 2 /lpf Urine Mucus Few None Seen Urine Glucose Normal Normal mg/dL Lactic Acid Level 4.1 *H 0.4-2.0 mmol/L Large Platelets Moderate Total Bilirubin 0.7 0.2-1.0 mg/dL Aspartate Amino Transferase (AST) 18 13-40 U/L Alanine Aminotransferase (ALT) 18 7-40 U/L Alkaline Phosphatase 107 46-116 U/L Total Protein 6.5 5.7-8.2 g/dL Albumin 3.6 3.2-4.8 g/dL Lipase 18 12-53 U/L Microbiology Date/Time Source Procedure Growth Status 06/18/24 05:45 Stool Clostridium difficile Toxin Assay - Final Complete 06/17/24 10:10 Blood Blood Culture - Preliminary NO GROWTH AFTER 24 HOURS OF INCUBATION. Resulted ABDOMINAL MRI IMPRESSION: Postcontrast images are extremely limited secondary to extensive patient motion artifact. Incompletely characterized 2.1 cm T2 hyperintense lesion in the right hepatic dome, segment 4/8. Severe diffuse colonic bowel wall thickening is suspicious for colitis. C diff colitis is within differential considerations. Grossly unchanged small to moderate volume free intraperitoneal air in the perirectal space and retroperitoneum. Problems(with codes): (1) C. difficile colitis (2) Acute kidney injury (3) Rectal perforation (4) Sepsis (5) Colitis (6) Abdominal pain with vomiting and history of abdominal surgery Plan/Recommendation Assessment and plan Patient will be started on ice chips We will put him on vancomycin 250 mg p.o. 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
[2024-06-19 07:58] VITALS: PULSE 121; RESP 24; O2SAT 92
[2024-06-19 08:47] LABS: Band Neutrophils % (manual) 13; Lymphocytes % (manual) 18 (10.0-50.0); Monocytes % (manual) 12 (0-12)
[2024-06-19 08:48] LABS: Platelet Estimate Adequate
[2024-06-19] MEDS ORDERED: TPN PER PHARMACY 0 ML IV SCH (09:45)
[2024-06-19] MEDS: LINEZOLID 600MG/300ML 300 ML IV SCH (11:02)
[2024-06-19] MEDS: MICAFUNGIN SODIUM 100 MG in SODIUM CHL 0.9% 100 ML IV SCH (11:25)
[2024-06-19 12:05] LABS: Magnesium 2.5 mg/dL (1.6-2.6)
[2024-06-19 12:06] LABS: Phosphorus 3.9 mg/dL (2.4-5.1)
--- NOTE | 2024-06-19 17:38 | DVHPN2 ---
Subjective Spoke to him in [place] language lithuanian Feels better with less pain has NGT in place Reviewed: Care Plan Changes from previous H/P or p: No Changes Eyes: No Pain, No Vision change, No Conjunctivae inflammation, No Eyelid inflammation, No Other, No Redness ENT: No Ear pain, No Ear discharge, No Nose pain, No Nose discharge, No Nose congestion, No Mouth pain, No Mouth swelling, No Throat pain, No Throat swelling, No Other Cardiovascular: No Chest Pain, No Palpitations, No Orthopnea, No Paroxysmal Noc. Dyspnea, No Edema, No Lt Headedness, No Other Respiratory: No Cough, No Dry, No Shortness of breath, No SOB with excertion, No Wheezing, No Hemoptysis, No Pleuritic Pain, No Sputum, No Other Gastrointestinal: Nausea, Vomiting, Abdominal Pain; No Diarrhea, No Constipation, No Melena, No Hematochezia, No Other Genitourinary: No Dysuria, No Frequency, No Incontinence, No Hematuria, No Retention, No Other Musculoskeletal: No other, No neck pain, No shoulder pain, No arm pain, No back pain, No hand pain, No leg pain, No foot pain Skin: No Rash, No Lesions, No Jaundice, No Bruising, No Other Objective Vitals Vital Signs Date Time Temp Pulse Resp B/P (MAP) Pulse Ox O2 Delivery O2 Flow Rate FiO2 06/19/24 16:10 117 28 139/76 06/19/24 16:00 98.8 91 98.8 06/19/24 07:58 Room Air* 0 21 Intake/Output Intake and Output 06/19/24 05:00 Intake Total 5720 ml Output Total 2775 ml Balance 2945 ml Intake IV Total 5720 ml Output Urine Total 950 ml Stool Total 325 ml Gastric Drainage Total 800 ml Drainage Total 100 ml Other 600 ml General Appearance: Alert, Oriented X3 Lungs: Clear to auscultation Abdomen: Other (soft slightly tender with colostomy no rebound or guarding) Medications Current Medications Medications Dose Ordered Sig/Carlos Route Start Time Stop Time Status Last Admin Dose Admin Vancomycin HCl 0 ml @ 0 mls/hr UD IV 06/16/24 20:30 Cancel Diagnostic Test (Pha) 1 strip Q6HR 06/17/24 00:00 06/19/24 18:01 06/19/24 11:33 1 STRIP Insulin Human Regular Q6HR SC 06/17/24 00:00 06/19/24 18:01 06/19/24 11:31 2 UNITS Dextrose 50 ml UD PRN IV 06/16/24 20:30 06/19/24 18:01 Pantoprazole Sodium 40 mg DAILY IV 06/17/24 10:00 06/19/24 08:11 40 MG Lorazepam 0.5 mg Q6HP PRN PO 06/16/24 20:30 Acetaminophen 650 mg Q6HP PRN PO 06/16/24 20:30 Temazepam 15 mg QHSP PRN PO 06/16/24 20:30 Acetaminophen/ Hydrocodone Bitart 1 tab Q4HP PRN PO 06/16/24 20:30 Ondansetron HCl 4 mg Q4HP PRN IV 06/16/24 20:30 06/19/24 08:35 4 MG Morphine Sulfate 2 mg Q4HPRN PRN IV 06/16/24 20:30 06/19/24 15:44 2 MG Piperacillin Sod/ Tazobactam Sod 100 ml @ 25 mls/hr Q12HR IV 06/17/24 10:00 06/19/24 09:17 25 MLS/HR Potassium Chloride/Dextrose/ Sod Cl 1,000 ml @ 120 mls/hr Q8H20M IV 06/17/24 08:30 06/19/24 21:59 06/19/24 08:11 120 MLS/HR Sodium Chloride 10 ml QSHIFT@10,22 IV 06/18/24 22:00 06/19/24 08:11 10 ML Linezolid 300 ml @ 150 mls/hr Q12HR IV 06/19/24 10:00 06/19/24 11:02 150 MLS/HR Micafungin Sodium 100 mg/Sodium Chloride 100 ml @ 100 mls/hr DAILY IV 06/19/24 10:00 06/19/24 11:25 100 MLS/HR Amino Acids 0 ml @ 0 mls/hr PER PHARMACY IV 06/19/24 09:45 Amino Acids/ Electrolytes/ Dextrose 1,000 ml @ 42 mls/hr DAILY@2200 IV 06/19/24 22:00 06/20/24 21:59 Diagnostic Test (Pha) 1 strip Q6HR 06/20/24 00:00 Insulin Human Regular FOLLOW SLIDING SCALE Q6HR SC 06/20/24 00:00 Dextrose 50 ml UD IV 06/20/24 00:00 Potassium Chloride/Dextrose/ Sod Cl 1,000 ml @ 80 mls/hr [id number] IV 06/19/24 22:00 Laboratory Results Laboratory Tests 06/19/24 05:05 Chemistry Test 06/19/24 05:05 Calcium Level 8.2 mg/dL (8.7-10.4) L Magnesium Level 2.5 mg/dL (1.6-2.6) Phosphorus Level 3.9 mg/dL (2.4-5.1) Urinalysis Test 06/17/24 02:20 Urine Color [place] (Yellow) H Urine Clarity Ex.turbid (Clear) Urine pH 5.0 (5.0-9.0) Urine Specific [place] 1.030 (1.001-1.035) Urine Protein 1+ (Negative) H Urine Ketones 1+ (Negative) H Urine Blood Negative /uL (Negative) Urine Nitrite Negative (Negative) Urine Bilirubin Negative (Negative) Urine Urobilinogen 4 mg/dL (Negative) H Urine Leukocyte Esterase Negative /uL (Negative) Urine RBC 28 /hpf (0 - 3) Urine WBC 6 /hpf (0 - 3) Urine Squamous Epithelial Cells Few /hpf (<5) Urine Bacteria Few /hpf (None Seen) H Urine Hyaline Casts Many /lpf (0 - 2) Urine Mucus Few (None Seen) Urine Glucose Normal mg/dL (Normal) Microbiology Microbiology Date/Time Source Procedure Growth Status 06/18/24 05:45 Stool Clostridium difficile Toxin Assay - Final Complete 06/17/24 10:10 Blood Blood Culture - Preliminary NO GROWTH AFTER 48 HOURS OF INCUBATION. Resulted Assessment/Plan Assessment/Plan 63-year-old male with recent diagnosis of rectosigmoid colon cancer status post exploratory laparotomy with resection of rectal cancer, resection of rectosigmoid colon, status post descending colon colostomy who was complaining of abdominal pain nausea and vomiting worsening for last two days found to have #Sepsis secondary to colitis as well as possibly ruptured viscus #Leukocytosis secondary to 1. #Acute kidney injury suspected secondary to vasomotor nephropathy #Hyponatremia #Rectosigmoid colon cancer status post exploratory laparotomy with resection of rectosigmoid colon, resection of cancer, descending colon colostomy #Cdiff colitis - Per surgery no perforation noted on MRI - Creat worsening to 2.68>2.74 on IVF - Oral vanco and IV flagyl - ID on consult - NPO, NGT - IV abx and IVF - Avoid nephrotoxins Plan discussed with: Patient Date of Service: Jun 19, 2024 Billing Provider: GHANSHYAM HYLTON MD Common Visit Codes: [id number] INP/OBS CARE(HIGH) GHANSHYAM HYLTON MD Jun 19, 2024 17:38
[2024-06-19 19:40] VITALS: PULSE 119; RESP 32; O2SAT 93
[2024-06-19] MEDS: AMINO ACID INFUSION IN D10W 1,000 ML IV SCH (22:00)
[2024-06-19 22:47] VITALS: BP 135/87; PULSE 116; RESP 19; TEMP 98.8; O2SAT 97
[2024-06-19] MEDS: D5W/SOD CHL 0.45%/KCL 20MEQ 1,000 ML IV SCH (22:54)
[2024-06-19 23:13] VITALS: BP 135/87; PULSE 109; PULSE 116; RESP 16; RESP 22; TEMP 98.8; O2SAT 4; O2SAT 93
[2024-06-20] VITALS (7 sets, daily range): BP systolic 111–134; BP diastolic 62–77; PULSE 101–112; RESP 17–21; TEMP 97.5–98.8; O2SAT 96–98
[2024-06-20] MEDS ORDERED: DEXTROSE (50%) 50ML SYRG IV SCH
[2024-06-20 05:43] LABS: Mean Corpuscular Hemoglobin 29.9 pg (28.0-32.0)
[2024-06-20 05:47] LABS: Hematocrit 36.1 % (41.0-53.0); Hemoglobin 11.7 g/dL (13.5-17.5); Mean Corpuscular Hgb Conc. 32.5 g/dL (32.0-36.0); Mean Corpuscular Volume 92.2 fL (80.0-100.0); Platelet Count (auto) 125 10^3/uL (140-450); Red Blood Cells 3.91 10^6/uL (4.5-5.90); Red Cell Distribution Width 17.6 % (11.8-14.3)
[2024-06-20 05:55] LABS: Alkaline Phosphatase 89 U/L (46-116); Anion Gap 6 (5-15); Aspartate Aminotransferase 22 U/L (13-40); Bilirubin, Total 0.3 mg/dL (0.2-1.0); Carbon Dioxide 22 mmol/L (20-31); Chloride 107 mmol/L (98-107); Magnesium 2.6 mg/dL (1.6-2.6); Phosphorus 2.7 mg/dL (2.4-5.1); Potassium 4.4 mmol/L (3.5-5.1); Triglycerides 115 mg/dL (< 150)
[2024-06-20 05:56] LABS: Alanine Aminotransferase < 9 U/L (7-40); Albumin 2.4 g/dL (3.2-4.8); Blood Urea Nitrogen 39 mg/dL (9-23); Calcium 8.1 mg/dL (8.7-10.4); Glucose 140 mg/dL (74-106); Sodium 135 mmol/L (136-145); Total Protein 4.3 g/dL (5.7-8.2)
[2024-06-20] MEDS: InsuLIN REG 1unit/0.01ml Soln (100units/ml) SC SCH (06:00)
[2024-06-20 06:04] LABS: White Blood Cell 33.2 10^3/uL (4.4-10.8)
[2024-06-20 06:06] LABS: Basophils % (manual) 0 (0.0-2.0); Blast Cells 0; Eosinophils % (manual) 0 (0-7); Metamyelocytes % 0; Myelocytes % 0; Promyelocytes % 0; Reactive Lymphocytes 0
[2024-06-20 07:17] LABS: Band Neutrophils % (manual) 12; Lymphocytes % (manual) 13 (10.0-50.0); Monocytes % (manual) 16 (0-12)
[2024-06-20 07:18] LABS: Platelet Estimate Adequate
--- NOTE | 2024-06-20 09:38 | DVHPN2 ---
Progress Note Date Seen: Jun 20, 2024 Medical Necessity Reason Pt with a Central, PICC or Fol: No Objective vital signs Vital Sign Date Time Temp Pulse Resp B/P (MAP) Pulse Ox O2 Delivery O2 Flow Rate FiO2 06/20/24 09:00 98.8 103 21 134/76 (95) 96 98.8 06/19/24 23:13 Room Air* 0 21 Total Intake and Output 06/19/24 06/19/24 06/20/24 15:00 23:00 07:00 Intake Total 1360 ml 360 ml 0 ml Output Total 1100 ml 2150 ml 0 ml Balance 260 ml -1790 ml 0 ml medications Current Medications Medications Dose Ordered Sig/Carlos Route Start Time Stop Time Status Last Admin Dose Admin Vancomycin HCl 0 ml @ 0 mls/hr UD IV 06/16/24 20:30 Cancel Pantoprazole Sodium 40 mg DAILY IV 06/17/24 10:00 06/19/24 08:11 40 MG Lorazepam 0.5 mg Q6HP PRN PO 06/16/24 20:30 Acetaminophen 650 mg Q6HP PRN PO 06/16/24 20:30 Temazepam 15 mg QHSP PRN PO 06/16/24 20:30 Acetaminophen/ Hydrocodone Bitart 1 tab Q4HP PRN PO 06/16/24 20:30 Ondansetron HCl 4 mg Q4HP PRN IV 06/16/24 20:30 06/19/24 08:35 4 MG Morphine Sulfate 2 mg Q4HPRN PRN IV 06/16/24 20:30 06/20/24 08:18 2 MG Piperacillin Sod/ Tazobactam Sod 100 ml @ 25 mls/hr Q12HR IV 06/17/24 10:00 06/19/24 23:17 25 MLS/HR Sodium Chloride 10 ml QSHIFT@10,22 IV 06/18/24 22:00 06/19/24 08:11 10 ML Linezolid 300 ml @ 150 mls/hr Q12HR IV 06/19/24 10:00 06/20/24 02:04 150 MLS/HR Micafungin Sodium 100 mg/Sodium Chloride 100 ml @ 100 mls/hr DAILY IV 06/19/24 10:00 06/19/24 11:25 100 MLS/HR Amino Acids 0 ml @ 0 mls/hr PER PHARMACY IV 06/19/24 09:45 Amino Acids/ Electrolytes/ Dextrose 1,000 ml @ 42 mls/hr DAILY@2200 IV 06/19/24 22:00 06/20/24 21:59 06/19/24 22:00 42 MLS/HR Diagnostic Test (Pha) 1 strip Q6HR 06/20/24 00:00 06/20/24 06:18 1 STRIP Insulin Human Regular FOLLOW SLIDING SCALE Q6HR SC 06/20/24 00:00 06/20/24 06:00 2 UNITS Dextrose 50 ml UD IV 06/20/24 00:00 Potassium Chloride/Dextrose/ Sod Cl 1,000 ml @ 80 mls/hr [id number] IV 06/19/24 22:00 06/19/24 22:54 80 MLS/HR laboratory and microbiology Laboratory Tests 06/20/24 04:53 Test 06/20/24 04:53 Range/Units Serum Glucose 140 H 74-106 mg/dL Problem List/Assessment/Plan Problem List/Assessment/Plan 06/18/24minimal pain, has been vomiting "all night"" according to ,(NGT was ordered yesterday at 8;30 AM but was not inserted till this AM) abdomen is soft, minimally tender, stoma is viable and functioning, wound clean and well approximated, drainage serous. I mbelieve the free retropertitoneal air is residual from his operation for ruptured colon two weeks ago. will request GI consult 06/20/24 abdomen more distended, non tender, will get gastrografin small bowel series Plan discussed with: Patient RONALD LANDA MD Jun 20, 2024 09:38
--- NOTE | 2024-06-20 14:02 | DVH ---
Procedure: XY SMALL BOWEL SERIES-W GASTROGRA Reason for study/Clinical History: distension r/o obstruction Comparison Study: None available at time of dictation. Technique: Single contrast small bowel series performed. FINDINGS/IMPRESSION: Initial traffic control operator view of the abdomen and pelvis demonstrates mildly dilated small bowel loops suspicious for a ileus or small-bowel obstruction. Contrast is identified within the colon by 2.5 hours. This represents a Mild delay in small bowel tr ansit time. No evidence of obstruction identified.
--- NOTE | 2024-06-20 14:04 | DVHPN2 ---
Progress Note - Dictate Date Seen: Jun 20, 2024 Medical Necessity Reason Pt with a Central, PICC or Fol: No Subjective Patient still appears ill Mild increase in abdominal distention; Currently patient is on IV TPN antibiotics and oral vancomycin vital signs Vital Sign Date Time Temp Pulse Resp B/P (MAP) Pulse Ox O2 Delivery O2 Flow Rate FiO2 06/20/24 09:00 98.8 103 21 134/76 (95) 96 98.8 06/19/24 23:13 Room Air* 0 21 Total Intake and Output 06/19/24 06/19/24 06/20/24 15:00 23:00 07:00 Intake Total 1360 ml 360 ml 0 ml Output Total 1100 ml 2150 ml 0 ml Balance 260 ml -1790 ml 0 ml medications Current Medications Medications Dose Ordered Sig/Carlos Route Start Time Stop Time Status Last Admin Dose Admin Vancomycin HCl 0 ml @ 0 mls/hr UD IV 06/16/24 20:30 Cancel Pantoprazole Sodium 40 mg DAILY IV 06/17/24 10:00 06/20/24 12:36 40 MG Lorazepam 0.5 mg Q6HP PRN PO 06/16/24 20:30 Acetaminophen 650 mg Q6HP PRN PO 06/16/24 20:30 Temazepam 15 mg QHSP PRN PO 06/16/24 20:30 Acetaminophen/ Hydrocodone Bitart 1 tab Q4HP PRN PO 06/16/24 20:30 Ondansetron HCl 4 mg Q4HP PRN IV 06/16/24 20:30 06/19/24 08:35 4 MG Morphine Sulfate 2 mg Q4HPRN PRN IV 06/16/24 20:30 06/20/24 08:18 2 MG Piperacillin Sod/ Tazobactam Sod 100 ml @ 25 mls/hr Q12HR IV 06/17/24 10:00 06/20/24 12:36 25 MLS/HR Sodium Chloride 10 ml QSHIFT@10,22 IV 06/18/24 22:00 06/20/24 10:00 10 ML Linezolid 300 ml @ 150 mls/hr Q12HR IV 06/19/24 10:00 06/20/24 12:36 150 MLS/HR Micafungin Sodium 100 mg/Sodium Chloride 100 ml @ 100 mls/hr DAILY IV 06/19/24 10:00 06/19/24 11:25 100 MLS/HR Amino Acids 0 ml @ 0 mls/hr PER PHARMACY IV 06/19/24 09:45 Amino Acids/ Electrolytes/ Dextrose 1,000 ml @ 42 mls/hr DAILY@2200 IV 06/19/24 22:00 06/20/24 21:59 06/19/24 22:00 42 MLS/HR Diagnostic Test (Pha) 1 strip Q6HR 06/20/24 00:00 06/20/24 12:00 1 STRIP Insulin Human Regular FOLLOW SLIDING SCALE Q6HR SC 06/20/24 00:00 06/20/24 13:16 4 UNITS Dextrose 50 ml UD IV 06/20/24 00:00 Potassium Chloride/Dextrose/ Sod Cl 1,000 ml @ 80 mls/hr [id number] IV 06/19/24 22:00 06/20/24 12:37 80 MLS/HR Fat Emulsion Intravenous 50 ml/ Sodium Phosphate 20 meq/ Multivitamins 10 ml/Chromium/ Copper/Manganese/ Zinc 1 ml/ Purified Water 100 ml/Amino Acids/Dextrose 966 ml @ 40 mls/hr Q24H9M IV 06/20/24 22:00 06/21/24 21:59 objective General Appearance: Alert, Oriented X3, Cooperative, moderate distress HEENT: Atraumatic, PERRLA, EOMI Respiratory: Clear to auscultation, Normal air movement Cardiovascular: Regular rate, Normal S1, Normal S2 Abdominal: Normal bowel sounds, Soft, mild distention, mild tenderness Left lower quadrant colostomy functional Extremities: No clubbing, No cyanosis, No edema Skin: No rashes, No breakdown Neuro: Normal gait, Normal speech Psych/Mental Status: Mood NL laboratory and microbiology Laboratory Tests 06/20/24 04:53 Test 06/20/24 04:53 Range/Units Serum Glucose 140 H 74-106 mg/dL Problems(with codes): (1) C. 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
--- NOTE | 2024-06-20 17:17 | DVHPN2 ---
Subjective Seen and examined at bedside, spouse at bedside. Small bowel series showing SBO?? vs. Ileus. Cont Vanco PO and Flagyl IV Reviewed: Care Plan Changes from previous H/P or p: No Changes Eyes: No Pain, No Vision change, No Conjunctivae inflammation, No Eyelid inflammation, No Other, No Redness ENT: No Ear pain, No Ear discharge, No Nose pain, No Nose discharge, No Nose congestion, No Mouth pain, No Mouth swelling, No Throat pain, No Throat swelling, No Other Cardiovascular: No Chest Pain, No Palpitations, No Orthopnea, No Paroxysmal Noc. Dyspnea, No Edema, No Lt Headedness, No Other Respiratory: No Cough, No Dry, No Shortness of breath, No SOB with excertion, No Wheezing, No Hemoptysis, No Pleuritic Pain, No Sputum, No Other Gastrointestinal: Nausea, Vomiting, Abdominal Pain; No Diarrhea, No Constipation, No Melena, No Hematochezia, No Other Genitourinary: No Dysuria, No Frequency, No Incontinence, No Hematuria, No Retention, No Other Musculoskeletal: No other, No neck pain, No shoulder pain, No arm pain, No back pain, No hand pain, No leg pain, No foot pain Skin: No Rash, No Lesions, No Jaundice, No Bruising, No Other Objective Vitals Vital Signs Date Time Temp Pulse Resp B/P (MAP) Pulse Ox O2 Delivery O2 Flow Rate FiO2 06/20/24 16:21 97.5 110 20 124/77 (93) 98 97.5 06/20/24 07:30 Nasal Cannula* 3 32 Intake/Output Intake and Output 06/20/24 07:00 Intake Total 1720 ml Output Total 3250 ml Balance -1530 ml Intake Oral 0 ml IV Total 1720 ml Output Urine Total 950 ml Stool Total 400 ml Gastric Drainage Total 1450 ml Other 450 ml General Appearance: Alert, Oriented X3, Other (NGT in place) Lungs: Clear to auscultation Abdomen: Other (soft slightly tender with colostomy no rebound or guarding) Psych/Mental Status: Mental status NL Medications Current Medications Medications Dose Ordered Sig/Carlos Route Start Time Stop Time Status Last Admin Dose Admin Vancomycin HCl 0 ml @ 0 mls/hr UD IV 06/16/24 20:30 Cancel Pantoprazole Sodium 40 mg DAILY IV 06/17/24 10:00 06/20/24 12:36 40 MG Lorazepam 0.5 mg Q6HP PRN PO 06/16/24 20:30 Acetaminophen 650 mg Q6HP PRN PO 06/16/24 20:30 Temazepam 15 mg QHSP PRN PO 06/16/24 20:30 Acetaminophen/ Hydrocodone Bitart 1 tab Q4HP PRN PO 06/16/24 20:30 Ondansetron HCl 4 mg Q4HP PRN IV 06/16/24 20:30 06/19/24 08:35 4 MG Morphine Sulfate 2 mg Q4HPRN PRN IV 06/16/24 20:30 06/20/24 14:16 2 MG Piperacillin Sod/ Tazobactam Sod 100 ml @ 25 mls/hr Q12HR IV 06/17/24 10:00 06/20/24 12:36 25 MLS/HR Sodium Chloride 10 ml QSHIFT@10,22 IV 06/18/24 22:00 06/20/24 10:00 10 ML Linezolid 300 ml @ 150 mls/hr Q12HR IV 06/19/24 10:00 06/20/24 12:36 150 MLS/HR Micafungin Sodium 100 mg/Sodium Chloride 100 ml @ 100 mls/hr DAILY IV 06/19/24 10:00 06/20/24 14:00 100 MLS/HR Amino Acids 0 ml @ 0 mls/hr PER PHARMACY IV 06/19/24 09:45 Amino Acids/ Electrolytes/ Dextrose 1,000 ml @ 42 mls/hr DAILY@2200 IV 06/19/24 22:00 06/20/24 21:59 06/19/24 22:00 42 MLS/HR Diagnostic Test (Pha) 1 strip Q6HR 06/20/24 00:00 06/20/24 12:00 1 STRIP Insulin Human Regular FOLLOW SLIDING SCALE Q6HR SC 06/20/24 00:00 06/20/24 13:16 4 UNITS Dextrose 50 ml UD IV 06/20/24 00:00 Potassium Chloride/Dextrose/ Sod Cl 1,000 ml @ 80 mls/hr [id number] IV 06/19/24 22:00 06/20/24 12:37 80 MLS/HR Fat Emulsion Intravenous 50 ml/ Sodium Phosphate 20 meq/ Multivitamins 10 ml/Chromium/ Copper/Manganese/ Zinc 1 ml/ Purified Water 100 ml/Amino Acids/Dextrose 966 ml @ 40 mls/hr Q24H9M IV 06/20/24 22:00 06/21/24 21:59 Laboratory Results Laboratory Tests 06/20/24 04:53 Chemistry Test 06/20/24 04:53 Albumin 2.4 g/dL (3.2-4.8) L Calcium Level 8.1 mg/dL (8.7-10.4) L Magnesium Level 2.6 mg/dL (1.6-2.6) Phosphorus Level 2.7 mg/dL (2.4-5.1) Total Protein 4.3 g/dL (5.7-8.2) L Lipid panel Test 06/20/24 04:53 Triglycerides Level 115 mg/dL (< 150) LFT Test 06/20/24 04:53 Alanine Aminotransferase (ALT) < 9 U/L (7-40) Alkaline Phosphatase 89 U/L (46-116) Aspartate Amino Transferase (AST) 22 U/L (13-40) Total Bilirubin 0.3 mg/dL (0.2-1.0) Urinalysis Test 06/17/24 02:20 Urine Color Bonner (Yellow) H Urine Clarity Ex.turbid (Clear) Urine pH 5.0 (5.0-9.0) Urine Specific [place] 1.030 (1.001-1.035) Urine Protein 1+ (Negative) H Urine Ketones 1+ (Negative) H Urine Blood Negative /uL (Negative) Urine Nitrite Negative (Negative) Urine Bilirubin Negative (Negative) Urine Urobilinogen 4 mg/dL (Negative) H Urine Leukocyte Esterase Negative /uL (Negative) Urine RBC 28 /hpf (0 - 3) Urine WBC 6 /hpf (0 - 3) Urine Squamous Epithelial Cells Few /hpf (<5) Urine Bacteria Few /hpf (None Seen) H Urine Hyaline Casts Many /lpf (0 - 2) Urine Mucus Few (None Seen) Urine Glucose Normal mg/dL (Normal) Microbiology Microbiology Date/Time Source Procedure Growth Status 06/18/24 05:45 Stool Clostridium difficile Toxin Assay - Final Complete 06/17/24 10:10 Blood Blood Culture - Preliminary NO GROWTH AFTER 72 HOURS OF INCUBATION. Resulted Assessment/Plan Assessment/Plan #Sepsis secondary to colitis as well as possibly ruptured viscus- Vanco PO, Flagyl IV #Leukocytosis secondary to 1. 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
[2024-06-20] MEDS: VANCOMYCIN HCL 250 MG CAP PO SCH (18:00)
[2024-06-20] MEDS: GASTROGRAFIN 120 ML SOL ONE (19:04)
[2024-06-20] MEDS: TPN PER PHARMACY IV NR (21:59)
[2024-06-20] MEDS: CEFEPIME 1GM/ 50ML 50 ML IV SCH (22:00)
[2024-06-20] MEDS: metroNIDAZOLE 500MG/100ML 100 ML IV SCH (22:00)
--- NOTE | 2024-06-20 23:44 | DVHPN2 ---
Consult Progress Note Date Seen: Jun 20, 2024 Subjective Patient reports: Feels better (no fevers, soft abdomen, tachycardic) Objective vital signs Vital Sign Date Time Temp Pulse Resp B/P (MAP) Pulse Ox O2 Delivery O2 Flow Rate FiO2 06/20/24 21:00 97.5 108 21 111/72 (85) 98 97.5 06/20/24 20:00 Nasal Cannula* 2 28 Total Intake and Output 06/19/24 06/19/24 06/20/24 15:00 23:00 07:00 Intake Total 1360 ml 360 ml 0 ml Output Total 1100 ml 2150 ml 0 ml Balance 260 ml -1790 ml 0 ml medications Current Medications Medications Dose Ordered Sig/Carlos Route Start Time Stop Time Status Last Admin Dose Admin Vancomycin HCl 0 ml @ 0 mls/hr UD IV 06/16/24 20:30 Cancel Pantoprazole Sodium 40 mg DAILY IV 06/17/24 10:00 06/20/24 12:36 40 MG Lorazepam 0.5 mg Q6HP PRN PO 06/16/24 20:30 Acetaminophen 650 mg Q6HP PRN PO 06/16/24 20:30 Temazepam 15 mg QHSP PRN PO 06/16/24 20:30 Acetaminophen/ Hydrocodone Bitart 1 tab Q4HP PRN PO 06/16/24 20:30 Ondansetron HCl 4 mg Q4HP PRN IV 06/16/24 20:30 06/19/24 08:35 4 MG Morphine Sulfate 2 mg Q4HPRN PRN IV 06/16/24 20:30 06/20/24 14:16 2 MG Sodium Chloride 10 ml QSHIFT@10,22 IV 06/18/24 22:00 06/20/24 21:47 10 ML Micafungin Sodium 100 mg/Sodium Chloride 100 ml @ 100 mls/hr DAILY IV 06/19/24 10:00 06/20/24 14:00 100 MLS/HR Amino Acids 0 ml @ 0 mls/hr PER PHARMACY IV 06/19/24 09:45 Diagnostic Test (Pha) 1 strip Q6HR 06/20/24 00:00 06/20/24 23:42 1 STRIP Insulin Human Regular FOLLOW SLIDING SCALE Q6HR SC 06/20/24 00:00 06/20/24 17:59 2 UNITS Dextrose 50 ml UD IV 06/20/24 00:00 Potassium Chloride/Dextrose/ Sod Cl 1,000 ml @ 80 mls/hr [id number] IV 06/19/24 22:00 06/20/24 12:37 80 MLS/HR Fat Emulsion Intravenous 50 ml/ Sodium Phosphate 20 meq/ Multivitamins 10 ml/Chromium/ Copper/Manganese/ Zinc 1 ml/ Purified Water 100 ml/Amino Acids/Dextrose 966 ml @ 40 mls/hr Q24H9M IV 06/20/24 22:00 06/21/24 21:59 06/20/24 21:59 40 MLS/HR Vancomycin HCl 500 mg QID PO 06/20/24 18:00 Metronidazole 100 ml @ 100 mls/hr Q8HR IV 06/20/24 22:00 06/20/24 22:00 100 MLS/HR Cefepime HCl 50 ml @ 12.5 mls/hr Q8HR IV 06/20/24 22:00 06/20/24 22:00 12.5 MLS/HR PHYSICAL EXAM: - GENERAL: Alert and oriented x 3. No acute distress. Well-nourished. - EYES: EOMI. Anicteric. - HENT: Moist mucous membranes. No scleral icterus. No cervical lymphadenopathy. - LUNGS: Clear to auscultation bilaterally. No accessory muscle use. - CARDIOVASCULAR: Regular rate and rhythm. No murmur. No JVD. - ABDOMEN: Soft, non-tender and non-distended. No palpable masses. - EXTREMITIES: No edema. Non-tender.?SKIN: No rashes or lesions. Warm. - NEUROLOGIC: No focal neurological deficits. CN II-XII grossly intact, but not individually tested. - PSYCHIATRIC: Cooperative. Appropriate mood and affect. laboratory and microbiology Laboratory Tests 06/20/24 04:53 Test 06/20/24 04:53 Range/Units Serum Glucose 140 H 74-106 mg/dL Problem List/Assessment/Plan Problem List/Assessment/Plan ASSESSMENT AND PLAN: ID Problem List: - Colon cancer - Severe sepsis - Acute kidney injury stage 3 - Peritonitis - Colitis - Hypertension - Obesity Assessment This is a 63 y.o. obese male with a past medical history of hypertension, colon cancer status post exploratory laparotomy with sigmoid resection and colostomy on May 28, 2024, perforated bowel, and appendectomy, who presents with nausea, vomiting, increased colostomy output, feeling weak and lightheaded, and generalized abdominal pain. Denies melena. On arrival, vital signs were notable for tachycardia and hypotension, with HR 143 bpm, BP 99/67 mmHg, RR 25 breaths/min, Temp 97.6F, SpO2 99% on room air. Physical examination revealed an ill-appearing male with pale mucous membranes, dehydration, and diffuse abdominal tenderness to palpation. He has a right lower quadrant JACKIE drain with serous fluid drainage and a colostomy with liquid yellow stool. Laboratory studies revealed leukocytosis with WBC as high as 46.8, decreasing to 24.1; platelet count decreased from 602 to 198; hemoglobin 14.3; sodium 133; BUN 45; creatinine 2.49 indicating severe acute kidney injury. CT abdomen/pelvis showed increased retroperitoneal air compared to prior CT, possible defect from rectal patch such as perforation, postsurgical changes from bowel resection with left lower quadrant colostomy, mildly distended colon filled with fluid and adjacent fat stranding suggestive of colitis. MRI abdomen revealed an incompletely characterized T2 hyperintense lesion in the right hepatic dome, severe diffuse colonic wall thickening suspicious for pseudocolitis, and small to moderate free intraperitoneal air in the retroperitoneal space. Blood cultures are no growth to date; C. difficile testing is negative. Patient was started on vancomycin. small bowel series w/ contrast is identified within the colon by 2.5 hours. This represents a Mild delay in small bowel transit time. No evidence of obstruction identified. Plan: - Initiate broad-spectrum antimicrobial coverage including coverage for anaerobic organisms and fungi, recommend linezolid, Zosyn and micafungin - Defer to surgery for postoperative management and need for any additional intervention or surgery. - Monitor patient closely as he responds to antibiotic therapy. - Consider PICC line placement if hospital stay is expected to be short for outpatient IV antibiotics. - Follow up on blood cultures. Plan discussed with: Patient Dietary Evaluation Review Comments: 1) Increase TPN to meet at least 75% of estimated needs 2) Advance pt diet when medically feasible to a 2gm Sodium diet 3) Continue current plan of care Expected Outcomes/Goals: 1) Pt to receive adequate nutrition support 2) Pt diet to advance 3) F/U in 2-3 days JOSE LUIS REESE MD Jun 20, 2024 23:43
[2024-06-21] VITALS (8 sets, daily range): BP systolic 119–135; BP diastolic 64–78; PULSE 103–109; RESP 19–29; TEMP 97.6–99.2; O2SAT 98–100
[2024-06-21 06:21] LABS: Hemoglobin 11.4 g/dL (13.5-17.5); Mean Corpuscular Hgb Conc. 32.5 g/dL (32.0-36.0); Mean Corpuscular Volume 92.2 fL (80.0-100.0); Platelet Count (auto) 111 10^3/uL (140-450); Red Cell Distribution Width 17.9 % (11.8-14.3)
[2024-06-21 06:32] LABS: Anion Gap 4 (5-15); Aspartate Aminotransferase 21 U/L (13-40); BUN/Creatinine Ratio 29.9 (10.0-20.0); Carbon Dioxide 26 mmol/L (20-31); Magnesium 2.4 mg/dL (1.6-2.6); Potassium 3.9 mmol/L (3.5-5.1); Sodium 138 mmol/L (136-145)
[2024-06-21 06:33] LABS: Bilirubin, Total 0.3 mg/dL (0.2-1.0); Phosphorus 2.4 mg/dL (2.4-5.1)
[2024-06-21 06:37] LABS: Alanine Aminotransferase < 9 U/L (7-40); Albumin 2.3 g/dL (3.2-4.8); Alkaline Phosphatase 135 U/L (46-116); Blood Urea Nitrogen 26 mg/dL (9-23); Calcium 7.7 mg/dL (8.7-10.4); Chloride 108 mmol/L (98-107); Glucose 121 mg/dL (74-106); Total Protein 4.5 g/dL (5.7-8.2)
[2024-06-21 06:42] LABS: Basophils % (manual) 0 (0.0-2.0); Blast Cells 0; Metamyelocytes % 0; Myelocytes % 0; Promyelocytes % 0; Reactive Lymphocytes 0; White Blood Cell 37.1 10^3/uL (4.4-10.8)
[2024-06-21 08:24] LABS: Band Neutrophils % (manual) 8; Eosinophils % (manual) 1 (0-7); Lymphocytes % (manual) 20 (10.0-50.0); Monocytes % (manual) 8 (0-12); Platelet Estimate Decreased
--- NOTE | 2024-06-21 11:14 | DVHPN2 ---
Progress Note Date Seen: Jun 21, 2024 Medical Necessity Reason Pt with a Central, PICC or Fol: No Objective vital signs Vital Sign Date Time Temp Pulse Resp B/P (MAP) Pulse Ox O2 Delivery O2 Flow Rate FiO2 06/21/24 09:00 97.7 103 25 120/78 (92) 98 97.7 06/20/24 20:00 Nasal Cannula* 2 28 Total Intake and Output 06/20/24 06/20/24 06/21/24 15:00 23:00 07:00 Intake Total 400 ml 100 ml 150 ml Output Total 2820 ml 2319 ml Balance 400 ml -2720 ml -2169 ml medications Current Medications Medications Dose Ordered Sig/Carlos Route Start Time Stop Time Status Last Admin Dose Admin Vancomycin HCl 0 ml @ 0 mls/hr UD IV 06/16/24 20:30 Cancel Pantoprazole Sodium 40 mg DAILY IV 06/17/24 10:00 06/21/24 09:56 40 MG Lorazepam 0.5 mg Q6HP PRN PO 06/16/24 20:30 Acetaminophen 650 mg Q6HP PRN PO 06/16/24 20:30 Temazepam 15 mg QHSP PRN PO 06/16/24 20:30 Acetaminophen/ Hydrocodone Bitart 1 tab Q4HP PRN PO 06/16/24 20:30 Ondansetron HCl 4 mg Q4HP PRN IV 06/16/24 20:30 06/19/24 08:35 4 MG Morphine Sulfate 2 mg Q4HPRN PRN IV 06/16/24 20:30 06/21/24 01:53 2 MG Sodium Chloride 10 ml QSHIFT@,22 IV 06/18/24 22:00 06/21/24 09:57 10 ML Micafungin Sodium 100 mg/Sodium Chloride 100 ml @ 100 mls/hr DAILY IV 06/19/24 10:00 06/21/24 09:56 100 MLS/HR Amino Acids 0 ml @ 0 mls/hr PER PHARMACY IV 06/19/24 09:45 Diagnostic Test (Pha) 1 strip Q6HR 06/20/24 00:00 06/21/24 05:16 1 STRIP Insulin Human Regular FOLLOW SLIDING SCALE Q6HR SC 06/20/24 00:00 06/20/24 17:59 2 UNITS Dextrose 50 ml UD IV 06/20/24 00:00 Potassium Chloride/Dextrose/ Sod Cl 1,000 ml @ 80 mls/hr [id number] IV 06/19/24 22:00 06/20/24 12:37 80 MLS/HR Fat Emulsion Intravenous 50 ml/ Sodium Phosphate 20 meq/ Multivitamins 10 ml/Chromium/ Copper/Manganese/ Zinc 1 ml/ Purified Water 100 ml/Amino Acids/Dextrose 966 ml @ 40 mls/hr Q24H9M IV 06/20/24 22:00 06/21/24 21:59 06/20/24 21:59 40 MLS/HR Vancomycin HCl 500 mg QID PO 06/20/24 18:00 Metronidazole 100 ml @ 100 mls/hr Q8HR IV 06/20/24 22:00 06/21/24 06:00 100 MLS/HR Cefepime HCl 50 ml @ 12.5 mls/hr Q8HR IV 06/20/24 22:00 06/21/24 06:00 12.5 MLS/HR laboratory and microbiology Laboratory Tests 06/21/24 05:17 Test 06/21/24 05:17 Range/Units Serum Glucose 121 H 74-106 mg/dL Problem List/Assessment/Plan Problem List/Assessment/Plan 06/18/24minimal pain, has been vomiting "all night"" according to ,(NGT was ordered yesterday at 8;30 AM but was not inserted till this AM) abdomen is soft, minimally tender, stoma is viable and functioning, wound clean and well approximated, drainage serous. I mbelieve the free retropertitoneal air is residual from his operation for ruptured colon two weeks ago. will request GI consult 06/20/24 abdomen more distended, non tender, will get gastrografin small bowel series 06/21/24 gastrografin shows no evicence of bowel obstruction, stoma output increased commensurately ,abdomen non tender, wound clean without overt evidence of infection, leukocytosis worse. will dc ngt and tray clear liquids. Plan discussed with: Patient, Spouse Dietary Evaluation Review Comments: 1) Increase TPN to meet at least 75% of estimated needs 2) Advance pt diet when medically feasible to a 2gm Sodium diet 3) Continue current plan of care Expected Outcomes/Goals: 1) Pt to receive adequate nutrition support 2) Pt diet to advance 3) F/U in 2-3 days RONALD LANDA MD Jun 21, 2024 11:14
--- NOTE | 2024-06-21 16:57 | DVHPN2 ---
Subjective Seen and examined at bedside, spouse at bedside. DC NGT. Start Clear Liquid Reviewed: Care Plan Changes from previous H/P or p: No Changes Eyes: No Pain, No Vision change, No Conjunctivae inflammation, No Eyelid inflammation, No Other, No Redness ENT: No Ear pain, No Ear discharge, No Nose pain, No Nose discharge, No Nose congestion, No Mouth pain, No Mouth swelling, No Throat pain, No Throat swelling, No Other Cardiovascular: No Chest Pain, No Palpitations, No Orthopnea, No Paroxysmal Noc. Dyspnea, No Edema, No Lt Headedness, No Other Respiratory: No Cough, No Dry, No Shortness of breath, No SOB with excertion, No Wheezing, No Hemoptysis, No Pleuritic Pain, No Sputum, No Other Gastrointestinal: Abdominal Pain; No Diarrhea, No Constipation, No Melena, No Hematochezia, No Other Genitourinary: No Dysuria, No Frequency, No Incontinence, No Hematuria, No Retention, No Other Musculoskeletal: No other, No neck pain, No shoulder pain, No arm pain, No back pain, No hand pain, No leg pain, No foot pain Skin: No Rash, No Lesions, No Jaundice, No Bruising, No Other Objective Vitals Vital Signs Date Time Temp Pulse Resp B/P (MAP) Pulse Ox O2 Delivery O2 Flow Rate FiO2 06/21/24 13:00 99.2 105 24 132/78 (96) 100 99.2 06/21/24 07:30 Nasal Cannula* 3 32 Intake/Output Intake and Output 06/21/24 07:00 Intake Total 650 ml Output Total 5139 ml Balance -4489 ml Intake Oral 0 ml IV Total 650 ml Output Urine Total 2300 ml Stool Total 2290 ml Gastric Drainage Total 150 ml Drainage Total 399 ml General Appearance: Alert, Oriented X3, Cooperative, No acute distress, Other (NGT in place) HEENT: Atraumatic, PERRLA Lungs: Clear to auscultation Cardiovascular: Regular rate, Normal S1, Normal S2 Abdomen: Other (soft slightly tender with colostomy no rebound or guarding) Psych/Mental Status: Mental status NL Medications Current Medications Medications Dose Ordered Sig/Carlos Route Start Time Stop Time Status Last Admin Dose Admin Vancomycin HCl 0 ml @ 0 mls/hr UD IV 06/16/24 20:30 Cancel Pantoprazole Sodium 40 mg DAILY IV 06/17/24 10:00 06/21/24 09:56 40 MG Lorazepam 0.5 mg Q6HP PRN PO 06/16/24 20:30 Acetaminophen 650 mg Q6HP PRN PO 06/16/24 20:30 Temazepam 15 mg QHSP PRN PO 06/16/24 20:30 Acetaminophen/ Hydrocodone Bitart 1 tab Q4HP PRN PO 06/16/24 20:30 Ondansetron HCl 4 mg Q4HP PRN IV 06/16/24 20:30 06/19/24 08:35 4 MG Morphine Sulfate 2 mg Q4HPRN PRN IV 06/16/24 20:30 06/21/24 01:53 2 MG Sodium Chloride 10 ml QSHIFT@,22 IV 06/18/24 22:00 06/21/24 09:57 10 ML Micafungin Sodium 100 mg/Sodium Chloride 100 ml @ 100 mls/hr DAILY IV 06/19/24 10:00 06/21/24 09:56 100 MLS/HR Amino Acids 0 ml @ 0 mls/hr PER PHARMACY IV 06/19/24 09:45 Diagnostic Test (Pha) 1 strip Q6HR 06/20/24 00:00 06/21/24 12:00 1 STRIP Insulin Human Regular FOLLOW SLIDING SCALE Q6HR SC 06/20/24 00:00 06/21/24 12:56 2 UNITS Dextrose 50 ml UD IV 06/20/24 00:00 Potassium Chloride/Dextrose/ Sod Cl 1,000 ml @ 80 mls/hr [id number] IV 06/19/24 22:00 06/20/24 12:37 80 MLS/HR Fat Emulsion Intravenous 50 ml/ Sodium Phosphate 20 meq/ Multivitamins 10 ml/Chromium/ Copper/Manganese/ Zinc 1 ml/ Purified Water 100 ml/Amino Acids/Dextrose 966 ml @ 40 mls/hr Q24H9M IV 06/20/24 22:00 06/21/24 21:59 06/20/24 21:59 40 MLS/HR Metronidazole 100 ml @ 100 mls/hr Q8HR IV 06/20/24 22:00 06/21/24 14:05 100 MLS/HR Cefepime HCl 50 ml @ 12.5 mls/hr Q8HR IV 06/20/24 22:00 06/21/24 14:05 12.5 MLS/HR Fat Emulsion Intravenous 50 ml/ Sodium Phosphate 20 meq/Potassium Phosphate 11 meq/ Calcium Gluconate 4.65 meq/ Magnesium Sulfate 4 meq/ Multivitamins 10 ml/Chromium/ Copper/Manganese/ Zinc 1 ml/Amino Acids/Dextrose/ Purified Water 1,079.5 ml @ 45 mls/hr Q24H IV 06/21/24 22:00 06/22/24 21:59 Doxycycline Hyclate 250 ml @ 125 mls/hr Q12H IV 06/21/24 16:30 Laboratory Results Laboratory Tests 06/21/24 05:17 Chemistry Test 06/21/24 05:17 Albumin 2.3 g/dL (3.2-4.8) L Calcium Level 7.7 mg/dL (8.7-10.4) L Magnesium Level 2.4 mg/dL (1.6-2.6) Phosphorus Level 2.4 mg/dL (2.4-5.1) Total Protein 4.5 g/dL (5.7-8.2) L LFT Test 06/21/24 05:17 Alanine Aminotransferase (ALT) < 9 U/L (7-40) Alkaline Phosphatase 135 U/L (46-116) H Aspartate Amino Transferase (AST) 21 U/L (13-40) Total Bilirubin 0.3 mg/dL (0.2-1.0) Urinalysis Test 06/17/24 02:20 Urine Color [place] (Yellow) H Urine Clarity Ex.turbid (Clear) Urine pH 5.0 (5.0-9.0) Urine Specific Romeo 1.030 (1.001-1.035) Urine Protein 1+ (Negative) H Urine Ketones 1+ (Negative) H Urine Blood Negative /uL (Negative) Urine Nitrite Negative (Negative) Urine Bilirubin Negative (Negative) Urine Urobilinogen 4 mg/dL (Negative) H Urine Leukocyte Esterase Negative /uL (Negative) Urine RBC 28 /hpf (0 - 3) Urine WBC 6 /hpf (0 - 3) Urine Squamous Epithelial Cells Few /hpf (<5) Urine Bacteria Few /hpf (None Seen) H Urine Hyaline Casts Many /lpf (0 - 2) Urine Mucus Few (None Seen) Urine Glucose Normal mg/dL (Normal) Microbiology Microbiology Date/Time Source Procedure Growth Status 06/18/24 05:45 Stool Clostridium difficile Toxin Assay - Final Complete 06/17/24 10:10 Blood Blood Culture - Preliminary NO GROWTH AFTER 72 HOURS OF INCUBATION. Resulted Assessment/Plan Assessment/Plan #Sepsis secondary to colitis as well as possibly ruptured viscus- Vanco PO, Flagyl IV #Leukocytosis secondary to 1. 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 with resection of rectosigmoid colon, resection of cancer, descending colon colostomy #Cdiff colitis- Vanco PO #SBO- Surgical consult Plan discussed with: Patient, Spouse My Orders Orders - SUDHIR CHADWICK MD Procedure Category Date Status Time Metronidazole PHA 06/20/24 In Process 500mg/100ml (Flagyl 22:00 Cefepime 1gm/ 50ml PHA 06/20/24 In Process (Maxipime 1gm/50ml) 22:00 Discontinue Tele OLIVIA 06/20/24 In Process 17:17 Pt Request For Service PT 06/21/24 Logged 14:23 Complete Blood Count LAB 06/22/24 Verified 04:00 Basic Metabolic Panel LAB 06/22/24 Verified 04:00 Dietary Cons For NOURISH 06/21/24 Verified Malnutrition 16:56 Date of Service: Jun 21, 2024 Billing Provider: SUDHIR CHADWICK MD Common Visit Codes: [id number] INP/OBS CARE(HIGH) SUDHIR CHADWICK MD Jun 21, 2024 16:57
[2024-06-21] MEDS: DOXYCYCLINE 100MG/250ML 250 ML IV SCH (17:45)
--- NOTE | 2024-06-21 18:24 | DVHPN2 ---
Progress Note - Dictate Date Seen: Jun 21, 2024 Medical Necessity Reason Pt with a Central, PICC or Fol: No Subjective Small-bowel follow-through showed mild ileus Patient is having increased output in the colostomy No nausea vomiting reported\ Patient does have persistent worsening leukocytosis vital signs Vital Sign Date Time Temp Pulse Resp B/P (MAP) Pulse Ox O2 Delivery O2 Flow Rate FiO2 06/21/24 17:00 97.6 109 29 135/78 (97) 100 97.6 06/21/24 07:30 Nasal Cannula* 3 32 Total Intake and Output 06/20/24 06/20/24 06/21/24 15:00 23:00 07:00 Intake Total 400 ml 100 ml 150 ml Output Total 2820 ml 2319 ml Balance 400 ml -2720 ml -2169 ml medications Current Medications Medications Dose Ordered Sig/Carlos Route Start Time Stop Time Status Last Admin Dose Admin Vancomycin HCl 0 ml @ 0 mls/hr UD IV 06/16/24 20:30 Cancel Pantoprazole Sodium 40 mg DAILY IV 06/17/24 10:00 06/21/24 09:56 40 MG Lorazepam 0.5 mg Q6HP PRN PO 06/16/24 20:30 Acetaminophen 650 mg Q6HP PRN PO 06/16/24 20:30 Temazepam 15 mg QHSP PRN PO 06/16/24 20:30 Acetaminophen/ Hydrocodone Bitart 1 tab Q4HP PRN PO 06/16/24 20:30 Ondansetron HCl 4 mg Q4HP PRN IV 06/16/24 20:30 06/19/24 08:35 4 MG Morphine Sulfate 2 mg Q4HPRN PRN IV 06/16/24 20:30 06/21/24 01:53 2 MG Sodium Chloride 10 ml QSHIFT@10,22 IV 06/18/24 22:00 06/21/24 09:57 10 ML Micafungin Sodium 100 mg/Sodium Chloride 100 ml @ 100 mls/hr DAILY IV 06/19/24 10:00 06/21/24 09:56 100 MLS/HR Amino Acids 0 ml @ 0 mls/hr PER PHARMACY IV 06/19/24 09:45 Diagnostic Test (Pha) 1 strip Q6HR 06/20/24 00:00 06/21/24 18:13 1 STRIP Insulin Human Regular FOLLOW SLIDING SCALE Q6HR SC 06/20/24 00:00 06/21/24 18:14 2 UNITS Dextrose 50 ml UD IV 06/20/24 00:00 Potassium Chloride/Dextrose/ Sod Cl 1,000 ml @ 80 mls/hr [id number] IV 06/19/24 22:00 06/20/24 12:37 80 MLS/HR Fat Emulsion Intravenous 50 ml/ Sodium Phosphate 20 meq/ Multivitamins 10 ml/Chromium/ Copper/Manganese/ Zinc 1 ml/ Purified Water 100 ml/Amino Acids/Dextrose 966 ml @ 40 mls/hr Q24H9M IV 06/20/24 22:00 06/21/24 21:59 06/20/24 21:59 40 MLS/HR Metronidazole 100 ml @ 100 mls/hr Q8HR IV 06/20/24 22:00 06/21/24 14:05 100 MLS/HR Cefepime HCl 50 ml @ 12.5 mls/hr Q8HR IV 06/20/24 22:00 06/21/24 14:05 12.5 MLS/HR Fat Emulsion Intravenous 50 ml/ Sodium Phosphate 20 meq/Potassium Phosphate 11 meq/ Calcium Gluconate 4.65 meq/ Magnesium Sulfate 4 meq/ Multivitamins 10 ml/Chromium/ Copper/Manganese/ Zinc 1 ml/Amino Acids/Dextrose/ Purified Water 1,079.5 ml @ 45 mls/hr Q24H IV 06/21/24 22:00 06/22/24 21:59 Doxycycline Hyclate 250 ml @ 125 mls/hr Q12H IV 06/21/24 16:30 06/21/24 17:45 125 MLS/HR objective General Appearance: Alert, Oriented X3, Cooperative, moderate distress HEENT: Atraumatic, PERRLA, EOMI Respiratory: Clear to auscultation, Normal air movement Cardiovascular: Regular rate, Normal S1, Normal S2 Abdominal: Normal bowel sounds, Soft, mild distention, mild tenderness Left lower quadrant colostomy functional Extremities: No clubbing, No cyanosis, No edema Skin: No rashes, No breakdown Neuro: Normal gait, Normal speech Psych/Mental Status: Mood NL laboratory and microbiology Laboratory Tests 06/21/24 05:17 Test 06/21/24 05:17 Range/Units Serum Glucose 121 H 74-106 mg/dL Problems(with codes): (1) Rectosigmoid cancer (2) C. difficile colitis (3) Abdominal pain with vomiting and history of abdominal surgery Prognosis Plan NG tube was discontinued Patient is started on clear liquids Continue oral vancomycin Monitor labs Prognosis remains guarded Monitor labs and patient's clinical progress Dietary Evaluation Review Comments: 1) Increase TPN to meet at least 75% of estimated needs 2) Advance pt diet when medically feasible to a 2gm Sodium diet 3) Continue current plan of care Expected Outcomes/Goals: 1) Pt to receive adequate nutrition support 2) Pt diet to advance 3) F/U in 2-3 days Plan discussed with: Other (None) MARCIA MARINA MD Jun 21, 2024 18:24
--- NOTE | 2024-06-21 21:43 | DVHPN2 ---
Consult Progress Note Date Seen: Jun 21, 2024 Subjective Patient reports: Other (switched over the clear liquid diet and tolerating without any abdominal pain , drain output of 400ccs ) Objective vital signs Vital Sign Date Time Temp Pulse Resp B/P (MAP) Pulse Ox O2 Delivery O2 Flow Rate FiO2 06/21/24 17:00 97.6 109 29 135/78 (97) 100 97.6 06/21/24 07:30 Nasal Cannula* 3 32 Total Intake and Output 06/20/24 06/20/24 06/21/24 15:00 23:00 07:00 Intake Total 400 ml 100 ml 150 ml Output Total 2820 ml 2319 ml Balance 400 ml -2720 ml -2169 ml medications Current Medications Medications Dose Ordered Sig/Carlos Route Start Time Stop Time Status Last Admin Dose Admin Vancomycin HCl 0 ml @ 0 mls/hr UD IV 06/16/24 20:30 Cancel Pantoprazole Sodium 40 mg DAILY IV 06/17/24 10:00 06/21/24 09:56 40 MG Lorazepam 0.5 mg Q6HP PRN PO 06/16/24 20:30 Acetaminophen 650 mg Q6HP PRN PO 06/16/24 20:30 Temazepam 15 mg QHSP PRN PO 06/16/24 20:30 Acetaminophen/ Hydrocodone Bitart 1 tab Q4HP PRN PO 06/16/24 20:30 Ondansetron HCl 4 mg Q4HP PRN IV 06/16/24 20:30 06/19/24 08:35 4 MG Morphine Sulfate 2 mg Q4HPRN PRN IV 06/16/24 20:30 06/21/24 01:53 2 MG Sodium Chloride 10 ml QSHIFT@10,22 IV 06/18/24 22:00 06/21/24 09:57 10 ML Micafungin Sodium 100 mg/Sodium Chloride 100 ml @ 100 mls/hr DAILY IV 06/19/24 10:00 06/21/24 09:56 100 MLS/HR Amino Acids 0 ml @ 0 mls/hr PER PHARMACY IV 06/19/24 09:45 Diagnostic Test (Pha) 1 strip Q6HR 06/20/24 00:00 06/21/24 18:13 1 STRIP Insulin Human Regular FOLLOW SLIDING SCALE Q6HR SC 06/20/24 00:00 06/21/24 18:14 2 UNITS Dextrose 50 ml UD IV 06/20/24 00:00 Potassium Chloride/Dextrose/ Sod Cl 1,000 ml @ 80 mls/hr [id number] IV 06/19/24 22:00 06/20/24 12:37 80 MLS/HR Fat Emulsion Intravenous 50 ml/ Sodium Phosphate 20 meq/ Multivitamins 10 ml/Chromium/ Copper/Manganese/ Zinc 1 ml/ Purified Water 100 ml/Amino Acids/Dextrose 966 ml @ 40 mls/hr Q24H9M IV 06/20/24 22:00 06/21/24 21:59 06/20/24 21:59 40 MLS/HR Metronidazole 100 ml @ 100 mls/hr Q8HR IV 06/20/24 22:00 06/21/24 14:05 100 MLS/HR Cefepime HCl 50 ml @ 12.5 mls/hr Q8HR IV 06/20/24 22:00 06/21/24 14:05 12.5 MLS/HR Fat Emulsion Intravenous 50 ml/ Sodium Phosphate 20 meq/Potassium Phosphate 11 meq/ Calcium Gluconate 4.65 meq/ Magnesium Sulfate 4 meq/ Multivitamins 10 ml/Chromium/ Copper/Manganese/ Zinc 1 ml/Amino Acids/Dextrose/ Purified Water 1,079.5 ml @ 45 mls/hr Q24H IV 06/21/24 22:00 06/22/24 21:59 Doxycycline Hyclate 250 ml @ 125 mls/hr Q12H IV 06/21/24 16:30 06/21/24 17:45 125 MLS/HR Physical Exam: General: Ill-appearing. Neck: Supple. No masses. HEENT: Pale mucous membranes. Normal lids and conjunctiva. Oropharynx without lesions, exudates, or excessive erythema. Normal appearance of the external aspects of the nose and ears. Heart: Tachycardic. Regular rhythm. No murmur. No lower extremity edema. Lungs: Normal respiratory effort. Clear to auscultation bilaterally. No wheezes. No crackles. Abdomen: Diffuse abdominal tenderness to palpation. Right lower quadrant JACKIE drain with serous fluid drainage. Colostomy with liquid yellow stool. Msk: No digital cyanosis. Normal strength and tone in all 4 limbs. Skin: Warm and dry, no rashes. Neuro: Alert. No facial droop or slurred speech. Extra-ocular movements intact. Sensation intact to soft touch in all 4 limbs. Psych: Appropriate mood. Full affect. Oriented to person, place, time, and situation. laboratory and microbiology Laboratory Tests 06/21/24 05:17 Test 06/21/24 05:17 Range/Units Serum Glucose 121 H 74-106 mg/dL Problem List/Assessment/Plan Problems(with codes): (1) Rectosigmoid cancer (2) C. difficile colitis (3) Rectal perforation (4) Acute kidney injury (5) Sepsis (6) Colitis (7) Abdominal pain with vomiting and history of abdominal surgery (8) Postoperative pain (9) Medication refill (10) Lumbar strain Problem List/Assessment/Plan ASSESSMENT AND PLAN: ID Problem List: - Colon cancer - Severe sepsis - Acute kidney injury stage 3 - Peritonitis - Colitis - Hypertension - Obesity Assessment This is a 63 y.o. obese male with a past medical history of hypertension, colon cancer status post exploratory laparotomy with sigmoid resection and colostomy on May 28, 2024, perforated bowel, and appendectomy, who presents with nausea, vomiting, increased colostomy output, feeling weak and lightheaded, and generalized abdominal pain. Denies melena. On arrival, vital signs were notable for tachycardia and hypotension, with HR 143 bpm, BP 99/67 mmHg, RR 25 breaths/min, Temp 97.6F, SpO2 99% on room air. Physical examination revealed an ill-appearing male with pale mucous membranes, dehydration, and diffuse abdominal tenderness to palpation. He has a right lower quadrant JACKIE drain with serous fluid drainage and a colostomy with liquid yellow stool. Laboratory studies revealed leukocytosis with WBC as high as 46.8, decreasing to 24.1; platelet count decreased from 602 to 198; hemoglobin 14.3; sodium 133; BUN 45; creatinine 2.49 indicating severe acute kidney injury. CT abdomen/pelvis showed increased retroperitoneal air compared to prior CT, possible defect from rectal patch such as perforation, postsurgical changes from bowel resection with left lower quadrant colostomy, mildly distended colon filled with fluid and adjacent fat stranding suggestive of colitis. MRI abdomen revealed an incompletely characterized T2 hyperintense lesion in the right hepatic dome, severe diffuse colonic wall thickening suspicious for pseudocolitis, and small to moderate free intraperitoneal air in the retroperitoneal space. Blood cultures are no growth to date; C. difficile testing is negative. Patient was started on vancomycin. small bowel series w/ contrast is identified within the colon by 2.5 hours. This represents a Mild delay in small bowel transit time. No evidence of obstruction identified. 06/21: Leukocytosis is rising , unclear ideology , continue to monitor closely . Patient stopped linazolid due to dropping platelets Plan: - Continue Cefapine and flagell and micafungin - Defer to surgery for postoperative management and need for any additional intervention or surgery. - Monitor patient closely as he responds to antibiotic therapy. - Consider PICC line placement if hospital stay is expected to be short for outpatient IV antibiotics. - Follow up on blood cultures. Plan discussed with: Other Dietary Evaluation Review Comments: 1) Increase TPN to meet at least 75% of estimated needs 2) Advance pt diet when medically feasible to a 2gm Sodium diet 3) Continue current plan of care Expected Outcomes/Goals: 1) Pt to receive adequate nutrition support 2) Pt diet to advance 3) F/U in 2-3 days JOSE LUIS REESE MD Jun 21, 2024 21:42
[2024-06-21] MEDS: FAT EMULSION IV NR (21:54)
[2024-06-21] MEDS: SODIUM PHOSPHATES IV NR (21:54)
[2024-06-21] MEDS: [UNRECOGNIZED DRUG - OTHER] IV NR (21:54)
[2024-06-21] MEDS: POTASSIUM PHOSPHATE IV NR (21:54)
[2024-06-22] VITALS (8 sets, daily range): BP systolic 122–142; BP diastolic 66–80; PULSE 99–105; RESP 14–22; TEMP 97.8–98.6; O2SAT 91–100
[2024-06-22 06:51] LABS: Basophils # (auto) 0 10 ^3/uL (0-0.2); Basophils % (auto) 0.1 % (0.0-2.0); Eosinophils # (auto) 0.3 10 ^3/uL (0-0.8); Hematocrit 35.3 % (41.0-53.0); Monocytes # (auto) 3.3 10 ^3/uL (0-1.3); Platelet Count (auto) 130 10^3/uL (140-450)
[2024-06-22 06:52] LABS: Eosinophils % (auto) 0.8 % (0.0-7.0); Hemoglobin 11.4 g/dL (13.5-17.5); Lymphocytes # (auto) 2.3 10 ^3/uL (0.4-5.4); Lymphocytes % (auto) 7.2 % (10.0-50.0); Mean Corpuscular Hemoglobin 29.5 pg (28.0-32.0); Mean Corpuscular Hgb Conc. 32.5 g/dL (32.0-36.0); Mean Corpuscular Volume 90.8 fL (80.0-100.0); Monocytes % (auto) 10.3 % (0.0-12.0); Neutrophils # (auto) 26.1 10 ^3/uL (1.6-8.6); Neutrophils % (auto) 81.6 % (37.0-80.0); Nucleated Red Blood Cells % 0.4 %; Red Blood Cells 3.88 10^6/uL (4.5-5.90); Red Cell Distribution Width 18.1 % (11.8-14.3)
[2024-06-22 06:56] LABS: Anion Gap 9 (5-15); Carbon Dioxide 24 mmol/L (20-31); Chloride 106 mmol/L (98-107); Potassium 3.5 mmol/L (3.5-5.1); Sodium 139 mmol/L (136-145)
[2024-06-22 07:01] LABS: Calcium 7.7 mg/dL (8.7-10.4)
[2024-06-22 07:02] LABS: BUN/Creatinine Ratio 38.6 (10.0-20.0); Blood Urea Nitrogen 22 mg/dL (9-23)
[2024-06-22 07:08] LABS: Glucose 116 mg/dL (74-106)
[2024-06-22] MEDS: DOXYCYCLINE 100MG/250ML 250 ML IV SCH (08:53)
[2024-06-22 10:17] LABS: Magnesium 2.3 mg/dL (1.6-2.6)
--- NOTE | 2024-06-22 10:22 | DVHPN2 ---
Progress Note Date Seen: Jun 22, 2024 Medical Necessity Reason Pt with a Central, PICC or Fol: No Objective vital signs Vital Sign Date Time Temp Pulse Resp B/P (MAP) Pulse Ox O2 Delivery O2 Flow Rate FiO2 06/22/24 09:00 98.6 103 14 133/75 (94) 98 98.6 06/22/24 08:10 Nasal Cannula* 3 32 Total Intake and Output 06/21/24 06/21/24 06/22/24 15:00 23:00 07:00 Intake Total 250 ml 1030 ml 500 ml Output Total 1375 ml 1275 ml Balance 250 ml -345 ml -775 ml medications Current Medications Medications Dose Ordered Sig/Carlos Route Start Time Stop Time Status Last Admin Dose Admin Vancomycin HCl 0 ml @ 0 mls/hr UD IV 06/16/24 20:30 Cancel Pantoprazole Sodium 40 mg DAILY IV 06/17/24 10:00 06/22/24 09:01 40 MG Lorazepam 0.5 mg Q6HP PRN PO 06/16/24 20:30 Acetaminophen 650 mg Q6HP PRN PO 06/16/24 20:30 Temazepam 15 mg QHSP PRN PO 06/16/24 20:30 Acetaminophen/ Hydrocodone Bitart 1 tab Q4HP PRN PO 06/16/24 20:30 Ondansetron HCl 4 mg Q4HP PRN IV 06/16/24 20:30 06/19/24 08:35 4 MG Morphine Sulfate 2 mg Q4HPRN PRN IV 06/16/24 20:30 06/21/24 01:53 2 MG Sodium Chloride 10 ml QSHIFT@10,22 IV 06/18/24 22:00 06/22/24 09:04 10 ML Micafungin Sodium 100 mg/Sodium Chloride 100 ml @ 100 mls/hr DAILY IV 06/19/24 10:00 06/21/24 09:56 100 MLS/HR Amino Acids 0 ml @ 0 mls/hr PER PHARMACY IV 06/19/24 09:45 Diagnostic Test (Pha) 1 strip Q6HR 06/20/24 00:00 06/22/24 06:53 1 STRIP Insulin Human Regular FOLLOW SLIDING SCALE Q6HR SC 06/20/24 00:00 06/22/24 06:00 2 UNITS Dextrose 50 ml UD IV 06/20/24 00:00 Potassium Chloride/Dextrose/ Sod Cl 1,000 ml @ 80 mls/hr [id number] IV 06/19/24 22:00 06/20/24 12:37 80 MLS/HR Metronidazole 100 ml @ 100 mls/hr Q8HR IV 06/20/24 22:00 06/22/24 06:53 100 MLS/HR Cefepime HCl 50 ml @ 12.5 mls/hr Q8HR IV 06/20/24 22:00 06/22/24 06:57 12.5 MLS/HR Fat Emulsion Intravenous 50 ml/ Sodium Phosphate 20 meq/Potassium Phosphate 11 meq/ Calcium Gluconate 4.65 meq/ Magnesium Sulfate 4 meq/ Multivitamins 10 ml/Chromium/ Copper/Manganese/ Zinc 1 ml/Amino Acids/Dextrose/ Purified Water 1,079.5 ml @ 45 mls/hr Q24H IV 06/21/24 22:00 06/22/24 21:59 06/21/24 21:54 45 MLS/HR Doxycycline Hyclate 250 ml @ 125 mls/hr Q12H IV 06/22/24 08:00 06/22/24 08:53 125 MLS/HR laboratory and microbiology Laboratory Tests 06/22/24 05:32 Test 06/22/24 05:32 Range/Units Serum Glucose 116 H 74-106 mg/dL Problem List/Assessment/Plan Problem List/Assessment/Plan 06/18/24minimal pain, has been vomiting "all night"" according to ,(NGT was ordered yesterday at 8;30 AM but was not inserted till this AM) abdomen is soft, minimally tender, stoma is viable and functioning, wound clean and well approximated, drainage serous. I mbelieve the free retropertitoneal air is residual from his operation for ruptured colon two weeks ago. will request GI consult 06/20/24 abdomen more distended, non tender, will get gastrografin small bowel series 06/21/24 gastrografin shows no evicence of bowel obstruction, stoma output increased commensurately ,abdomen non tender, wound clean without overt evidence of infection, leukocytosis worse. will dc ngt and tray clear liquids. 06/22/24 denies pain orm discomfort, denies nausea, afebrile, wound emil removed, wound well approximated. WBC slightly better. will change flagyl to PO. Plan discussed with: Patient Dietary Evaluation Review Comments: 1) Increase TPN to meet at least 75% of estimated needs 2) Advance pt diet when medically feasible to a 2gm Sodium diet 3) Continue current plan of care Expected Outcomes/Goals: 1) Pt to receive adequate nutrition support 2) Pt diet to advance 3) F/U in 2-3 days RONALD LANDA MD Jun 22, 2024 10:22
[2024-06-22 10:29] LABS: Albumin 2.1 g/dL (3.2-4.8)
--- NOTE | 2024-06-22 11:11 | DVHPN2 ---
Subjective The patient seen and examined at bedside. Still has lots of abdominal pain. No fever or chills. Reviewed: Care Plan Changes from previous H/P or p: No Changes Eyes: No Pain, No Vision change, No Conjunctivae inflammation, No Eyelid inflammation, No Other, No Redness ENT: No Ear pain, No Ear discharge, No Nose pain, No Nose discharge, No Nose congestion, No Mouth pain, No Mouth swelling, No Throat pain, No Throat swelling, No Other Cardiovascular: No Chest Pain, No Palpitations, No Orthopnea, No Paroxysmal Noc. Dyspnea, No Edema, No Lt Headedness, No Other Respiratory: No Cough, No Dry, No Shortness of breath, No SOB with excertion, No Wheezing, No Hemoptysis, No Pleuritic Pain, No Sputum, No Other Gastrointestinal: Abdominal Pain; No Diarrhea, No Constipation, No Melena, No Hematochezia, No Other Genitourinary: No Dysuria, No Frequency, No Incontinence, No Hematuria, No Retention, No Other Musculoskeletal: No other, No neck pain, No shoulder pain, No arm pain, No back pain, No hand pain, No leg pain, No foot pain Skin: No Rash, No Lesions, No Jaundice, No Bruising, No Other Objective Vitals Vital Signs Date Time Temp Pulse Resp B/P (MAP) Pulse Ox O2 Delivery O2 Flow Rate FiO2 06/22/24 09:00 98.6 103 14 133/75 (94) 98 98.6 06/22/24 08:10 Nasal Cannula* 3 32 Intake/Output Intake and Output 06/22/24 07:00 Intake Total 1780 ml Output Total 2650 ml Balance -870 ml Intake Oral 900 ml IV Total 880 ml Output Urine Total 950 ml Stool Total 1625 ml Gastric Drainage Total 75 ml General Appearance: Alert, Oriented X3, Cooperative, No acute distress, Other (NGT in place) HEENT: Atraumatic, PERRLA Lungs: Clear to auscultation Cardiovascular: Regular rate, Normal S1, Normal S2 Abdomen: Other (soft slightly tender with colostomy no rebound or guarding) Psych/Mental Status: Mental status NL Medications Current Medications Medications Dose Ordered Sig/Carlos Route Start Time Stop Time Status Last Admin Dose Admin Vancomycin HCl 0 ml @ 0 mls/hr UD IV 06/16/24 20:30 Cancel Pantoprazole Sodium 40 mg DAILY IV 06/17/24 10:00 06/22/24 09:01 40 MG Lorazepam 0.5 mg Q6HP PRN PO 06/16/24 20:30 Acetaminophen 650 mg Q6HP PRN PO 06/16/24 20:30 Temazepam 15 mg QHSP PRN PO 06/16/24 20:30 Acetaminophen/ Hydrocodone Bitart 1 tab Q4HP PRN PO 06/16/24 20:30 Ondansetron HCl 4 mg Q4HP PRN IV 06/16/24 20:30 06/19/24 08:35 4 MG Morphine Sulfate 2 mg Q4HPRN PRN IV 06/16/24 20:30 06/21/24 01:53 2 MG Sodium Chloride 10 ml QSHIFT@10,22 IV 06/18/24 22:00 06/22/24 09:04 10 ML Amino Acids 0 ml @ 0 mls/hr PER PHARMACY IV 06/19/24 09:45 Diagnostic Test (Pha) 1 strip Q6HR 06/20/24 00:00 06/22/24 06:53 1 STRIP Insulin Human Regular FOLLOW SLIDING SCALE Q6HR SC 06/20/24 00:00 06/22/24 06:00 2 UNITS Dextrose 50 ml UD IV 06/20/24 00:00 Potassium Chloride/Dextrose/ Sod Cl 1,000 ml @ 80 mls/hr [id number] IV 06/19/24 22:00 06/20/24 12:37 80 MLS/HR Metronidazole 100 ml @ 100 mls/hr Q8HR IV 06/20/24 22:00 06/22/24 06:53 100 MLS/HR Cefepime HCl 50 ml @ 12.5 mls/hr Q8HR IV 06/20/24 22:00 06/22/24 06:57 12.5 MLS/HR Fat Emulsion Intravenous 50 ml/ Sodium Phosphate 20 meq/Potassium Phosphate 11 meq/ Calcium Gluconate 4.65 meq/ Magnesium Sulfate 4 meq/ Multivitamins 10 ml/Chromium/ Copper/Manganese/ Zinc 1 ml/Amino Acids/Dextrose/ Purified Water 1,079.5 ml @ 45 mls/hr Q24H IV 06/21/24 22:00 06/22/24 21:59 06/21/24 21:54 45 MLS/HR Doxycycline Hyclate 250 ml @ 125 mls/hr Q12H IV 06/22/24 08:00 06/22/24 08:53 125 MLS/HR Metronidazole 500 mg Q8HR PO 06/22/24 14:00 Laboratory Results Laboratory Tests 06/22/24 05:32 Chemistry Test 06/22/24 05:32 Albumin 2.1 g/dL (3.2-4.8) L Calcium Level 7.7 mg/dL (8.7-10.4) L Magnesium Level 2.3 mg/dL (1.6-2.6) Phosphorus Level 3.0 mg/dL (2.4-5.1) Urinalysis Test 06/17/24 02:20 Urine Color [place] (Yellow) H Urine Clarity Ex.turbid (Clear) Urine pH 5.0 (5.0-9.0) Urine Specific [place] 1.030 (1.001-1.035) Urine Protein 1+ (Negative) H Urine Ketones 1+ (Negative) H Urine Blood Negative /uL (Negative) Urine Nitrite Negative (Negative) Urine Bilirubin Negative (Negative) Urine Urobilinogen 4 mg/dL (Negative) H Urine Leukocyte Esterase Negative /uL (Negative) Urine RBC 28 /hpf (0 - 3) Urine WBC 6 /hpf (0 - 3) Urine Squamous Epithelial Cells Few /hpf (<5) Urine Bacteria Few /hpf (None Seen) H Urine Hyaline Casts Many /lpf (0 - 2) Urine Mucus Few (None Seen) Urine Glucose Normal mg/dL (Normal) Microbiology Microbiology Date/Time Source Procedure Growth Status 06/18/24 05:45 Stool Clostridium difficile Toxin Assay - Final Complete 06/17/24 10:10 Blood Blood Culture - Final NO GROWTH AFTER 5 DAYS OF INCUBATION. Complete Labs and/or images reviewed: Labs reviewed by me Assessment/Plan Assessment/Plan #Sepsis secondary to colitis as well as possibly ruptured viscus- Continue Vancomycin PO, Flagyl IV #Leukocytosis secondary to 1. 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
[2024-06-22] MEDS: metroNIDAZOLE 500 MG TAB PO SCH (14:09)
--- NOTE | 2024-06-22 16:04 | DVHPN2 ---
Progress Note - Dictate Date Seen: Jun 22, 2024 Medical Necessity Reason Pt with a Central, PICC or Fol: No Subjective Patient seen at bedside Resting comfortably Abdominal pain is improved There was no nausea vomiting Patient is tolerating a clear liquid diet vital signs Vital Sign Date Time Temp Pulse Resp B/P (MAP) Pulse Ox O2 Delivery O2 Flow Rate FiO2 06/22/24 13:24 98.1 99 14 142/73 (96) 98 98.1 06/22/24 08:10 Nasal Cannula* 3 32 Total Intake and Output 06/21/24 06/21/24 06/22/24 15:00 23:00 07:00 Intake Total 250 ml 1030 ml 500 ml Output Total 1375 ml 1275 ml Balance 250 ml -345 ml -775 ml medications Current Medications Medications Dose Ordered Sig/Carlos Route Start Time Stop Time Status Last Admin Dose Admin Vancomycin HCl 0 ml @ 0 mls/hr UD IV 06/16/24 20:30 Cancel Pantoprazole Sodium 40 mg DAILY IV 06/17/24 10:00 06/22/24 09:01 40 MG Lorazepam 0.5 mg Q6HP PRN PO 06/16/24 20:30 Acetaminophen 650 mg Q6HP PRN PO 06/16/24 20:30 Temazepam 15 mg QHSP PRN PO 06/16/24 20:30 Acetaminophen/ Hydrocodone Bitart 1 tab Q4HP PRN PO 06/16/24 20:30 Ondansetron HCl 4 mg Q4HP PRN IV 06/16/24 20:30 06/19/24 08:35 4 MG Morphine Sulfate 2 mg Q4HPRN PRN IV 06/16/24 20:30 06/21/24 01:53 2 MG Sodium Chloride 10 ml QSHIFT@10,22 IV 06/18/24 22:00 06/22/24 09:04 10 ML Amino Acids 0 ml @ 0 mls/hr PER PHARMACY IV 06/19/24 09:45 Diagnostic Test (Pha) 1 strip Q6HR 06/20/24 00:00 06/22/24 11:59 1 STRIP Insulin Human Regular FOLLOW SLIDING SCALE Q6HR SC 06/20/24 00:00 06/22/24 12:00 2 UNITS Dextrose 50 ml UD IV 06/20/24 00:00 Potassium Chloride/Dextrose/ Sod Cl 1,000 ml @ 80 mls/hr [id number] IV 06/19/24 22:00 06/22/24 14:24 80 MLS/HR Cefepime HCl 50 ml @ 12.5 mls/hr Q8HR IV 06/20/24 22:00 06/22/24 14:09 12.5 MLS/HR Fat Emulsion Intravenous 50 ml/ Sodium Phosphate 20 meq/Potassium Phosphate 11 meq/ Calcium Gluconate 4.65 meq/ Magnesium Sulfate 4 meq/ Multivitamins 10 ml/Chromium/ Copper/Manganese/ Zinc 1 ml/Amino Acids/Dextrose/ Purified Water 1,079.5 ml @ 45 mls/hr Q24H IV 06/21/24 22:00 06/22/24 21:59 06/21/24 21:54 45 MLS/HR Doxycycline Hyclate 250 ml @ 125 mls/hr Q12H IV 06/22/24 08:00 06/22/24 08:53 125 MLS/HR Metronidazole 500 mg Q8HR PO 06/22/24 14:00 06/22/24 14:09 500 MG Fat Emulsion Intravenous 150 ml/Potassium Acetate 40 meq/ Calcium Gluconate 4.65 meq/ Magnesium Sulfate 8 meq/ Multivitamins 10 ml/Chromium/ Copper/Manganese/ Zinc 1 ml/Amino Acids/Dextrose 1,393 ml @ 58 mls/hr Q24H2M IV 06/22/24 22:00 06/23/24 21:59 objective General Appearance: Alert, Oriented X3, Cooperative, moderate distress HEENT: Atraumatic, PERRLA, EOMI Respiratory: Clear to auscultation, Normal air movement Cardiovascular: Regular rate, Normal S1, Normal S2 Abdominal: Normal bowel sounds, Soft, mild distention, mild tenderness Left lower quadrant colostomy functional Extremities: No clubbing, No cyanosis, No edema Skin: No rashes, No breakdown Neuro: Normal gait, Normal speech Psych/Mental Status: Mood NL laboratory and microbiology Laboratory Tests 06/22/24 05:32 Test 06/22/24 05:32 Range/Units Serum Glucose 116 H 74-106 mg/dL Problems(with codes): (1) C. difficile colitis (2) Rectal perforation (3) Rectosigmoid cancer (4) Leukocytosis (5) Acute kidney injury (6) Sepsis Prognosis Plan Flagyl change to oral p.o. Continue oral vancomycin Continue Florastor Conservative treatment and management for now Surgical consult following patient Awaiting oncology consult Dietary Evaluation Review Comments: 1) Increase TPN to meet at least 75% of estimated needs 2) Advance pt diet when medically feasible to a 2gm Sodium diet 3) Continue current plan of care Expected Outcomes/Goals: 1) Pt to receive adequate nutrition support 2) Pt diet to advance 3) F/U in 2-3 days Plan discussed with: Patient MARCIA MARINA MD Jun 22, 2024 16:04
--- NOTE | 2024-06-22 22:07 | DVHPN2 ---
Consult Progress Note Date Seen: Jun 22, 2024 Subjective Patient reports: Feels better (off levofed , tolerating oral intake , having around 100ccs of output ) Objective vital signs Vital Sign Date Time Temp Pulse Resp B/P (MAP) Pulse Ox O2 Delivery O2 Flow Rate FiO2 06/22/24 17:00 97.8 100 22 132/69 (90) 100 97.8 06/22/24 08:10 Nasal Cannula* 3 32 Total Intake and Output 06/21/24 06/21/24 06/22/24 14:59 22:59 06:59 Intake Total 250 ml 1030 ml 500 ml Output Total 1375 ml 1275 ml Balance 250 ml -345 ml -775 ml medications Current Medications Medications Dose Ordered Sig/Carlos Route Start Time Stop Time Status Last Admin Dose Admin Vancomycin HCl 0 ml @ 0 mls/hr UD IV 06/16/24 20:30 Cancel Pantoprazole Sodium 40 mg DAILY IV 06/17/24 10:00 06/22/24 09:01 40 MG Lorazepam 0.5 mg Q6HP PRN PO 06/16/24 20:30 Acetaminophen 650 mg Q6HP PRN PO 06/16/24 20:30 Temazepam 15 mg QHSP PRN PO 06/16/24 20:30 Acetaminophen/ Hydrocodone Bitart 1 tab Q4HP PRN PO 06/16/24 20:30 Ondansetron HCl 4 mg Q4HP PRN IV 06/16/24 20:30 06/19/24 08:35 4 MG Morphine Sulfate 2 mg Q4HPRN PRN IV 06/16/24 20:30 06/21/24 01:53 2 MG Sodium Chloride 10 ml QSHIFT@10,22 IV 06/18/24 22:00 06/22/24 09:04 10 ML Amino Acids 0 ml @ 0 mls/hr PER PHARMACY IV 06/19/24 09:45 Diagnostic Test (Pha) 1 strip Q6HR 06/20/24 00:00 06/22/24 18:08 1 STRIP Insulin Human Regular FOLLOW SLIDING SCALE Q6HR SC 06/20/24 00:00 06/22/24 18:14 2 UNITS Dextrose 50 ml UD IV 06/20/24 00:00 Potassium Chloride/Dextrose/ Sod Cl 1,000 ml @ 80 mls/hr [id number] IV 06/19/24 22:00 06/22/24 14:24 80 MLS/HR Cefepime HCl 50 ml @ 12.5 mls/hr Q8HR IV 06/20/24 22:00 06/22/24 14:09 12.5 MLS/HR Doxycycline Hyclate 250 ml @ 125 mls/hr Q12H IV 06/22/24 08:00 06/22/24 20:21 125 MLS/HR Metronidazole 500 mg Q8HR PO 06/22/24 14:00 06/22/24 14:09 500 MG Fat Emulsion Intravenous 150 ml/Potassium Acetate 40 meq/ Calcium Gluconate 4.65 meq/ Magnesium Sulfate 8 meq/ Multivitamins 10 ml/Chromium/ Copper/Manganese/ Zinc 1 ml/Amino Acids/Dextrose 1,393 ml @ 58 mls/hr Q24H2M IV 06/22/24 22:00 06/23/24 21:59 Physical Exam: General: Ill-appearing. Neck: Supple. No masses. HEENT: Pale mucous membranes. Normal lids and conjunctiva. Oropharynx without lesions, exudates, or excessive erythema. Normal appearance of the external aspects of the nose and ears. Heart: Tachycardic. Regular rhythm. No murmur. No lower extremity edema. Lungs: Normal respiratory effort. Clear to auscultation bilaterally. No wheezes. No crackles. Abdomen: Diffuse abdominal tenderness to palpation. Right lower quadrant JACKIE drain with serous fluid drainage. Colostomy with liquid yellow stool. Msk: No digital cyanosis. Normal strength and tone in all 4 limbs. Skin: Warm and dry, no rashes. Neuro: Alert. No facial droop or slurred speech. Extra-ocular movements intact. Sensation intact to soft touch in all 4 limbs. Psych: Appropriate mood. Full affect. Oriented to person, place, time, and situation. laboratory and microbiology Laboratory Tests 06/22/24 05:32 Test 06/22/24 05:32 Range/Units Serum Glucose 116 H 74-106 mg/dL Problem List/Assessment/Plan Problems(with codes): (1) Leukocytosis (2) Lumbar strain (3) Postoperative pain (4) Medication refill (5) Rectosigmoid cancer (6) C. difficile colitis (7) Rectal perforation (8) Acute kidney injury (9) Sepsis (10) Colitis (11) Abdominal pain with vomiting and history of abdominal surgery Problem List/Assessment/Plan ASSESSMENT AND PLAN: ID Problem List: - Colon cancer - Severe sepsis - Acute kidney injury stage 3 - Peritonitis - Colitis - Hypertension - Obesity Assessment This is a 63 y.o. obese male with a past medical history of hypertension, colon cancer status post exploratory laparotomy with sigmoid resection and colostomy on May 28, 2024, perforated bowel, and appendectomy, who presents with nausea, vomiting, increased colostomy output, feeling weak and lightheaded, and generalized abdominal pain. Denies melena. On arrival, vital signs were notable for tachycardia and hypotension, with HR 143 bpm, BP 99/67 mmHg, RR 25 breaths/min, Temp 97.6F, SpO2 99% on room air. Physical examination revealed an ill-appearing male with pale mucous membranes, dehydration, and diffuse abdominal tenderness to palpation. He has a right lower quadrant JACKIE drain with serous fluid drainage and a colostomy with liquid yellow stool. Laboratory studies revealed leukocytosis with WBC as high as 46.8, decreasing to 24.1; platelet count decreased from 602 to 198; hemoglobin 14.3; sodium 133; BUN 45; creatinine 2.49 indicating severe acute kidney injury. CT abdomen/pelvis showed increased retroperitoneal air compared to prior CT, possible defect from rectal patch such as perforation, postsurgical changes from bowel resection with left lower quadrant colostomy, mildly distended colon filled with fluid and adjacent fat stranding suggestive of colitis. MRI abdomen revealed an incompletely characterized T2 hyperintense lesion in the right hepatic dome, severe diffuse colonic wall thickening suspicious for pseudocolitis, and small to moderate free intraperitoneal air in the retroperitoneal space. Blood cultures are no growth to date; C. difficile testing is negative. Patient was started on vancomycin. small bowel series w/ contrast is identified within the colon by 2.5 hours. This represents a Mild delay in small bowel transit time. No evidence of obstruction identified. 06/21: Leukocytosis is rising , unclear ideology , continue to monitor closely . Patient stopped linazolid due to dropping platelets 06/22: renal function is improving , whitecount is still elevated at 32 Plan: - Continue Cefapine and flagell and micafungin orally - Defer to surgery for postoperative management and need for any additional intervention or surgery. - Monitor patient closely as he responds to antibiotic therapy. - Follow up on blood cultures. Plan discussed with: Other Dietary Evaluation Review Comments: 1) Increase TPN to meet at least 75% of estimated needs 2) Advance pt diet when medically feasible to a 2gm Sodium diet 3) Continue current plan of care Expected Outcomes/Goals: 1) Pt to receive adequate nutrition support 2) Pt diet to advance 3) F/U in 2-3 days JOSE LUIS REESE MD Jun 22, 2024 22:07
[2024-06-22] MEDS: TPN PER PHARMACY IV NR (22:36)
[2024-06-23] VITALS (8 sets, daily range): BP systolic 108–133; BP diastolic 64–75; PULSE 93–103; RESP 18–20; TEMP 97.5–99; O2SAT 94–100
[2024-06-23 05:59] LABS: Hematocrit 35.1 % (41.0-53.0); Hemoglobin 11.4 g/dL (13.5-17.5); Mean Corpuscular Hemoglobin 29.6 pg (28.0-32.0); Mean Corpuscular Hgb Conc. 32.4 g/dL (32.0-36.0); Mean Corpuscular Volume 91.2 fL (80.0-100.0); Platelet Count (auto) 151 10^3/uL (140-450); Red Blood Cells 3.85 10^6/uL (4.5-5.90); Red Cell Distribution Width 18.3 % (11.8-14.3); White Blood Cell 25.5 10^3/uL (4.4-10.8)
[2024-06-23 06:02] LABS: Basophils % (manual) 0 (0.0-2.0); Blast Cells 0; Metamyelocytes % 0; Myelocytes % 0; Promyelocytes % 0; Reactive Lymphocytes 0
[2024-06-23 06:13] LABS: Alkaline Phosphatase 86 U/L (46-116); Anion Gap 6 (5-15); Aspartate Aminotransferase 21 U/L (13-40); BUN/Creatinine Ratio 25.7 (10.0-20.0); Blood Urea Nitrogen 18 mg/dL (9-23); Carbon Dioxide 26 mmol/L (20-31); Chloride 104 mmol/L (98-107); Magnesium 2.2 mg/dL (1.6-2.6)
[2024-06-23 06:14] LABS: Phosphorus 2.7 mg/dL (2.4-5.1)
[2024-06-23 06:17] LABS: Alanine Aminotransferase < 9 U/L (7-40); Albumin 2.2 g/dL (3.2-4.8); Bilirubin, Total 0.2 mg/dL (0.2-1.0); Calcium 7.7 mg/dL (8.7-10.4); Glucose 114 mg/dL (74-106); Potassium 3.5 mmol/L (3.5-5.1); Sodium 136 mmol/L (136-145); Total Protein 4.4 g/dL (5.7-8.2)
[2024-06-23 08:04] LABS: Band Neutrophils % (manual) 3; Eosinophils % (manual) 1 (0-7); Lymphocytes % (manual) 19 (10.0-50.0); Monocytes % (manual) 12 (0-12); Platelet Estimate Adequate
--- NOTE | 2024-06-23 08:17 | DVHPN2 ---
Subjective The patient seen and examined at bedside. Still has lots of abdominal pain. No fever or chills. Reviewed: Care Plan Changes from previous H/P or p: No Changes Eyes: No Pain, No Vision change, No Conjunctivae inflammation, No Eyelid inflammation, No Other, No Redness ENT: No Ear pain, No Ear discharge, No Nose pain, No Nose discharge, No Nose congestion, No Mouth pain, No Mouth swelling, No Throat pain, No Throat swelling, No Other Cardiovascular: No Chest Pain, No Palpitations, No Orthopnea, No Paroxysmal Noc. Dyspnea, No Edema, No Lt Headedness, No Other Respiratory: No Cough, No Dry, No Shortness of breath, No SOB with excertion, No Wheezing, No Hemoptysis, No Pleuritic Pain, No Sputum, No Other Gastrointestinal: Abdominal Pain; No Diarrhea, No Constipation, No Melena, No Hematochezia, No Other Genitourinary: No Dysuria, No Frequency, No Incontinence, No Hematuria, No Retention, No Other Musculoskeletal: No other, No neck pain, No shoulder pain, No arm pain, No back pain, No hand pain, No leg pain, No foot pain Skin: No Rash, No Lesions, No Jaundice, No Bruising, No Other Objective Vitals Vital Signs Date Time Temp Pulse Resp B/P (MAP) Pulse Ox O2 Delivery O2 Flow Rate FiO2 06/23/24 05:00 99.0 102 19 133/68 (89) 98 99.0 06/22/24 20:00 Nasal Cannula* 3 32 Intake/Output Intake and Output 06/23/24 07:00 Intake Total 2490 ml Output Total 2705 ml Balance -215 ml Intake Oral 1080 ml IV Total 1410 ml Output Urine Total 950 ml Stool Total 1600 ml Drainage Total 155 ml General Appearance: Alert, Oriented X3, Cooperative, No acute distress, Other (NGT in place) HEENT: Atraumatic, PERRLA Lungs: Clear to auscultation Cardiovascular: Regular rate, Normal S1, Normal S2 Abdomen: Other (soft slightly tender with colostomy no rebound or guarding) Psych/Mental Status: Mental status NL Medications Current Medications Medications Dose Ordered Sig/Carlos Route Start Time Stop Time Status Last Admin Dose Admin Vancomycin HCl 0 ml @ 0 mls/hr UD IV 06/16/24 20:30 Cancel Pantoprazole Sodium 40 mg DAILY IV 06/17/24 10:00 06/22/24 09:01 40 MG Lorazepam 0.5 mg Q6HP PRN PO 06/16/24 20:30 Acetaminophen 650 mg Q6HP PRN PO 06/16/24 20:30 Temazepam 15 mg QHSP PRN PO 06/16/24 20:30 Acetaminophen/ Hydrocodone Bitart 1 tab Q4HP PRN PO 06/16/24 20:30 Ondansetron HCl 4 mg Q4HP PRN IV 06/16/24 20:30 06/19/24 08:35 4 MG Morphine Sulfate 2 mg Q4HPRN PRN IV 06/16/24 20:30 06/21/24 01:53 2 MG Sodium Chloride 10 ml QSHIFT@10,22 IV 06/18/24 22:00 06/22/24 22:30 10 ML Amino Acids 0 ml @ 0 mls/hr PER PHARMACY IV 06/19/24 09:45 Diagnostic Test (Pha) 1 strip Q6HR 06/20/24 00:00 06/23/24 05:25 1 STRIP Insulin Human Regular FOLLOW SLIDING SCALE Q6HR SC 06/20/24 00:00 06/23/24 06:03 2 UNITS Dextrose 50 ml UD IV 06/20/24 00:00 Potassium Chloride/Dextrose/ Sod Cl 1,000 ml @ 80 mls/hr [id number] IV 06/19/24 22:00 06/22/24 14:24 80 MLS/HR Cefepime HCl 50 ml @ 12.5 mls/hr Q8HR IV 06/20/24 22:00 06/23/24 05:24 12.5 MLS/HR Doxycycline Hyclate 250 ml @ 125 mls/hr Q12H IV 06/22/24 08:00 06/23/24 07:58 125 MLS/HR Metronidazole 500 mg Q8HR PO 06/22/24 14:00 06/23/24 05:24 500 MG Fat Emulsion Intravenous 150 ml/Potassium Acetate 40 meq/ Calcium Gluconate 4.65 meq/ Magnesium Sulfate 8 meq/ Multivitamins 10 ml/Chromium/ Copper/Manganese/ Zinc 1 ml/Amino Acids/Dextrose 1,393 ml @ 58 mls/hr Q24H2M IV 06/22/24 22:00 06/23/24 21:59 06/22/24 22:36 58 MLS/HR Laboratory Results Laboratory Tests 06/23/24 04:44 Chemistry Test 06/23/24 04:44 Albumin 2.2 g/dL (3.2-4.8) L Calcium Level 7.7 mg/dL (8.7-10.4) L Magnesium Level 2.2 mg/dL (1.6-2.6) Phosphorus Level 2.7 mg/dL (2.4-5.1) Total Protein 4.4 g/dL (5.7-8.2) L LFT Test 06/23/24 04:44 Alanine Aminotransferase (ALT) < 9 U/L (7-40) Alkaline Phosphatase 86 U/L (46-116) Aspartate Amino Transferase (AST) 21 U/L (13-40) Total Bilirubin 0.2 mg/dL (0.2-1.0) Urinalysis Test 06/17/24 02:20 Urine Color [place] (Yellow) H Urine Clarity Ex.turbid (Clear) Urine pH 5.0 (5.0-9.0) Urine Specific [place] 1.030 (1.001-1.035) Urine Protein 1+ (Negative) H Urine Ketones 1+ (Negative) H Urine Blood Negative /uL (Negative) Urine Nitrite Negative (Negative) Urine Bilirubin Negative (Negative) Urine Urobilinogen 4 mg/dL (Negative) H Urine Leukocyte Esterase Negative /uL (Negative) Urine RBC 28 /hpf (0 - 3) Urine WBC 6 /hpf (0 - 3) Urine Squamous Epithelial Cells Few /hpf (<5) Urine Bacteria Few /hpf (None Seen) H Urine Hyaline Casts Many /lpf (0 - 2) Urine Mucus Few (None Seen) Urine Glucose Normal mg/dL (Normal) Microbiology Microbiology Date/Time Source Procedure Growth Status 06/21/24 14:01 Nose MRSA Screen - Final Complete 06/18/24 05:45 Stool Clostridium difficile Toxin Assay - Final Complete 06/17/24 10:10 Blood Blood Culture - Final NO GROWTH AFTER 5 DAYS OF INCUBATION. Complete Labs and/or images reviewed: Labs reviewed by me Assessment/Plan Assessment/Plan #Sepsis secondary to colitis as well as possibly ruptured viscus- Continue Vancomycin PO, Flagyl IV #Leukocytosis secondary to 1. 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 PT to get the patient out of bed and ambulate. Plan discussed with: Patient, Spouse Date of Service: Jun 23, 2024 Billing Provider: ANDRIA HALL MD Common Visit Codes: [id number] INP/OBS CARE(HIGH) ANDRIA HALL MD Jun 23, 2024 08:17
--- NOTE | 2024-06-23 10:28 | DVHPN2 ---
Progress Note Date Seen: Jun 23, 2024 Medical Necessity Reason Pt with a Central, PICC or Fol: No Objective vital signs Vital Sign Date Time Temp Pulse Resp B/P (MAP) Pulse Ox O2 Delivery O2 Flow Rate FiO2 06/23/24 09:00 98.1 93 18 108/64 (79) 99 98.1 06/23/24 08:00 Nasal Cannula* 3 32 Total Intake and Output 06/22/24 06/22/24 06/23/24 15:00 23:00 07:00 Intake Total 450 ml 1560 ml 480 ml Output Total 1130 ml 1575 ml Balance 450 ml 430 ml -1095 ml medications Current Medications Medications Dose Ordered Sig/Carlos Route Start Time Stop Time Status Last Admin Dose Admin Vancomycin HCl 0 ml @ 0 mls/hr UD IV 06/16/24 20:30 Cancel Pantoprazole Sodium 40 mg DAILY IV 06/17/24 10:00 06/22/24 09:01 40 MG Lorazepam 0.5 mg Q6HP PRN PO 06/16/24 20:30 Acetaminophen 650 mg Q6HP PRN PO 06/16/24 20:30 Temazepam 15 mg QHSP PRN PO 06/16/24 20:30 Acetaminophen/ Hydrocodone Bitart 1 tab Q4HP PRN PO 06/16/24 20:30 Ondansetron HCl 4 mg Q4HP PRN IV 06/16/24 20:30 06/19/24 08:35 4 MG Morphine Sulfate 2 mg Q4HPRN PRN IV 06/16/24 20:30 06/21/24 01:53 2 MG Sodium Chloride 10 ml QSHIFT@10,22 IV 06/18/24 22:00 06/22/24 22:30 10 ML Amino Acids 0 ml @ 0 mls/hr PER PHARMACY IV 06/19/24 09:45 Diagnostic Test (Pha) 1 strip Q6HR 06/20/24 00:00 06/23/24 05:25 1 STRIP Insulin Human Regular FOLLOW SLIDING SCALE Q6HR SC 06/20/24 00:00 06/23/24 06:03 2 UNITS Dextrose 50 ml UD IV 06/20/24 00:00 Potassium Chloride/Dextrose/ Sod Cl 1,000 ml @ 80 mls/hr [id number] IV 06/19/24 22:00 12/13/24 14:24 80 MLS/HR Cefepime HCl 50 ml @ 12.5 mls/hr Q8HR IV 06/20/24 22:00 06/23/24 05:24 12.5 MLS/HR Doxycycline Hyclate 250 ml @ 125 mls/hr Q12H IV 06/22/24 08:00 06/23/24 07:58 125 MLS/HR Metronidazole 500 mg Q8HR PO 06/22/24 14:00 06/23/24 05:24 500 MG Fat Emulsion Intravenous 150 ml/Potassium Acetate 40 meq/ Calcium Gluconate 4.65 meq/ Magnesium Sulfate 8 meq/ Multivitamins 10 ml/Chromium/ Copper/Manganese/ Zinc 1 ml/Amino Acids/Dextrose 1,393 ml @ 58 mls/hr Q24H2M IV 06/22/24 22:00 06/23/24 21:59 06/22/24 22:36 58 MLS/HR laboratory and microbiology Laboratory Tests 06/23/24 04:44 Test 06/23/24 04:44 Range/Units Serum Glucose 114 H 74-106 mg/dL Problem List/Assessment/Plan Problem List/Assessment/Plan 06/18/24minimal pain, has been vomiting "all night"" according to ,(NGT was ordered yesterday at 8;30 AM but was not inserted till this AM) abdomen is soft, minimally tender, stoma is viable and functioning, wound clean and well approximated, drainage serous. I mbelieve the free retropertitoneal air is residual from his operation for ruptured colon two weeks ago. will request GI consult 06/20/24 abdomen more distended, non tender, will get gastrografin small bowel series 06/21/24 gastrografin shows no evicence of bowel obstruction, stoma output increased commensurately ,abdomen non tender, wound clean without overt evidence of infection, leukocytosis worse. will dc ngt and tray clear liquids. 06/22/24 denies pain orm discomfort, denies nausea, afebrile, wound emil removed, wound well approximated. WBC slightly better. will change flagyl to PO. 06/23/24 WBC better, abdomen non tender, colostomy functioning. Must ambulate!! will increase po intake. Plan discussed with: Patient Dietary Evaluation Review Comments: 1) Increase TPN to meet at least 75% of estimated needs 2) Advance pt diet when medically feasible to a 2gm Sodium diet 3) Continue current plan of care Expected Outcomes/Goals: 1) Pt to receive adequate nutrition support 2) Pt diet to advance 3) F/U in 2-3 days RONALD LANDA MD Jun 23, 2024 10:28
--- NOTE | 2024-06-23 22:00 | DVHPN2 ---
Progress Note - Dictate Date Seen: Jun 23, 2024 (Late entryPatient seen at 9:00 a.m.) Medical Necessity Reason Pt with a Central, PICC or Fol: No Subjective Patient seen at bedside Resting comfortably Abdominal pain is improved There was no nausea vomiting Patient is tolerating a clear liquid diet Colostomy is functional vital signs Vital Sign Date Time Temp Pulse Resp B/P (MAP) Pulse Ox O2 Delivery O2 Flow Rate FiO2 06/23/24 21:00 97.9 103 20 125/75 (92) 100 97.9 06/23/24 08:00 Nasal Cannula* 3 32 Total Intake and Output 06/22/24 06/22/24 06/23/24 15:00 23:00 07:00 Intake Total 450 ml 1560 ml 480 ml Output Total 1130 ml 1575 ml Balance 450 ml 430 ml -1095 ml medications Current Medications Medications Dose Ordered Sig/Carlos Route Start Time Stop Time Status Last Admin Dose Admin Vancomycin HCl 0 ml @ 0 mls/hr UD IV 06/16/24 20:30 Cancel Pantoprazole Sodium 40 mg DAILY IV 06/17/24 10:00 06/23/24 10:28 40 MG Lorazepam 0.5 mg Q6HP PRN PO 06/16/24 20:30 Acetaminophen 650 mg Q6HP PRN PO 06/16/24 20:30 Acetaminophen/ Hydrocodone Bitart 1 tab Q4HP PRN PO 06/16/24 20:30 Ondansetron HCl 4 mg Q4HP PRN IV 06/16/24 20:30 06/19/24 08:35 4 MG Morphine Sulfate 2 mg Q4HPRN PRN IV 06/16/24 20:30 06/21/24 01:53 2 MG Sodium Chloride 10 ml QSHIFT@10,22 IV 06/18/24 22:00 06/23/24 10:28 10 ML Amino Acids 0 ml @ 0 mls/hr PER PHARMACY IV 06/19/24 09:45 Diagnostic Test (Pha) 1 strip Q6HR 06/20/24 00:00 06/23/24 17:39 1 STRIP Insulin Human Regular FOLLOW SLIDING SCALE Q6HR SC 06/20/24 00:00 06/23/24 17:45 2 UNITS Dextrose 50 ml UD IV 06/20/24 00:00 Potassium Chloride/Dextrose/ Sod Cl 1,000 ml @ 80 mls/hr [id number] IV 06/19/24 22:00 06/23/24 18:27 80 MLS/HR Cefepime HCl 50 ml @ 12.5 mls/hr Q8HR IV 06/20/24 22:00 06/23/24 14:27 12.5 MLS/HR Doxycycline Hyclate 250 ml @ 125 mls/hr Q12H IV 06/22/24 08:00 06/23/24 20:47 125 MLS/HR Metronidazole 500 mg Q8HR PO 06/22/24 14:00 06/23/24 14:27 500 MG Fat Emulsion Intravenous 150 ml/Potassium Acetate 40 meq/ Calcium Gluconate 4.65 meq/ Magnesium Sulfate 8 meq/ Multivitamins 10 ml/Chromium/ Copper/Manganese/ Zinc 1 ml/Amino Acids/Dextrose 1,393 ml @ 58 mls/hr Q24H2M IV 06/22/24 22:00 06/23/24 21:59 06/22/24 22:36 58 MLS/HR Fat Emulsion Intravenous 150 ml/Potassium Phosphate 44 meq/ Calcium Gluconate 4.65 meq/ Magnesium Sulfate 12 meq/ Multivitamins 10 ml/Chromium/ Copper/Manganese/ Zinc 1 ml/Amino Acids/Dextrose 1,384 ml @ 58 mls/hr [id number] IV 06/23/24 22:00 06/24/24 21:59 objective General Appearance: Alert, Oriented X3, Cooperative, moderate distress HEENT: Atraumatic, PERRLA, EOMI Respiratory: Clear to auscultation, Normal air movement Cardiovascular: Regular rate, Normal S1, Normal S2 Abdominal: Normal bowel sounds, Soft, mild distention, mild tenderness Left lower quadrant colostomy functional Extremities: No clubbing, No cyanosis, No edema Skin: No rashes, No breakdown Neuro: Normal gait, Normal speech Psych/Mental Status: Mood NL laboratory and microbiology Laboratory Tests 06/23/24 04:44 Test 06/23/24 04:44 Range/Units Serum Glucose 114 H 74-106 mg/dL Problems(with codes): (1) Leukocytosis (2) Postoperative pain (3) Rectosigmoid cancer (4) C. difficile colitis (5) Rectal perforation (6) Acute kidney injury Prognosis Plan Flagyl change to oral p.o. Continue oral vancomycin Continue Florastor Conservative treatment and management for now Surgical consult following patient Ambulate patient start physical therapy Advance to full liquid diet Awaiting oncology consult Dietary Evaluation Review Comments: 1) Increase TPN to meet at least 75% of estimated needs 2) Advance pt diet when medically feasible to a 2gm Sodium diet 3) Continue current plan of care Expected Outcomes/Goals: 1) Pt to receive adequate nutrition support 2) Pt diet to advance 3) F/U in 2-3 days Plan discussed with: Patient MARCIA MARINA MD Jun 23, 2024 22:00
[2024-06-23] MEDS: TPN PER PHARMACY IV NR (23:25)
--- NOTE | 2024-06-23 23:57 | DVHPN2 ---
Consult Progress Note Date Seen: Jun 23, 2024 Subjective Patient reports: Other (diet , 100ccs of drainage , whitecounts down to 25.5 ) Objective vital signs Vital Sign Date Time Temp Pulse Resp B/P (MAP) Pulse Ox O2 Delivery O2 Flow Rate FiO2 06/23/24 23:54 103 20 125/75 06/23/24 21:00 97.9 100 97.9 06/23/24 20:00 Nasal Cannula* 3 32 Total Intake and Output 06/22/24 06/22/24 06/23/24 15:00 23:00 07:00 Intake Total 450 ml 1560 ml 480 ml Output Total 1130 ml 1575 ml Balance 450 ml 430 ml -1095 ml medications Current Medications Medications Dose Ordered Sig/Carlos Route Start Time Stop Time Status Last Admin Dose Admin Vancomycin HCl 0 ml @ 0 mls/hr UD IV 06/16/24 20:30 Cancel Pantoprazole Sodium 40 mg DAILY IV 06/17/24 10:00 06/23/24 10:28 40 MG Lorazepam 0.5 mg Q6HP PRN PO 06/16/24 20:30 Acetaminophen 650 mg Q6HP PRN PO 06/16/24 20:30 Acetaminophen/ Hydrocodone Bitart 1 tab Q4HP PRN PO 06/16/24 20:30 Ondansetron HCl 4 mg Q4HP PRN IV 06/16/24 20:30 06/19/24 08:35 4 MG Morphine Sulfate 2 mg Q4HPRN PRN IV 06/16/24 20:30 06/23/24 23:54 2 MG Sodium Chloride 10 ml QSHIFT@10,22 IV 06/18/24 22:00 06/23/24 23:20 10 ML Amino Acids 0 ml @ 0 mls/hr PER PHARMACY IV 06/19/24 09:45 Diagnostic Test (Pha) 1 strip Q6HR 06/20/24 00:00 06/23/24 23:20 1 STRIP Insulin Human Regular FOLLOW SLIDING SCALE Q6HR SC 06/20/24 00:00 06/23/24 23:55 2 UNITS Dextrose 50 ml UD IV 06/20/24 00:00 Potassium Chloride/Dextrose/ Sod Cl 1,000 ml @ 80 mls/hr [id number] IV 06/19/24 22:00 06/23/24 18:27 80 MLS/HR Cefepime HCl 50 ml @ 12.5 mls/hr Q8HR IV 06/20/24 22:00 06/23/24 23:20 12.5 MLS/HR Metronidazole 500 mg Q8HR PO 06/22/24 14:00 06/23/24 23:20 500 MG Fat Emulsion Intravenous 150 ml/Potassium Phosphate 44 meq/ Calcium Gluconate 4.65 meq/ Magnesium Sulfate 12 meq/ Multivitamins 10 ml/Chromium/ Copper/Manganese/ Zinc 1 ml/Amino Acids/Dextrose 1,384 ml @ 58 mls/hr [id number] IV 06/23/24 22:00 06/24/24 21:59 06/23/24 23:25 58 MLS/HR Doxycycline Monohydrate 100 mg Q12H PO 06/24/24 09:00 Physical Exam: General: Ill-appearing. Neck: Supple. No masses. HEENT: Pale mucous membranes. Normal lids and conjunctiva. Oropharynx without lesions, exudates, or excessive erythema. Normal appearance of the external aspects of the nose and ears. Heart: Tachycardic. Regular rhythm. No murmur. No lower extremity edema. Lungs: Normal respiratory effort. Clear to auscultation bilaterally. No wheezes. No crackles. Abdomen: Diffuse abdominal tenderness to palpation. Right lower quadrant JACKIE drain with serous fluid drainage. Colostomy with liquid yellow stool. Msk: No digital cyanosis. Normal strength and tone in all 4 limbs. Skin: Warm and dry, no rashes. Neuro: Alert. No facial droop or slurred speech. Extra-ocular movements intact. Sensation intact to soft touch in all 4 limbs. Psych: Appropriate mood. Full affect. Oriented to person, place, time, and situation. laboratory and microbiology Laboratory Tests 06/23/24 04:44 Test 06/23/24 04:44 Range/Units Serum Glucose 114 H 74-106 mg/dL Problem List/Assessment/Plan Problems(with codes): (1) Leukocytosis (2) Lumbar strain (3) Postoperative pain (4) Medication refill (5) Rectosigmoid cancer (6) C. difficile colitis (7) Rectal perforation Problem List/Assessment/Plan ASSESSMENT AND PLAN: ID Problem List: - Colon cancer - Severe sepsis - Acute kidney injury stage 3 - Peritonitis - Colitis - Hypertension - Obesity Assessment This is a 63 y.o. obese male with a past medical history of hypertension, colon cancer status post exploratory laparotomy with sigmoid resection and colostomy on May 28, 2024, perforated bowel, and appendectomy, who presents with nausea, vomiting, increased colostomy output, feeling weak and lightheaded, and generalized abdominal pain. Denies melena. On arrival, vital signs were notable for tachycardia and hypotension, with HR 143 bpm, BP 99/67 mmHg, RR 25 breaths/min, Temp 97.6F, SpO2 99% on room air. Physical examination revealed an ill-appearing male with pale mucous membranes, dehydration, and diffuse abdominal tenderness to palpation. He has a right lower quadrant JACKIE drain with serous fluid drainage and a colostomy with liquid yellow stool. Laboratory studies revealed leukocytosis with WBC as high as 46.8, decreasing to 24.1; platelet count decreased from 602 to 198; hemoglobin 14.3; sodium 133; BUN 45; creatinine 2.49 indicating severe acute kidney injury. CT abdomen/pelvis showed increased retroperitoneal air compared to prior CT, possible defect from rectal patch such as perforation, postsurgical changes from bowel resection with left lower quadrant colostomy, mildly distended colon filled with fluid and adjacent fat stranding suggestive of colitis. MRI abdomen revealed an incompletely characterized T2 hyperintense lesion in the right hepatic dome, severe diffuse colonic wall thickening suspicious for pseudocolitis, and small to moderate free intraperitoneal air in the retroperitoneal space. Blood cultures are no growth to date; C. difficile testing is negative. Patient was started on vancomycin. small bowel series w/ contrast is identified within the colon by 2.5 hours. This represents a Mild delay in small bowel transit time. No evidence of obstruction identified. 06/21: Leukocytosis is rising , unclear ideology , continue to monitor closely . Patient stopped linazolid due to dropping platelets 06/22: renal function is improving , whitecount is still elevated at 32 Plan: - Switch IV doxycycline to oral - Continue Cefapine and flagell and micafungin orally - Defer to surgery for postoperative management and need for any additional intervention or surgery. - Monitor patient closely as he responds to antibiotic therapy. - Follow up on blood cultures. Plan discussed with: Other Dietary Evaluation Review Comments: 1) Increase TPN to meet at least 75% of estimated needs 2) Advance pt diet when medically feasible to a 2gm Sodium diet 3) Continue current plan of care Expected Outcomes/Goals: 1) Pt to receive adequate nutrition support 2) Pt diet to advance 3) F/U in 2-3 days JOSE LUIS REESE MD Jun 23, 2024 23:57
[2024-06-24] VITALS (8 sets, daily range): BP systolic 109–119; BP diastolic 53–73; PULSE 80–101; RESP 17–20; TEMP 98–99.4; O2SAT 96–99
[2024-06-24 05:50] LABS: Hematocrit 34.4 % (41.0-53.0); Hemoglobin 11.1 g/dL (13.5-17.5); Mean Corpuscular Hemoglobin 29.7 pg (28.0-32.0); Mean Corpuscular Hgb Conc. 32.3 g/dL (32.0-36.0); Mean Corpuscular Volume 91.9 fL (80.0-100.0); Platelet Count (auto) 149 10^3/uL (140-450); Red Blood Cells 3.74 10^6/uL (4.5-5.90); Red Cell Distribution Width 18.2 % (11.8-14.3)
[2024-06-24 05:55] LABS: Basophils % (manual) 0 (0.0-2.0); Blast Cells 0; Metamyelocytes % 0; Myelocytes % 0; Promyelocytes % 0; Reactive Lymphocytes 0
[2024-06-24 06:11] LABS: Alkaline Phosphatase 69 U/L (46-116); Anion Gap 5 (5-15); Aspartate Aminotransferase 20 U/L (13-40); BUN/Creatinine Ratio 23.7 (10.0-20.0); Blood Urea Nitrogen 14 mg/dL (9-23); Carbon Dioxide 25 mmol/L (20-31); Chloride 102 mmol/L (98-107)
[2024-06-24 06:12] LABS: Phosphorus 2.7 mg/dL (2.4-5.1)
[2024-06-24 06:17] LABS: Alanine Aminotransferase < 9 U/L (7-40); Albumin 2.1 g/dL (3.2-4.8); Bilirubin, Total 0.2 mg/dL (0.2-1.0); Calcium 7.6 mg/dL (8.7-10.4); Glucose 139 mg/dL (74-106); Potassium 3.3 mmol/L (3.5-5.1); Sodium 132 mmol/L (136-145); Total Protein 4.2 g/dL (5.7-8.2)
[2024-06-24 07:42] LABS: Band Neutrophils % (manual) 2; Eosinophils % (manual) 1 (0-7); Lymphocytes % (manual) 14 (10.0-50.0); Monocytes % (manual) 17 (0-12); Platelet Estimate Adequate
[2024-06-24] MEDS: DOXYCYCLINE 100 MG TAB/CAP PO SCH (08:56)
--- NOTE | 2024-06-24 09:22 | DVHPN2 ---
Progress Note Date Seen: Jun 24, 2024 Medical Necessity Reason Pt with a Central, PICC or Fol: No Objective vital signs Vital Sign Date Time Temp Pulse Resp B/P (MAP) Pulse Ox O2 Delivery O2 Flow Rate FiO2 06/24/24 06:05 101 20 112/69 06/24/24 05:00 99.4 99 99.4 06/23/24 20:00 Nasal Cannula* 3 32 Total Intake and Output 06/23/24 06/23/24 06/24/24 15:00 23:00 07:00 Intake Total 300 ml 1690 ml 500 ml Output Total 1415 ml 1425 ml Balance 300 ml 275 ml -925 ml medications Current Medications Medications Dose Ordered Sig/Carlos Route Start Time Stop Time Status Last Admin Dose Admin Vancomycin HCl 0 ml @ 0 mls/hr UD IV 06/16/24 20:30 Cancel Pantoprazole Sodium 40 mg DAILY IV 06/17/24 10:00 06/24/24 09:01 40 MG Lorazepam 0.5 mg Q6HP PRN PO 06/16/24 20:30 Acetaminophen 650 mg Q6HP PRN PO 06/16/24 20:30 Acetaminophen/ Hydrocodone Bitart 1 tab Q4HP PRN PO 06/16/24 20:30 Ondansetron HCl 4 mg Q4HP PRN IV 06/16/24 20:30 06/19/24 08:35 4 MG Morphine Sulfate 2 mg Q4HPRN PRN IV 06/16/24 20:30 06/24/24 06:05 2 MG Sodium Chloride 10 ml QSHIFT@10,22 IV 06/18/24 22:00 06/23/24 23:20 10 ML Amino Acids 0 ml @ 0 mls/hr PER PHARMACY IV 06/19/24 09:45 Diagnostic Test (Pha) 1 strip Q6HR 06/20/24 00:00 06/24/24 05:39 1 STRIP Insulin Human Regular FOLLOW SLIDING SCALE Q6HR SC 06/20/24 00:00 06/24/24 05:50 4 UNITS Dextrose 50 ml UD IV 06/20/24 00:00 Potassium Chloride/Dextrose/ Sod Cl 1,000 ml @ 80 mls/hr [id number] IV 06/19/24 22:00 06/24/24 08:54 80 MLS/HR Cefepime HCl 50 ml @ 12.5 mls/hr Q8HR IV 06/20/24 22:00 06/24/24 05:39 12.5 MLS/HR Metronidazole 500 mg Q8HR PO 06/22/24 14:00 06/24/24 05:38 500 MG Fat Emulsion Intravenous 150 ml/Potassium Phosphate 44 meq/ Calcium Gluconate 4.65 meq/ Magnesium Sulfate 12 meq/ Multivitamins 10 ml/Chromium/ Copper/Manganese/ Zinc 1 ml/Amino Acids/Dextrose 1,384 ml @ 58 mls/hr [id number] IV 06/23/24 22:00 06/24/24 21:59 06/23/24 23:25 58 MLS/HR Doxycycline Monohydrate 100 mg Q12H PO 06/24/24 09:00 06/24/24 08:56 100 MG laboratory and microbiology Laboratory Tests 06/24/24 05:11 Test 06/24/24 05:11 Range/Units Serum Glucose 139 H 74-106 mg/dL Problem List/Assessment/Plan Problem List/Assessment/Plan 06/18/24minimal pain, has been vomiting "all night"" according to ,(NGT was ordered yesterday at 8;30 AM but was not inserted till this AM) abdomen is soft, minimally tender, stoma is viable and functioning, wound clean and well approximated, drainage serous. I mbelieve the free retropertitoneal air is residual from his operation for ruptured colon two weeks ago. will request GI consult 06/20/24 abdomen more distended, non tender, will get gastrografin small bowel series 06/21/24 gastrografin shows no evicence of bowel obstruction, stoma output increased commensurately ,abdomen non tender, wound clean without overt evidence of infection, leukocytosis worse. will dc ngt and tray clear liquids. 06/22/24 denies pain orm discomfort, denies nausea, afebrile, wound emil removed, wound well approximated. WBC slightly better. will change flagyl to PO. 06/23/24 WBC better, abdomen non tender, colostomy functioning. Must ambulate!! will increase po intake. 06/24/24 feels better, still has not aMBULATED, WOUND CLEAN. WELL APPROXIMATED, ABDOMEN NON TENDER, WBC DECREASING, AFEBRILE, NORMOTENSIVE, TOLERATING PO INTAKE. MUST AMBULATE!!!!! Plan discussed with: Patient Dietary Evaluation Review Comments: 1) Increase TPN to meet at least 75% of estimated needs 2) Advance pt diet when medically feasible to a 2gm Sodium diet 3) Continue current plan of care Expected Outcomes/Goals: 1) Pt to receive adequate nutrition support 2) Pt diet to advance 3) F/U in 2-3 days RONALD LANDA MD Jun 24, 2024 09:22
--- NOTE | 2024-06-24 13:00 | DVHPN2 ---
Subjective The patient seen and examined at bedside. Still has lots of abdominal pain. No fever or chills. Reviewed: Care Plan Changes from previous H/P or p: No Changes Eyes: No Pain, No Vision change, No Conjunctivae inflammation, No Eyelid inflammation, No Other, No Redness ENT: No Ear pain, No Ear discharge, No Nose pain, No Nose discharge, No Nose congestion, No Mouth pain, No Mouth swelling, No Throat pain, No Throat swelling, No Other Cardiovascular: No Chest Pain, No Palpitations, No Orthopnea, No Paroxysmal Noc. Dyspnea, No Edema, No Lt Headedness, No Other Respiratory: No Cough, No Dry, No Shortness of breath, No SOB with excertion, No Wheezing, No Hemoptysis, No Pleuritic Pain, No Sputum, No Other Gastrointestinal: Abdominal Pain; No Diarrhea, No Constipation, No Melena, No Hematochezia, No Other Genitourinary: No Dysuria, No Frequency, No Incontinence, No Hematuria, No Retention, No Other Musculoskeletal: No other, No neck pain, No shoulder pain, No arm pain, No back pain, No hand pain, No leg pain, No foot pain Skin: No Rash, No Lesions, No Jaundice, No Bruising, No Other Objective Vitals Vital Signs Date Time Temp Pulse Resp B/P (MAP) Pulse Ox O2 Delivery O2 Flow Rate FiO2 06/24/24 09:00 98.1 96 18 117/64 (81) 96 98.1 06/24/24 08:10 Nasal Cannula* 3 32 Intake/Output Intake and Output 06/24/24 07:00 Intake Total 2490 ml Output Total 2840 ml Balance -350 ml Intake Oral 1120 ml IV Total 1370 ml Output Urine Total 1250 ml Stool Total 1100 ml Drainage Total 490 ml General Appearance: Alert, Oriented X3, Cooperative, No acute distress, Other (NGT in place) HEENT: Atraumatic, PERRLA Lungs: Clear to auscultation Cardiovascular: Regular rate, Normal S1, Normal S2 Abdomen: Other (soft slightly tender with colostomy no rebound or guarding) Psych/Mental Status: Mental status NL Medications Current Medications Medications Dose Ordered Sig/Carlos Route Start Time Stop Time Status Last Admin Dose Admin Vancomycin HCl 0 ml @ 0 mls/hr UD IV 06/16/24 20:30 Cancel Pantoprazole Sodium 40 mg DAILY IV 06/17/24 10:00 06/24/24 09:01 40 MG Lorazepam 0.5 mg Q6HP PRN PO 06/16/24 20:30 Acetaminophen 650 mg Q6HP PRN PO 06/16/24 20:30 Acetaminophen/ Hydrocodone Bitart 1 tab Q4HP PRN PO 06/16/24 20:30 Ondansetron HCl 4 mg Q4HP PRN IV 06/16/24 20:30 06/19/24 08:35 4 MG Morphine Sulfate 2 mg Q4HPRN PRN IV 06/16/24 20:30 06/24/24 06:05 2 MG Sodium Chloride 10 ml QSHIFT@10,22 IV 06/18/24 22:00 06/24/24 11:36 10 ML Amino Acids 0 ml @ 0 mls/hr PER PHARMACY IV 06/19/24 09:45 Diagnostic Test (Pha) 1 strip Q6HR 06/20/24 00:00 06/24/24 11:49 1 STRIP Insulin Human Regular FOLLOW SLIDING SCALE Q6HR SC 06/20/24 00:00 06/24/24 05:50 4 UNITS Dextrose 50 ml UD IV 06/20/24 00:00 Potassium Chloride/Dextrose/ Sod Cl 1,000 ml @ 80 mls/hr [id number] IV 06/19/24 22:00 06/24/24 08:54 80 MLS/HR Cefepime HCl 50 ml @ 12.5 mls/hr Q8HR IV 06/20/24 22:00 06/24/24 05:39 12.5 MLS/HR Metronidazole 500 mg Q8HR PO 06/22/24 14:00 06/24/24 05:38 500 MG Fat Emulsion Intravenous 150 ml/Potassium Phosphate 44 meq/ Calcium Gluconate 4.65 meq/ Magnesium Sulfate 12 meq/ Multivitamins 10 ml/Chromium/ Copper/Manganese/ Zinc 1 ml/Amino Acids/Dextrose 1,384 ml @ 58 mls/hr [id number] IV 06/23/24 22:00 06/24/24 21:59 06/23/24 23:25 58 MLS/HR Doxycycline Monohydrate 100 mg Q12H PO 06/24/24 09:00 06/24/24 08:56 100 MG Fat Emulsion Intravenous 150 ml/Sodium Chloride 40 meq/ Potassium Chloride 40 meq/ Potassium Phosphate 44 meq/ Calcium Gluconate 2.3 meq/Magnesium Sulfate 12 meq/ Multivitamins 10 ml/Chromium/ Copper/Manganese/ Zinc 1 ml/Insulin Human Regular 4 units/Amino Acids/ Dextrose 1,408.9862 ml @ 59 mls/hr [id number] IV 06/24/24 22:00 06/25/24 21:59 Laboratory Results Laboratory Tests 06/24/24 05:11 Chemistry Test 06/24/24 05:11 Albumin 2.1 g/dL (3.2-4.8) L Calcium Level 7.6 mg/dL (8.7-10.4) L Magnesium Level 2.0 mg/dL (1.6-2.6) Phosphorus Level 2.7 mg/dL (2.4-5.1) Total Protein 4.2 g/dL (5.7-8.2) L LFT Test 06/24/24 05:11 Alanine Aminotransferase (ALT) < 9 U/L (7-40) Alkaline Phosphatase 69 U/L (46-116) Aspartate Amino Transferase (AST) 20 U/L (13-40) Total Bilirubin 0.2 mg/dL (0.2-1.0) Urinalysis Test 06/17/24 02:20 Urine Color [place] (Yellow) H Urine Clarity Ex.turbid (Clear) Urine pH 5.0 (5.0-9.0) Urine Specific [place] 1.030 (1.001-1.035) Urine Protein 1+ (Negative) H Urine Ketones 1+ (Negative) H Urine Blood Negative /uL (Negative) Urine Nitrite Negative (Negative) Urine Bilirubin Negative (Negative) Urine Urobilinogen 4 mg/dL (Negative) H Urine Leukocyte Esterase Negative /uL (Negative) Urine RBC 28 /hpf (0 - 3) Urine WBC 6 /hpf (0 - 3) Urine Squamous Epithelial Cells Few /hpf (<5) Urine Bacteria Few /hpf (None Seen) H Urine Hyaline Casts Many /lpf (0 - 2) Urine Mucus Few (None Seen) Urine Glucose Normal mg/dL (Normal) Microbiology Microbiology Date/Time Source Procedure Growth Status 06/21/24 14:01 Nose MRSA Screen - Final Complete 06/18/24 05:45 Stool Clostridium difficile Toxin Assay - Final Complete 06/17/24 10:10 Blood Blood Culture - Final NO GROWTH AFTER 5 DAYS OF INCUBATION. Complete Labs and/or images reviewed: Labs reviewed by me Assessment/Plan Assessment/Plan #Sepsis secondary to colitis as well as possibly ruptured viscus- Continue Vancomycin PO, Flagyl IV #Leukocytosis secondary to 1. 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 Advance diet as tolerated Continue current management. Continue PT to get the patient out of bed and ambulate. Plan discussed with: Patient, Spouse My Orders Orders - ANDRIA HALL MD Procedure Category Date Status Time Pt Request For Service PT 06/23/24 Logged 15:24 Date of Service: Jun 24, 2024 Billing Provider: ANDRIA HALL MD Common Visit Codes: [id number] INP/OBS CARE(HIGH) ANDRIA HALL MD Jun 24, 2024 13:00
[2024-06-24] MEDS: FUROSEMIDE 40 MG/4 ML VIAL IV SCH (14:20)
[2024-06-24] MEDS: VANCOMYCIN HCL 250 MG CAP PO SCH (17:42)
--- NOTE | 2024-06-24 20:32 | DVHPN2 ---
Consult Progress Note Date Seen: Jun 24, 2024 Subjective Patient reports: Other (having colostomy output , no abdominal pain , white count is at 20 ) Objective vital signs Vital Sign Date Time Temp Pulse Resp B/P (MAP) Pulse Ox O2 Delivery O2 Flow Rate FiO2 06/24/24 18:24 82 20 116/59 06/24/24 16:54 98.2 96 98.2 06/24/24 08:10 Nasal Cannula* 3 32 Total Intake and Output 06/23/24 06/23/24 06/24/24 15:00 23:00 07:00 Intake Total 300 ml 1690 ml 500 ml Output Total 1415 ml 1425 ml Balance 300 ml 275 ml -925 ml medications Current Medications Medications Dose Ordered Sig/Carlos Route Start Time Stop Time Status Last Admin Dose Admin Vancomycin HCl 0 ml @ 0 mls/hr UD IV 06/16/24 20:30 Cancel Pantoprazole Sodium 40 mg DAILY IV 06/17/24 10:00 06/24/24 09:01 40 MG Lorazepam 0.5 mg Q6HP PRN PO 06/16/24 20:30 Acetaminophen 650 mg Q6HP PRN PO 06/16/24 20:30 Acetaminophen/ Hydrocodone Bitart 1 tab Q4HP PRN PO 06/16/24 20:30 Ondansetron HCl 4 mg Q4HP PRN IV 06/16/24 20:30 06/19/24 08:35 4 MG Morphine Sulfate 2 mg Q4HPRN PRN IV 06/16/24 20:30 06/24/24 18:24 2 MG Sodium Chloride 10 ml QSHIFT@10,22 IV 06/18/24 22:00 06/24/24 11:36 10 ML Amino Acids 0 ml @ 0 mls/hr PER PHARMACY IV 06/19/24 09:45 Diagnostic Test (Pha) 1 strip Q6HR 06/20/24 00:00 06/24/24 18:10 1 STRIP Insulin Human Regular FOLLOW SLIDING SCALE Q6HR SC 06/20/24 00:00 06/24/24 18:13 2 UNITS Dextrose 50 ml UD IV 06/20/24 00:00 Potassium Chloride/Dextrose/ Sod Cl 1,000 ml @ 80 mls/hr [id number] IV 06/19/24 22:00 06/24/24 08:54 80 MLS/HR Fat Emulsion Intravenous 150 ml/Potassium Phosphate 44 meq/ Calcium Gluconate 4.65 meq/ Magnesium Sulfate 12 meq/ Multivitamins 10 ml/Chromium/ Copper/Manganese/ Zinc 1 ml/Amino Acids/Dextrose 1,384 ml @ 58 mls/hr [id number] IV 06/23/24 22:00 06/24/24 21:59 06/23/24 23:25 58 MLS/HR Fat Emulsion Intravenous 150 ml/Sodium Chloride 40 meq/ Potassium Chloride 40 meq/ Potassium Phosphate 44 meq/ Calcium Gluconate 2.3 meq/Magnesium Sulfate 12 meq/ Multivitamins 10 ml/Chromium/ Copper/Manganese/ Zinc 1 ml/Insulin Human Regular 4 units/Amino Acids/ Dextrose 1,408.9862 ml @ 59 mls/hr [id number] IV 06/24/24 22:00 06/25/24 21:59 Furosemide 40 mg DAILY IV 06/24/24 13:30 06/24/24 14:20 40 MG Vancomycin HCl 500 mg QID PO 06/24/24 18:00 06/24/24 17:42 500 MG Metronidazole 100 ml @ 100 mls/hr Q8HR IV 06/24/24 22:00 Physical Exam: General: Ill-appearing. Neck: Supple. No masses. HEENT: Pale mucous membranes. Normal lids and conjunctiva. Oropharynx without lesions, exudates, or excessive erythema. Normal appearance of the external aspects of the nose and ears. Heart: Tachycardic. Regular rhythm. No murmur. No lower extremity edema. Lungs: Normal respiratory effort. Clear to auscultation bilaterally. No wheezes. No crackles. Abdomen: Diffuse abdominal tenderness to palpation. Right lower quadrant JACKIE drain with serous fluid drainage. Colostomy with liquid yellow stool. Msk: No digital cyanosis. Normal strength and tone in all 4 limbs. Skin: Warm and dry, no rashes. Neuro: Alert. No facial droop or slurred speech. Extra-ocular movements intact. Sensation intact to soft touch in all 4 limbs. Psych: Appropriate mood. Full affect. Oriented to person, place, time, and situation. laboratory and microbiology Laboratory Tests 06/24/24 05:11 Test 06/24/24 05:11 Range/Units Serum Glucose 139 H 74-106 mg/dL Problem List/Assessment/Plan Problems(with codes): (1) Abdominal pain with vomiting and history of abdominal surgery (2) Colitis (3) Sepsis (4) Acute kidney injury (5) Rectal perforation (6) C. difficile colitis (7) Rectosigmoid cancer (8) Medication refill (9) Postoperative pain (10) Lumbar strain (11) Leukocytosis Problem List/Assessment/Plan ASSESSMENT AND PLAN: ID Problem List: - Colon cancer - Severe sepsis - Acute kidney injury stage 3 - Peritonitis - Colitis - Hypertension - Obesity Assessment This is a 63 y.o. obese male with a past medical history of hypertension, colon cancer status post exploratory laparotomy with sigmoid resection and colostomy on May 28, 2024, perforated bowel, and appendectomy, who presents with nausea, vomiting, increased colostomy output, feeling weak and lightheaded, and generalized abdominal pain. Denies melena. On arrival, vital signs were notable for tachycardia and hypotension, with HR 143 bpm, BP 99/67 mmHg, RR 25 breaths/min, Temp 97.6F, SpO2 99% on room air. Physical examination revealed an ill-appearing male with pale mucous membranes, dehydration, and diffuse abdominal tenderness to palpation. He has a right lower quadrant JACKIE drain with serous fluid drainage and a colostomy with liquid yellow stool. Laboratory studies revealed leukocytosis with WBC as high as 46.8, decreasing to 24.1; platelet count decreased from 602 to 198; hemoglobin 14.3; sodium 133; BUN 45; creatinine 2.49 indicating severe acute kidney injury. CT abdomen/pelvis showed increased retroperitoneal air compared to prior CT, possible defect from rectal patch such as perforation, postsurgical changes from bowel resection with left lower quadrant colostomy, mildly distended colon filled with fluid and adjacent fat stranding suggestive of colitis. MRI abdomen revealed an incompletely characterized T2 hyperintense lesion in the right hepatic dome, severe diffuse colonic wall thickening suspicious for pseudocolitis, and small to moderate free intraperitoneal air in the retroperitoneal space. Blood cultures are no growth to date; C. difficile testing is negative. Patient was started on vancomycin. small bowel series w/ contrast is identified within the colon by 2.5 hours. This represents a Mild delay in small bowel transit time. No evidence of obstruction identified. 06/21: Leukocytosis is rising , unclear ideology , continue to monitor closely . 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 which shows a large focus of mucosal necrosis and inflammation , transmural infaction and perfuration proximal to the tumor , there is no lymph nodes involved however given perforation will be concerned for spead Plan: - Recommend given patients diagnosis have outpatient follow up with hematology and oncology to undergo necessary chemotheray radiation - will deescalate antibiotics due to being positive for C diff and put into transition to C diff therapy - Stop Po flagyl and start IV flagy until stool output is less than 750 per day - Start oral vancomycin 500 milligrams every 6 hours , no need for rectal vancomycin - Stop doxycycline and cefapine - Defer to surgery for postoperative management and need for any additional intervention or surgery. - Monitor patient closely as he responds to antibiotic therapy. - Follow up on blood cultures. Plan discussed with: Other Dietary Evaluation Review Comments: 1) Increase TPN to meet at least 75% of estimated needs 2) Advance pt diet when medically feasible to a 2gm Sodium diet 3) Continue current plan of care Expected Outcomes/Goals: 1) Pt to receive adequate nutrition support 2) Pt diet to advance 3) F/U in 2-3 days JOSE LUIS REESE MD Jun 24, 2024 20:32
[2024-06-24] MEDS: TPN PER PHARMACY IV NR (21:31)
[2024-06-24] MEDS: metroNIDAZOLE 500MG/100ML 100 ML IV SCH (21:32)
[2024-06-25] VITALS (7 sets, daily range): BP systolic 92–121; BP diastolic 54–67; PULSE 88–112; RESP 17–21; TEMP 97.4–99.7; O2SAT 98–100
[2024-06-25] MEDS: HYDROcodone-ACET 5/325MG TAB PO PRN (00:07)
[2024-06-25 05:47] LABS: Basophils # (auto) 0.1 10 ^3/uL (0-0.2); Basophils % (auto) 0.3 % (0.0-2.0); Eosinophils # (auto) 0.2 10 ^3/uL (0-0.8); Eosinophils % (auto) 1.4 % (0.0-7.0); Hematocrit 33.8 % (41.0-53.0); Hemoglobin 10.9 g/dL (13.5-17.5); Lymphocytes # (auto) 1.9 10 ^3/uL (0.4-5.4); Lymphocytes % (auto) 12.4 % (10.0-50.0); Mean Corpuscular Hemoglobin 29.2 pg (28.0-32.0); Mean Corpuscular Hgb Conc. 32.2 g/dL (32.0-36.0); Mean Corpuscular Volume 90.6 fL (80.0-100.0); Monocytes # (auto) 1.9 10 ^3/uL (0-1.3); Monocytes % (auto) 12.4 % (0.0-12.0); Neutrophils # (auto) 11.4 10 ^3/uL (1.6-8.6); Neutrophils % (auto) 73.5 % (37.0-80.0); Nucleated Red Blood Cells % 0.1 %; Platelet Count (auto) 166 10^3/uL (140-450); Red Blood Cells 3.73 10^6/uL (4.5-5.90); Red Cell Distribution Width 18.1 % (11.8-14.3); White Blood Cell 15.6 10^3/uL (4.4-10.8)
[2024-06-25 06:05] LABS: Alkaline Phosphatase 58 U/L (46-116); BUN/Creatinine Ratio 25.5 (10.0-20.0); Blood Urea Nitrogen 13 mg/dL (9-23); Chloride 101 mmol/L (98-107)
[2024-06-25 06:06] LABS: Aspartate Aminotransferase 23 U/L (13-40); Phosphorus 2.8 mg/dL (2.4-5.1)
[2024-06-25 06:07] LABS: Anion Gap 4 (5-15); Carbon Dioxide 28 mmol/L (20-31)
[2024-06-25 06:18] LABS: Alanine Aminotransferase < 9 U/L (7-40); Bilirubin, Total 0.2 mg/dL (0.2-1.0); Calcium 7.5 mg/dL (8.7-10.4); Glucose 127 mg/dL (74-106); Potassium 3.4 mmol/L (3.5-5.1); Sodium 133 mmol/L (136-145); Total Protein 4.1 g/dL (5.7-8.2)
--- NOTE | 2024-06-25 09:11 | DVHINCON2 ---
Date of service: Jun 25, [address] Mackey Reason for Consultation Rectosigmoid colon cancer History of Present Illness 63 years old gentleman who who presented with abdominal pains and perforated rectosigmoid colon cancer. The patient has a history of hypertension and excessive alcohol abuse 6-8 beers a day. The patient was in the hospital in late May 2024. The patient was found to have obstruction and perforation. The patient had resection of the sigmoid and rectosigmoid with colostomy gross rectal tumor was left behind The pathology showed adenocarcinoma moderately-differentiated rectosigmoid Sigmoid colon resection showed adenocarcinoma moderately differentiated, at the distal margin Large focus of mucosal necrosis, acute inflammation, transmural infarction and perforation, proximal to tumor. There was no macroscopic perforation The tumor was pT3 Mesenteric and proximal margin was negative. LVI present. No PMI. No tumor deposits. Eight lymph glands for found at the time of pathological evaluation It was a pT3, pN0 with obstruction and perforation No loss of nuclear expression of MMR proteins, low probability of MSI-H. There was large focus of mucosal necrosis, acute inflammation, transmural infarction and perforation proximal to tumor. Past Medical History Hypertension Alcohol abuse No drugs or smoking Family History: Hypertension G8 FATHER Family History Brother had colon cancer at the age of 46 Social History No smoking. Heavy alcohol drinking 6-8 beers a day No drugs Allergies: Coded Allergies: NO KNOWN ALLERGIES (Unverified , 05/28/24) Home Meds Active Scripts Hydrocodone-Acetaminophen (Hydrocodone Bitartrate/AC 5-325 mg) 1 Tab Tab, 1 TAB PO Q8HP PRN for 5 Days, #15 TAB Prov:LOREN WILKINS MD 06/13/24 Amoxicillin & Pot Clavulanate (Augmentin) 500 Mg Tab, 1 TAB PO BID for 7 Days, #14 TAB Prov:VERONICA MUNROE DIRECTOR [employer] 06/06/24 Hydrocodone-Acetaminophen (Hydrocodone Bitartrate/AC 5-325 mg) 1 Tab Tab, 1 TAB PO Q6HR for 5 Days, #20 TAB Prov:VERONICA MUNROE DIRECT[employer] 06/06/24 Hydrocodone-Acetaminophen (Hydrocodone Bitartrate/AC 5-325 mg) 1 Tab Tab, 1 TAB PO Q6HP PRN, #20 TAB Prov:RADHA MARTÍNEZ PAC 12/07/22 Ibuprofen Micronized (Ibuprofen) 800 Mg Tab, 800 MG PO Q8HP PRN, #30 TAB Prov:RADHA MARTÍNEZ PAC 12/07/22 Current Medications Current Medications Medications (Trade) Dose Ordered Sig/Carlos Route PRN Reason Start Time Stop Time Status Last Admin Fat Emulsion Intravenous 150 ml/Sodium Chloride 40 meq/ Potassium Chloride 40 meq/ Potassium Phosphate 44 meq/ Calcium Gluconate 2.3 meq/Magnesium Sulfate 12 meq/ Multivitamins 10 ml/Chromium/ Copper/Manganese/ Zinc 1 ml/Insulin Human Regular 4 units/Amino Acids/ Dextrose 1,408.9862 ml @ 59 mls/hr [id number] IV 06/24/24 22:00 06/25/24 21:59 06/24/24 21:31 Furosemide (Lasix Injection) 40 mg DAILY IV 06/24/24 13:30 06/24/24 14:20 Vancomycin HCl (Vancomycin Hydrochloride) 500 mg QID PO 06/24/24 18:00 06/25/24 05:41 Metronidazole 100 ml @ 100 mls/hr Q8HR IV 06/24/24 22:00 06/25/24 05:40 Vital Signs Vital Signs Date Time Temp Pulse Resp B/P (MAP) Pulse Ox O2 Delivery O2 Flow Rate FiO2 06/25/24 06:32 91 17 98/63 06/25/24 05:00 98.2 100 98.2 06/24/24 20:00 Nasal Cannula* 3 32 Physical Exam Moderately built and nourished, in no acute distress, alert and oriented. No jaundice Head and neck: Unremarkable for any masses or neck nodes. No conjunctival or mucosal hemorrhage Lungs: Clear Cardiovascular: S1-S2 heard well Abdomen: No organomegaly, tenderness or ascites. Bowel sounds are present. Has colostomy and a JACKIE drain which is still draining significant amount of clear fluid Extremities: No clubbing edema cyanosis or calf tenderness. Skin: Unremarkable for petechia purpura ecchymosis Lymphadenopathy: None Neurological exam: No focal deficit Labs/Diagnostic Data Labs Test 06/25/24 05:48 06/25/24 05:17 06/24/24 05:11 06/22/24 05:32 Range/Units POC Glucose 133 H 70-106 mg/dl White Blood Count 15.6 H 4.4-10.8 10^3/uL Red Blood Count 3.73 L 4.5-5.90 10^6/uL Hemoglobin 10.9 L 13.5-17.5 g/dL Hematocrit 33.8 L 41.0-53.0 % Mean Corpuscular Volume 90.6 80.0-100.0 fL Mean Corpuscular Hemoglobin 29.2 28.0-32.0 pg Mean Corpuscular Hemoglobin Concent 32.2 32.0-36.0 g/dL Red Cell Distribution Width 18.1 H 11.8-14.3 % Platelet Count 166 140-450 10^3/uL Mean Platelet Volume 8.6 6.9-10.8 fL Neutrophils (%) (Auto) 73.5 37.0-80.0 % Lymphocytes (%) (Auto) 12.4 10.0-50.0 % Monocytes (%) (Auto) 12.4 H 0.0-12.0 % Eosinophils (%) (Auto) 1.4 0.0-7.0 % Basophils (%) (Auto) 0.3 0.0-2.0 % Neutrophils # (Auto) 11.4 H 1.6-8.6 10 ^3/uL Lymphocytes # (Auto) 1.9 0.4-5.4 10 ^3/uL Monocytes # (Auto) 1.9 H 0-1.3 10 ^3/uL Eosinophils # (Auto) 0.2 0-0.8 10 ^3/uL Basophils # (Auto) 0.1 0-0.2 10 ^3/uL Nucleated Red Blood Cells 0.1 % Sodium Level 133 L 136-145 mmol/L Potassium Level 3.4 L 3.5-5.1 mmol/L Chloride Level 101 98-107 mmol/L Carbon Dioxide Level 28 20-31 mmol/L Anion Gap 4 L 5-15 Blood Urea Nitrogen 13 9-23 mg/dL Creatinine 0.51 L 0.700-1.30 mg/dL Glomerular Filtration Rate Calc 114 >90 mL/min BUN/Creatinine Ratio 25.5 H 10.0-20.0 Serum Glucose 127 H 74-106 mg/dL Calcium Level 7.5 L 8.7-10.4 mg/dL Phosphorus Level 2.8 2.4-5.1 mg/dL Magnesium Level 2.0 1.6-2.6 mg/dL Total Bilirubin 0.2 0.2-1.0 mg/dL Aspartate Amino Transferase (AST) 23 13-40 U/L Alanine Aminotransferase (ALT) < 9 7-40 U/L Alkaline Phosphatase 58 46-116 U/L Total Protein 4.1 L 5.7-8.2 g/dL Albumin 2.0 L 3.2-4.8 g/dL Differential Total Cells Counted 100.0 100 Neutrophils % (Manual) 66 37.0-80.0 Band Neutrophils % (Manual) 2 Lymphocytes % (Manual) 14 10.0-50.0 Monocytes % (Manual) 17 H 0-12 Eosinophils % (Manual) 1 0-7 Basophils % (Manual) 0 0.0-2.0 Metamyelocytes % (manual) 0 Myelocytes % (Manual) 0 Promyelocytes % (Manual) 0 Blast Cells % (Manual) 0 Reactive Lymphocytes 0 Platelet Estimate Adequate Carcinoembryonic Antigen 8.96 <=5.0 ng/mL Test 06/20/24 04:53 06/19/24 05:05 06/18/24 13:11 06/17/24 03:06 Range/Units Triglycerides Level 115 < 150 mg/dL Random Vancomycin Level 13.7 H 5-10 ug/mL Prothrombin Time 11.2 9.3-11.8 sec Prothrombin Time INR 1.06 0.9-1.15 Activated Partial Thromboplast Time 30.1 24.5-34.5 SEC Red Blood Cell Morphology Normal Troponin I High Sensitivity 6 </=54 ng/L Test 06/17/24 02:20 06/16/24 21:19 06/16/24 18:18 Range/Units Urine Color [place] H Yellow Urine Clarity Ex.turbid Clear Urine pH 5.0 5.0-9.0 Urine Specific [place] 1.030 1.001-1.035 Urine Protein 1+ H Negative Urine Ketones 1+ H Negative Urine Blood Negative Negative /uL Urine Nitrite Negative Negative Urine Bilirubin Negative Negative Urine Urobilinogen 4 H Negative mg/dL Urine Leukocyte Esterase Negative Negative /uL Urine RBC 28 0 - 3 /hpf Urine WBC 6 0 - 3 /hpf Urine Squamous Epithelial Cells Few <5 /hpf Urine Bacteria Few H None Seen /hpf Urine Hyaline Casts Many 0 - 2 /lpf Urine Mucus Few None Seen Urine Glucose Normal Normal mg/dL Lactic Acid Level 4.1 *H 0.4-2.0 mmol/L Large Platelets Moderate Lipase 18 12-53 U/L Microbiology Date/Time Source Procedure Growth Status 06/21/24 14:01 Nose MRSA Screen - Final Complete 06/18/24 05:45 Stool Clostridium difficile Toxin Assay - Final Complete 06/17/24 10:10 Blood Blood Culture - Final NO GROWTH AFTER 5 DAYS OF INCUBATION. Complete Assessment 1. Perforated and obstructed rectosigmoid colon cancer status post sigmoid colon and rectosigmoid resection with positive distal margin with gross tumor left behind, moderately differentiated, pT3, pN0 (only eight lymph glands for taken out), MRI of the abdomen raising some concern about a lesion in the liver but it was a suboptimal MRI with and without contrast (motion) CVA on 06/22/2024 was 8.96 The surgery was done on 05/28/2024 Now the patient is admitted with abdominal pains and C difficile and is clinically improving but still draining significantly from the JACKIE drain 2. History of hypertension 3. History of alcohol drinking Plan/Recommendation With a stage II rectosigmoid and sigmoid colon cancer the patient had perforation and obstruction and gross tumor was left behind, the patient will need radiation and chemotherapy The patient is advised to come see me as an outpatient We will repeat another MRI of the abdomen with and without contrast to evaluate the liver lesion Plan discussed with: Patient KIAN MEMBRENO MD Jun 25, 2024 09:11
--- NOTE | 2024-06-25 10:44 | DVHPN2 ---
Subjective The patient seen and examined at bedside. Still has lots of abdominal pain. No fever or chills. Hypotension Reviewed: Care Plan Changes from previous H/P or p: No Changes Eyes: No Pain, No Vision change, No Conjunctivae inflammation, No Eyelid inflammation, No Other, No Redness ENT: No Ear pain, No Ear discharge, No Nose pain, No Nose discharge, No Nose congestion, No Mouth pain, No Mouth swelling, No Throat pain, No Throat swelling, No Other Cardiovascular: No Chest Pain, No Palpitations, No Orthopnea, No Paroxysmal Noc. Dyspnea, No Edema, No Lt Headedness, No Other Respiratory: No Cough, No Dry, No Shortness of breath, No SOB with excertion, No Wheezing, No Hemoptysis, No Pleuritic Pain, No Sputum, No Other Gastrointestinal: Abdominal Pain; No Diarrhea, No Constipation, No Melena, No Hematochezia, No Other Genitourinary: No Dysuria, No Frequency, No Incontinence, No Hematuria, No Retention, No Other Musculoskeletal: No other, No neck pain, No shoulder pain, No arm pain, No back pain, No hand pain, No leg pain, No foot pain Skin: No Rash, No Lesions, No Jaundice, No Bruising, No Other Objective Vitals Vital Signs Date Time Temp Pulse Resp B/P (MAP) Pulse Ox O2 Delivery O2 Flow Rate FiO2 06/25/24 09:51 115/61 06/25/24 09:00 98.3 95 17 100 98.3 06/24/24 20:00 Nasal Cannula* 3 32 Intake/Output Intake and Output 06/25/24 07:00 Intake Total 3758 ml Output Total 3205 ml Balance 553 ml Intake Oral 920 ml IV Total 2838 ml Output Urine Total 2600 ml Drainage Total 175 ml Other 430 ml General Appearance: Alert, Oriented X3, Cooperative, No acute distress, Other (NGT in place) HEENT: Atraumatic, PERRLA Lungs: Clear to auscultation Cardiovascular: Regular rate, Normal S1, Normal S2 Abdomen: Other (soft slightly tender with colostomy no rebound or guarding) Psych/Mental Status: Mental status NL Medications Current Medications Medications Dose Ordered Sig/Carlos Route Start Time Stop Time Status Last Admin Dose Admin Vancomycin HCl 0 ml @ 0 mls/hr UD IV 06/16/24 20:30 Cancel Pantoprazole Sodium 40 mg DAILY IV 06/17/24 10:00 06/25/24 09:51 40 MG Lorazepam 0.5 mg Q6HP PRN PO 06/16/24 20:30 Acetaminophen 650 mg Q6HP PRN PO 06/16/24 20:30 Acetaminophen/ Hydrocodone Bitart 1 tab Q4HP PRN PO 06/16/24 20:30 06/25/24 00:07 1 TAB Ondansetron HCl 4 mg Q4HP PRN IV 06/16/24 20:30 06/19/24 08:35 4 MG Morphine Sulfate 2 mg Q4HPRN PRN IV 06/16/24 20:30 06/25/24 05:42 2 MG Sodium Chloride 10 ml QSHIFT@10,22 IV 06/18/24 22:00 06/25/24 09:51 10 ML Amino Acids 0 ml @ 0 mls/hr PER PHARMACY IV 06/19/24 09:45 Diagnostic Test (Pha) 1 strip Q6HR 06/20/24 00:00 06/25/24 05:42 1 STRIP Insulin Human Regular FOLLOW SLIDING SCALE Q6HR SC 06/20/24 00:00 06/25/24 06:00 2 UNITS Dextrose 50 ml UD IV 06/20/24 00:00 Potassium Chloride/Dextrose/ Sod Cl 1,000 ml @ 80 mls/hr [id number] IV 06/19/24 22:00 06/25/24 01:03 80 MLS/HR Fat Emulsion Intravenous 150 ml/Sodium Chloride 40 meq/ Potassium Chloride 40 meq/ Potassium Phosphate 44 meq/ Calcium Gluconate 2.3 meq/Magnesium Sulfate 12 meq/ Multivitamins 10 ml/Chromium/ Copper/Manganese/ Zinc 1 ml/Insulin Human Regular 4 units/Amino Acids/ Dextrose 1,408.9862 ml @ 59 mls/hr [id number] IV 06/24/24 22:00 06/25/24 21:59 06/24/24 21:31 59 MLS/HR Furosemide 40 mg DAILY IV 06/24/24 13:30 06/25/24 09:51 40 MG Vancomycin HCl 500 mg QID PO 06/24/24 18:00 06/25/24 05:41 500 MG Metronidazole 100 ml @ 100 mls/hr Q8HR IV 06/24/24 22:00 06/25/24 05:40 100 MLS/HR Laboratory Results Laboratory Tests 06/25/24 05:17 Chemistry Test 06/25/24 05:17 Albumin 2.0 g/dL (3.2-4.8) L Calcium Level 7.5 mg/dL (8.7-10.4) L Magnesium Level 2.0 mg/dL (1.6-2.6) Phosphorus Level 2.8 mg/dL (2.4-5.1) Total Protein 4.1 g/dL (5.7-8.2) L LFT Test 06/25/24 05:17 Alanine Aminotransferase (ALT) < 9 U/L (7-40) Alkaline Phosphatase 58 U/L (46-116) Aspartate Amino Transferase (AST) 23 U/L (13-40) Total Bilirubin 0.2 mg/dL (0.2-1.0) Urinalysis Test 06/17/24 02:20 Urine Color [place] (Yellow) H Urine Clarity Ex.turbid (Clear) Urine pH 5.0 (5.0-9.0) Urine Specific [place] 1.030 (1.001-1.035) Urine Protein 1+ (Negative) H Urine Ketones 1+ (Negative) H Urine Blood Negative /uL (Negative) Urine Nitrite Negative (Negative) Urine Bilirubin Negative (Negative) Urine Urobilinogen 4 mg/dL (Negative) H Urine Leukocyte Esterase Negative /uL (Negative) Urine RBC 28 /hpf (0 - 3) Urine WBC 6 /hpf (0 - 3) Urine Squamous Epithelial Cells Few /hpf (<5) Urine Bacteria Few /hpf (None Seen) H Urine Hyaline Casts Many /lpf (0 - 2) Urine Mucus Few (None Seen) Urine Glucose Normal mg/dL (Normal) Microbiology Microbiology Date/Time Source Procedure Growth Status 06/21/24 14:01 Nose MRSA Screen - Final Complete 06/18/24 05:45 Stool Clostridium difficile Toxin Assay - Final Complete 06/17/24 10:10 Blood Blood Culture - Final NO GROWTH AFTER 5 DAYS OF INCUBATION. Complete Labs and/or images reviewed: Labs reviewed by me Assessment/Plan Assessment/Plan #Sepsis secondary to colitis as well as possibly ruptured viscus- Continue Vancomycin PO, Flagyl IV #Leukocytosis secondary to 1. 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 Advance diet as tolerated #Hypotension Continue current management. Continue PT to get the patient out of bed and ambulate. Will give one litter of NS bolus Will follow up with Blood pressure. Will check lactic acid level Plan discussed with: Patient My Orders Orders - ANDRIA HALL MD Procedure Category Date Status Time Furosemide Injection [facility] 06/24/24 In Process (Lasix Injection) 13:30 Date of Service: Jun 25, 2024 Billing Provider: ANDRIA HALL MD Common Visit Codes: [id number] INP/OBS CARE(HIGH) ANDRIA HALL MD Jun 25, 2024 10:44
--- NOTE | 2024-06-25 13:15 | DVHPN2 ---
Progress Note - Dictate Date Seen: Jun 25, 2024 Medical Necessity Reason Pt with a Central, PICC or Fol: No Subjective E: no major events o/n. RN reports over 400 mL serous output from JACKIE pt w/o complaints. mely clear liquid diet. vital signs Vital Sign Date Time Temp Pulse Resp B/P (MAP) Pulse Ox O2 Delivery O2 Flow Rate FiO2 06/25/24 12:30 97.4 112 18 92/56 (68) 99 97.4 06/25/24 08:00 Nasal Cannula* 3 32 Total Intake and Output 06/24/24 06/24/24 06/25/24 15:00 23:00 07:00 Intake Total 1050 ml 2248 ml 460 ml Output Total 1375 ml 1830 ml Balance 1050 ml 873 ml -1370 ml medications Current Medications Medications Dose Ordered Sig/Carlos Route Start Time Stop Time Status Last Admin Dose Admin Vancomycin HCl 0 ml @ 0 mls/hr UD IV 06/16/24 20:30 Cancel Pantoprazole Sodium 40 mg DAILY IV 06/17/24 10:00 06/25/24 09:51 40 MG Lorazepam 0.5 mg Q6HP PRN PO 06/16/24 20:30 Acetaminophen 650 mg Q6HP PRN PO 06/16/24 20:30 Acetaminophen/ Hydrocodone Bitart 1 tab Q4HP PRN PO 06/16/24 20:30 06/25/24 00:07 1 TAB Ondansetron HCl 4 mg Q4HP PRN IV 06/16/24 20:30 06/19/24 08:35 4 MG Morphine Sulfate 2 mg Q4HPRN PRN IV 06/16/24 20:30 06/25/24 05:42 2 MG Sodium Chloride 10 ml QSHIFT@10,22 IV 06/18/24 22:00 06/25/24 09:51 10 ML Amino Acids 0 ml @ 0 mls/hr PER PHARMACY IV 06/19/24 09:45 Diagnostic Test (Pha) 1 strip Q6HR 06/20/24 00:00 06/25/24 12:32 1 STRIP Insulin Human Regular FOLLOW SLIDING SCALE Q6HR SC 06/20/24 00:00 06/25/24 12:31 4 UNITS Dextrose 50 ml UD IV 06/20/24 00:00 Potassium Chloride/Dextrose/ Sod Cl 1,000 ml @ 80 mls/hr [id number] IV 06/19/24 22:00 06/25/24 01:03 80 MLS/HR Fat Emulsion Intravenous 150 ml/Sodium Chloride 40 meq/ Potassium Chloride 40 meq/ Potassium Phosphate 44 meq/ Calcium Gluconate 2.3 meq/Magnesium Sulfate 12 meq/ Multivitamins 10 ml/Chromium/ Copper/Manganese/ Zinc 1 ml/Insulin Human Regular 4 units/Amino Acids/ Dextrose 1,408.9862 ml @ 59 mls/hr [id number] IV 06/24/24 22:00 06/25/24 21:59 06/24/24 21:31 59 MLS/HR Furosemide 40 mg DAILY IV 06/24/24 13:30 06/25/24 09:51 40 MG Vancomycin HCl 500 mg QID PO 06/24/24 18:00 06/25/24 12:14 500 MG Metronidazole 100 ml @ 100 mls/hr Q8HR IV 06/24/24 22:00 06/25/24 05:40 100 MLS/HR Fat Emulsion Intravenous 150 ml/Sodium Chloride 60 meq/ Potassium Chloride 60 meq/ Potassium Phosphate 44 meq/ Calcium Gluconate 2.3 meq/Magnesium Sulfate 12 meq/ Multivitamins 10 ml/Chromium/ Copper/Manganese/ Zinc 1 ml/Insulin Human Regular 4 units/Amino Acids/ Dextrose 1,423.9862 ml @ 59 mls/hr Q24H9M IV 06/25/24 22:00 06/26/24 21:59 objective GEN: NAD ABD: surgical incisions healing well. colostomy viable. JACKIE with serous drainage with 400 mL o/n. laboratory and microbiology Laboratory Tests 06/25/24 05:17 Test 06/25/24 05:17 Range/Units Serum Glucose 127 H 74-106 mg/dL Assessment/Plan A: 1. s/p ex lap with sigmoidectomy with colostomy 2. hypoalbuminemia 3. c diff colitis P: 1. high JACKIE output likely from #2 2. advance diet as mely. 3. cont monitor JACKIE output. Dietary Evaluation Review Comments: 1) Increase TPN to meet at least 75% of estimated needs 2) Advance pt diet when medically feasible to a 2gm Sodium diet 3) Continue current plan of care Expected Outcomes/Goals: 1) Pt to receive adequate nutrition support 2) Pt diet to advance 3) F/U in 2-3 days Plan discussed with: Patient MAYELA MAST MD Jun 25, 2024 13:15
[2024-06-25] MEDS: SODIUM CHLORIDE 0.9% 1,000 ML IV ONE (13:33)
--- NOTE | 2024-06-25 20:43 | DVH ---
MRI Abdomen and pelvis, without and with IV Contrast Exam Date: 06/25/2024 02:44 PM Comparison: MRI MRI ABD PLEVIS W/WO CONT on DOS: 06/17/24, MRI MRI ABD PLEVIS W/WO CONT on DOS: History: Drainage from JACKIE drain Technique: MRI abdomen and pelvis was performed with and without intravenous contrast. Findings: Visualized lower thorax: Dependent atelectasis. Small right pleural effusion. Liver: Indeterminate 2.1 cm T2 hyperintense lesion in the right hepatic dome, segment 4/8. Gallbladder: No evidence of cholelithiasis or gallbladder wall thickening. Biliary system: There is no intrahepatic or extrahepatic bile duct dilatation. Spleen: Normal in morphology and signal intensity. Pancreas: Normal in morphology and signal intensity. Adrenal glands: Normal in morphology and signal intensity. Kidneys: The kidneys are symmetric in size and appearance with no suspicious lesions. No hydronephros is. Urinary tract: The ureters, as visualized, are normal in course and caliber. Cuellar catheter in the ur inary bladder. GI tract: Severe diffuse colonic bowel wall thickening. Left lower quadrant ostomy. Pelvis: Prostate is mildly enlarged measuring 4.2 cm. Peritoneum: Unremarkable Small volume perihepatic ascites. Diffuse body wall edema. Lymph nodes: No enlarged lymph nodes. Vascular: Normal caliber of the abdominal aorta. Musculoskeletal: The bone marrow signal intensity is within normal limits. IMPRESSION: Postcontrast images are limited secondary to extensive patient motion artifact. Incompletely characterized 2.1 cm T2 hyperintense lesion in the right hepatic dome, segment 4/8. Severe diffuse colonic bowel wall thickening, unchanged.
[2024-06-25] MEDS: TPN PER PHARMACY IV NR (22:05)
[2024-06-26] VITALS (8 sets, daily range): BP systolic 100–110; BP diastolic 58–66; PULSE 92–102; RESP 16–19; TEMP 97.4–99; O2SAT 97–100
--- NOTE | 2024-06-26 | DVHPN2 ---
Consult Progress Note Date Seen: Jun 25, 2024 Subjective Patient reports: Feels better (no fever or chills) Objective vital signs Vital Sign Date Time Temp Pulse Resp B/P (MAP) Pulse Ox O2 Delivery O2 Flow Rate FiO2 06/25/24 21:00 97.9 102 20 97/58 (71) 99 97.9 06/25/24 20:00 Nasal Cannula* 3 32 Total Intake and Output 06/25/24 06/25/24 06/26/24 15:00 23:00 07:00 Intake Total 100 ml 794 ml Output Total 240 ml 2000 ml Balance -140 ml -1206 ml medications Current Medications Medications Dose Ordered Sig/Carlos Route Start Time Stop Time Status Last Admin Dose Admin Vancomycin HCl 0 ml @ 0 mls/hr UD IV 06/16/24 20:30 Cancel Pantoprazole Sodium 40 mg DAILY IV 06/17/24 10:00 06/25/24 09:51 40 MG Lorazepam 0.5 mg Q6HP PRN PO 06/16/24 20:30 Acetaminophen 650 mg Q6HP PRN PO 06/16/24 20:30 Acetaminophen/ Hydrocodone Bitart 1 tab Q4HP PRN PO 06/16/24 20:30 06/25/24 00:07 1 TAB Ondansetron HCl 4 mg Q4HP PRN IV 06/16/24 20:30 06/19/24 08:35 4 MG Morphine Sulfate 2 mg Q4HPRN PRN IV 06/16/24 20:30 06/25/24 14:58 2 MG Sodium Chloride 10 ml QSHIFT@10,22 IV 06/18/24 22:00 06/25/24 09:51 10 ML Amino Acids 0 ml @ 0 mls/hr PER PHARMACY IV 06/19/24 09:45 Diagnostic Test (Pha) 1 strip Q6HR 06/20/24 00:00 06/25/24 17:44 1 STRIP Insulin Human Regular FOLLOW SLIDING SCALE Q6HR SC 06/20/24 00:00 06/25/24 12:31 4 UNITS Dextrose 50 ml UD IV 06/20/24 00:00 Potassium Chloride/Dextrose/ Sod Cl 1,000 ml @ 80 mls/hr [id number] IV 06/19/24 22:00 06/25/24 01:03 80 MLS/HR Furosemide 40 mg DAILY IV 06/24/24 13:30 06/25/24 09:51 40 MG Vancomycin HCl 500 mg QID PO 06/24/24 18:00 06/25/24 20:33 500 MG Metronidazole 100 ml @ 100 mls/hr Q8HR IV 06/24/24 22:00 06/25/24 20:33 100 MLS/HR Fat Emulsion Intravenous 150 ml/Sodium Chloride 60 meq/ Potassium Chloride 60 meq/ Potassium Phosphate 44 meq/ Calcium Gluconate 2.3 meq/Magnesium Sulfate 12 meq/ Multivitamins 10 ml/Chromium/ Copper/Manganese/ Zinc 1 ml/Insulin Human Regular 4 units/Amino Acids/ Dextrose 1,423.9862 ml @ 59 mls/hr Q24H9M IV 06/25/24 22:00 06/26/24 21:59 06/25/24 22:05 59 MLS/HR Physical Exam: General: NAD Neck: Supple. No masses. HEENT: PERRL. Normal lids and conjunctiva. Moist mucous membranes. - Oropharynx intubated. Heart: Regular rhythm, normal rate. No murmur. No lower extremity edema. Lungs: On ventilator support. Decreased breath sounds bilaterally. - No wheezes. No crackles. Abdomen: Soft. Non-tender. Non-distended. No masses or abdominal hernia. 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 - Normal strength and tone in remaining limbs. Skin: Warm and dry, no rashes. Chronic wounds over ischial tuberosities. Neuro: Alert. No facial droop or slurred speech. Extra-ocular movements intact. - Unable to assess sensation fully. Psych: Unable to assess mood and affect fully. - Oriented to person, place, time, and situation. laboratory and microbiology Laboratory Tests 06/25/24 05:17 Test 06/25/24 05:17 Range/Units Serum Glucose 127 H 74-106 mg/dL Problem List/Assessment/Plan Problem List/Assessment/Plan ASSESSMENT AND PLAN: ID Problem List: - Colon cancer - Severe sepsis - Acute kidney injury stage 3 - Peritonitis - Colitis - Hypertension - Obesity Assessment This is a 63 y.o. obese male with a past medical history of hypertension, colon cancer status post exploratory laparotomy with sigmoid resection and colostomy on May 28, 2024, perforated bowel, and appendectomy, who presents with nausea, vomiting, increased colostomy output, feeling weak and lightheaded, and generalized abdominal pain. Denies melena. On arrival, vital signs were notable for tachycardia and hypotension, with HR 143 bpm, BP 99/67 mmHg, RR 25 breaths/min, Temp 97.6F, SpO2 99% on room air. Physical examination revealed an ill-appearing male with pale mucous membranes, dehydration, and diffuse abdominal tenderness to palpation. He has a right lower quadrant JACKIE drain with serous fluid drainage and a colostomy with liquid yellow stool. Laboratory studies revealed leukocytosis with WBC as high as 46.8, decreasing to 24.1; platelet count decreased from 602 to 198; hemoglobin 14.3; sodium 133; BUN 45; creatinine 2.49 indicating severe acute kidney injury. CT abdomen/pelvis showed increased retroperitoneal air compared to prior CT, possible defect from rectal patch such as perforation, postsurgical changes from bowel resection with left lower quadrant colostomy, mildly distended colon filled with fluid and adjacent fat stranding suggestive of colitis. MRI abdomen revealed an incompletely characterized T2 hyperintense lesion in the right hepatic dome, severe diffuse colonic wall thickening suspicious for pseudocolitis, and small to moderate free intraperitoneal air in the retroperitoneal space. Blood cultures are no growth to date; C. difficile testing is negative. Patient was started on vancomycin. small bowel series w/ contrast is identified within the colon by 2.5 hours. This represents a Mild delay in small bowel transit time. No evidence of obstruction identified. 06/21: Leukocytosis is rising , unclear ideology , continue to monitor closely . 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 which shows a large focus of mucosal necrosis and inflammation , transmural infaction and perfuration proximal to the tumor , there is no lymph nodes involved however given perforation will be concerned for spead Plan: - Recommend given patients diagnosis have outpatient follow up with hematology and oncology to undergo necessary chemotheray radiation - will deescalate antibiotics due to being positive for C diff and put into transition to C diff therapy - Stop Po flagyl and start IV flagy until stool output is less than 750 per day - Start oral vancomycin 500 milligrams every 6 hours , no need for rectal vancomycin - Stop doxycycline and cefapine - Defer to surgery for postoperative management and need for any additional intervention or surgery. - Monitor patient closely as he responds to antibiotic therapy. - Follow up on blood cultures. Plan discussed with: Patient Dietary Evaluation Review Comments: 1) Increase TPN to meet at least 75% of estimated needs 2) Advance pt diet when medically feasible to a 2gm Sodium diet 3) Continue current plan of care Expected Outcomes/Goals: 1) Pt to receive adequate nutrition support 2) Pt diet to advance 3) F/U in 2-3 days JOSE LUIS REESE MD Jun 26, 2024 00:00
[2024-06-26 05:54] LABS: Hematocrit 30.4 % (41.0-53.0); Hemoglobin 10.1 g/dL (13.5-17.5); Mean Corpuscular Hemoglobin 29.7 pg (28.0-32.0); Mean Corpuscular Hgb Conc. 33.2 g/dL (32.0-36.0); Mean Corpuscular Volume 89.6 fL (80.0-100.0); Platelet Count (auto) 175 10^3/uL (140-450); Red Blood Cells 3.39 10^6/uL (4.5-5.90); Red Cell Distribution Width 18.4 % (11.8-14.3); White Blood Cell 11.2 10^3/uL (4.4-10.8)
[2024-06-26 06:18] LABS: Alkaline Phosphatase 55 U/L (46-116); Anion Gap 4 (5-15); Aspartate Aminotransferase 24 U/L (13-40); BUN/Creatinine Ratio 28.8 (10.0-20.0); Blood Urea Nitrogen 15 mg/dL (9-23); Carbon Dioxide 27 mmol/L (20-31); Chloride 103 mmol/L (98-107); Phosphorus 2.7 mg/dL (2.4-5.1)
[2024-06-26 06:30] LABS: Alanine Aminotransferase < 9 U/L (7-40); Albumin 1.9 g/dL (3.2-4.8); Bilirubin, Total < 0.2 mg/dL (0.2-1.0); Calcium 7.5 mg/dL (8.7-10.4); Glucose 119 mg/dL (74-106); Sodium 134 mmol/L (136-145); Total Protein 3.9 g/dL (5.7-8.2)
[2024-06-26 06:41] LABS: Basophils % (manual) 0 (0.0-2.0); Blast Cells 0; Eosinophils % (manual) 0 (0-7); Myelocytes % 0; Promyelocytes % 0; Reactive Lymphocytes 0
[2024-06-26 09:09] LABS: Band Neutrophils % (manual) 3; Lymphocytes % (manual) 13 (10.0-50.0); Metamyelocytes % 2; Monocytes % (manual) 9 (0-12)
[2024-06-26 09:10] LABS: Platelet Estimate Adequate
--- NOTE | 2024-06-26 10:43 | DVHPN2 ---
Subjective The patient seen and examined at bedside. Still has lots of abdominal pain. No fever or chills. Lots of output from JACKIE. Reviewed: Care Plan Changes from previous H/P or p: No Changes Eyes: No Pain, No Vision change, No Conjunctivae inflammation, No Eyelid inflammation, No Other, No Redness ENT: No Ear pain, No Ear discharge, No Nose pain, No Nose discharge, No Nose congestion, No Mouth pain, No Mouth swelling, No Throat pain, No Throat swelling, No Other Cardiovascular: No Chest Pain, No Palpitations, No Orthopnea, No Paroxysmal Noc. Dyspnea, No Edema, No Lt Headedness, No Other Respiratory: No Cough, No Dry, No Shortness of breath, No SOB with excertion, No Wheezing, No Hemoptysis, No Pleuritic Pain, No Sputum, No Other Gastrointestinal: Abdominal Pain; No Diarrhea, No Constipation, No Melena, No Hematochezia, No Other Genitourinary: No Dysuria, No Frequency, No Incontinence, No Hematuria, No Retention, No Other Musculoskeletal: No other, No neck pain, No shoulder pain, No arm pain, No back pain, No hand pain, No leg pain, No foot pain Skin: No Rash, No Lesions, No Jaundice, No Bruising, No Other Objective Vitals Vital Signs Date Time Temp Pulse Resp B/P (MAP) Pulse Ox O2 Delivery O2 Flow Rate FiO2 06/26/24 09:10 103/56 06/26/24 09:00 97.4 92 16 100 97.4 06/25/24 20:00 Nasal Cannula* 3 32 Intake/Output Intake and Output 06/26/24 07:00 Intake Total 2344 ml Output Total 4202 ml Balance -1858 ml Intake Oral 1744 ml IV Total 100 ml Tube Feeding 500 ml Output Urine Total 1732 ml Stool Total 550 ml Drainage Total 1890 ml Other 30 ml # Bowel Movements 1 General Appearance: Alert, Oriented X3, Cooperative, No acute distress, Other (NGT in place) HEENT: Atraumatic, PERRLA Lungs: Clear to auscultation Cardiovascular: Regular rate, Normal S1, Normal S2 Abdomen: Other (soft slightly tender with colostomy no rebound or guarding) Psych/Mental Status: Mental status NL Medications Current Medications Medications Dose Ordered Sig/Carlos Route Start Time Stop Time Status Last Admin Dose Admin Vancomycin HCl 0 ml @ 0 mls/hr UD IV 12/7/24 20:30 Cancel Pantoprazole Sodium 40 mg DAILY IV 06/17/24 10:00 06/26/24 09:07 40 MG Lorazepam 0.5 mg Q6HP PRN PO 06/16/24 20:30 Acetaminophen 650 mg Q6HP PRN PO 06/16/24 20:30 Acetaminophen/ Hydrocodone Bitart 1 tab Q4HP PRN PO 06/16/24 20:30 06/26/24 09:11 1 TAB Ondansetron HCl 4 mg Q4HP PRN IV 06/16/24 20:30 06/19/24 08:35 4 MG Morphine Sulfate 2 mg Q4HPRN PRN IV 06/16/24 20:30 06/25/24 14:58 2 MG Sodium Chloride 10 ml QSHIFT@10,22 IV 06/18/24 22:00 06/26/24 09:10 10 ML Amino Acids 0 ml @ 0 mls/hr PER PHARMACY IV 06/19/24 09:45 Diagnostic Test (Pha) 1 strip Q6HR 06/20/24 00:00 06/26/24 05:01 1 STRIP Insulin Human Regular FOLLOW SLIDING SCALE Q6HR SC 06/20/24 00:00 06/26/24 04:59 2 UNITS Dextrose 50 ml UD IV 06/20/24 00:00 Potassium Chloride/Dextrose/ Sod Cl 1,000 ml @ 80 mls/hr [id number] IV 06/19/24 22:00 06/25/24 01:03 80 MLS/HR Furosemide 40 mg DAILY IV 06/24/24 13:30 06/26/24 09:10 40 MG Vancomycin HCl 500 mg QID PO 06/24/24 18:00 06/26/24 05:04 500 MG Metronidazole 100 ml @ 100 mls/hr Q8HR IV 06/24/24 22:00 06/26/24 05:04 100 MLS/HR Fat Emulsion Intravenous 150 ml/Sodium Chloride 60 meq/ Potassium Chloride 60 meq/ Potassium Phosphate 44 meq/ Calcium Gluconate 2.3 meq/Magnesium Sulfate 12 meq/ Multivitamins 10 ml/Chromium/ Copper/Manganese/ Zinc 1 ml/Insulin Human Regular 4 units/Amino Acids/ Dextrose 1,423.9862 ml @ 59 mls/hr Q24H9M IV 06/25/24 22:00 12/17/24 21:59 06/25/24 22:05 59 MLS/HR Laboratory Results Laboratory Tests 06/26/24 05:17 Chemistry Test 06/26/24 05:17 Albumin 1.9 g/dL (3.2-4.8) L Calcium Level 7.5 mg/dL (8.7-10.4) L Magnesium Level 2.0 mg/dL (1.6-2.6) Phosphorus Level 2.7 mg/dL (2.4-5.1) Total Protein 3.9 g/dL (5.7-8.2) L LFT Test 06/26/24 05:17 Alanine Aminotransferase (ALT) < 9 U/L (7-40) Alkaline Phosphatase 55 U/L (46-116) Aspartate Amino Transferase (AST) 24 U/L (13-40) Total Bilirubin < 0.2 mg/dL (0.2-1.0) L Urinalysis Test 06/17/24 02:20 Urine Color [place] (Yellow) H Urine Clarity Ex.turbid (Clear) Urine pH 5.0 (5.0-9.0) Urine Specific [place] 1.030 (1.001-1.035) Urine Protein 1+ (Negative) H Urine Ketones 1+ (Negative) H Urine Blood Negative /uL (Negative) Urine Nitrite Negative (Negative) Urine Bilirubin Negative (Negative) Urine Urobilinogen 4 mg/dL (Negative) H Urine Leukocyte Esterase Negative /uL (Negative) Urine RBC 28 /hpf (0 - 3) Urine WBC 6 /hpf (0 - 3) Urine Squamous Epithelial Cells Few /hpf (<5) Urine Bacteria Few /hpf (None Seen) H Urine Hyaline Casts Many /lpf (0 - 2) Urine Mucus Few (None Seen) Urine Glucose Normal mg/dL (Normal) Microbiology Microbiology Date/Time Source Procedure Growth Status 06/21/24 14:01 Nose MRSA Screen - Final Complete 06/18/24 05:45 Stool Clostridium difficile Toxin Assay - Final Complete 06/17/24 10:10 Blood Blood Culture - Final NO GROWTH AFTER 5 DAYS OF INCUBATION. Complete Labs and/or images reviewed: Labs reviewed by me Assessment/Plan Assessment/Plan #Sepsis secondary to colitis as well as possibly ruptured viscus- Continue Vancomycin PO, Flagyl IV #Leukocytosis secondary to 1. 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 Advance diet as tolerated #Hypotension Continue current management. Continue PT to get the patient out of bed and ambulate. Will monitor blood pressure. Hypotension improved today due to IVF. Continue to monitor JACKIE Plan discussed with: Patient My Orders Orders - ANDRIA HALL MD Procedure Category Date Status Time Blood Culture ROSE 06/25/24 In Process 12:54 Body Fluid Culture W/ ROSE 06/25/24 In Process GS 15:03 Transfer Orders XFER 06/25/24 Transmitted 12:54 Date of Service: Jun 26, 2024 Billing Provider: ANDRIA HALL MD Common Visit Codes: [id number] INP/OBS CARE(HIGH) ANDRIA HALL MD Jun 26, 2024 10:43
--- NOTE | 2024-06-26 11:56 | DVHPN2 ---
Progress Note Date Seen: Jun 26, 2024 Medical Necessity Reason Pt with a Central, PICC or Fol: No Objective vital signs Vital Sign Date Time Temp Pulse Resp B/P (MAP) Pulse Ox O2 Delivery O2 Flow Rate FiO2 06/26/24 09:10 103/56 06/26/24 09:00 97.4 92 16 100 97.4 06/26/24 08:00 Nasal Cannula* 2 28 Total Intake and Output 06/25/24 06/25/24 06/26/24 15:00 23:00 07:00 Intake Total 100 ml 1014 ml 1230 ml Output Total 240 ml 2000 ml 1962 ml Balance -140 ml -986 ml -732 ml medications Current Medications Medications Dose Ordered Sig/Carlos Route Start Time Stop Time Status Last Admin Dose Admin Vancomycin HCl 0 ml @ 0 mls/hr UD IV 06/16/24 20:30 Cancel Pantoprazole Sodium 40 mg DAILY IV 06/17/24 10:00 06/26/24 09:07 40 MG Lorazepam 0.5 mg Q6HP PRN PO 06/16/24 20:30 Acetaminophen 650 mg Q6HP PRN PO 06/16/24 20:30 Acetaminophen/ Hydrocodone Bitart 1 tab Q4HP PRN PO 06/16/24 20:30 06/26/24 09:11 1 TAB Ondansetron HCl 4 mg Q4HP PRN IV 06/16/24 20:30 06/19/24 08:35 4 MG Morphine Sulfate 2 mg Q4HPRN PRN IV 06/16/24 20:30 06/25/24 14:58 2 MG Sodium Chloride 10 ml QSHIFT@,22 IV 06/18/24 22:00 06/26/24 09:10 10 ML Amino Acids 0 ml @ 0 mls/hr PER PHARMACY IV 06/19/24 09:45 Diagnostic Test (Pha) 1 strip Q6HR 06/20/24 00:00 06/26/24 05:01 1 STRIP Insulin Human Regular FOLLOW SLIDING SCALE Q6HR SC 06/20/24 00:00 06/26/24 04:59 2 UNITS Dextrose 50 ml UD IV 06/20/24 00:00 Potassium Chloride/Dextrose/ Sod Cl 1,000 ml @ 80 mls/hr [id number] IV 06/19/24 22:00 06/25/24 01:03 80 MLS/HR Furosemide 40 mg DAILY IV 06/24/24 13:30 06/26/24 09:10 40 MG Vancomycin HCl 500 mg QID PO 06/24/24 18:00 06/26/24 05:04 500 MG Metronidazole 100 ml @ 100 mls/hr Q8HR IV 06/24/24 22:00 06/26/24 05:04 100 MLS/HR Fat Emulsion Intravenous 150 ml/Sodium Chloride 60 meq/ Potassium Chloride 60 meq/ Potassium Phosphate 44 meq/ Calcium Gluconate 2.3 meq/Magnesium Sulfate 12 meq/ Multivitamins 10 ml/Chromium/ Copper/Manganese/ Zinc 1 ml/Insulin Human Regular 4 units/Amino Acids/ Dextrose 1,423.9862 ml @ 59 mls/hr Q24H9M IV 06/25/24 22:00 06/26/24 21:59 06/25/24 22:05 59 MLS/HR laboratory and microbiology Laboratory Tests 06/26/24 05:17 Test 06/26/24 05:17 Range/Units Serum Glucose 119 H 74-106 mg/dL Problem List/Assessment/Plan Problem List/Assessment/Plan 06/18/24minimal pain, has been vomiting "all night"" according to ,(NGT was ordered yesterday at 8;30 AM but was not inserted till this AM) abdomen is soft, minimally tender, stoma is viable and functioning, wound clean and well approximated, drainage serous. I mbelieve the free retropertitoneal air is residual from his operation for ruptured colon two weeks ago. will request GI consult 06/20/24 abdomen more distended, non tender, will get gastrografin small bowel series 06/21/24 gastrografin shows no evicence of bowel obstruction, stoma output increased commensurately ,abdomen non tender, wound clean without overt evidence of infection, leukocytosis worse. will dc ngt and tray clear liquids. 06/22/24 denies pain orm discomfort, denies nausea, afebrile, wound emil removed, wound well approximated. WBC slightly better. will change flagyl to PO. 06/23/24 WBC better, abdomen non tender, colostomy functioning. Must ambulate!! will increase po intake. 06/24/24 feels better, still has not aMBULATED, WOUND CLEAN. WELL APPROXIMATED, ABDOMEN NON TENDER, WBC DECREASING, AFEBRILE, NORMOTENSIVE, TOLERATING PO INTAKE. MUST AMBULATE!!!!! 06/26/24 imrpoving, no indication for any further surgical intervention, patient trupti follow up with me as outpatient in two weeks. recall if needed Plan discussed with: Patient Dietary Evaluation Review Comments: 1) Increase TPN to meet at least 75% of estimated needs 2) Advance pt diet when medically feasible to a 2gm Sodium diet 3) Continue current plan of care Expected Outcomes/Goals: 1) Pt to receive adequate nutrition support 2) Pt diet to advance 3) F/U in 2-3 days RONALD LANDA MD Jun 26, 2024 11:56
[2024-06-26] MEDS: GADOTERATE MEG 10 MMOL/20ml INJ (0.5MMOL/ml) IV ONE (15:20)
--- NOTE | 2024-06-26 18:12 | DVHPN2 ---
Progress Note - Dictate Date Seen: Jun 26, 2024 Medical Necessity Reason Pt with a Central, PICC or Fol: No Subjective Patient seen at bedside Resting comfortably Abdominal pain is improved There was no nausea vomiting Patient is tolerating a regular diet Colostomy is functional MRI abdomen shows a ill-defined mass in the left hepatic lobe vital signs Vital Sign Date Time Temp Pulse Resp B/P (MAP) Pulse Ox O2 Delivery O2 Flow Rate FiO2 06/26/24 17:00 97.9 99 18 110/65 (80) 97 97.9 06/26/24 08:00 Nasal Cannula* 2 28 Total Intake and Output 06/25/24 06/25/24 06/26/24 15:00 23:00 07:00 Intake Total 100 ml 1014 ml 1230 ml Output Total 240 ml 2000 ml 1962 ml Balance -140 ml -986 ml -732 ml medications Current Medications Medications Dose Ordered Sig/Carlos Route Start Time Stop Time Status Last Admin Dose Admin Vancomycin HCl 0 ml @ 0 mls/hr UD IV 06/16/24 20:30 Cancel Pantoprazole Sodium 40 mg DAILY IV 06/17/24 10:00 06/26/24 09:07 40 MG Lorazepam 0.5 mg Q6HP PRN PO 06/16/24 20:30 Acetaminophen 650 mg Q6HP PRN PO 06/16/24 20:30 Acetaminophen/ Hydrocodone Bitart 1 tab Q4HP PRN PO 06/16/24 20:30 06/26/24 09:11 1 TAB Ondansetron HCl 4 mg Q4HP PRN IV 06/16/24 20:30 06/19/24 08:35 4 MG Morphine Sulfate 2 mg Q4HPRN PRN IV 06/16/24 20:30 06/25/24 14:58 2 MG Sodium Chloride 10 ml QSHIFT@10,22 IV 06/18/24 22:00 06/26/24 09:10 10 ML Diagnostic Test (Pha) 1 strip Q6HR 06/20/24 00:00 06/26/24 13:32 1 STRIP Insulin Human Regular FOLLOW SLIDING SCALE Q6HR SC 06/20/24 00:00 06/26/24 04:59 2 UNITS Dextrose 50 ml UD IV 06/20/24 00:00 Potassium Chloride/Dextrose/ Sod Cl 1,000 ml @ 80 mls/hr [id number] IV 06/19/24 22:00 06/26/24 17:36 80 MLS/HR Furosemide 40 mg DAILY IV 06/24/24 13:30 06/26/24 09:10 40 MG Vancomycin HCl 500 mg QID PO 06/24/24 18:00 06/26/24 17:36 500 MG Metronidazole 100 ml @ 100 mls/hr Q8HR IV 06/24/24 22:00 06/26/24 15:17 100 MLS/HR Fat Emulsion Intravenous 150 ml/Sodium Chloride 60 meq/ Potassium Chloride 60 meq/ Potassium Phosphate 44 meq/ Calcium Gluconate 2.3 meq/Magnesium Sulfate 12 meq/ Multivitamins 10 ml/Chromium/ Copper/Manganese/ Zinc 1 ml/Insulin Human Regular 4 units/Amino Acids/ Dextrose 1,423.9862 ml @ 59 mls/hr [id number] IV 06/25/24 22:00 06/26/24 21:59 06/25/24 22:05 59 MLS/HR Fat Emulsion Intravenous 150 ml/Sodium Chloride 30 meq/ Sodium Phosphate 50 meq/Potassium Chloride 80 meq/ Calcium Gluconate 2.3 meq/Magnesium Sulfate 12 meq/ Multivitamins 10 ml/Chromium/ Copper/Manganese/ Zinc 1 ml/Insulin Human Regular 2 units/Amino Acids/ Dextrose 1,428.9662 ml @ 59 mls/hr [id number] IV 06/26/24 22:00 06/27/24 22:13 objective General Appearance: Alert, Oriented X3, Cooperative, moderate distress HEENT: Atraumatic, PERRLA, EOMI Respiratory: Clear to auscultation, Normal air movement Cardiovascular: Regular rate, Normal S1, Normal S2 Abdominal: Normal bowel sounds, Soft, mild distention, mild tenderness Left lower quadrant colostomy functional Extremities: No clubbing, No cyanosis, No edema Skin: No rashes, No breakdown Neuro: Normal gait, Normal speech Psych/Mental Status: Mood NL laboratory and microbiology Laboratory Tests 06/26/24 05:17 Test 06/26/24 05:17 Range/Units Serum Glucose 119 H 74-106 mg/dL Abd MRI IMPRESSION: Postcontrast images are limited secondary to extensive patient motion artifact. Incompletely characterized 2.1 cm T2 hyperintense lesion in the right hepatic dome, segment 4/8. Severe diffuse colonic bowel wall thickening, unchanged Problems(with codes): (1) Liver mass (2) Leukocytosis (3) C. difficile colitis (4) Rectosigmoid cancer (5) Rectal perforation (6) Colitis Prognosis Plan We will arrange CT-guided biopsy of the liver mass if amenable to biopsy as recommended by oncology consult Continue vancomycin 125 mg p.o. q.6 hours Continue Florastor and probiotics DC IV antibiotics Dietary Evaluation Review Comments: 1) Increase TPN to meet at least 75% of estimated needs 2) Advance pt diet when medically feasible to a 2gm Sodium diet 3) Continue current plan of care Expected Outcomes/Goals: 1) Pt to receive adequate nutrition support 2) Pt diet to advance 3) F/U in 2-3 days Plan discussed with: Other (Nurse) MARCIA MARINA MD Jun 26, 2024 18:12
[2024-06-26] MEDS ORDERED: TPN PER PHARMACY IV NR (22:00)
--- NOTE | 2024-06-26 22:38 | DVHPN2 ---
Consult Progress Note Date Seen: Jun 26, 2024 Subjective Patient reports: Feels better (drainage decreasing) Objective vital signs Vital Sign Date Time Temp Pulse Resp B/P (MAP) Pulse Ox O2 Delivery O2 Flow Rate FiO2 06/26/24 21:00 99.0 100 18 101/59 (73) 98 99.0 06/26/24 08:00 Nasal Cannula* 2 28 Total Intake and Output 06/25/24 06/25/24 06/26/24 15:00 23:00 07:00 Intake Total 100 ml 1014 ml 1230 ml Output Total 240 ml 2000 ml 1962 ml Balance -140 ml -986 ml -732 ml medications Current Medications Medications Dose Ordered Sig/Carlos Route Start Time Stop Time Status Last Admin Dose Admin Vancomycin HCl 0 ml @ 0 mls/hr UD IV 06/16/24 20:30 Cancel Pantoprazole Sodium 40 mg DAILY IV 06/17/24 10:00 06/26/24 09:07 40 MG Lorazepam 0.5 mg Q6HP PRN PO 06/16/24 20:30 Acetaminophen 650 mg Q6HP PRN PO 06/16/24 20:30 Acetaminophen/ Hydrocodone Bitart 1 tab Q4HP PRN PO 06/16/24 20:30 06/26/24 09:11 1 TAB Ondansetron HCl 4 mg Q4HP PRN IV 06/16/24 20:30 06/19/24 08:35 4 MG Morphine Sulfate 2 mg Q4HPRN PRN IV 06/16/24 20:30 06/25/24 14:58 2 MG Sodium Chloride 10 ml QSHIFT@10,22 IV 06/18/24 22:00 06/26/24 21:10 10 ML Diagnostic Test (Pha) 1 strip Q6HR 06/20/24 00:00 06/26/24 13:32 1 STRIP Insulin Human Regular FOLLOW SLIDING SCALE Q6HR SC 06/20/24 00:00 06/26/24 04:59 2 UNITS Dextrose 50 ml UD IV 06/20/24 00:00 Potassium Chloride/Dextrose/ Sod Cl 1,000 ml @ 80 mls/hr [id number] IV 06/19/24 22:00 06/26/24 17:36 80 MLS/HR Furosemide 40 mg DAILY IV 06/24/24 13:30 06/26/24 09:10 40 MG Vancomycin HCl 500 mg QID PO 06/24/24 18:00 06/26/24 21:10 500 MG Metronidazole 100 ml @ 100 mls/hr Q8HR IV 06/24/24 22:00 06/26/24 21:10 100 MLS/HR Fat Emulsion Intravenous 150 ml/Sodium Chloride 30 meq/ Sodium Phosphate 50 meq/Potassium Chloride 80 meq/ Calcium Gluconate 2.3 meq/Magnesium Sulfate 12 meq/ Multivitamins 10 ml/Chromium/ Copper/Manganese/ Zinc 1 ml/Insulin Human Regular 2 units/Amino Acids/ Dextrose 1,428.9662 ml @ 59 mls/hr [id number] IV 06/26/24 22:00 06/27/24 22:13 Cancel Physical Exam: General: Intubated, not sedated, awake, follows simple commands. Neck: Supple. No masses. HEENT: PERRL. Normal lids and conjunctiva. Moist mucous membranes. - Oropharynx intubated. Heart: Regular rhythm, normal rate. No murmur. No lower extremity edema. Lungs: On ventilator support. Decreased breath sounds bilaterally. - No wheezes. No crackles. Abdomen: Soft. Non-tender. Non-distended. No masses or abdominal hernia. 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 - Normal strength and tone in remaining limbs. Skin: Warm and dry, no rashes. Chronic wounds over ischial tuberosities. Neuro: Alert. No facial droop or slurred speech. Extra-ocular movements intact. - Unable to assess sensation fully. Psych: Unable to assess mood and affect fully. - Oriented to person, place, time, and situation. laboratory and microbiology Laboratory Tests 06/26/24 05:17 Test 06/26/24 05:17 Range/Units Serum Glucose 119 H 74-106 mg/dL Problem List/Assessment/Plan Problem List/Assessment/Plan ASSESSMENT AND PLAN: ID Problem List: - Colon cancer - Severe sepsis - Acute kidney injury stage 3 - Peritonitis - Colitis - Hypertension - Obesity Assessment This is a 63 y.o. obese male with a past medical history of hypertension, colon cancer status post exploratory laparotomy with sigmoid resection and colostomy on May 28, 2024, perforated bowel, and appendectomy, who presents with nausea, vomiting, increased colostomy output, feeling weak and lightheaded, and generalized abdominal pain. Denies melena. On arrival, vital signs were notable for tachycardia and hypotension, with HR 143 bpm, BP 99/67 mmHg, RR 25 breaths/min, Temp 97.6F, SpO2 99% on room air. Physical examination revealed an ill-appearing male with pale mucous membranes, dehydration, and diffuse abdominal tenderness to palpation. He has a right lower quadrant JACKIE drain with serous fluid drainage and a colostomy with liquid yellow stool. Laboratory studies revealed leukocytosis with WBC as high as 46.8, decreasing to 24.1; platelet count decreased from 602 to 198; hemoglobin 14.3; sodium 133; BUN 45; creatinine 2.49 indicating severe acute kidney injury. CT abdomen/pelvis showed increased retroperitoneal air compared to prior CT, possible defect from rectal patch such as perforation, postsurgical changes from bowel resection with left lower quadrant colostomy, mildly distended colon filled with fluid and adjacent fat stranding suggestive of colitis. MRI abdomen revealed an incompletely characterized T2 hyperintense lesion in the right hepatic dome, severe diffuse colonic wall thickening suspicious for pseudocolitis, and small to moderate free intraperitoneal air in the retroperitoneal space. Blood cultures are no growth to date; C. difficile testing is negative. Patient was started on vancomycin. small bowel series w/ contrast is identified within the colon by 2.5 hours. This represents a Mild delay in small bowel transit time. No evidence of obstruction identified. 06/21: Leukocytosis is rising , unclear ideology , continue to monitor closely . 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 which shows a large focus of mucosal necrosis and inflammation , transmural infaction and perfuration proximal to the tumor , there is no lymph nodes involved however given perforation will be concerned for spead Plan: - Recommend given patients diagnosis have outpatient follow up with hematology and oncology to undergo necessary chemotheray radiation - will deescalate antibiotics due to being positive for C diff and put into transition to C diff therapy - Stop Po flagyl and start IV flagy until stool output is less than 750 per day - Start oral vancomycin 500 milligrams every 6 hours , no need for rectal vancomycin - Stop doxycycline and cefapine - Defer to surgery for postoperative management and need for any additional intervention or surgery. - Monitor patient closely as he responds to antibiotic therapy. - Follow up on blood cultures. Plan discussed with: Patient Dietary Evaluation Review Comments: 1) Increase TPN to meet at least 75% of estimated needs 2) Advance pt diet when medically feasible to a 2gm Sodium diet 3) Continue current plan of care Expected Outcomes/Goals: 1) Pt to receive adequate nutrition support 2) Pt diet to advance 3) F/U in 2-3 days JOSE LUIS REESE MD Jun 26, 2024 22:38
[2024-06-27] VITALS (8 sets, daily range): BP systolic 97–149; BP diastolic 62–73; PULSE 82–105; RESP 17–20; TEMP 98.3–99.9; O2SAT 95–98
[2024-06-27 05:54] LABS: Chloride 104 mmol/L (98-107); Potassium 3.8 mmol/L (3.5-5.1)
[2024-06-27 05:55] LABS: Anion Gap 4 (5-15); Carbon Dioxide 25 mmol/L (20-31)
[2024-06-27 05:58] LABS: Basophils # (auto) 0.1 10 ^3/uL (0-0.2); Basophils % (auto) 0.7 % (0.0-2.0); Eosinophils # (auto) 0.2 10 ^3/uL (0-0.8); Eosinophils % (auto) 1.3 % (0.0-7.0); Hematocrit 31.6 % (41.0-53.0); Hemoglobin 10.2 g/dL (13.5-17.5); Lymphocytes # (auto) 1.9 10 ^3/uL (0.4-5.4); Lymphocytes % (auto) 16.5 % (10.0-50.0); Mean Corpuscular Hgb Conc. 32.2 g/dL (32.0-36.0); Monocytes # (auto) 1.4 10 ^3/uL (0-1.3); Monocytes % (auto) 11.6 % (0.0-12.0); Neutrophils # (auto) 8.1 10 ^3/uL (1.6-8.6); Neutrophils % (auto) 69.9 % (37.0-80.0); Nucleated Red Blood Cells % 0.2 %; Platelet Count (auto) 189 10^3/uL (140-450); Red Blood Cells 3.51 10^6/uL (4.5-5.90); Red Cell Distribution Width 18.8 % (11.8-14.3); White Blood Cell 11.7 10^3/uL (4.4-10.8)
[2024-06-27 06:00] LABS: Blood Urea Nitrogen 16 mg/dL (9-23); Glucose 96 mg/dL (74-106)
[2024-06-27 06:08] LABS: Calcium 7.5 mg/dL (8.7-10.4); Sodium 133 mmol/L (136-145)
[2024-06-27 08:49] LABS: Platelet Estimate Adequate
[2024-06-27] MEDS ORDERED: DEXTROSE (50%) 50ML SYRG IV PRN (10:45)
[2024-06-27] MEDS: InsuLIN REG 1unit/0.01ml Soln (100units/ml) SC SCH (11:46)
[2024-06-27] MEDS: ACCU-CHEK COMFORT CURVE STRIP VI SCH (11:46)
--- NOTE | 2024-06-27 14:47 | DVHPN2 ---
Reviewed: Care Plan Changes from previous H/P or p: No Changes Eyes: No Pain, No Vision change, No Conjunctivae inflammation, No Eyelid inflammation, No Other, No Redness ENT: No Ear pain, No Ear discharge, No Nose pain, No Nose discharge, No Nose congestion, No Mouth pain, No Mouth swelling, No Throat pain, No Throat swelling, No Other Cardiovascular: No Chest Pain, No Palpitations, No Orthopnea, No Paroxysmal Noc. Dyspnea, No Edema, No Lt Headedness, No Other Respiratory: No Cough, No Dry, No Shortness of breath, No SOB with excertion, No Wheezing, No Hemoptysis, No Pleuritic Pain, No Sputum, No Other Gastrointestinal: Abdominal Pain; No Diarrhea, No Constipation, No Melena, No Hematochezia, No Other Genitourinary: No Dysuria, No Frequency, No Incontinence, No Hematuria, No Retention, No Other Musculoskeletal: No other, No neck pain, No shoulder pain, No arm pain, No back pain, No hand pain, No leg pain, No foot pain Skin: No Rash, No Lesions, No Jaundice, No Bruising, No Other Objective Vitals Vital Signs Date Time Temp Pulse Resp B/P (MAP) Pulse Ox O2 Delivery O2 Flow Rate FiO2 06/27/24 10:00 97/66 06/27/24 09:00 99.7 85 18 96 99.7 06/27/24 08:05 Nasal Cannula* 2 28 Intake/Output Intake and Output 06/27/24 07:00 Intake Total 500 ml Output Total 3320 ml Balance -2820 ml Intake Oral 400 ml IV Total 100 ml Output Urine Total 2200 ml Stool Total 650 ml Drainage Total 470 ml General Appearance: Alert, Oriented X3, Cooperative, No acute distress, Other (NGT in place) HEENT: Atraumatic, PERRLA Lungs: Clear to auscultation Cardiovascular: Regular rate, Normal S1, Normal S2 Abdomen: Other (soft slightly tender with colostomy no rebound or guarding) Psych/Mental Status: Mental status NL Medications Current Medications Medications Dose Ordered Sig/Carlos Route Start Time Stop Time Status Last Admin Dose Admin Vancomycin HCl 0 ml @ 0 mls/hr UD IV 06/16/24 20:30 Cancel Pantoprazole Sodium 40 mg DAILY IV 06/17/24 10:00 06/27/24 11:09 40 MG Lorazepam 0.5 mg Q6HP PRN PO 06/16/24 20:30 Acetaminophen 650 mg Q6HP PRN PO 06/16/24 20:30 Acetaminophen/ Hydrocodone Bitart 1 tab Q4HP PRN PO 06/16/24 20:30 06/26/24 09:11 1 TAB Ondansetron HCl 4 mg Q4HP PRN IV 06/16/24 20:30 06/19/24 08:35 4 MG Morphine Sulfate 2 mg Q4HPRN PRN IV 06/16/24 20:30 06/25/24 14:58 2 MG Sodium Chloride 10 ml QSHIFT@10,22 IV 06/18/24 22:00 06/27/24 10:00 10 ML Potassium Chloride/Dextrose/ Sod Cl 1,000 ml @ 80 mls/hr [id number] IV 06/19/24 22:00 06/26/24 17:36 80 MLS/HR Furosemide 40 mg DAILY IV 06/24/24 13:30 06/26/24 09:10 40 MG Vancomycin HCl 500 mg QID PO 06/24/24 18:00 06/27/24 11:09 500 MG Metronidazole 100 ml @ 100 mls/hr Q8HR IV 06/24/24 22:00 06/27/24 06:33 100 MLS/HR Fat Emulsion Intravenous 150 ml/Sodium Chloride 30 meq/ Sodium Phosphate 50 meq/Potassium Chloride 80 meq/ Calcium Gluconate 2.3 meq/Magnesium Sulfate 12 meq/ Multivitamins 10 ml/Chromium/ Copper/Manganese/ Zinc 1 ml/Insulin Human Regular 2 units/Amino Acids/ Dextrose 1,428.9662 ml @ 59 mls/hr [id number] IV 06/26/24 22:00 06/27/24 22:13 Cancel Diagnostic Test (Pha) 1 strip Q6HR 06/27/24 12:00 06/27/24 11:46 1 STRIP Insulin Human Regular Q6HR SC 06/27/24 12:00 Dextrose 50 ml UD PRN IV 06/27/24 10:45 Laboratory Results Laboratory Tests 06/27/24 05:03 Chemistry Test 06/27/24 05:03 Calcium Level 7.5 mg/dL (8.7-10.4) L Urinalysis Test 06/17/24 02:20 Urine Color [place] (Yellow) H Urine Clarity Ex.turbid (Clear) Urine pH 5.0 (5.0-9.0) Urine Specific [employer] 1.030 (1.001-1.035) Urine Protein 1+ (Negative) H Urine Ketones 1+ (Negative) H Urine Blood Negative /uL (Negative) Urine Nitrite Negative (Negative) Urine Bilirubin Negative (Negative) Urine Urobilinogen 4 mg/dL (Negative) H Urine Leukocyte Esterase Negative /uL (Negative) Urine RBC 28 /hpf (0 - 3) Urine WBC 6 /hpf (0 - 3) Urine Squamous Epithelial Cells Few /hpf (<5) Urine Bacteria Few /hpf (None Seen) H Urine Hyaline Casts Many /lpf (0 - 2) Urine Mucus Few (None Seen) Urine Glucose Normal mg/dL (Normal) Microbiology Microbiology Date/Time Source Procedure Growth Status 06/25/24 14:15 Peritoneal Fluid Gram Stain - Final Resulted 06/25/24 14:15 Peritoneal Fluid Body Fluid Culture - Preliminary Resulted 06/25/24 13:32 Blood Blood Culture - Preliminary NO GROWTH AFTER 48 HOURS OF INCUBATION. Resulted 06/21/24 14:01 Nose MRSA Screen - Final Complete 06/18/24 05:45 Stool Clostridium difficile Toxin Assay - Final Complete Labs and/or images reviewed: Labs reviewed by me, Image(s) reviewed by me Assessment/Plan Assessment/Plan Covering for Dr. Denny #Sepsis secondary to colitis as well as possibly ruptured viscus- Continue Vancomycin PO, Flagyl IV #Leukocytosis secondary to 1. 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 Advance diet as tolerated #Hypotension Plan discussed with: Patient Date of Service: Jun 27, 2024 Billing Provider: GISELLA YEPEZ MD Common Visit Codes: [id number] INP/OBS CARE(HIGH) GISELLA YEPEZ MD Jun 27, 2024 14:47
[2024-06-27 17:00] LABS: INR 1.11 (0.9-1.15); Prothrombin Time 11.7 sec (9.3-11.8)
--- NOTE | 2024-06-27 19:57 | DVHPN2 ---
Progress Note - Dictate Date Seen: Jun 27, 2024 Medical Necessity Reason Pt with a Central, PICC or Fol: No Subjective No new complaints Resting comfortably Abdominal pain is improved There was no nausea vomiting Patient is tolerating a regular diet Colostomy is functional MRI abdomen shows a ill-defined mass in the left hepatic lobe vital signs Vital Sign Date Time Temp Pulse Resp B/P (MAP) Pulse Ox O2 Delivery O2 Flow Rate FiO2 06/27/24 17:00 99.9 99 18 100/62 (75) 95 99.9 06/27/24 08:05 Nasal Cannula* 2 28 Total Intake and Output 06/26/24 06/26/24 06/27/24 15:00 23:00 07:00 Intake Total 500 ml 0 ml Output Total 550 ml 2270 ml 500 ml Balance -550 ml -1770 ml -500 ml medications Current Medications Medications Dose Ordered Sig/Carlos Route Start Time Stop Time Status Last Admin Dose Admin Vancomycin HCl 0 ml @ 0 mls/hr UD IV 06/16/24 20:30 Cancel Pantoprazole Sodium 40 mg DAILY IV 06/17/24 10:00 06/27/24 11:09 40 MG Lorazepam 0.5 mg Q6HP PRN PO 06/16/24 20:30 Acetaminophen 650 mg Q6HP PRN PO 06/16/24 20:30 Acetaminophen/ Hydrocodone Bitart 1 tab Q4HP PRN PO 06/16/24 20:30 06/26/24 09:11 1 TAB Ondansetron HCl 4 mg Q4HP PRN IV 06/16/24 20:30 06/19/24 08:35 4 MG Morphine Sulfate 2 mg Q4HPRN PRN IV 06/16/24 20:30 06/25/24 14:58 2 MG Sodium Chloride 10 ml QSHIFT@10,22 IV 06/18/24 22:00 06/27/24 10:00 10 ML Potassium Chloride/Dextrose/ Sod Cl 1,000 ml @ 80 mls/hr [id number] IV 06/19/24 22:00 06/26/24 17:36 80 MLS/HR Furosemide 40 mg DAILY IV 06/24/24 13:30 06/26/24 09:10 40 MG Vancomycin HCl 500 mg QID PO 06/24/24 18:00 06/27/24 18:09 500 MG Metronidazole 100 ml @ 100 mls/hr Q8HR IV 06/24/24 22:00 06/27/24 14:57 100 MLS/HR Fat Emulsion Intravenous 150 ml/Sodium Chloride 30 meq/ Sodium Phosphate 50 meq/Potassium Chloride 80 meq/ Calcium Gluconate 2.3 meq/Magnesium Sulfate 12 meq/ Multivitamins 10 ml/Chromium/ Copper/Manganese/ Zinc 1 ml/Insulin Human Regular 2 units/Amino Acids/ Dextrose 1,428.9662 ml @ 59 mls/hr [id number] IV 06/26/24 22:00 06/27/24 22:13 Cancel Diagnostic Test (Pha) 1 strip Q6HR 06/27/24 12:00 06/27/24 18:05 1 STRIP Insulin Human Regular Q6HR SC 06/27/24 12:00 Dextrose 50 ml UD PRN IV 06/27/24 10:45 objective General Appearance: Alert, Oriented X3, Cooperative, moderate distress HEENT: Atraumatic, PERRLA, EOMI Respiratory: Clear to auscultation, Normal air movement Cardiovascular: Regular rate, Normal S1, Normal S2 Abdominal: Normal bowel sounds, Soft, mild distention, mild tenderness Left lower quadrant colostomy functional Extremities: No clubbing, No cyanosis, No edema Skin: No rashes, No breakdown Neuro: Normal gait, Normal speech Psych/Mental Status: Mood NL laboratory and microbiology Laboratory Tests 06/27/24 05:03 Test 06/27/24 05:03 Range/Units Serum Glucose 96 74-106 mg/dL Problems(with codes): (1) Liver mass (2) Leukocytosis (3) Rectosigmoid cancer (4) C. difficile colitis (5) Rectal perforation (6) Sepsis (7) Colitis (8) Acute kidney injury Prognosis Plan We will arrange CT-guided biopsy of the liver mass if amenable to biopsy as recommended by oncology consult Continue vancomycin 125 mg p.o. q.6 hours Continue Florastor and probiotics Radiology consult for biopsy Dietary Evaluation Review Comments: 1) Increase TPN to meet at least 75% of estimated needs 2) Advance pt diet when medically feasible to a 2gm Sodium diet 3) Continue current plan of care Expected Outcomes/Goals: 1) Pt to receive adequate nutrition support 2) Pt diet to advance 3) F/U in 2-3 days Plan discussed with: Other (Nurse) MARCIA MARINA MD Jun 27, 2024 19:57
[2024-06-28] VITALS (8 sets, daily range): BP systolic 99–124; BP diastolic 61–73; PULSE 82–103; RESP 14–18; TEMP 98.2–100.3; O2SAT 95–99
[2024-06-28 05:48] LABS: Anion Gap 3 (5-15); Carbon Dioxide 26 mmol/L (20-31); Chloride 105 mmol/L (98-107); Potassium 3.9 mmol/L (3.5-5.1)
[2024-06-28 05:51] LABS: Basophils # (auto) 0.1 10 ^3/uL (0-0.2); Basophils % (auto) 0.8 % (0.0-2.0); Eosinophils # (auto) 0.1 10 ^3/uL (0-0.8); Eosinophils % (auto) 0.5 % (0.0-7.0); Hemoglobin 10.3 g/dL (13.5-17.5); Lymphocytes # (auto) 1.7 10 ^3/uL (0.4-5.4); Lymphocytes % (auto) 17.2 % (10.0-50.0); Mean Corpuscular Hgb Conc. 32.1 g/dL (32.0-36.0); Mean Corpuscular Volume 90.1 fL (80.0-100.0); Monocytes % (auto) 10.9 % (0.0-12.0); Neutrophils # (auto) 6.8 10 ^3/uL (1.6-8.6); Neutrophils % (auto) 70.6 % (37.0-80.0); Platelet Count (auto) 259 10^3/uL (140-450); Red Blood Cells 3.56 10^6/uL (4.5-5.90); Red Cell Distribution Width 18.3 % (11.8-14.3); White Blood Cell 9.6 10^3/uL (4.4-10.8)
[2024-06-28 05:54] LABS: BUN/Creatinine Ratio 29.3 (10.0-20.0); Blood Urea Nitrogen 17 mg/dL (9-23); Glucose 82 mg/dL (74-106)
[2024-06-28 05:55] LABS: Calcium 7.9 mg/dL (8.7-10.4); Sodium 134 mmol/L (136-145)
--- NOTE | 2024-06-28 09:27 | DVHPN2 ---
Reviewed: Care Plan Changes from previous H/P or p: No Changes Eyes: No Pain, No Vision change, No Conjunctivae inflammation, No Eyelid inflammation, No Other, No Redness ENT: No Ear pain, No Ear discharge, No Nose pain, No Nose discharge, No Nose congestion, No Mouth pain, No Mouth swelling, No Throat pain, No Throat swelling, No Other Cardiovascular: No Chest Pain, No Palpitations, No Orthopnea, No Paroxysmal Noc. Dyspnea, No Edema, No Lt Headedness, No Other Respiratory: No Cough, No Dry, No Shortness of breath, No SOB with excertion, No Wheezing, No Hemoptysis, No Pleuritic Pain, No Sputum, No Other Gastrointestinal: Abdominal Pain; No Diarrhea, No Constipation, No Melena, No Hematochezia, No Other Genitourinary: No Dysuria, No Frequency, No Incontinence, No Hematuria, No Retention, No Other Musculoskeletal: No other, No neck pain, No shoulder pain, No arm pain, No back pain, No hand pain, No leg pain, No foot pain Skin: No Rash, No Lesions, No Jaundice, No Bruising, No Other Objective Vitals Vital Signs Date Time Temp Pulse Resp B/P (MAP) Pulse Ox O2 Delivery O2 Flow Rate FiO2 06/28/24 05:00 99.5 82 18 103/67 (79) 97 99.5 06/27/24 20:00 Nasal Cannula* 2 28 Intake/Output Intake and Output 06/28/24 07:00 Intake Total 380 ml Output Total 1815 ml Balance -1435 ml Intake Oral 100 ml IV Total 280 ml Output Urine Total 875 ml Stool Total 550 ml Drainage Total 390 ml General Appearance: Alert, Oriented X3, Cooperative, No acute distress, Other (NGT in place) HEENT: Atraumatic, PERRLA Lungs: Clear to auscultation Cardiovascular: Regular rate, Normal S1, Normal S2 Abdomen: Other (soft slightly tender with colostomy no rebound or guarding) Psych/Mental Status: Mental status NL Medications Current Medications Medications Dose Ordered Sig/Carlos Route Start Time Stop Time Status Last Admin Dose Admin Vancomycin HCl 0 ml @ 0 mls/hr UD IV 06/16/24 20:30 Cancel Pantoprazole Sodium 40 mg DAILY IV 06/17/24 10:00 06/27/24 11:09 40 MG Lorazepam 0.5 mg Q6HP PRN PO 12/7/24 20:30 Acetaminophen 650 mg Q6HP PRN PO 06/16/24 20:30 Acetaminophen/ Hydrocodone Bitart 1 tab Q4HP PRN PO 06/16/24 20:30 06/26/24 09:11 1 TAB Ondansetron HCl 4 mg Q4HP PRN IV 06/16/24 20:30 06/19/24 08:35 4 MG Morphine Sulfate 2 mg Q4HPRN PRN IV 06/16/24 20:30 06/27/24 21:28 2 MG Sodium Chloride 10 ml QSHIFT@10,22 IV 06/18/24 22:00 06/27/24 21:21 10 ML Potassium Chloride/Dextrose/ Sod Cl 1,000 ml @ 80 mls/hr [id number] IV 06/19/24 22:00 06/28/24 05:43 80 MLS/HR Furosemide 40 mg DAILY IV 06/24/24 13:30 06/26/24 09:10 40 MG Vancomycin HCl 500 mg QID PO 06/24/24 18:00 06/28/24 05:43 500 MG Metronidazole 100 ml @ 100 mls/hr Q8HR IV 06/24/24 22:00 06/28/24 05:43 100 MLS/HR Fat Emulsion Intravenous 150 ml/Sodium Chloride 30 meq/ Sodium Phosphate 50 meq/Potassium Chloride 80 meq/ Calcium Gluconate 2.3 meq/Magnesium Sulfate 12 meq/ Multivitamins 10 ml/Chromium/ Copper/Manganese/ Zinc 1 ml/Insulin Human Regular 2 units/Amino Acids/ Dextrose 1,428.9662 ml @ 59 mls/hr [id number] IV 06/26/24 22:00 06/27/24 22:13 Cancel Diagnostic Test (Pha) 1 strip Q6HR 06/27/24 12:00 06/28/24 05:43 1 STRIP Insulin Human Regular Q6HR SC 06/27/24 12:00 Dextrose 50 ml UD PRN IV 06/27/24 10:45 Laboratory Results Laboratory Tests 06/28/24 05:00 Chemistry Test 06/28/24 05:00 Calcium Level 7.9 mg/dL (8.7-10.4) L Coagulation Test 06/27/24 15:52 Prothrombin Time 11.7 sec (9.3-11.8) Prothrombin Time INR 1.11 (0.9-1.15) Urinalysis Test 06/17/24 02:20 Urine Color [place] (Yellow) H Urine Clarity Ex.turbid (Clear) Urine pH 5.0 (5.0-9.0) Urine Specific [place] 1.030 (1.001-1.035) Urine Protein 1+ (Negative) H Urine Ketones 1+ (Negative) H Urine Blood Negative /uL (Negative) Urine Nitrite Negative (Negative) Urine Bilirubin Negative (Negative) Urine Urobilinogen 4 mg/dL (Negative) H Urine Leukocyte Esterase Negative /uL (Negative) Urine RBC 28 /hpf (0 - 3) Urine WBC 6 /hpf (0 - 3) Urine Squamous Epithelial Cells Few /hpf (<5) Urine Bacteria Few /hpf (None Seen) H Urine Hyaline Casts Many /lpf (0 - 2) Urine Mucus Few (None Seen) Urine Glucose Normal mg/dL (Normal) Microbiology Microbiology Date/Time Source Procedure Growth Status 06/25/24 14:15 Peritoneal Fluid Gram Stain - Final Resulted 06/25/24 14:15 Peritoneal Fluid Body Fluid Culture - Preliminary Resulted 06/25/24 13:32 Blood Blood Culture - Preliminary NO GROWTH AFTER 48 HOURS OF INCUBATION. Resulted 06/21/24 14:01 Nose MRSA Screen - Final Complete 06/18/24 05:45 Stool Clostridium difficile Toxin Assay - Final Complete Labs and/or images reviewed: Labs reviewed by me, Image(s) reviewed by me Assessment/Plan Assessment/Plan Covering for Dr. Denny #Sepsis secondary to colitis as well as possibly ruptured viscus- Continue Vancomycin PO, Flagyl IV #Leukocytosis secondary to 1. 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 Advance diet as tolerated #Hypotension Continue Current management Plan discussed with: Patient My Orders Orders - GISELLA YEPEZ MD Procedure Category Date Status Time Npo After Midnight DIET 06/27/24 Transmitted Dinner Date of Service: Jun 28, 2024 Billing Provider: GISELLA YEPEZ MD Common Visit Codes: [id number] INP/OBS CARE(HIGH) GISELLA YEPEZ MD Jun 28, 2024 09:27
--- NOTE | 2024-06-28 09:38 | DVHPN2 ---
Progress Note - Dictate Date Seen: Jun 28, 2024 Medical Necessity Reason Pt with a Central, PICC or Fol: No Subjective No new complaints Resting comfortably Abdominal pain is improved There was no nausea vomiting Patient is tolerating a regular diet Colostomy is functional MRI abdomen shows a ill-defined mass in the left hepatic lobe vital signs Vital Sign Date Time Temp Pulse Resp B/P (MAP) Pulse Ox O2 Delivery O2 Flow Rate FiO2 06/28/24 05:00 99.5 82 18 103/67 (79) 97 99.5 06/27/24 20:00 Nasal Cannula* 2 28 Total Intake and Output 06/27/24 06/27/24 06/28/24 14:59 22:59 06:59 Intake Total 100 ml 280 ml Output Total 350 ml 365 ml 1100 ml Balance -350 ml -265 ml -820 ml medications Current Medications Medications Dose Ordered Sig/Carlos Route Start Time Stop Time Status Last Admin Dose Admin Vancomycin HCl 0 ml @ 0 mls/hr UD IV 06/16/24 20:30 Cancel Pantoprazole Sodium 40 mg DAILY IV 06/17/24 10:00 06/27/24 11:09 40 MG Lorazepam 0.5 mg Q6HP PRN PO 06/16/24 20:30 Acetaminophen 650 mg Q6HP PRN PO 06/16/24 20:30 Acetaminophen/ Hydrocodone Bitart 1 tab Q4HP PRN PO 06/16/24 20:30 06/26/24 09:11 1 TAB Ondansetron HCl 4 mg Q4HP PRN IV 06/16/24 20:30 06/19/24 08:35 4 MG Morphine Sulfate 2 mg Q4HPRN PRN IV 06/16/24 20:30 06/27/24 21:28 2 MG Sodium Chloride 10 ml QSHIFT@10,22 IV 06/18/24 22:00 06/27/24 21:21 10 ML Potassium Chloride/Dextrose/ Sod Cl 1,000 ml @ 80 mls/hr [id number] IV 06/19/24 22:00 06/28/24 05:43 80 MLS/HR Furosemide 40 mg DAILY IV 06/24/24 13:30 06/26/24 09:10 40 MG Vancomycin HCl 500 mg QID PO 06/24/24 18:00 06/28/24 05:43 500 MG Metronidazole 100 ml @ 100 mls/hr Q8HR IV 06/24/24 22:00 06/28/24 05:43 100 MLS/HR Fat Emulsion Intravenous 150 ml/Sodium Chloride 30 meq/ Sodium Phosphate 50 meq/Potassium Chloride 80 meq/ Calcium Gluconate 2.3 meq/Magnesium Sulfate 12 meq/ Multivitamins 10 ml/Chromium/ Copper/Manganese/ Zinc 1 ml/Insulin Human Regular 2 units/Amino Acids/ Dextrose 1,428.9662 ml @ 59 mls/hr [id number] IV 06/26/24 22:00 06/27/24 22:13 Cancel Diagnostic Test (Pha) 1 strip Q6HR 06/27/24 12:00 06/28/24 05:43 1 STRIP Insulin Human Regular Q6HR SC 06/27/24 12:00 Dextrose 50 ml UD PRN IV 06/27/24 10:45 objective General Appearance: Alert, Oriented X3, Cooperative, moderate distress HEENT: Atraumatic, PERRLA, EOMI Respiratory: Clear to auscultation, Normal air movement Cardiovascular: Regular rate, Normal S1, Normal S2 Abdominal: Normal bowel sounds, Soft, mild distention, mild tenderness Left lower quadrant colostomy functional Extremities: No clubbing, No cyanosis, No edema Skin: No rashes, No breakdown Neuro: Normal gait, Normal speech Psych/Mental Status: Mood NL laboratory and microbiology Laboratory Tests 06/28/24 05:00 Test 06/28/24 05:00 Range/Units Serum Glucose 82 74-106 mg/dL Problems(with codes): (1) Liver mass (2) Leukocytosis (3) Postoperative pain (4) Rectosigmoid cancer (5) C. difficile colitis (6) Rectal perforation Prognosis Plan Possible CT-guided biopsy of the liver mass if amenable to biopsy as recommended by oncology consult Continue vancomycin 125 mg p.o. q.6 hours Continue Florastor and probiotics Radiology consult for biopsy Dietary Evaluation Review Comments: 1) Increase TPN to meet at least 75% of estimated needs 2) Advance pt diet when medically feasible to a 2gm Sodium diet 3) Continue current plan of care Expected Outcomes/Goals: 1) Pt to receive adequate nutrition support 2) Pt diet to advance 3) F/U in 2-3 days Plan discussed with: Patient, Other (Nurse Arabella) MARCIA MARINA MD Jun 28, 2024 09:38
--- NOTE | 2024-06-28 20:06 | DVHPN2 ---
Consult Progress Note Date Seen: Jun 27, 2024 Subjective Patient reports: Feels better (no diarrhea or rash) Objective vital signs Vital Sign Date Time Temp Pulse Resp B/P (MAP) Pulse Ox O2 Delivery O2 Flow Rate FiO2 06/28/24 17:00 98.2 92 18 99/61 (74) 99 98.2 06/28/24 08:00 Nasal Cannula* 2 28 Total Intake and Output 06/27/24 06/27/24 06/28/24 15:00 23:00 07:00 Intake Total 100 ml 280 ml Output Total 350 ml 365 ml 1100 ml Balance -350 ml -265 ml -820 ml medications Current Medications Medications Dose Ordered Sig/Carlos Route Start Time Stop Time Status Last Admin Dose Admin Vancomycin HCl 0 ml @ 0 mls/hr UD IV 06/16/24 20:30 Cancel Pantoprazole Sodium 40 mg DAILY IV 06/17/24 10:00 06/28/24 11:23 40 MG Lorazepam 0.5 mg Q6HP PRN PO 06/16/24 20:30 Acetaminophen 650 mg Q6HP PRN PO 06/16/24 20:30 Acetaminophen/ Hydrocodone Bitart 1 tab Q4HP PRN PO 06/16/24 20:30 06/26/24 09:11 1 TAB Ondansetron HCl 4 mg Q4HP PRN IV 06/16/24 20:30 06/19/24 08:35 4 MG Morphine Sulfate 2 mg Q4HPRN PRN IV 06/16/24 20:30 06/27/24 21:28 2 MG Sodium Chloride 10 ml QSHIFT@10,22 IV 06/18/24 22:00 06/28/24 10:00 10 ML Potassium Chloride/Dextrose/ Sod Cl 1,000 ml @ 80 mls/hr [id number] IV 06/19/24 22:00 06/28/24 05:43 80 MLS/HR Furosemide 40 mg DAILY IV 06/24/24 13:30 06/28/24 11:23 40 MG Vancomycin HCl 500 mg QID PO 06/24/24 18:00 06/28/24 18:09 500 MG Metronidazole 100 ml @ 100 mls/hr Q8HR IV 06/24/24 22:00 06/28/24 18:09 100 MLS/HR Fat Emulsion Intravenous 150 ml/Sodium Chloride 30 meq/ Sodium Phosphate 50 meq/Potassium Chloride 80 meq/ Calcium Gluconate 2.3 meq/Magnesium Sulfate 12 meq/ Multivitamins 10 ml/Chromium/ Copper/Manganese/ Zinc 1 ml/Insulin Human Regular 2 units/Amino Acids/ Dextrose 1,428.9662 ml @ 59 mls/hr [id number] IV 06/26/24 22:00 06/27/24 22:13 Cancel Diagnostic Test (Pha) 1 strip Q6HR 06/27/24 12:00 06/28/24 18:09 1 STRIP Insulin Human Regular Q6HR SC 06/27/24 12:00 Dextrose 50 ml UD PRN IV 06/27/24 10:45 Physical Exam: General: Intubated, not sedated, awake, follows simple commands. Neck: Supple. No masses. HEENT: PERRL. Normal lids and conjunctiva. Moist mucous membranes. - Oropharynx intubated. Heart: Regular rhythm, normal rate. No murmur. No lower extremity edema. Lungs: On ventilator support. Decreased breath sounds bilaterally. - No wheezes. No crackles. Abdomen: Soft. Non-tender. Non-distended. No masses or abdominal hernia. 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 - Normal strength and tone in remaining limbs. Skin: Warm and dry, no rashes. Chronic wounds over ischial tuberosities. Neuro: Alert. No facial droop or slurred speech. Extra-ocular movements intact. - Unable to assess sensation fully. Psych: Unable to assess mood and affect fully. - Oriented to person, place, time, and situation. laboratory and microbiology Laboratory Tests 06/28/24 05:00 Test 06/28/24 05:00 Range/Units Serum Glucose 82 74-106 mg/dL Problem List/Assessment/Plan Problem List/Assessment/Plan ASSESSMENT AND PLAN: ID Problem List: - Colon cancer - Severe sepsis - Acute kidney injury stage 3 - Peritonitis - Colitis - Hypertension - Obesity Assessment This is a 63 y.o. obese male with a past medical history of hypertension, colon cancer status post exploratory laparotomy with sigmoid resection and colostomy on May 28, 2024, perforated bowel, and appendectomy, who presents with nausea, vomiting, increased colostomy output, feeling weak and lightheaded, and generalized abdominal pain. Denies melena. On arrival, vital signs were notable for tachycardia and hypotension, with HR 143 bpm, BP 99/67 mmHg, RR 25 breaths/min, Temp 97.6F, SpO2 99% on room air. Physical examination revealed an ill-appearing male with pale mucous membranes, dehydration, and diffuse abdominal tenderness to palpation. He has a right lower quadrant JACKIE drain with serous fluid drainage and a colostomy with liquid yellow stool. Laboratory studies revealed leukocytosis with WBC as high as 46.8, decreasing to 24.1; platelet count decreased from 602 to 198; hemoglobin 14.3; sodium 133; BUN 45; creatinine 2.49 indicating severe acute kidney injury. CT abdomen/pelvis showed increased retroperitoneal air compared to prior CT, possible defect from rectal patch such as perforation, postsurgical changes from bowel resection with left lower quadrant colostomy, mildly distended colon filled with fluid and adjacent fat stranding suggestive of colitis. MRI abdomen revealed an incompletely characterized T2 hyperintense lesion in the right hepatic dome, severe diffuse colonic wall thickening suspicious for pseudocolitis, and small to moderate free intraperitoneal air in the retroperitoneal space. Blood cultures are no growth to date; C. difficile testing is negative. Patient was started on vancomycin. small bowel series w/ contrast is identified within the colon by 2.5 hours. This represents a Mild delay in small bowel transit time. No evidence of obstruction identified. 06/21: Leukocytosis is rising , unclear ideology , continue to monitor closely . 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 which shows a large focus of mucosal necrosis and inflammation , transmural infaction and perfuration proximal to the tumor , there is no lymph nodes involved however given perforation will be concerned for spead 06/27: leukocytosis resolved, decreased ostomy output Plan: - Recommend given patients diagnosis have outpatient follow up with hematology and oncology to undergo necessary chemotheray radiation - will deescalate antibiotics due to being positive for C diff and put into transition to C diff therapy - continue flagyl - continue oral vancomycin 500 milligrams every 6 hours , no need for rectal vancomycin - Defer to surgery for postoperative management and need for any additional intervention or surgery. - Monitor patient closely as he responds to antibiotic therapy. - Follow up on blood cultures. Plan discussed with: Patient Dietary Evaluation Review Comments: 1) Increase TPN to meet at least 75% of estimated needs 2) Advance pt diet when medically feasible to a 2gm Sodium diet 3) Continue current plan of care Expected Outcomes/Goals: 1) Pt to receive adequate nutrition support 2) Pt diet to advance 3) F/U in 2-3 days JOSE LUIS REESE MD Jun 28, 2024 20:06
[2024-06-28] MEDS: LORazepam 0.5 MG TAB PO PRN (21:28)
--- NOTE | 2024-06-28 22:20 | DVHPN2 ---
Consult Progress Note Date Seen: Jun 28, 2024 Subjective Patient reports: Other (is up and ambulating for the first time , having ongoing JACKIE drainage output about several hundred ccs a day , and colonostomy output is down to 400ccs ) Objective vital signs Vital Sign Date Time Temp Pulse Resp B/P (MAP) Pulse Ox O2 Delivery O2 Flow Rate FiO2 06/28/24 21:00 98.9 100 18 114/66 (82) 96 98.9 06/28/24 08:00 Nasal Cannula* 2 28 Total Intake and Output 06/27/24 06/27/24 06/28/24 15:00 23:00 07:00 Intake Total 100 ml 280 ml Output Total 350 ml 365 ml 1100 ml Balance -350 ml -265 ml -820 ml medications Current Medications Medications Dose Ordered Sig/Carlos Route Start Time Stop Time Status Last Admin Dose Admin Vancomycin HCl 0 ml @ 0 mls/hr UD IV 06/16/24 20:30 Cancel Pantoprazole Sodium 40 mg DAILY IV 06/17/24 10:00 06/28/24 11:23 40 MG Lorazepam 0.5 mg Q6HP PRN PO 06/16/24 20:30 06/28/24 21:28 0.5 MG Acetaminophen 650 mg Q6HP PRN PO 06/16/24 20:30 Ondansetron HCl 4 mg Q4HP PRN IV 06/16/24 20:30 06/19/24 08:35 4 MG Sodium Chloride 10 ml QSHIFT@10,22 IV 06/18/24 22:00 06/28/24 10:00 10 ML Potassium Chloride/Dextrose/ Sod Cl 1,000 ml @ 80 mls/hr [id number] IV 06/19/24 22:00 06/28/24 05:43 80 MLS/HR Furosemide 40 mg DAILY IV 06/24/24 13:30 06/28/24 11:23 40 MG Vancomycin HCl 500 mg QID PO 06/24/24 18:00 06/28/24 21:22 500 MG Fat Emulsion Intravenous 150 ml/Sodium Chloride 30 meq/ Sodium Phosphate 50 meq/Potassium Chloride 80 meq/ Calcium Gluconate 2.3 meq/Magnesium Sulfate 12 meq/ Multivitamins 10 ml/Chromium/ Copper/Manganese/ Zinc 1 ml/Insulin Human Regular 2 units/Amino Acids/ Dextrose 1,428.9662 ml @ 59 mls/hr [id number] IV 06/26/24 22:00 06/27/24 22:13 Cancel Diagnostic Test (Pha) 1 strip Q6HR 06/27/24 12:00 06/28/24 18:09 1 STRIP Insulin Human Regular Q6HR SC 06/27/24 12:00 Dextrose 50 ml UD PRN IV 06/27/24 10:45 Physical Exam: General: Intubated, not sedated, awake, follows simple commands. Neck: Supple. No masses. HEENT: PERRL. Normal lids and conjunctiva. Moist mucous membranes. - Oropharynx intubated. Heart: Regular rhythm, normal rate. No murmur. No lower extremity edema. Lungs: On ventilator support. Decreased breath sounds bilaterally. - No wheezes. No crackles. Abdomen: Soft. Non-tender. Non-distended. No masses or abdominal hernia. 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 - Normal strength and tone in remaining limbs. Skin: Warm and dry, no rashes. Chronic wounds over ischial tuberosities. Neuro: Alert. No facial droop or slurred speech. Extra-ocular movements intact. - Unable to assess sensation fully. Psych: Unable to assess mood and affect fully. - Oriented to person, place, time, and situation. laboratory and microbiology Laboratory Tests 06/28/24 05:00 Test 06/28/24 05:00 Range/Units Serum Glucose 82 74-106 mg/dL Problem List/Assessment/Plan Problems(with codes): (1) Liver mass (2) Leukocytosis (3) Lumbar strain (4) Postoperative pain (5) Medication refill (6) Rectosigmoid cancer (7) C. difficile colitis (8) Rectal perforation Problem List/Assessment/Plan ASSESSMENT AND PLAN: ID Problem List: - Colon cancer - Severe sepsis - Acute kidney injury stage 3 - Peritonitis - Colitis - Hypertension - Obesity Assessment This is a 63 y.o. obese male with a past medical history of hypertension, colon cancer status post exploratory laparotomy with sigmoid resection and colostomy on May 28, 2024, perforated bowel, and appendectomy, who presents with nausea, vomiting, increased colostomy output, feeling weak and lightheaded, and generalized abdominal pain. Denies melena. On arrival, vital signs were notable for tachycardia and hypotension, with HR 143 bpm, BP 99/67 mmHg, RR 25 breaths/min, Temp 97.6F, SpO2 99% on room air. Physical examination revealed an ill-appearing male with pale mucous membranes, dehydration, and diffuse abdominal tenderness to palpation. He has a right lower quadrant JACKIE drain with serous fluid drainage and a colostomy with liquid yellow stool. Laboratory studies revealed leukocytosis with WBC as high as 46.8, decreasing to 24.1; platelet count decreased from 602 to 198; hemoglobin 14.3; sodium 133; BUN 45; creatinine 2.49 indicating severe acute kidney injury. CT abdomen/pelvis showed increased retroperitoneal air compared to prior CT, possible defect from rectal patch such as perforation, postsurgical changes from bowel resection with left lower quadrant colostomy, mildly distended colon filled with fluid and adjacent fat stranding suggestive of colitis. MRI abdomen revealed an incompletely characterized T2 hyperintense lesion in the right hepatic dome, severe diffuse colonic wall thickening suspicious for pseudocolitis, and small to moderate free intraperitoneal air in the retroperitoneal space. Blood cultures are no growth to date; C. difficile testing is negative. Patient was started on vancomycin. small bowel series w/ contrast is identified within the colon by 2.5 hours. This represents a Mild delay in small bowel transit time. No evidence of obstruction identified. 06/21: Leukocytosis is rising , unclear ideology , continue to monitor closely . 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 which shows a large focus of mucosal necrosis and inflammation , transmural infaction and perfuration proximal to the tumor , there is no lymph nodes involved however given perforation will be concerned for spead 06/27: leukocytosis resolved, decreased ostomy output Plan: - Stop flagyll now that ostomy output dum[place] decreased - Recommend given patients diagnosis have outpatient follow up with hematology and oncology to undergo necessary chemotheray radiation - will deescalate antibiotics due to being positive for C diff and put into transition to C diff therapy - continue oral vancomycin 500 milligrams every 6 hours , no need for rectal vancomycin - Defer to surgery for postoperative management and need for any additional intervention or surgery. - Monitor patient closely as he responds to antibiotic therapy. - Follow up on blood cultures. Plan discussed with: Other Dietary Evaluation Review Comments: 1) Increase TPN to meet at least 75% of estimated needs 2) Advance pt diet when medically feasible to a 2gm Sodium diet 3) Continue current plan of care Expected Outcomes/Goals: 1) Pt to receive adequate nutrition support 2) Pt diet to advance 3) F/U in 2-3 days JOSE LUIS REESE MD Jun 28, 2024 22:20
[2024-06-29] VITALS (8 sets, daily range): BP systolic 105–115; BP diastolic 60–70; PULSE 89–101; RESP 15–21; TEMP 98–98.9; O2SAT 96–99
--- NOTE | 2024-06-29 10:32 | DVHPN2 ---
Reviewed: Care Plan Changes from previous H/P or p: No Changes Eyes: No Pain, No Vision change, No Conjunctivae inflammation, No Eyelid inflammation, No Other, No Redness ENT: No Ear pain, No Ear discharge, No Nose pain, No Nose discharge, No Nose congestion, No Mouth pain, No Mouth swelling, No Throat pain, No Throat swelling, No Other Cardiovascular: No Chest Pain, No Palpitations, No Orthopnea, No Paroxysmal Noc. Dyspnea, No Edema, No Lt Headedness, No Other Respiratory: No Cough, No Dry, No Shortness of breath, No SOB with excertion, No Wheezing, No Hemoptysis, No Pleuritic Pain, No Sputum, No Other Gastrointestinal: Abdominal Pain; No Diarrhea, No Constipation, No Melena, No Hematochezia, No Other Genitourinary: No Dysuria, No Frequency, No Incontinence, No Hematuria, No Retention, No Other Musculoskeletal: No other, No neck pain, No shoulder pain, No arm pain, No back pain, No hand pain, No leg pain, No foot pain Skin: No Rash, No Lesions, No Jaundice, No Bruising, No Other Objective Vitals Vital Signs Date Time Temp Pulse Resp B/P (MAP) Pulse Ox O2 Delivery O2 Flow Rate FiO2 06/29/24 09:15 111/65 06/29/24 09:03 98.5 91 20 99 98.5 06/28/24 20:00 Nasal Cannula* 2 28 Intake/Output Intake and Output 06/29/24 07:00 Intake Total 390 ml Output Total 1970 ml Balance -1580 ml Intake Oral 150 ml IV Total 240 ml Output Urine Total 1200 ml Stool Total 650 ml Drainage Total 120 ml General Appearance: Alert, Oriented X3, Cooperative, No acute distress, Other (NGT in place) HEENT: Atraumatic, PERRLA Lungs: Clear to auscultation Cardiovascular: Regular rate, Normal S1, Normal S2 Abdomen: Other (soft slightly tender with colostomy no rebound or guarding) Psych/Mental Status: Mental status NL Medications Current Medications Medications Dose Ordered Sig/Carlos Route Start Time Stop Time Status Last Admin Dose Admin Vancomycin HCl 0 ml @ 0 mls/hr UD IV 06/16/24 20:30 Cancel Pantoprazole Sodium 40 mg DAILY IV 06/17/24 10:00 06/29/24 09:16 40 MG Lorazepam 0.5 mg Q6HP PRN PO 06/16/24 20:30 06/28/24 21:28 0.5 MG Acetaminophen 650 mg Q6HP PRN PO 06/16/24 20:30 Ondansetron HCl 4 mg Q4HP PRN IV 06/16/24 20:30 06/19/24 08:35 4 MG Sodium Chloride 10 ml QSHIFT@10,22 IV 06/18/24 22:00 06/29/24 09:16 10 ML Potassium Chloride/Dextrose/ Sod Cl 1,000 ml @ 80 mls/hr [id number] IV 06/19/24 22:00 06/29/24 05:38 80 MLS/HR Furosemide 40 mg DAILY IV 06/24/24 13:30 06/29/24 09:15 40 MG Vancomycin HCl 500 mg QID PO 06/24/24 18:00 06/29/24 06:04 500 MG Fat Emulsion Intravenous 150 ml/Sodium Chloride 30 meq/ Sodium Phosphate 50 meq/Potassium Chloride 80 meq/ Calcium Gluconate 2.3 meq/Magnesium Sulfate 12 meq/ Multivitamins 10 ml/Chromium/ Copper/Manganese/ Zinc 1 ml/Insulin Human Regular 2 units/Amino Acids/ Dextrose 1,428.9662 ml @ 59 mls/hr [id number] IV 06/26/24 22:00 06/27/24 22:13 Cancel Diagnostic Test (Pha) 1 strip Q6HR 06/27/24 12:00 06/29/24 05:38 1 STRIP Insulin Human Regular Q6HR SC 06/27/24 12:00 Dextrose 50 ml UD PRN IV 06/27/24 10:45 Laboratory Results Laboratory Tests 06/28/24 05:00 Urinalysis Test 06/17/24 02:20 Urine Color [place] (Yellow) H Urine Clarity Ex.turbid (Clear) Urine pH 5.0 (5.0-9.0) Urine Specific [place] 1.030 (1.001-1.035) Urine Protein 1+ (Negative) H Urine Ketones 1+ (Negative) H Urine Blood Negative /uL (Negative) Urine Nitrite Negative (Negative) Urine Bilirubin Negative (Negative) Urine Urobilinogen 4 mg/dL (Negative) H Urine Leukocyte Esterase Negative /uL (Negative) Urine RBC 28 /hpf (0 - 3) Urine WBC 6 /hpf (0 - 3) Urine Squamous Epithelial Cells Few /hpf (<5) Urine Bacteria Few /hpf (None Seen) H Urine Hyaline Casts Many /lpf (0 - 2) Urine Mucus Few (None Seen) Urine Glucose Normal mg/dL (Normal) Microbiology Microbiology Date/Time Source Procedure Growth Status 06/25/24 14:15 Peritoneal Fluid Gram Stain - Final Resulted 06/25/24 14:15 Peritoneal Fluid Body Fluid Culture - Preliminary Resulted 06/25/24 13:32 Blood Blood Culture - Preliminary NO GROWTH AFTER 72 HOURS OF INCUBATION. Resulted 06/21/24 14:01 Nose MRSA Screen - Final Complete 06/18/24 05:45 Stool Clostridium difficile Toxin Assay - Final Complete Labs and/or images reviewed: Labs reviewed by me, Image(s) reviewed by me Assessment/Plan Assessment/Plan Covering for Dr. Denny #Sepsis secondary to colitis as well as possibly ruptured viscus- Continue Vancomycin PO, Flagyl discontinued #Leukocytosis secondary to 1. 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 Advance diet as tolerated #Hypotension Continue Current management Pts Daughter Ella from [place], [place] at bedside. Discussed the diagnosis management and poor prognosis with the daughter Plan discussed with: Patient Date of Service: Jun 29, 2024 Billing Provider: GISELLA YEPEZ MD Common Visit Codes: [id number] INP/OBS CARE(HIGH) Secondary Visit Codes: [id number] CARE PLAN 30 MINUTES GISELLA YEPEZ MD Jun 29, 2024 10:32
--- NOTE | 2024-06-29 16:38 | DVHPN2 ---
Progress Note - Dictate Date Seen: Jun 29, 2024 Medical Necessity Reason Pt with a Central, PICC or Fol: No Subjective No new complaints Resting comfortably Abdominal pain is improved There was no nausea vomiting Patient is tolerating a regular diet Colostomy is functional MRI abdomen shows a ill-defined mass in the left hepatic lobe IR does not feel that the mass is accessible to a liver biopsy at this time vital signs Vital Sign Date Time Temp Pulse Resp B/P (MAP) Pulse Ox O2 Delivery O2 Flow Rate FiO2 06/29/24 12:36 98.0 96 21 105/61 (76) 97 98.0 06/29/24 08:00 Nasal Cannula* 2 28 Total Intake and Output 06/28/24 06/28/24 06/29/24 15:00 23:00 07:00 Intake Total 150 ml 240 ml Output Total 1400 ml 570 ml Balance -1250 ml -330 ml medications Current Medications Medications Dose Ordered Sig/Carlos Route Start Time Stop Time Status Last Admin Dose Admin Vancomycin HCl 0 ml @ 0 mls/hr UD IV 06/16/24 20:30 Cancel Pantoprazole Sodium 40 mg DAILY IV 06/17/24 10:00 06/29/24 09:16 40 MG Lorazepam 0.5 mg Q6HP PRN PO 06/16/24 20:30 06/28/24 21:28 0.5 MG Acetaminophen 650 mg Q6HP PRN PO 06/16/24 20:30 Ondansetron HCl 4 mg Q4HP PRN IV 06/16/24 20:30 06/19/24 08:35 4 MG Sodium Chloride 10 ml QSHIFT@10,22 IV 06/18/24 22:00 06/29/24 09:16 10 ML Potassium Chloride/Dextrose/ Sod Cl 1,000 ml @ 80 mls/hr [id number] IV 06/19/24 22:00 06/29/24 05:38 80 MLS/HR Furosemide 40 mg DAILY IV 06/24/24 13:30 06/29/24 09:15 40 MG Vancomycin HCl 500 mg QID PO 06/24/24 18:00 06/29/24 12:01 500 MG Fat Emulsion Intravenous 150 ml/Sodium Chloride 30 meq/ Sodium Phosphate 50 meq/Potassium Chloride 80 meq/ Calcium Gluconate 2.3 meq/Magnesium Sulfate 12 meq/ Multivitamins 10 ml/Chromium/ Copper/Manganese/ Zinc 1 ml/Insulin Human Regular 2 units/Amino Acids/ Dextrose 1,428.9662 ml @ 59 mls/hr [id number] IV 06/26/24 22:00 06/27/24 22:13 Cancel Diagnostic Test (Pha) 1 strip Q6HR 06/27/24 12:00 06/29/24 12:01 1 STRIP Insulin Human Regular Q6HR SC 06/27/24 12:00 Dextrose 50 ml UD PRN IV 06/27/24 10:45 objective General Appearance: Alert, Oriented X3, Cooperative, moderate distress HEENT: Atraumatic, PERRLA, EOMI Respiratory: Clear to auscultation, Normal air movement Cardiovascular: Regular rate, Normal S1, Normal S2 Abdominal: Normal bowel sounds, Soft, mild distention, mild tenderness Left lower quadrant colostomy functional Extremities: No clubbing, No cyanosis, No edema Skin: No rashes, No breakdown Neuro: Normal gait, Normal speech Psych/Mental Status: Mood NL laboratory and microbiology Laboratory Tests 06/28/24 05:00 Test 06/28/24 05:00 Range/Units Serum Glucose 82 74-106 mg/dL Problems(with codes): (1) Liver mass (2) Leukocytosis (3) Lumbar strain (4) Postoperative pain (5) Medication refill (6) Rectosigmoid cancer (7) C. difficile colitis (8) Rectal perforation (9) Acute kidney injury Prognosis Plan We can request infection control to repeat a stool for C diff to see if that has cleared In the meantime the patient is on oral vancomycin and probiotics Patient can be discharged when medically stabilized for outpatient follow up with oncologist to determine further workup including a PET scan and possible treatment Prognosis remains guarded Dietary Evaluation Review Comments: 1) Increase TPN to meet at least 75% of estimated needs 2) Advance pt diet when medically feasible to a 2gm Sodium diet 3) Continue current plan of care Expected Outcomes/Goals: 1) Pt to receive adequate nutrition support 2) Pt diet to advance 3) F/U in 2-3 days Plan discussed with: Patient, Other (Nurse) MARCIA MARINA MD Jun 29, 2024 16:38
[2024-06-29] MEDS: ACETAMINOPHEN 325 MG TAB PO PRN (16:39)
--- NOTE | 2024-06-29 23:09 | DVHPN2 ---
Consult Progress Note Date Seen: Jun 29, 2024 Subjective Patient reports: Other (only 250 ccs of output through his ostomy and 100ccs of output from NG tube , having some abdominal pain but no tenderness ) Objective vital signs Vital Sign Date Time Temp Pulse Resp B/P (MAP) Pulse Ox O2 Delivery O2 Flow Rate FiO2 06/29/24 21:00 98.9 99 18 107/64 (78) 98 98.9 06/29/24 08:00 Nasal Cannula* 2 28 Total Intake and Output 06/28/24 06/28/24 06/29/24 15:00 23:00 07:00 Intake Total 150 ml 240 ml Output Total 1400 ml 570 ml Balance -1250 ml -330 ml medications Current Medications Medications Dose Ordered Sig/Carlos Route Start Time Stop Time Status Last Admin Dose Admin Vancomycin HCl 0 ml @ 0 mls/hr UD IV 06/16/24 20:30 Cancel Pantoprazole Sodium 40 mg DAILY IV 06/17/24 10:00 06/29/24 09:16 40 MG Lorazepam 0.5 mg Q6HP PRN PO 06/16/24 20:30 06/28/24 21:28 0.5 MG Acetaminophen 650 mg Q6HP PRN PO 06/16/24 20:30 06/29/24 18:05 650 MG Ondansetron HCl 4 mg Q4HP PRN IV 06/16/24 20:30 06/19/24 08:35 4 MG Sodium Chloride 10 ml QSHIFT@10,22 IV 06/18/24 22:00 06/29/24 20:54 10 ML Potassium Chloride/Dextrose/ Sod Cl 1,000 ml @ 80 mls/hr [id number] IV 06/19/24 22:00 06/29/24 18:04 80 MLS/HR Furosemide 40 mg DAILY IV 06/24/24 13:30 06/29/24 09:15 40 MG Vancomycin HCl 500 mg QID PO 06/24/24 18:00 06/29/24 20:53 500 MG Fat Emulsion Intravenous 150 ml/Sodium Chloride 30 meq/ Sodium Phosphate 50 meq/Potassium Chloride 80 meq/ Calcium Gluconate 2.3 meq/Magnesium Sulfate 12 meq/ Multivitamins 10 ml/Chromium/ Copper/Manganese/ Zinc 1 ml/Insulin Human Regular 2 units/Amino Acids/ Dextrose 1,428.9662 ml @ 59 mls/hr [id number] IV 06/26/24 22:00 06/27/24 22:13 Cancel Diagnostic Test (Pha) 1 strip Q6HR 06/27/24 12:00 06/29/24 18:18 1 STRIP Insulin Human Regular Q6HR SC 06/27/24 12:00 Dextrose 50 ml UD PRN IV 06/27/24 10:45 Physical Exam: General: Intubated, not sedated, awake, follows simple commands. Neck: Supple. No masses. HEENT: PERRL. Normal lids and conjunctiva. Moist mucous membranes. - Oropharynx intubated. Heart: Regular rhythm, normal rate. No murmur. No lower extremity edema. Lungs: On ventilator support. Decreased breath sounds bilaterally. - No wheezes. No crackles. Abdomen: Soft. Non-tender. Non-distended. No masses or abdominal hernia. 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 - Normal strength and tone in remaining limbs. Skin: Warm and dry, no rashes. Chronic wounds over ischial tuberosities. Neuro: Alert. No facial droop or slurred speech. Extra-ocular movements intact. - Unable to assess sensation fully. Psych: Unable to assess mood and affect fully. - Oriented to person, place, time, and situation. laboratory and microbiology Laboratory Tests 06/28/24 05:00 Test 06/28/24 05:00 Range/Units Serum Glucose 82 74-106 mg/dL Problem List/Assessment/Plan Problems(with codes): (1) Liver mass (2) Leukocytosis (3) Lumbar strain (4) Postoperative pain (5) Medication refill (6) Rectosigmoid cancer (7) C. difficile colitis Problem List/Assessment/Plan ASSESSMENT AND PLAN: ID Problem List: - Colon cancer - Severe sepsis - Acute kidney injury stage 3 - Peritonitis - Colitis - Hypertension - Obesity Assessment This is a 63 y.o. obese male with a past medical history of hypertension, colon cancer status post exploratory laparotomy with sigmoid resection and colostomy on May 28, 2024, perforated bowel, and appendectomy, who presents with nausea, vomiting, increased colostomy output, feeling weak and lightheaded, and generalized abdominal pain. Denies melena. On arrival, vital signs were notable for tachycardia and hypotension, with HR 143 bpm, BP 99/67 mmHg, RR 25 breaths/min, Temp 97.6F, SpO2 99% on room air. Physical examination revealed an ill-appearing male with pale mucous membranes, dehydration, and diffuse abdominal tenderness to palpation. He has a right lower quadrant JACKIE drain with serous fluid drainage and a colostomy with liquid yellow stool. Laboratory studies revealed leukocytosis with WBC as high as 46.8, decreasing to 24.1; platelet count decreased from 602 to 198; hemoglobin 14.3; sodium 133; BUN 45; creatinine 2.49 indicating severe acute kidney injury. CT abdomen/pelvis showed increased retroperitoneal air compared to prior CT, possible defect from rectal patch such as perforation, postsurgical changes from bowel resection with left lower quadrant colostomy, mildly distended colon filled with fluid and adjacent fat stranding suggestive of colitis. MRI abdomen revealed an incompletely characterized T2 hyperintense lesion in the right hepatic dome, severe diffuse colonic wall thickening suspicious for pseudocolitis, and small to moderate free intraperitoneal air in the retroperitoneal space. Blood cultures are no growth to date; C. difficile testing is negative. Patient was started on vancomycin. small bowel series w/ contrast is identified within the colon by 2.5 hours. This represents a Mild delay in small bowel transit time. No evidence of obstruction identified. 06/21: Leukocytosis is rising , unclear ideology , continue to monitor closely . 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 which shows a large focus of mucosal necrosis and inflammation , transmural infaction and perfuration proximal to the tumor , there is no lymph nodes involved however given perforation will be concerned for spead 06/27: leukocytosis resolved, decreased ostomy output 06/29: abdominal MRI shows incompletely characterized 2.1 cm 2 hypertense lesion of the right hepatic dome , likely suggestive of metastatic disease from colon cancer Plan: - Do not recommend repeating C diff , unlikely to show any changes , it doesnt refelct patients clinical improvement - Recommend oral vancomycin 500 milligrams every 6 hours x 10 days - Recommend given patients diagnosis have outpatient follow up with hematology and oncology to undergo necessary chemotheray radiation - continue oral vancomycin 500 milligrams every 6 hours , no need for rectal vancomycin - Defer to surgery for postoperative management and need for any additional intervention or surgery. - Monitor patient closely as he responds to antibiotic therapy. - Follow up on blood cultures. Plan discussed with: Other Dietary Evaluation Review Comments: 1) Increase TPN to meet at least 75% of estimated needs 2) Advance pt diet when medically feasible to a 2gm Sodium diet 3) Continue current plan of care Expected Outcomes/Goals: 1) Pt to receive adequate nutrition support 2) Pt diet to advance 3) F/U in 2-3 days JOSE LUIS REESE MD Jun 29, 2024 23:09
[2024-06-30] VITALS (7 sets, daily range): BP systolic 92–103; BP diastolic 59–65; PULSE 83–98; RESP 16–18; TEMP 98.3–98.8; O2SAT 92–99
--- NOTE | 2024-06-30 09:08 | DVHPN2 ---
Reviewed: Care Plan Changes from previous H/P or p: No Changes Eyes: No Pain, No Vision change, No Conjunctivae inflammation, No Eyelid inflammation, No Other, No Redness ENT: No Ear pain, No Ear discharge, No Nose pain, No Nose discharge, No Nose congestion, No Mouth pain, No Mouth swelling, No Throat pain, No Throat swelling, No Other Cardiovascular: No Chest Pain, No Palpitations, No Orthopnea, No Paroxysmal Noc. Dyspnea, No Edema, No Lt Headedness, No Other Respiratory: No Cough, No Dry, No Shortness of breath, No SOB with excertion, No Wheezing, No Hemoptysis, No Pleuritic Pain, No Sputum, No Other Gastrointestinal: Abdominal Pain; No Diarrhea, No Constipation, No Melena, No Hematochezia, No Other Genitourinary: No Dysuria, No Frequency, No Incontinence, No Hematuria, No Retention, No Other Musculoskeletal: No other, No neck pain, No shoulder pain, No arm pain, No back pain, No hand pain, No leg pain, No foot pain Skin: No Rash, No Lesions, No Jaundice, No Bruising, No Other Objective Vitals Vital Signs Date Time Temp Pulse Resp B/P (MAP) Pulse Ox O2 Delivery O2 Flow Rate FiO2 06/30/24 05:00 98.4 95 18 102/61 (75) 96 98.4 06/29/24 20:00 Room Air* 0 21 Intake/Output Intake and Output 06/30/24 07:00 Intake Total 2500 ml Output Total 3625 ml Balance -1125 ml Intake Oral 1600 ml IV Total 900 ml Output Urine Total 2700 ml Stool Total 625 ml Drainage Total 300 ml General Appearance: Alert, Oriented X3, Cooperative, No acute distress, Other (NGT in place) HEENT: Atraumatic, PERRLA Lungs: Clear to auscultation Cardiovascular: Regular rate, Normal S1, Normal S2 Abdomen: Other (soft slightly tender with colostomy no rebound or guarding) Psych/Mental Status: Mental status NL Medications Current Medications Medications Dose Ordered Sig/Carlos Route Start Time Stop Time Status Last Admin Dose Admin Vancomycin HCl 0 ml @ 0 mls/hr UD IV 06/16/24 20:30 Cancel Pantoprazole Sodium 40 mg DAILY IV 06/17/24 10:00 06/29/24 09:16 40 MG Lorazepam 0.5 mg Q6HP PRN PO 12/7/24 20:30 06/28/24 21:28 0.5 MG Acetaminophen 650 mg Q6HP PRN PO 06/16/24 20:30 06/29/24 18:05 650 MG Ondansetron HCl 4 mg Q4HP PRN IV 06/16/24 20:30 06/19/24 08:35 4 MG Sodium Chloride 10 ml QSHIFT@10,22 IV 06/18/24 22:00 06/29/24 20:54 10 ML Potassium Chloride/Dextrose/ Sod Cl 1,000 ml @ 80 mls/hr [id number] IV 06/19/24 22:00 06/29/24 18:04 80 MLS/HR Furosemide 40 mg DAILY IV 06/24/24 13:30 06/29/24 09:15 40 MG Vancomycin HCl 500 mg QID PO 06/24/24 18:00 06/30/24 06:03 500 MG Fat Emulsion Intravenous 150 ml/Sodium Chloride 30 meq/ Sodium Phosphate 50 meq/Potassium Chloride 80 meq/ Calcium Gluconate 2.3 meq/Magnesium Sulfate 12 meq/ Multivitamins 10 ml/Chromium/ Copper/Manganese/ Zinc 1 ml/Insulin Human Regular 2 units/Amino Acids/ Dextrose 1,428.9662 ml @ 59 mls/hr [id number] IV 06/26/24 22:00 06/27/24 22:13 Cancel Diagnostic Test (Pha) 1 strip Q6HR 06/27/24 12:00 06/30/24 06:11 1 STRIP Insulin Human Regular Q6HR SC 06/27/24 12:00 Dextrose 50 ml UD PRN IV 06/27/24 10:45 Laboratory Results Laboratory Tests 06/28/24 05:00 Urinalysis Test 06/17/24 02:20 Urine Color [place] (Yellow) H Urine Clarity Ex.turbid (Clear) Urine pH 5.0 (5.0-9.0) Urine Specific [place] 1.030 (1.001-1.035) Urine Protein 1+ (Negative) H Urine Ketones 1+ (Negative) H Urine Blood Negative /uL (Negative) Urine Nitrite Negative (Negative) Urine Bilirubin Negative (Negative) Urine Urobilinogen 4 mg/dL (Negative) H Urine Leukocyte Esterase Negative /uL (Negative) Urine RBC 28 /hpf (0 - 3) Urine WBC 6 /hpf (0 - 3) Urine Squamous Epithelial Cells Few /hpf (<5) Urine Bacteria Few /hpf (None Seen) H Urine Hyaline Casts Many /lpf (0 - 2) Urine Mucus Few (None Seen) Urine Glucose Normal mg/dL (Normal) Microbiology Microbiology Date/Time Source Procedure Growth Status 06/25/24 14:15 Peritoneal Fluid Gram Stain - Final Resulted 06/25/24 14:15 Peritoneal Fluid Body Fluid Culture - Preliminary Resulted 06/25/24 13:32 Blood Blood Culture - Preliminary NO GROWTH AFTER 72 HOURS OF INCUBATION. Resulted 06/21/24 14:01 Nose MRSA Screen - Final Complete 06/18/24 05:45 Stool Clostridium difficile Toxin Assay - Final Complete Labs and/or images reviewed: Labs reviewed by me, Image(s) reviewed by me Assessment/Plan Assessment/Plan Covering for Dr. Denny #Sepsis secondary to c diff colitis as well as possibly ruptured viscus- Continue Vancomycin PO 500 mg q.6 hours as recommended by ID Dr. 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 Advance diet as tolerated #Hypotension Continue Current management Pts Daughter Ella from [place], [place] at bedside. Discussed the diagnosis management and poor prognosis with the daughter Plan discussed with: Patient Date of Service: Jun 30, 2024 Billing Provider: GISELLA YEPEZ MD Common Visit Codes: [id number] INP/OBS CARE(HIGH) GISELLA YEPEZ MD Jun 30, 2024 09:08
--- NOTE | 2024-06-30 18:48 | DVHPN2 ---
Progress Note - Dictate Date Seen: Jun 30, 2024 Medical Necessity Reason Pt with a Central, PICC or Fol: No Subjective No new complaints Resting comfortably Abdominal pain is improved There was no nausea vomiting Patient is tolerating a regular diet Colostomy is functional Patient does not have an NG tube anymore but has a Cuellar catheter MRI abdomen shows a ill-defined mass in the left hepatic lobe IR does not feel that the mass is accessible to a liver biopsy at this time vital signs Vital Sign Date Time Temp Pulse Resp B/P (MAP) Pulse Ox O2 Delivery O2 Flow Rate FiO2 06/30/24 16:34 98.4 91 18 97/59 (72) 97 98.4 06/30/24 08:00 Nasal Cannula* 2 28 Total Intake and Output 06/29/24 06/29/24 06/30/24 15:00 23:00 07:00 Intake Total 1800 ml 700 ml Output Total 2375 ml 1250 ml Balance -575 ml -550 ml medications Current Medications Medications Dose Ordered Sig/Carlos Route Start Time Stop Time Status Last Admin Dose Admin Vancomycin HCl 0 ml @ 0 mls/hr UD IV 06/16/24 20:30 Cancel Pantoprazole Sodium 40 mg DAILY IV 06/17/24 10:00 06/30/24 11:06 40 MG Lorazepam 0.5 mg Q6HP PRN PO 06/16/24 20:30 06/28/24 21:28 0.5 MG Acetaminophen 650 mg Q6HP PRN PO 06/16/24 20:30 06/29/24 18:05 650 MG Ondansetron HCl 4 mg Q4HP PRN IV 06/16/24 20:30 06/19/24 08:35 4 MG Sodium Chloride 10 ml QSHIFT@10,22 IV 06/18/24 22:00 06/30/24 11:06 10 ML Potassium Chloride/Dextrose/ Sod Cl 1,000 ml @ 80 mls/hr [id number] IV 06/19/24 22:00 06/30/24 18:01 80 MLS/HR Furosemide 40 mg DAILY IV 06/24/24 13:30 06/29/24 09:15 40 MG Vancomycin HCl 500 mg QID PO 06/24/24 18:00 06/30/24 18:07 500 MG Fat Emulsion Intravenous 150 ml/Sodium Chloride 30 meq/ Sodium Phosphate 50 meq/Potassium Chloride 80 meq/ Calcium Gluconate 2.3 meq/Magnesium Sulfate 12 meq/ Multivitamins 10 ml/Chromium/ Copper/Manganese/ Zinc 1 ml/Insulin Human Regular 2 units/Amino Acids/ Dextrose 1,428.9662 ml @ 59 mls/hr [id number] IV 06/26/24 22:00 06/27/24 22:13 Cancel objective General Appearance: Alert, Oriented X3, Cooperative, moderate distress HEENT: Atraumatic, PERRLA, EOMI Respiratory: Clear to auscultation, Normal air movement Cardiovascular: Regular rate, Normal S1, Normal S2 Abdominal: Normal bowel sounds, Soft, mild distention, mild tenderness Left lower quadrant colostomy functional Extremities: No clubbing, No cyanosis, No edema Skin: No rashes, No breakdown Neuro: Normal gait, Normal speech Psych/Mental Status: Mood NL laboratory and microbiology Laboratory Tests 06/28/24 05:00 Test 06/28/24 05:00 Range/Units Serum Glucose 82 74-106 mg/dL Problems(with codes): (1) Liver mass (2) Leukocytosis (3) Lumbar strain (4) Rectosigmoid cancer (5) C. difficile colitis (6) Rectal perforation (7) Acute kidney injury (8) Sepsis (9) Colitis Prognosis Plan Physical therapy Remove Cuellar catheter Ambulate patient Discharge planning as per hospitalist Patient will follow up with Dr. Meneses as an outpatient to arrange PET scan and discuss further chemotherapy Dietary Evaluation Review Comments: 1) Increase TPN to meet at least 75% of estimated needs 2) Advance pt diet when medically feasible to a 2gm Sodium diet 3) Continue current plan of care Expected Outcomes/Goals: 1) Pt to receive adequate nutrition support 2) Pt diet to advance 3) F/U in 2-3 days Plan discussed with: Patient, Other (Dr Marc wick) MARCIA MARINA MD Jun 30, 2024 18:48
--- NOTE | 2024-06-30 23:23 | DVHPN2 ---
Consult Progress Note Date Seen: Jun 30, 2024 Subjective Patient reports: Other (not having any issues with TPN , BP are soft. Is having drain output and has been restarted on diet tolerating oral intake ) Objective vital signs Vital Sign Date Time Temp Pulse Resp B/P (MAP) Pulse Ox O2 Delivery O2 Flow Rate FiO2 06/30/24 21:00 98.8 98 18 100/60 (73) 97 98.8 06/30/24 08:00 Nasal Cannula* 2 28 Total Intake and Output 06/29/24 06/29/24 06/30/24 15:00 23:00 07:00 Intake Total 1800 ml 700 ml Output Total 2375 ml 1250 ml Balance -575 ml -550 ml medications Current Medications Medications Dose Ordered Sig/Carlos Route Start Time Stop Time Status Last Admin Dose Admin Vancomycin HCl 0 ml @ 0 mls/hr UD IV 06/16/24 20:30 Cancel Pantoprazole Sodium 40 mg DAILY IV 06/17/24 10:00 06/30/24 11:06 40 MG Lorazepam 0.5 mg Q6HP PRN PO 06/16/24 20:30 06/28/24 21:28 0.5 MG Acetaminophen 650 mg Q6HP PRN PO 06/16/24 20:30 06/30/24 22:31 650 MG Ondansetron HCl 4 mg Q4HP PRN IV 06/16/24 20:30 06/19/24 08:35 4 MG Sodium Chloride 10 ml QSHIFT@10,22 IV 06/18/24 22:00 06/30/24 22:26 10 ML Potassium Chloride/Dextrose/ Sod Cl 1,000 ml @ 80 mls/hr [id number] IV 06/19/24 22:00 06/30/24 18:01 80 MLS/HR Furosemide 40 mg DAILY IV 06/24/24 13:30 06/29/24 09:15 40 MG Vancomycin HCl 500 mg QID PO 06/24/24 18:00 06/30/24 22:25 500 MG Fat Emulsion Intravenous 150 ml/Sodium Chloride 30 meq/ Sodium Phosphate 50 meq/Potassium Chloride 80 meq/ Calcium Gluconate 2.3 meq/Magnesium Sulfate 12 meq/ Multivitamins 10 ml/Chromium/ Copper/Manganese/ Zinc 1 ml/Insulin Human Regular 2 units/Amino Acids/ Dextrose 1,428.9662 ml @ 59 mls/hr [id number] IV 06/26/24 22:00 06/27/24 22:13 Cancel Physical Exam: General: Intubated, not sedated, awake, follows simple commands. Neck: Supple. No masses. HEENT: PERRL. Normal lids and conjunctiva. Moist mucous membranes. - Oropharynx intubated. Heart: Regular rhythm, normal rate. No murmur. No lower extremity edema. Lungs: On ventilator support. Decreased breath sounds bilaterally. - No wheezes. No crackles. Abdomen: Soft. Non-tender. Non-distended. No masses or abdominal hernia. 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 - Normal strength and tone in remaining limbs. Skin: Warm and dry, no rashes. Chronic wounds over ischial tuberosities. Neuro: Alert. No facial droop or slurred speech. Extra-ocular movements intact. - Unable to assess sensation fully. Psych: Unable to assess mood and affect fully. - Oriented to person, place, time, and situation. laboratory and microbiology Laboratory Tests 06/28/24 05:00 Test 06/28/24 05:00 Range/Units Serum Glucose 82 74-106 mg/dL Problem List/Assessment/Plan Problems(with codes): (1) Liver mass (2) Leukocytosis (3) Lumbar strain (4) Postoperative pain (5) Medication refill (6) Rectosigmoid cancer (7) C. difficile colitis (8) Rectal perforation (9) Acute kidney injury (10) Sepsis (11) Colitis (12) Abdominal pain with vomiting and history of abdominal surgery Problem List/Assessment/Plan ASSESSMENT AND PLAN: ID Problem List: - Colon cancer - Severe sepsis - Acute kidney injury stage 3 - Peritonitis - Colitis - Hypertension - Obesity Assessment This is a 63 y.o. obese male with a past medical history of hypertension, colon cancer status post exploratory laparotomy with sigmoid resection and colostomy on May 28, 2024, perforated bowel, and appendectomy, who presents with nausea, vomiting, increased colostomy output, feeling weak and lightheaded, and generalized abdominal pain. Denies melena. On arrival, vital signs were notable for tachycardia and hypotension, with HR 143 bpm, BP 99/67 mmHg, RR 25 breaths/min, Temp 97.6F, SpO2 99% on room air. Physical examination revealed an ill-appearing male with pale mucous membranes, dehydration, and diffuse abdominal tenderness to palpation. He has a right lower quadrant JACKIE drain with serous fluid drainage and a colostomy with liquid yellow stool. Laboratory studies revealed leukocytosis with WBC as high as 46.8, decreasing to 24.1; platelet count decreased from 602 to 198; hemoglobin 14.3; sodium 133; BUN 45; creatinine 2.49 indicating severe acute kidney injury. CT abdomen/pelvis showed increased retroperitoneal air compared to prior CT, possible defect from rectal patch such as perforation, postsurgical changes from bowel resection with left lower quadrant colostomy, mildly distended colon filled with fluid and adjacent fat stranding suggestive of colitis. MRI abdomen revealed an incompletely characterized T2 hyperintense lesion in the right hepatic dome, severe diffuse colonic wall thickening suspicious for pseudocolitis, and small to moderate free intraperitoneal air in the retroperitoneal space. Blood cultures are no growth to date; C. difficile testing is negative. Patient was started on vancomycin. small bowel series w/ contrast is identified within the colon by 2.5 hours. This represents a Mild delay in small bowel transit time. No evidence of obstruction identified. 06/21: Leukocytosis is rising , unclear ideology , continue to monitor closely . 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 which shows a large focus of mucosal necrosis and inflammation , transmural infaction and perfuration proximal to the tumor , there is no lymph nodes involved however given perforation will be concerned for spead 06/27: leukocytosis resolved, decreased ostomy output 06/29: abdominal MRI shows incompletely characterized 2.1 cm 2 hypertense lesion of the right hepatic dome , likely suggestive of metastatic disease from colon cancer Plan: - Do not recommend repeating C diff , unlikely to show any changes , it doesnt refelct patients clinical improvement - Recommend oral vancomycin 500 milligrams every 6 hours x 10 days - Recommend given patients diagnosis have outpatient follow up with hematology and oncology to undergo necessary chemotheray radiation - continue oral vancomycin 500 milligrams every 6 hours , no need for rectal vancomycin - Defer to surgery for postoperative management and need for any additional intervention or surgery. - Monitor patient closely as he responds to antibiotic therapy. - Follow up on blood cultures. Plan discussed with: Other Dietary Evaluation Review Comments: 1) Increase TPN to meet at least 75% of estimated needs 2) Advance pt diet when medically feasible to a 2gm Sodium diet 3) Continue current plan of care Expected Outcomes/Goals: 1) Pt to receive adequate nutrition support 2) Pt diet to advance 3) F/U in 2-3 days JOSE LUIS REESE MD Jun 30, 2024 23:23
[2024-07-01] VITALS (8 sets, daily range): BP systolic 92–115; BP diastolic 49–70; PULSE 85–105; RESP 18–20; TEMP 98.4–99; O2SAT 93–98
--- NOTE | 2024-07-01 10:42 | DVHPN2 ---
Reviewed: Care Plan Changes from previous H/P or p: No Changes Eyes: No Pain, No Vision change, No Conjunctivae inflammation, No Eyelid inflammation, No Other, No Redness ENT: No Ear pain, No Ear discharge, No Nose pain, No Nose discharge, No Nose congestion, No Mouth pain, No Mouth swelling, No Throat pain, No Throat swelling, No Other Cardiovascular: No Chest Pain, No Palpitations, No Orthopnea, No Paroxysmal Noc. Dyspnea, No Edema, No Lt Headedness, No Other Respiratory: No Cough, No Dry, No Shortness of breath, No SOB with excertion, No Wheezing, No Hemoptysis, No Pleuritic Pain, No Sputum, No Other Gastrointestinal: Abdominal Pain; No Diarrhea, No Constipation, No Melena, No Hematochezia, No Other Genitourinary: No Dysuria, No Frequency, No Incontinence, No Hematuria, No Retention, No Other Musculoskeletal: No other, No neck pain, No shoulder pain, No arm pain, No back pain, No hand pain, No leg pain, No foot pain Skin: No Rash, No Lesions, No Jaundice, No Bruising, No Other Objective Vitals Vital Signs Date Time Temp Pulse Resp B/P (MAP) Pulse Ox O2 Delivery O2 Flow Rate FiO2 07/01/24 08:44 127/76 07/01/24 08:00 Nasal Cannula* 2 28 07/01/24 07:58 98.5 85 18 96 98.5 Intake/Output Intake and Output 07/01/24 07:00 Intake Total 2000 ml Output Total 3050 ml Balance -1050 ml Intake Oral 1100 ml IV Total 900 ml Output Urine Total 2600 ml Stool Total 300 ml Other 150 ml General Appearance: Alert, Oriented X3, Cooperative, No acute distress, Other (NGT in place) HEENT: Atraumatic, PERRLA Lungs: Clear to auscultation Cardiovascular: Regular rate, Normal S1, Normal S2 Abdomen: Other (soft slightly tender with colostomy no rebound or guarding) Psych/Mental Status: Mental status NL Medications Current Medications Medications Dose Ordered Sig/Carlos Route Start Time Stop Time Status Last Admin Dose Admin Vancomycin HCl 0 ml @ 0 mls/hr UD IV 06/16/24 20:30 Cancel Pantoprazole Sodium 40 mg DAILY IV 06/17/24 10:00 07/01/24 08:43 40 MG Lorazepam 0.5 mg Q6HP PRN PO 06/16/24 20:30 06/28/24 21:28 0.5 MG Acetaminophen 650 mg Q6HP PRN PO 06/16/24 20:30 07/01/24 08:42 650 MG Ondansetron HCl 4 mg Q4HP PRN IV 06/16/24 20:30 06/19/24 08:35 4 MG Sodium Chloride 10 ml QSHIFT@10,22 IV 06/18/24 22:00 07/01/24 08:46 10 ML Potassium Chloride/Dextrose/ Sod Cl 1,000 ml @ 80 mls/hr [id number] IV 06/19/24 22:00 07/01/24 08:45 80 MLS/HR Furosemide 40 mg DAILY IV 06/24/24 13:30 07/01/24 08:44 40 MG Vancomycin HCl 500 mg QID PO 06/24/24 18:00 07/01/24 05:54 500 MG Fat Emulsion Intravenous 150 ml/Sodium Chloride 30 meq/ Sodium Phosphate 50 meq/Potassium Chloride 80 meq/ Calcium Gluconate 2.3 meq/Magnesium Sulfate 12 meq/ Multivitamins 10 ml/Chromium/ Copper/Manganese/ Zinc 1 ml/Insulin Human Regular 2 units/Amino Acids/ Dextrose 1,428.9662 ml @ 59 mls/hr [id number] IV 06/26/24 22:00 06/27/24 22:13 Cancel Laboratory Results Laboratory Tests 06/28/24 05:00 Urinalysis Test 06/17/24 02:20 Urine Color [place] (Yellow) H Urine Clarity Ex.turbid (Clear) Urine pH 5.0 (5.0-9.0) Urine Specific [place] 1.030 (1.001-1.035) Urine Protein 1+ (Negative) H Urine Ketones 1+ (Negative) H Urine Blood Negative /uL (Negative) Urine Nitrite Negative (Negative) Urine Bilirubin Negative (Negative) Urine Urobilinogen 4 mg/dL (Negative) H Urine Leukocyte Esterase Negative /uL (Negative) Urine RBC 28 /hpf (0 - 3) Urine WBC 6 /hpf (0 - 3) Urine Squamous Epithelial Cells Few /hpf (<5) Urine Bacteria Few /hpf (None Seen) H Urine Hyaline Casts Many /lpf (0 - 2) Urine Mucus Few (None Seen) Urine Glucose Normal mg/dL (Normal) Microbiology Microbiology Date/Time Source Procedure Growth Status 06/25/24 14:15 Peritoneal Fluid Gram Stain - Final Resulted 06/25/24 14:15 Peritoneal Fluid Body Fluid Culture - Preliminary Resulted 06/25/24 13:32 Blood Blood Culture - Final NO GROWTH AFTER 5 DAYS OF INCUBATION. Complete 06/21/24 14:01 Nose MRSA Screen - Final Complete 06/18/24 05:45 Stool Clostridium difficile Toxin Assay - Final Complete Labs and/or images reviewed: Labs reviewed by me, Image(s) reviewed by me Assessment/Plan Assessment/Plan Covering for Dr. Denny #Sepsis secondary to c diff colitis as well as possibly ruptured viscus- Continue Vancomycin PO 500 mg q.6 hours as recommended by ID Dr. 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 Advance diet as tolerated #Hypotension Continue Current management Pts Daughter Ella from [place], [place] at bedside. Discussed the diagnosis management and poor prognosis with the daughter November. Plan discussed with: Patient Date of Service: Jul 01, 2024 Billing Provider: GISELLA YEPEZ MD Common Visit Codes: [id number] INP/OBS CARE(HIGH) GISELLA YEPEZ MD Jul 01, 2024 10:42
--- NOTE | 2024-07-01 22:55 | DVHPN2 ---
Progress Note - Dictate Date Seen: Jul 01, 2024 Medical Necessity Reason Pt with a Central, PICC or Fol: No Subjective No new complaints Resting comfortably Abdominal pain is improved There was no nausea vomiting Patient is tolerating a regular diet Colostomy is functional Cuellar catheter was removed Patient to undergo physical therapy and arrangement of bedside commode MRI abdomen shows a ill-defined mass in the left hepatic lobe IR does not feel that the mass is accessible to a liver biopsy at this time vital signs Vital Sign Date Time Temp Pulse Resp B/P (MAP) Pulse Ox O2 Delivery O2 Flow Rate FiO2 07/01/24 21:00 99.0 102 19 115/70 (85) 96 99.0 07/01/24 20:00 Nasal Cannula* 2 28 Total Intake and Output 06/30/24 06/30/24 07/01/24 15:00 23:00 07:00 Intake Total 2000 ml Output Total 775 ml 2275 ml Balance -775 ml -275 ml medications Current Medications Medications Dose Ordered Sig/Carlos Route Start Time Stop Time Status Last Admin Dose Admin Vancomycin HCl 0 ml @ 0 mls/hr UD IV 06/16/24 20:30 Cancel Pantoprazole Sodium 40 mg DAILY IV 06/17/24 10:00 07/01/24 08:43 40 MG Lorazepam 0.5 mg Q6HP PRN PO 06/16/24 20:30 06/28/24 21:28 0.5 MG Acetaminophen 650 mg Q6HP PRN PO 06/16/24 20:30 07/01/24 08:42 650 MG Ondansetron HCl 4 mg Q4HP PRN IV 06/16/24 20:30 06/19/24 08:35 4 MG Sodium Chloride 10 ml QSHIFT@,22 IV 06/18/24 22:00 07/01/24 22:04 10 ML Potassium Chloride/Dextrose/ Sod Cl 1,000 ml @ 80 mls/hr [id number] IV 06/19/24 22:00 07/01/24 22:04 80 MLS/HR Furosemide 40 mg DAILY IV 06/24/24 13:30 07/01/24 08:44 40 MG Vancomycin HCl 500 mg QID PO 06/24/24 18:00 07/01/24 22:04 500 MG Fat Emulsion Intravenous 150 ml/Sodium Chloride 30 meq/ Sodium Phosphate 50 meq/Potassium Chloride 80 meq/ Calcium Gluconate 2.3 meq/Magnesium Sulfate 12 meq/ Multivitamins 10 ml/Chromium/ Copper/Manganese/ Zinc 1 ml/Insulin Human Regular 2 units/Amino Acids/ Dextrose 1,428.9662 ml @ 59 mls/hr [id number] IV 06/26/24 22:00 06/27/24 22:13 Cancel objective General Appearance: Alert, Oriented X3, Cooperative, moderate distress HEENT: Atraumatic, PERRLA, EOMI Respiratory: Clear to auscultation, Normal air movement Cardiovascular: Regular rate, Normal S1, Normal S2 Abdominal: Normal bowel sounds, Soft, mild distention, mild tenderness Left lower quadrant colostomy functional Extremities: No clubbing, No cyanosis, No edema Skin: No rashes, No breakdown Neuro: Normal gait, Normal speech Psych/Mental Status: Mood NL laboratory and microbiology Laboratory Tests 06/28/24 05:00 Test 06/28/24 05:00 Range/Units Serum Glucose 82 74-106 mg/dL Problems(with codes): (1) Liver mass (2) Leukocytosis (3) Lumbar strain (4) Postoperative pain (5) Rectosigmoid cancer (6) C. difficile colitis (7) Rectal perforation Prognosis Plan Ambulate patient, physical therapy Arrangement for home equipment DC Cuellar and DC IV Patient is to continue oral vancomycin and probiotics Discharge planning as per hospitalist Dietary Evaluation Review Comments: 1) Increase TPN to meet at least 75% of estimated needs 2) Advance pt diet when medically feasible to a 2gm Sodium diet 3) Continue current plan of care Expected Outcomes/Goals: 1) Pt to receive adequate nutrition support 2) Pt diet to advance 3) F/U in 2-3 days Plan discussed with: Patient, Other (Dr Marc wick) MARCIA MARINA MD Jul 01, 2024 22:55
--- NOTE | 2024-07-01 23:21 | DVHPN2 ---
Consult Progress Note Date Seen: Jul 01, 2024 Subjective Patient reports: Other (tang jeanore ostomy output of 270ccs with mild abdominal pain and is mildly tachycardic ) Objective vital signs Vital Sign Date Time Temp Pulse Resp B/P (MAP) Pulse Ox O2 Delivery O2 Flow Rate FiO2 07/01/24 21:00 99.0 102 19 115/70 (85) 96 99.0 07/01/24 20:00 Nasal Cannula* 2 28 Total Intake and Output 06/30/24 06/30/24 07/01/24 15:00 23:00 07:00 Intake Total 2000 ml Output Total 775 ml 2275 ml Balance -775 ml -275 ml medications Current Medications Medications Dose Ordered Sig/Carlos Route Start Time Stop Time Status Last Admin Dose Admin Vancomycin HCl 0 ml @ 0 mls/hr UD IV 06/16/24 20:30 Cancel Pantoprazole Sodium 40 mg DAILY IV 06/17/24 10:00 07/01/24 08:43 40 MG Lorazepam 0.5 mg Q6HP PRN PO 06/16/24 20:30 06/28/24 21:28 0.5 MG Acetaminophen 650 mg Q6HP PRN PO 06/16/24 20:30 07/01/24 08:42 650 MG Ondansetron HCl 4 mg Q4HP PRN IV 06/16/24 20:30 06/19/24 08:35 4 MG Sodium Chloride 10 ml QSHIFT@10,22 IV 06/18/24 22:00 07/01/24 22:04 10 ML Potassium Chloride/Dextrose/ Sod Cl 1,000 ml @ 80 mls/hr [id number] IV 06/19/24 22:00 07/01/24 22:04 80 MLS/HR Furosemide 40 mg DAILY IV 06/24/24 13:30 07/01/24 08:44 40 MG Vancomycin HCl 500 mg QID PO 06/24/24 18:00 07/01/24 22:04 500 MG Fat Emulsion Intravenous 150 ml/Sodium Chloride 30 meq/ Sodium Phosphate 50 meq/Potassium Chloride 80 meq/ Calcium Gluconate 2.3 meq/Magnesium Sulfate 12 meq/ Multivitamins 10 ml/Chromium/ Copper/Manganese/ Zinc 1 ml/Insulin Human Regular 2 units/Amino Acids/ Dextrose 1,428.9662 ml @ 59 mls/hr [id number] IV 06/26/24 22:00 06/27/24 22:13 Cancel Physical Exam: General: Intubated, not sedated, awake, follows simple commands. Neck: Supple. No masses. HEENT: PERRL. Normal lids and conjunctiva. Moist mucous membranes. - Oropharynx intubated. Heart: Regular rhythm, normal rate. No murmur. No lower extremity edema. Lungs: On ventilator support. Decreased breath sounds bilaterally. - No wheezes. No crackles. Abdomen: Soft. Non-tender. Non-distended. No masses or abdominal hernia. 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 - Normal strength and tone in remaining limbs. Skin: Warm and dry, no rashes. Chronic wounds over ischial tuberosities. Neuro: Alert. No facial droop or slurred speech. Extra-ocular movements intact. - Unable to assess sensation fully. Psych: Unable to assess mood and affect fully. - Oriented to person, place, time, and situation. laboratory and microbiology Laboratory Tests 06/28/24 05:00 Test 06/28/24 05:00 Range/Units Serum Glucose 82 74-106 mg/dL Problem List/Assessment/Plan Problems(with codes): (1) Liver mass (2) Leukocytosis (3) Lumbar strain (4) Postoperative pain (5) Medication refill (6) Rectosigmoid cancer (7) C. difficile colitis Problem List/Assessment/Plan ASSESSMENT AND PLAN: ID Problem List: - Colon cancer - Severe sepsis - Acute kidney injury stage 3 - Peritonitis - Colitis - Hypertension - Obesity Assessment This is a 63 y.o. obese male with a past medical history of hypertension, colon cancer status post exploratory laparotomy with sigmoid resection and colostomy on May 28, 2024, perforated bowel, and appendectomy, who presents with nausea, vomiting, increased colostomy output, feeling weak and lightheaded, and generalized abdominal pain. Denies melena. On arrival, vital signs were notable for tachycardia and hypotension, with HR 143 bpm, BP 99/67 mmHg, RR 25 breaths/min, Temp 97.6F, SpO2 99% on room air. Physical examination revealed an ill-appearing male with pale mucous membranes, dehydration, and diffuse abdominal tenderness to palpation. He has a right lower quadrant JACKIE drain with serous fluid drainage and a colostomy with liquid yellow stool. Laboratory studies revealed leukocytosis with WBC as high as 46.8, decreasing to 24.1; platelet count decreased from 602 to 198; hemoglobin 14.3; sodium 133; BUN 45; creatinine 2.49 indicating severe acute kidney injury. CT abdomen/pelvis showed increased retroperitoneal air compared to prior CT, possible defect from rectal patch such as perforation, postsurgical changes from bowel resection with left lower quadrant colostomy, mildly distended colon filled with fluid and adjacent fat stranding suggestive of colitis. MRI abdomen revealed an incompletely characterized T2 hyperintense lesion in the right hepatic dome, severe diffuse colonic wall thickening suspicious for pseudocolitis, and small to moderate free intraperitoneal air in the retroperitoneal space. Blood cultures are no growth to date; C. difficile testing is negative. Patient was started on vancomycin. small bowel series w/ contrast is identified within the colon by 2.5 hours. This represents a Mild delay in small bowel transit time. No evidence of obstruction identified. 06/21: Leukocytosis is rising , unclear ideology , continue to monitor closely . 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 which shows a large focus of mucosal necrosis and inflammation , transmural infaction and perfuration proximal to the tumor , there is no lymph nodes involved however given perforation will be concerned for spead 06/27: leukocytosis resolved, decreased ostomy output 06/29: abdominal MRI shows incompletely characterized 2.1 cm 2 hypertense lesion of the right hepatic dome , likely suggestive of metastatic disease from colon cancer Plan: - Do not recommend repeating C diff , unlikely to show any changes , it doesnt refelct patients clinical improvement - Continue oral vancomycin 500 milligrams every 6 hours until 07/04/24 and will monitor off all antibiotics after that point - Recommend given patients diagnosis have outpatient follow up with hematology and oncology to undergo necessary chemotheray radiation - Defer to surgery for postoperative management and need for any additional intervention or surgery. - Monitor patient closely as he responds to antibiotic therapy. - Follow up on blood cultures. Plan discussed with: Other Dietary Evaluation Review Comments: 1) Increase TPN to meet at least 75% of estimated needs 2) Advance pt diet when medically feasible to a 2gm Sodium diet 3) Continue current plan of care Expected Outcomes/Goals: 1) Pt to receive adequate nutrition support 2) Pt diet to advance 3) F/U in 2-3 days JOSE LUIS REESE MD Jul 01, 2024 23:21
[2024-07-02 01:00] VITALS: BP 121/70; PULSE 93; RESP 17; TEMP 98.1; O2SAT 95
[2024-07-02 05:00] VITALS: BP 120/70; PULSE 89; RESP 19; TEMP 97.3; O2SAT 95
[2024-07-02 08:00] VITALS: PULSE 88; RESP 16
[2024-07-02 09:00] VITALS: BP 105/59; PULSE 92; RESP 17; TEMP 98.1; O2SAT 95
--- NOTE | 2024-07-02 09:21 | DVHPN2 ---
Reviewed: Care Plan Changes from previous H/P or p: No Changes Eyes: No Pain, No Vision change, No Conjunctivae inflammation, No Eyelid inflammation, No Other, No Redness ENT: No Ear pain, No Ear discharge, No Nose pain, No Nose discharge, No Nose congestion, No Mouth pain, No Mouth swelling, No Throat pain, No Throat swelling, No Other Cardiovascular: No Chest Pain, No Palpitations, No Orthopnea, No Paroxysmal Noc. Dyspnea, No Edema, No Lt Headedness, No Other Respiratory: No Cough, No Dry, No Shortness of breath, No SOB with excertion, No Wheezing, No Hemoptysis, No Pleuritic Pain, No Sputum, No Other Gastrointestinal: Abdominal Pain; No Diarrhea, No Constipation, No Melena, No Hematochezia, No Other Genitourinary: No Dysuria, No Frequency, No Incontinence, No Hematuria, No Retention, No Other Musculoskeletal: No other, No neck pain, No shoulder pain, No arm pain, No back pain, No hand pain, No leg pain, No foot pain Skin: No Rash, No Lesions, No Jaundice, No Bruising, No Other Objective Vitals Vital Signs Date Time Temp Pulse Resp B/P (MAP) Pulse Ox O2 Delivery O2 Flow Rate FiO2 07/02/24 05:00 97.3 89 19 120/70 (87) 95 97.3 07/01/24 20:00 Nasal Cannula* 2 28 Intake/Output Intake and Output 07/02/24 07:00 Intake Total 1550 ml Output Total 3270 ml Balance -1720 ml Intake Oral 1550 ml Output Urine Total 2350 ml Stool Total 650 ml Drainage Total 270 ml General Appearance: Alert, Oriented X3, Cooperative, No acute distress, Other (NGT in place) HEENT: Atraumatic, PERRLA Lungs: Clear to auscultation Cardiovascular: Regular rate, Normal S1, Normal S2 Abdomen: Other (soft slightly tender with colostomy no rebound or guarding) Psych/Mental Status: Mental status NL Medications Current Medications Medications Dose Ordered Sig/Carlos Route Start Time Stop Time Status Last Admin Dose Admin Vancomycin HCl 0 ml @ 0 mls/hr UD IV 06/16/24 20:30 Cancel Pantoprazole Sodium 40 mg DAILY IV 06/17/24 10:00 07/01/24 08:43 40 MG Lorazepam 0.5 mg Q6HP PRN PO 06/16/24 20:30 06/28/24 21:28 0.5 MG Acetaminophen 650 mg Q6HP PRN PO 06/16/24 20:30 07/01/24 08:42 650 MG Ondansetron HCl 4 mg Q4HP PRN IV 06/16/24 20:30 06/19/24 08:35 4 MG Sodium Chloride 10 ml QSHIFT@10,22 IV 06/18/24 22:00 07/01/24 22:04 10 ML Potassium Chloride/Dextrose/ Sod Cl 1,000 ml @ 80 mls/hr [id number] IV 06/19/24 22:00 07/01/24 22:04 80 MLS/HR Furosemide 40 mg DAILY IV 06/24/24 13:30 07/01/24 08:44 40 MG Vancomycin HCl 500 mg QID PO 06/24/24 18:00 07/02/24 06:21 500 MG Fat Emulsion Intravenous 150 ml/Sodium Chloride 30 meq/ Sodium Phosphate 50 meq/Potassium Chloride 80 meq/ Calcium Gluconate 2.3 meq/Magnesium Sulfate 12 meq/ Multivitamins 10 ml/Chromium/ Copper/Manganese/ Zinc 1 ml/Insulin Human Regular 2 units/Amino Acids/ Dextrose 1,428.9662 ml @ 59 mls/hr [id number] IV 06/26/24 22:00 06/27/24 22:13 Cancel Laboratory Results Laboratory Tests 06/28/24 05:00 Urinalysis Test 06/17/24 02:20 Urine Color [place] (Yellow) H Urine Clarity Ex.turbid (Clear) Urine pH 5.0 (5.0-9.0) Urine Specific [place] 1.030 (1.001-1.035) Urine Protein 1+ (Negative) H Urine Ketones 1+ (Negative) H Urine Blood Negative /uL (Negative) Urine Nitrite Negative (Negative) Urine Bilirubin Negative (Negative) Urine Urobilinogen 4 mg/dL (Negative) H Urine Leukocyte Esterase Negative /uL (Negative) Urine RBC 28 /hpf (0 - 3) Urine WBC 6 /hpf (0 - 3) Urine Squamous Epithelial Cells Few /hpf (<5) Urine Bacteria Few /hpf (None Seen) H Urine Hyaline Casts Many /lpf (0 - 2) Urine Mucus Few (None Seen) Urine Glucose Normal mg/dL (Normal) Microbiology Microbiology Date/Time Source Procedure Growth Status 06/25/24 14:15 Peritoneal Fluid Gram Stain - Final Complete 06/25/24 14:15 Peritoneal Fluid Body Fluid Culture - Final Complete 06/25/24 13:32 Blood Blood Culture - Final NO GROWTH AFTER 5 DAYS OF INCUBATION. Complete 06/21/24 14:01 Nose MRSA Screen - Final Complete 06/18/24 05:45 Stool Clostridium difficile Toxin Assay - Final Complete Labs and/or images reviewed: Labs reviewed by me, Image(s) reviewed by me Assessment/Plan Assessment/Plan Covering for Dr. Denny #Sepsis secondary to c diff colitis as well as possibly ruptured viscus- Continue Vancomycin PO 500 mg q.6 hours as recommended by ID Dr. 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 Advance diet as tolerated #Hypotension resolved NG tube removed Cuellar catheter removed. JACKIE drain in place colostomy bag in place patient is ambulating tolerating regular diet Being discharged home Patient's daughter at the bed side Plan discussed with: Patient, Daughter My Orders Orders - GISELLA YEPEZ MD Procedure Category Date Status Time * Claims Coordinator CONS 07/01/24 Transmitted Consult Dme: [employer] DME 07/01/24 Transmitted 11:44 Dme: Walker DME 07/01/24 Transmitted 11:44 * Claims Coordinator CONS 07/02/24 Transmitted Consult Date of Service: Jul 02, 2024 Billing Provider: GISELLA YEPEZ MD Common Visit Codes: [id number] INP/OBS CARE(HIGH) GISELLA YEPEZ MD Jul 02, 2024 09:21
[2024-07-02] MEDS ORDERED: HYDR-4902 PO (09:26)
[2024-07-02] MEDS ORDERED: PANT40T PO (09:26)
[2024-07-02] MEDS ORDERED: VANC125PO PO (09:26)
--- NOTE | 2024-07-02 09:40 | DVHDS2 ---
Discharge Summary Date of Admission Jun 16, 2024 at 20:24 Date of Discharge: Jul 02, 2024 Admitting Diagnosis Abdominal pain nausea vomiting Wounds: Colectomy with colostomy Labs/Diagnostic Data: Laboratory Results Test 06/30/24 06:06 06/28/24 05:00 06/27/24 15:52 06/27/24 05:03 POC Glucose 94 mg/dl (70-106) White Blood Count 9.6 10^3/uL (4.4-10.8) Red Blood Count 3.56 10^6/uL (4.5-5.90) Hemoglobin 10.3 g/dL (13.5-17.5) Hematocrit 32.0 % (41.0-53.0) Mean Corpuscular Volume 90.1 fL (80.0-100.0) Mean Corpuscular Hemoglobin 29.0 pg (28.0-32.0) Mean Corpuscular Hemoglobin Concent 32.1 g/dL (32.0-36.0) Red Cell Distribution Width 18.3 % (11.8-14.3) Platelet Count 259 10^3/uL (140-450) Mean Platelet Volume 8.7 fL (6.9-10.8) Neutrophils (%) (Auto) 70.6 % (37.0-80.0) Lymphocytes (%) (Auto) 17.2 % (10.0-50.0) Monocytes (%) (Auto) 10.9 % (0.0-12.0) Eosinophils (%) (Auto) 0.5 % (0.0-7.0) Basophils (%) (Auto) 0.8 % (0.0-2.0) Neutrophils # (Auto) 6.8 10 ^3/uL (1.6-8.6) Lymphocytes # (Auto) 1.7 10 ^3/uL (0.4-5.4) Monocytes # (Auto) 1.0 10 ^3/uL (0-1.3) Eosinophils # (Auto) 0.1 10 ^3/uL (0-0.8) Basophils # (Auto) 0.1 10 ^3/uL (0-0.2) Nucleated Red Blood Cells 0.0 % Sodium Level 134 mmol/L (136-145) Potassium Level 3.9 mmol/L (3.5-5.1) Chloride Level 105 mmol/L (98-107) Carbon Dioxide Level 26 mmol/L (20-31) Anion Gap 3 (5-15) Blood Urea Nitrogen 17 mg/dL (9-23) Creatinine 0.58 mg/dL (0.700-1.30) Glomerular Filtration Rate Calc 110 mL/min (>90) BUN/Creatinine Ratio 29.3 (10.0-20.0) Serum Glucose 82 mg/dL (74-106) Calcium Level 7.9 mg/dL (8.7-10.4) Prothrombin Time 11.7 sec (9.3-11.8) Prothrombin Time INR 1.11 (0.9-1.15) Platelet Estimate Adequate Clumped Platelets None Test 06/26/24 05:17 06/25/24 12:35 06/22/24 05:32 06/20/24 04:53 Differential Total Cells Counted 100.0 (100) Neutrophils % (Manual) 73 (37.0-80.0) Band Neutrophils % (Manual) 3 Lymphocytes % (Manual) 13 (10.0-50.0) Monocytes % (Manual) 9 (0-12) Eosinophils % (Manual) 0 (0-7) Basophils % (Manual) 0 (0.0-2.0) Metamyelocytes % (manual) 2 Myelocytes % (Manual) 0 Promyelocytes % (Manual) 0 Blast Cells % (Manual) 0 Reactive Lymphocytes 0 Phosphorus Level 2.7 mg/dL (2.4-5.1) Magnesium Level 2.0 mg/dL (1.6-2.6) Total Bilirubin < 0.2 mg/dL (0.2-1.0) Aspartate Amino Transferase (AST) 24 U/L (13-40) Alanine Aminotransferase (ALT) < 9 U/L (7-40) Alkaline Phosphatase 55 U/L (46-116) Total Protein 3.9 g/dL (5.7-8.2) Albumin 1.9 g/dL (3.2-4.8) Lactic Acid Level 1.2 mmol/L (0.4-2.0) Carcinoembryonic Antigen 8.96 ng/mL (<=5.0) Triglycerides Level 115 mg/dL (< 150) Test 06/19/24 05:05 06/18/24 13:11 06/17/24 03:06 06/17/24 02:20 Random Vancomycin Level 13.7 ug/mL (5-10) Activated Partial Thromboplast Time 30.1 SEC (24.5-34.5) Red Blood Cell Morphology Normal Troponin I High Sensitivity 6 ng/L (</=54) Urine Color [place] (Yellow) Urine Clarity Ex.turbid (Clear) Urine pH 5.0 (5.0-9.0) Urine Specific [place] 1.030 (1.001-1.035) Urine Protein 1+ (Negative) Urine Ketones 1+ (Negative) Urine Blood Negative /uL (Negative) Urine Nitrite Negative (Negative) Urine Bilirubin Negative (Negative) Urine Urobilinogen 4 mg/dL (Negative) Urine Leukocyte Esterase Negative /uL (Negative) Urine RBC 28 /hpf (0 - 3) Urine WBC 6 /hpf (0 - 3) Urine Squamous Epithelial Cells Few /hpf (<5) Urine Bacteria Few /hpf (None Seen) Urine Hyaline Casts Many /lpf (0 - 2) Urine Mucus Few (None Seen) Urine Glucose Normal mg/dL (Normal) Test 06/16/24 18:18 Large Platelets Moderate Lipase 18 U/L (12-53) Other Laboratory Tests 06/28/24 05:00 Brief Hx & Hospital Course: 63-year-old male came in complaining of abdominal pain nausea vomiting found to have C diff colitis treated with the p.o. vancomycin and Flagyl patient also found to have small-bowel obstruction with a rectosigmoid colon cancer and a underwent exploratory laparotomy with resection of rectosigmoid colon resection of cancer descending colon colostomy by Dr. Beltran. Seen by oncologist Dr. Meneses scheduled for outpatient chemotherapy. Seen by GI Dr. Jo advised p.o. vancomycin 10 days for C diff colitis. Sepsis secondary to above resolved at the time of discharge patient is afebrile vital signs are stable Cuellar removed NG removed tolerating regular diet cleared for discharge surgeon and GI. Patient's daughter at bedside. He will follow up with surgeon and Oncology for chemotherapy Consults/Reason for consult Surgeon Dr. Beltran GI Dr. Maria Esther Maxwell Oncology Dr. Meneses Operations or Procedures Colectomy with colostomy Condition at Discharge: Fair Final Diagnosis/Problems List #Sepsis secondary to c diff colitis as well as possibly ruptured viscus- Continue Vancomycin PO 500 mg q.6 hours as recommended by ID Dr. 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 Advance diet as tolerated #Hypotension resolved Discharge Disposition: Home Discharge Instruct/Medications Diet: Regular Activity: Light activity Follow Up/Referral: Follow up primary Dr Follow up with the Oncology Dr. Meneses 10 days for starting chemotherapy Follow up with surgeon Dr. Beltran in 10 days for removal of the drain Follow up with GI Dr. Maria Esther Maxwell in 10 days Medications: Vancomycin p.o. Pantoprazole [place] Transmitted to the pharmacy 39 (Time taken for discharge summary 39 minute) Discharge Statement: "Patient was advised to return to the ER or call 911 if any headaches, dizziness, shortness of breath, chest pain, abdominal pain, bleeding, fevers, or worsening of medical condition. Patient was counseled about treatment plan, medications, possible side effects, patientverbalized understanding. All questions were answered to the best of my ability. 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 Advance diet as tolerated #Hypotension resolved Date of Service: Jul 02, 2024 Billing Provider: GISELLA YEPEZ MD Common Visit Codes: [id number] DISCH DAY >30min GISELLA YEPEZ MD Jul 02, 2024 09:40
[2024-07-02 13:00] VITALS: BP 105/62; PULSE 90; RESP 17; TEMP 97.7; O2SAT 95
[2024-07-02 15:27] VITALS: BP 105/59; TEMP 36.5
--- NOTE | 2024-07-03 23:45 | DVHPN2 ---
Consult Progress Note Objective vital signs Vital Sign Date Time Temp Pulse Resp B/P (MAP) Pulse Ox O2 Delivery O2 Flow Rate FiO2 07/02/24 15:27 36.5 07/02/24 13:00 90 17 105/62 (76) 95 07/02/24 08:00 Room Air* 0 21 Total Intake and Output 07/02/24 07/02/24 07/03/24 15:00 23:00 07:00 Output Total 90 ml Balance -90 ml medications Current Medications Medications Dose Ordered Sig/Carlos Route Start Time Stop Time Status Last Admin Dose Admin Vancomycin HCl 0 ml @ 0 mls/hr UD IV 06/16/24 20:30 Cancel Fat Emulsion Intravenous 150 ml/Sodium Chloride 30 meq/ Sodium Phosphate 50 meq/Potassium Chloride 80 meq/ Calcium Gluconate 2.3 meq/Magnesium Sulfate 12 meq/ Multivitamins 10 ml/Chromium/ Copper/Manganese/ Zinc 1 ml/Insulin Human Regular 2 units/Amino Acids/ Dextrose 1,428.9662 ml @ 59 mls/hr [id number] IV 06/26/24 22:00 06/27/24 22:13 Cancel laboratory and microbiology Laboratory Tests 06/28/24 05:00 Test 06/28/24 05:00 Range/Units Serum Glucose 82 74-106 mg/dL Problem List/Assessment/Plan Problem List/Assessment/Plan ASSESSMENT AND PLAN: ID Problem List: - Colon cancer - Severe sepsis - Acute kidney injury stage 3 - Peritonitis - Colitis - Hypertension - Obesity Assessment This is a 63 y.o. obese male with a past medical history of hypertension, colon cancer status post exploratory laparotomy with sigmoid resection and colostomy on May 28, 2024, perforated bowel, and appendectomy, who presents with nausea, vomiting, increased colostomy output, feeling weak and lightheaded, and generalized abdominal pain. Denies melena. On arrival, vital signs were notable for tachycardia and hypotension, with HR 143 bpm, BP 99/67 mmHg, RR 25 breaths/min, Temp 97.6F, SpO2 99% on room air. Physical examination revealed an ill-appearing male with pale mucous membranes, dehydration, and diffuse abdominal tenderness to palpation. He has a right lower quadrant JACKIE drain with serous fluid drainage and a colostomy with liquid yellow stool. Laboratory studies revealed leukocytosis with WBC as high as 46.8, decreasing to 24.1; platelet count decreased from 602 to 198; hemoglobin 14.3; sodium 133; BUN 45; creatinine 2.49 indicating severe acute kidney injury. CT abdomen/pelvis showed increased retroperitoneal air compared to prior CT, possible defect from rectal patch such as perforation, postsurgical changes from bowel resection with left lower quadrant colostomy, mildly distended colon filled with fluid and adjacent fat stranding suggestive of colitis. MRI abdomen revealed an incompletely characterized T2 hyperintense lesion in the right hepatic dome, severe diffuse colonic wall thickening suspicious for pseudocolitis, and small to moderate free intraperitoneal air in the retroperitoneal space. Blood cultures are no growth to date; C. difficile testing is negative. Patient was started on vancomycin. small bowel series w/ contrast is identified within the colon by 2.5 hours. This represents a Mild delay in small bowel transit time. No evidence of obstruction identified. 06/21: Leukocytosis is rising , unclear ideology , continue to monitor closely . 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 which shows a large focus of mucosal necrosis and inflammation , transmural infaction and perfuration proximal to the tumor , there is no lymph nodes involved however given perforation will be concerned for spead 06/27: leukocytosis resolved, decreased ostomy output 06/29: abdominal MRI shows incompletely characterized 2.1 cm 2 hypertense lesion of the right hepatic dome , likely suggestive of metastatic disease from colon cancer Plan: - Do not recommend repeating C diff , unlikely to show any changes , it doesnt refelct patients clinical improvement - Continue oral vancomycin 500 milligrams every 6 hours until 07/04/24 and will monitor off all antibiotics after that point - Recommend given patients diagnosis have outpatient follow up with hematology and oncology to undergo necessary chemotheray radiation - Defer to surgery for postoperative management and need for any additional intervention or surgery. - Monitor patient closely as he responds to antibiotic therapy. - Follow up on blood cultures. Dietary Evaluation Review Comments: 1) Increase TPN to meet at least 75% of estimated needs 2) Advance pt diet when medically feasible to a 2gm Sodium diet 3) Continue current plan of care Expected Outcomes/Goals: 1) Pt to receive adequate nutrition support 2) Pt diet to advance 3) F/U in 2-3 days JOSE LUIS REESE MD Jul 03, 2024 23:45
== END 2024-07-02 16:40 | disposition home or self-care (01) | DRG 720 ==
LOC: ER 17:31 → TELE 20:24 → TELE-EAST 06-19 22:10 → EAST 06-20 17:34 → TELE-EAST 06-26 03:53
PROVIDERS: ADMIT Hospitalist; ATTEND Family Medicine
PROC: 02HV33Z Insertion of Infusion Device into Superior Vena Cava, Percutaneous Approach (ICD-10-PCS; principal; 2024-06-18)
PROC: B548ZZA Ultrasonography of Superior Vena Cava, Guidance (ICD-10-PCS; 2024-06-18)
DX: A41.4 Sepsis due to anaerobes (principal); N17.0 Acute kidney failure with tubular necrosis; K63.1 Perforation of intestine (nontraumatic); K65.9 Peritonitis, unspecified; K56.609 Unspecified intestinal obstruction, unspecified as to partial versus complete obstruction; A04.72 Enterocolitis due to Clostridium difficile, not specified as recurrent; I95.9 Hypotension, unspecified; E87.1 Hypo-osmolality and hyponatremia; E86.0 Dehydration; F10.10 Alcohol abuse, uncomplicated; Y90.9 Presence of alcohol in blood, level not specified; R65.20 Severe sepsis without septic shock; E66.9 Obesity, unspecified; E88.09 Other disorders of plasma-protein metabolism, not elsewhere classified; N18.9 Chronic kidney disease, unspecified; I12.9 Hypertensive chronic kidney disease with stage 1 through stage 4 chronic kidney disease, or unspecified chronic kidney disease; Z85.048 Personal history of other malignant neoplasm of rectum, rectosigmoid junction, and anus; Z93.3 Colostomy status; Z90.49 Acquired absence of other specified parts of digestive tract; Z86.73 Personal history of transient ischemic attack (TIA), and cerebral infarction without residual deficits; Z82.49 Family history of ischemic heart disease and other diseases of the circulatory system; Z80.0 Family history of malignant neoplasm of digestive organs; Z79.891 Long term (current) use of opiate analgesic; Z79.899 Other long term (current) drug therapy; Z79.1 Long term (current) use of non-steroidal anti-inflammatories (NSAID); Z68.31 Body mass index [BMI] 31.0-31.9, adult
CPT/HCPCS: 36415; 36569; 71045; 72195; 74176; 74181; 74250; 80048; 80053; 80202; 81001; 82040; 82378; 82565; 82962; 83605; 83690; 83735; 84100; 84478; 84484; 85007; 85025; 85027; 85610; 85730; 87040; 87081; 87205; 87493; 93005; 96365; 96375; 97110; 97116; 97163; 97530; 99291; G0378; J1815; J2248; J2405; J2470; J2543; J3490; J7131